=== PATIENT | female | born 1945 | race Caucasian/White ===

== ENCOUNTER 2019-06-22 15:53 | Outpatient (CLI) | payer MEDICARE, OTHER, SELFPAY ==
--- NOTE | 2019-06-22 | USR_ITS ---
PROCEDURE INFORMATION: Exam: US Soft Tissue Head and Neck, Thyroid Exam date and time: 06/22/2019 4:37 PM Age: 74 years old Clinical indication: Abnormal findings; Abnormal radiologic study of neck; Prior surgery; Surgery date: 6+ months; Surgery type: Right thyroidectomy; Additional info: Hypothyroidism, thyroid nodule TECHNIQUE: Imaging protocol: Real-time ultrasound scan of the neck with image documentation. Exam focused on the thyroid. COMPARISON: US thyroid [id number] 05/10/2018 9:08 AM FINDINGS: Right thyroid lobe: The right thyroid lobe is absent. Left thyroid lobe: The left thyroid lobe measures 3.9 x 1.4 x 1.5 cm. 0.5 cm septated colloid cyst. Additional tiny benign cysts. 0.5 cm calcified nodule in the posterior lobe. Isthmus: The isthmus measures 3.3 mm. US/US thyroid [id number] IMPRESSION: 1. Subcentimeter Ti-rads TR4 nodule in the left thyroid lobe. No follow-up recommended.
== END 2019-06-22 15:54 | disposition home or self-care (01) ==
LOC: RAD 15:57
PROVIDERS: Family Provider Family Medicine; PCP Family Medicine; Visit Provider Family Medicine
DX: D64.9 Anemia, unspecified (principal); E03.9 Hypothyroidism, unspecified; E04.1 Nontoxic single thyroid nodule; I49.3 Ventricular premature depolarization; I10 Essential (primary) hypertension
CPT/HCPCS: 76536

== ENCOUNTER 2020-01-21 15:19 | Outpatient (CLI) | payer MEDICARE, OTHER, SELFPAY ==
--- NOTE | 2020-01-21 15:27 | MM_ITS ---
WS: [id number] BILATERAL SCREENING DIGITAL MAMMOGRAM WITH CAD HISTORY: SCREENING COMPARISON: 12/21/2018, 12/02/2017 and 10/24/2014 Bilateral CC and MLO views submitted. Computer aided detection analyzed. Breast composition: There are scattered areas of fibroglandular density. No suspicious masses, microc alcifications or architectural distortion. Asymmetry with adjacent calcification in the medial LEFT b reast has been stable over multiple prior years. Benign calcifications in each breast. MM/[place] [id number] IMPRESSION: BI-RADS: 2-Benign FOLLOW UP: 1 Year Follow-up
== END 2020-01-21 15:20 | disposition home or self-care (01) ==
PROVIDERS: PCP Family Medicine; Visit Provider Family Medicine
DX: Z12.31 Encounter for screening mammogram for malignant neoplasm of breast (principal)
CPT/HCPCS: 77067

== ENCOUNTER 2020-04-03 10:21 | Outpatient (CLI) | payer MEDICARE, OTHER, SELFPAY ==
--- NOTE | 2020-04-03 10:37 | XR_ITS ---
WS: [id number] Right hip, AP and frog-leg views, AP pelvis, 04/03/2020 Clinical Data: R HIP PAIN- TO INCLUDE PELVIS Comparison: None. Findings: No fractures or dislocations are seen. The right hip hip joint is intact. The soft tissues are not re markable. The adjacent pelvis is normal. Left hip is unremarkable. The SI joints and pubic symphysis are normal. XR/XR hip RT 2-3V wo/w pel* [id number] Impression: Negative AP pelvis and left hip.
== END 2020-04-03 10:22 | disposition home or self-care (01) ==
LOC: RAD 10:27
PROVIDERS: PCP Family Medicine; Visit Provider Family Medicine
DX: M25.551 Pain in right hip (principal)
CPT/HCPCS: 73502

== ENCOUNTER 2020-07-22 07:03 | Inpatient (IN) | payer MEDICARE, OTHER, SELFPAY ==
[2020-07-22] VITALS (98 sets, daily range): BP systolic 71–185; BP diastolic 39–125; PULSE 89–203; RESP 14–39; TEMP 36.8–38.2; O2SAT 79–100; BMI 38.1
--- NOTE | 2020-07-22 07:16 | XRR_ITS ---
PROCEDURE INFORMATION: Exam: XR Chest Exam date and time: 07/22/2020 7:17 AM Age: 75 years old Clinical indication: Cough and dyspnea and shortness of breath; Additional info: Dyspnea/cough TECHNIQUE: Imaging protocol: XR of the chest Views: 1 view. COMPARISON: CR Chest 1 [place] [id number] 10/31/2018 10:04 PM FINDINGS: Tubes, catheters and devices: Surgical clips overlie the cervicothoracic junction right of midline. Lungs: Mild coarsening or thickening of the interstitium lower right lung without focally prominent consolidation. Pleural spaces: Unremarkable. No pleural effusion. No pneumothorax. Heart/Mediastinum: Cardiomediastinal silhouette is similar. Vasculature: Calcified thoracic aorta. Bones/joints: Unremarkable. XR/XR chest 1V portable [id number] IMPRESSION: Mild interstitial thickening right lower lung likely on a chronic basis..
--- NOTE | 2020-07-22 07:29 | ECG_ITS ---
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1945 Requested By: Madan Rush Order Number: [id number] Jamil MD: ESPERANZA PRYOR Measurements Intervals [place] Rate: 115 P: -7 NM: 138 QRS: -45 QRSD: 145 T: 85 QT: 355 QTc: 493 Interpretive Statements SINUS TACHYCARDIA LEFT AXIS DEVIATION [QRS AXIS < -30] LEFT BUNDLE BRANCH BLOCK [120+ ms QRS DURATION, 80+ ms Q/S IN V1/V2, 85+ ms R IN I/aVL/V5/V6] Compared to ECG 11/01/2018 05:01:03 Left-axis deviation now present Left bundle-branch block now present Sinus rhythm no longer present Electronically Signed On 07-22-2020 19:58:31 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
--- NOTE | 2020-07-22 07:30 | W.ED.NAVMDI ---
HPI - Nausea/Vomiting/Diarrhea General: Chief complaint: ER Hold Stated complaint: nausea/ vomiting/ chills/ fever Time Seen by Provider: 07/22/20 07:11 History of Present Illness: HPI Narrative: 75-year-old female presents emergency room with fever cough myalgias began 3 to 4 days ago. She is mildly confused as well. She denies any chest pain she has had nausea vomiting and diarrhea. She denies any anosmia. States she received her first Covid vaccine 4 days ago. Is a history of a left bundle branch block. She has seen Dr. Zapien in the past. She is not had any known history of coronary artery disease. MD elicited complaint: nausea, vomiting and diarrhea Onset (ago): day(s) Description of vomiting: watery Description of diarrhea: semi-solid Associated nausea: Yes Associated abdominal pain: No Severity: moderate Exacerbating factors: movement Relieving factors: rest Associated symtoms: Reports altered mental status, cough, fatigue, fevers/chills, anorexia, malaise, myalgias, nausea, palpitations, short of breath and weakness; Denies anxiety, bloating, change in vision, chest pain, diaphoresis, decreased urine output, dizziness, dysuria, epistaxis, fecal incontinence, headache(s), numbness, rash, syncope, tenesmus or tinnitus Review of Systems Const: Reports: fatigue and malaise; Denies: diaphoresis Eyes: Denies: change in vision ENMT: Denies: epistaxis Card: Reports: palpitations; Denies: chest pain or syncope Resp: Denies: dyspnea, productive cough or non-productive cough GI: Reports: nausea; Denies: bloating or fecal incontinence : Denies: dysuria Skin/Breast: Denies: rash or pruritus Neuro: Denies: headache(s) or dizziness Psych: Denies: anxiety PFSH ED PFSH: Medical History (Updated 07/25/20 @ 16:41 by Madan Sifuentes DO) Benign essential HTN Chest pain Dyslipidemia (high LDL; low HDL) Hypertension Left bundle branch block Ventricular arrhythmia Surgical History H/O breast biopsy H/O lumpectomy H/O thyroidectomy History of hysterectomy Hx of tonsillectomy Family History Other Cancer Hypertension Stroke Denies family history of Diabetes Hyperlipidemia Family history of premature coronary artery disease Social History Smoking and tobacco status: never smoked Alcohol intake: never Physical Exam Const: COMMON NORMALS: no acute distress EXAM LIMITATIONS: altered mental status GENERAL APPEARANCE: cooperative and comfortable ORIENTATION/CONSCIOUSNESS: Yes awake, Yes oriented to person, Yes oriented to place and Yes oriented to time HENMT: COMMON NORMALS: normocephalic, atraumatic, hearing grossly normal bilaterally, external ears normal, EAC's normal, TM's normal bilaterally, Normal nasal mucous membranes and turbinates present, moist oral mucous membranes and oropharynx normal HEAD & SCALP: normocephalic and atraumatic NOSE: Normal nasal mucous membranes and turbinates present EXTERNAL EAR: Yes external ears normal EXTERNAL AUDITORY CANAL: EAC's normal TYMPANIC MEMBRANE: TM's normal bilaterally Eye: COMMON NORMALS: Equal, round and reactive pupils present, EOMs intact bilaterally, conjunctivae normal and no scleral icterus CONJUNCTIVA: Yes conjunctivae normal PUPIL: Yes Equal, round and reactive pupils present Neck/C-Spine: COMMON NORMALS: full ROM, no lymphadenopathy, supple and no JVD Lymph: LYMPHATIC: no lymphadenopathy noted and no lymphedema noted Resp: COMMON NORMALS: normal respiratory effort, No retractions, No use of accessory muscles and clear to auscultation bilaterally AUSCULTATION: clear to auscultation bilaterally Cardio: COMMON NORMALS: no JVD, regular rate, regular rhythm and No murmurs present (Cardio) RATE: regular rate RHYTHM: regular rhythm GI: COMMON NORMALS: Soft to palpation and No hepatosplenomegaly present AUSCULTATION: Yes normoactive bowel sounds PALPATION: Yes Soft to palpation, No Tenderness to palpation present (GI), No Guarding due to palpation present (GI) and Yes No hepatosplenomegaly present Extremity: COMMON NORMALS: normal to inspection, capillary refill normal, no clubbing, cyanosis or edema, no calf tenderness and no pedal edema Neuro: SENSORIUM/ORIENTATION: Yes oriented to person, Yes oriented to place and Yes oriented to time Skin: COMMON NORMALS: no rashes or lesions noted GENERAL SKIN EXAM: no rashes or lesions noted Procedures Intubation Time out performed: Yes sedative: Etomidate paralytic: Succinylcholine Laryngoscope: fiber optic video scope Assist Device Used: fiber optic device ET Tube Size: 8.5 ET Tube Uncuffed: No Tube Secured Depth (cm): 22 Tube Secured Location: teeth Tube Placement Confirmation: visualized tube passing through cords, equal breath sounds bilaterally, no breath sounds over epigastrium and confirmation by capnometry Patient Tolerated Procedure: well Intubation Complications: none Course Vital Signs: Vital signs: Vital Signs Temperature 98.2 F 07/25/20 15:15 Pulse Rate 80 07/25/20 15:15 Respiratory Rate 24 H 07/25/20 15:15 Blood Pressure 111/60 07/25/20 15:15 Pulse Oximetry 93 07/25/20 15:15 MDM - Nausea/Vomiting/Diarrhea MDM Narrative: Medical decision making narrative: Initial troponin elevated second troponin markedly elevated heparin was started further work-up done patient appears to be septic as well as having an NSTEMI is also concerned because of her history of diarrhea correlating with this in the respiratory failure that she may have Covid so she was tested for that as well. PCR is pending rapid antigen negative. She was given a fluid bolus because of hypotension and then developed heart failure and went into respiratory failure and was ultimately intubated. Patient has been heparinized is currently stated will transfer to the ICU consult cardiology and hospitalist services. Lab Data: Labs: Lab Results 07/22/20 07/22/20 07/22/20 Range/Units 07:35 07:35 07:35 WBC 9.1 (4.0-10.0) 10^3/ uL RBC 3.93 L (4.1-5.3) 10^6/u L Hgb 11.3 L (11.5-15.3) g/dL Hct 34.0 L (37.0-47.0) % MCV 86.5 (81-99) fL MCH 28.8 (28.0-34.0) pg MCHC 33.2 (30.0-36.0) g/dL RDW 13.5 (12.1-15.1) % Plt Count 112 L (130-400) 10^3/c mm MPV 10.3 (7.4-10.4) fL Neut % (Auto) 91.2 % Lymph % (Auto) 5.3 % Coleman % (Auto) 2.8 % Eos % (Auto) 0.0 % Baso % (Auto) 0.3 % Neut # (Auto) 8.32 H (1.8-7.7) 10^3/u L Lymph # (Auto) 0.5 L (0.8-4.8) 10^3/u L Coleman # (Auto) 0.3 (0.2-0.9) 10^3/u L Eos # (Auto) 0.0 (0.0-0.8) 10^3/u L Baso # (Auto) 0.0 (0.0-0.1) 10^3/u L Nucleated RBC % (a uto) 0 % Nucleated RBCs # 0.0 /100WBC Specimen Type Sample Site ABG pH (7.35-7.45) ABG pCO2 (35-45) mmHg ABG pO2 (80.0-100.0) mmH g ABG HCO3 (22-26) mmol/L ABG O2 Saturation ABG Base Excess (-2.0-2.0) mmol/ L Brandan Test A-a O2 Gradient (5-10) mmHg Hematocrit (37-47) % Hgb O2 Saturation (95-100) % Carboxyhemoglobin (0.4-20.1) %THgb Methemoglobin (0.4-1.5) % Total Hemoglobin (12-16) g/dL Ionized Calcium (1.1-1.4) mmol/L O2 Delivery Device O2 Liters/Min % Steward/Stewardess Economy Class ID Sodium 129 L (136-145) mmol/L Potassium 3.4 L (3.5-5.1) mmol/L Chloride 92 L (98-107) mmol/L Carbon Dioxide 19 L (22-29) mmol/L Anion Gap 21.4 H (5-19) BUN 20 (8-23) mg/dL Creatinine 1.3 H (0.5-0.9) mg/dL GFR Calculation Not Reportable Glucose 143 H (65-115) mg/dL Calculated Osmolal ity 273 L (285-295) mOsm/k g Lactic Acid 2.9 H (0.5-2.2) mmol/L Lactic Acid (Sepsi s) (0.5-2.2) mmol/L Calcium 8.3 L (8.5-10.5) mg/dL Magnesium 1.6 L (1.7-2.3) mg/dL Total Bilirubin 1.2 (0.15-1.2) mg/dL AST 30 (0-32) U/L ALT 15 (0-33) U/L Alkaline Phosphata se 90 (35-105) IU/L Creatine Kinase 262 H (26-192) U/L Troponin T Baselin e (0-10) ng/L Troponin T 120 Min rincon (0-10) ng/L Delta Troponin T (0-10) ABS# Total Protein 6.4 L (6.6-8.7) g/dL Albumin 3.5 (3.5-5.2) g/dL Globulin 2.9 (1.3-4.6) g/dL Lipase 34 (13-60) U/L Urine Color (Yellow) Urine Appearance (CLEAR) Urine pH (5-7) Ur Specific Gravit y (1.005-1.030) Urine Protein (Negative) Urine Glucose (UA) (Normal) Urine Ketones (Negative) Urine Blood (Negative) Urine Nitrate (Negative) Urine Bilirubin (Negative) Urine Urobilinogen (Negative) mg/dL Ur Leukocyte Kinsey ase (Negative) Urine RBC (0-2) /hpf Urine WBC (0-5) /hpf Ur Squamous Epith Cells (0-5) /hpf Amorphous Sediment Urine Bacteria (NONE) /hpf Nasal/Oral COVID-1 9 PCR SARS-CoV-2 Ag (Rap id) (Negative) 07/22/20 07/22/20 07/22/20 Range/Units 07:35 07:45 07:55 WBC (4.0-10.0) 10^3/ uL RBC (4.1-5.3) 10^6/u L Hgb (11.5-15.3) g/dL Hct (37.0-47.0) % MCV (81-99) fL MCH (28.0-34.0) pg MCHC (30.0-36.0) g/dL RDW (12.1-15.1) % Plt Count (130-400) 10^3/c mm MPV (7.4-10.4) fL Neut % (Auto) % Lymph % (Auto) % Coleman % (Auto) % Eos % (Auto) % Baso % (Auto) % Neut # (Auto) (1.8-7.7) 10^3/u L Lymph # (Auto) (0.8-4.8) 10^3/u L Coleman # (Auto) (0.2-0.9) 10^3/u L Eos # (Auto) (0.0-0.8) 10^3/u L Baso # (Auto) (0.0-0.1) 10^3/u L Nucleated RBC % (a uto) % Nucleated RBCs # /100WBC Specimen Type Arterial Sample Site Radial, right ABG pH 7.51 H (7.35-7.45) ABG pCO2 28.0 L (35-45) mmHg ABG pO2 110.0 H (80.0-100.0) mmH g ABG HCO3 22.4 (22-26) mmol/L ABG O2 Saturation 99.3 ABG Base Excess 0.1 (-2.0-2.0) mmol/ L Brandan Test Pos A-a O2 Gradient 0.5 L (5-10) mmHg Hematocrit 32.6 L (37-47) % Hgb O2 Saturation 97.6 (95-100) % Carboxyhemoglobin 0.7 (0.4-20.1) %THgb Methemoglobin 1.1 (0.4-1.5) % Total Hemoglobin 10.6 L (12-16) g/dL Ionized Calcium 1.1 (1.1-1.4) mmol/L O2 Delivery Device Nc O2 Liters/Min 2.0 % Steward/Stewardess Economy Class ID [place] Sodium 129.0 L (136-145) mmol/L Potassium 2.8 L (3.5-5.1) mmol/L Chloride (98-107) mmol/L Carbon Dioxide (22-29) mmol/L Anion Gap (5-19) BUN (8-23) mg/dL Creatinine (0.5-0.9) mg/dL GFR Calculation Glucose 137.0 H (65-115) mg/dL Calculated Osmolal ity (285-295) mOsm/k g Lactic Acid (0.5-2.2) mmol/L Lactic Acid (Sepsi s) (0.5-2.2) mmol/L Calcium (8.5-10.5) mg/dL Magnesium (1.7-2.3) mg/dL Total Bilirubin (0.15-1.2) mg/dL AST (0-32) U/L ALT (0-33) U/L Alkaline Phosphata se (35-105) IU/L Creatine Kinase (26-192) U/L Troponin T Baselin e 127 H* (0-10) ng/L Troponin T 120 Min rincon (0-10) ng/L Delta Troponin T (0-10) ABS# Total Protein (6.6-8.7) g/dL Albumin (3.5-5.2) g/dL Globulin (1.3-4.6) g/dL Lipase (13-60) U/L Urine Color (Yellow) Urine Appearance (CLEAR) Urine pH (5-7) Ur Specific Gravit y (1.005-1.030) Urine Protein (Negative) Urine Glucose (UA) (Normal) Urine Ketones (Negative) Urine Blood (Negative) Urine Nitrate (Negative) Urine Bilirubin (Negative) Urine Urobilinogen (Negative) mg/dL Ur Leukocyte Kinsey ase (Negative) Urine RBC (0-2) /hpf Urine WBC (0-5) /hpf Ur Squamous Epith Cells (0-5) /hpf Amorphous Sediment Urine Bacteria (NONE) /hpf Nasal/Oral COVID-1 9 PCR SARS-CoV-2 Ag (Rap id) Negative (Negative) 07/22/20 07/22/20 07/22/20 Range/Units 09:30 10:00 10:00 WBC (4.0-10.0) 10^3/ uL RBC (4.1-5.3) 10^6/u L Hgb (11.5-15.3) g/dL Hct (37.0-47.0) % MCV (81-99) fL MCH (28.0-34.0) pg MCHC (30.0-36.0) g/dL RDW (12.1-15.1) % Plt Count (130-400) 10^3/c mm MPV (7.4-10.4) fL Neut % (Auto) % Lymph % (Auto) % Coleman % (Auto) % Eos % (Auto) % Baso % (Auto) % Neut # (Auto) (1.8-7.7) 10^3/u L Lymph # (Auto) (0.8-4.8) 10^3/u L Coleman # (Auto) (0.2-0.9) 10^3/u L Eos # (Auto) (0.0-0.8) 10^3/u L Baso # (Auto) (0.0-0.1) 10^3/u L Nucleated RBC % (a uto) % Nucleated RBCs # /100WBC Specimen Type Sample Site ABG pH (7.35-7.45) ABG pCO2 (35-45) mmHg ABG pO2 (80.0-100.0) mmH g ABG HCO3 (22-26) mmol/L ABG O2 Saturation ABG Base Excess (-2.0-2.0) mmol/ L Brandan Test A-a O2 Gradient (5-10) mmHg Hematocrit (37-47) % Hgb O2 Saturation (95-100) % Carboxyhemoglobin (0.4-20.1) %THgb Methemoglobin (0.4-1.5) % Total Hemoglobin (12-16) g/dL Ionized Calcium (1.1-1.4) mmol/L O2 Delivery Device O2 Liters/Min % Steward/Stewardess Economy Class ID Sodium (136-145) mmol/L Potassium (3.5-5.1) mmol/L Chloride (98-107) mmol/L Carbon Dioxide (22-29) mmol/L Anion Gap (5-19) BUN (8-23) mg/dL Creatinine (0.5-0.9) mg/dL GFR Calculation Glucose (65-115) mg/dL Calculated Osmolal ity (285-295) mOsm/k g Lactic Acid (0.5-2.2) mmol/L Lactic Acid (Sepsi s) 1.5 (0.5-2.2) mmol/L Calcium (8.5-10.5) mg/dL Magnesium (1.7-2.3) mg/dL Total Bilirubin (0.15-1.2) mg/dL AST (0-32) U/L ALT (0-33) U/L Alkaline Phosphata se (35-105) IU/L Creatine Kinase (26-192) U/L Troponin T Baselin e (0-10) ng/L Troponin T 120 Min rincon 595.8 H (0-10) ng/L Delta Troponin T 468.8 H* (0-10) ABS# Total Protein (6.6-8.7) g/dL Albumin (3.5-5.2) g/dL Globulin (1.3-4.6) g/dL Lipase (13-60) U/L Urine Color (Yellow) Urine Appearance (CLEAR) Urine pH (5-7) Ur Specific Gravit y (1.005-1.030) Urine Protein (Negative) Urine Glucose (UA) (Normal) Urine Ketones (Negative) Urine Blood (Negative) Urine Nitrate (Negative) Urine Bilirubin (Negative) Urine Urobilinogen (Negative) mg/dL Ur Leukocyte Kinsey ase (Negative) Urine RBC (0-2) /hpf Urine WBC (0-5) /hpf Ur Squamous Epith Cells (0-5) /hpf Amorphous Sediment Urine Bacteria (NONE) /hpf Nasal/Oral COVID-1 9 PCR Not detected SARS-CoV-2 Ag (Rap id) (Negative) 07/22/20 Range/Units 10:20 WBC (4.0-10.0) 10^3/ uL RBC (4.1-5.3) 10^6/u L Hgb (11.5-15.3) g/dL Hct (37.0-47.0) % MCV (81-99) fL MCH (28.0-34.0) pg MCHC (30.0-36.0) g/dL RDW (12.1-15.1) % Plt Count (130-400) 10^3/c mm MPV (7.4-10.4) fL Neut % (Auto) % Lymph % (Auto) % Coleman % (Auto) % Eos % (Auto) % Baso % (Auto) % Neut # (Auto) (1.8-7.7) 10^3/u L Lymph # (Auto) (0.8-4.8) 10^3/u L Coleman # (Auto) (0.2-0.9) 10^3/u L Eos # (Auto) (0.0-0.8) 10^3/u L Baso # (Auto) (0.0-0.1) 10^3/u L Nucleated RBC % (a uto) % Nucleated RBCs # /100WBC Specimen Type Sample Site ABG pH (7.35-7.45) ABG pCO2 (35-45) mmHg ABG pO2 (80.0-100.0) mmH g ABG HCO3 (22-26) mmol/L ABG O2 Saturation ABG Base Excess (-2.0-2.0) mmol/ L Brandan Test A-a O2 Gradient (5-10) mmHg Hematocrit (37-47) % Hgb O2 Saturation (95-100) % Carboxyhemoglobin (0.4-20.1) %THgb Methemoglobin (0.4-1.5) % Total Hemoglobin (12-16) g/dL Ionized Calcium (1.1-1.4) mmol/L O2 Delivery Device O2 Liters/Min % Steward/Stewardess Economy Class ID Sodium (136-145) mmol/L Potassium (3.5-5.1) mmol/L Chloride (98-107) mmol/L Carbon Dioxide (22-29) mmol/L Anion Gap (5-19) BUN (8-23) mg/dL Creatinine (0.5-0.9) mg/dL GFR Calculation Glucose (65-115) mg/dL Calculated Osmolal ity (285-295) mOsm/k g Lactic Acid (0.5-2.2) mmol/L Lactic Acid (Sepsi s) (0.5-2.2) mmol/L Calcium (8.5-10.5) mg/dL Magnesium (1.7-2.3) mg/dL Total Bilirubin (0.15-1.2) mg/dL AST (0-32) U/L ALT (0-33) U/L Alkaline Phosphata se (35-105) IU/L Creatine Kinase (26-192) U/L Troponin T Baselin e (0-10) ng/L Troponin T 120 Min rincon (0-10) ng/L Delta Troponin T (0-10) ABS# Total Protein (6.6-8.7) g/dL Albumin (3.5-5.2) g/dL Globulin (1.3-4.6) g/dL Lipase (13-60) U/L Urine Color Yellow (Yellow) Urine Appearance Cloudy (CLEAR) Urine pH 5 (5-7) Ur Specific Gravit y 1.020 (1.005-1.030) Urine Protein 3+ H (Negative) Urine Glucose (UA) Norm (Normal) Urine Ketones Negative (Negative) Urine Blood 2+ H (Negative) Urine Nitrate Negative (Negative) Urine Bilirubin Neg (Negative) Urine Urobilinogen 1 H (Negative) mg/dL Ur Leukocyte Kinsey ase 2+ H (Negative) Urine RBC 0-4 H (0-2) /hpf Urine WBC Too numerous to c nt H (0-5) /hpf Ur Squamous Epith Cells 0-4 H (0-5) /hpf Amorphous Sediment Not Reportable Urine Bacteria 4+ H (NONE) /hpf Nasal/Oral COVID-1 9 PCR SARS-CoV-2 Ag (Rap id) (Negative) Critical Care Time Critical Care Time: Critical Care Time: Yes Total Critical Care Time: 120 Attestation: This case had a high probability of a clinically significant, sudden, or life threatening deterioration of this patient's condition which required my full and direct attention, intervention and personal management. Discharge Plan Discharge Patient Disposition: Admitted As Inpatient Admit Provider: Chuckie Kasper Clinical Impression: Non-ST elevation myocardial infarction (NSTEMI), Hypotension, Congestive heart failure, Sepsis associated hypotension, Severe sepsis, Dehydration with hyponatremia, Acute respiratory failure with hypoxia, Urinary tract infection, Chronic kidney disease, stage 3, Anemia Condition: Stable Coding Level of Care Code ED Web Applications Developer for 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
[2020-07-22] MEDS: ondansetron 2 mg/ML SDV 2 mL 4 MG IVP (07:36)
[2020-07-22] MEDS: sodium chloride 0.9% 1,000 ML 999 ML IV (07:36)
[2020-07-22 07:58] LABS: Basophils % 0.3 %; Hemoglobin 11.3 g/dL (11.5-15.3); Lymphocytes # 0.5 10^3/uL (0.8-4.8); Lymphocytes % 5.3 %; Mean Corpuscular HGB Conc 33.2 g/dL (30.0-36.0); Mean Corpuscular Hemoglobin 28.8 pg (28.0-34.0); Mean Corpuscular Volume 86.5 fL (81-99); Mean Platelet Volume 10.3 fL (7.4-10.4); Monocytes # 0.3 10^3/uL (0.2-0.9); Monocytes % 2.8 %; Neutrophils # 8.32 10^3/uL (1.8-7.7); Neutrophils % 91.2 %; Nucleated Red Blood Cells % 0 %; Platelet Count 112 10^3/cmm (130-400); Red Blood Count 3.93 10^6/uL (4.1-5.3); Red Cell Distribution Width 13.5 % (12.1-15.1); White Blood Count 9.1 10^3/uL (4.0-10.0)
[2020-07-22 08:06] LABS: ABG PH Result 7.51 (7.35-7.45); Alveolar-Arterial Oxygen Gradi 0.5 mmHg (5-10); Arterial Blood Gas Hematocrit 32.6 % (37-47); Base Excess ABG 0.1 mmol/L (-2.0-2.0); Blood Gas Allen Test Pos; Blood Gas Operator Identificat MONRO; Blood Gas Sample Site Radial, right; Blood Gas Sample Type Arterial; Carboxyhemoglobin 0.7 %THgb (0.4-20.1); HCO3 ABG 22.4 mmol/L (22-26); HGB O2 Sat 97.6 % (95-100); Ionized Calcium Level - ABG 1.1 mmol/L (1.1-1.4); Methemoglobin 1.1 % (0.4-1.5); Oxygen Device NC; Oxygen Saturation ABG 99.3; Potassium Level - ABG 2.8 mmol/L (3.5-5.0); Total Hemoglobin 10.6 g/dL (12-16)
[2020-07-22 08:10] LABS: Alanine Aminotransferase 15 U/L (0-33); Albumin Level 3.5 g/dL (3.5-5.2); Alkaline Phosphatase 90 IU/L (35-105); Anion Gap 21.4 (5-19); Aspartate Amino Transferase 30 U/L (0-32); Blood Urea Nitrogen 20 mg/dL (8-23); Calcium 8.3 mg/dL (8.5-10.5); Carbon Dioxide 19 mmol/L (22-29); Chloride 92 mmol/L (98-107); Creatine Phosphokinase 262 U/L (26-192); Globulin 2.9 g/dL (1.3-4.6); Glucose 143 mg/dL (65-115); Lipase 34 U/L (13-60); Magnesium 1.6 mg/dL (1.7-2.3); Osmolality Calculated 273 mOsm/kg (285-295); Potassium 3.4 mmol/L (3.5-5.1); Sodium 129 mmol/L (136-145); Total Bilirubin 1.2 mg/dL (0.15-1.2); Total Protein 6.4 g/dL (6.6-8.7)
[2020-07-22 08:12] LABS: Lactic Sepsis W/Reflex 2.9 mmol/L (0.5-2.2)
[2020-07-22 08:19] LABS: Troponin(5th) Baseline 127 ng/L (0-10)
[2020-07-22 08:43] LABS: SARS Covid-2 Antigen Negative (Negative)
--- NOTE | 2020-07-22 09:29 | ECG_ITS ---
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1945 Requested By: Madan Rush Order Number: [id number] Reading MD: ESPERANZA PRYOR Measurements Intervals [place] Rate: 90 P: 13 MS: 138 QRS: -33 QRSD: 149 T: 93 QT: 404 QTc: 496 Interpretive Statements SINUS RHYTHM LEFT AXIS DEVIATION [QRS AXIS < -30] LEFT BUNDLE BRANCH BLOCK [120+ ms QRS DURATION, 80+ ms Q/S IN V1/V2, 85+ ms R IN I/aVL/V5/V6] Compared to ECG 07/22/2020 07:17:22 Sinus tachycardia no longer present Electronically Signed On 07-22-2020 20:01:30 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
[2020-07-22 09:38] LABS: Reflex Lactate Order REFLEX LACTIC ORDERD
[2020-07-22] MEDS: levofloxacin-dextrose 5 % 750 MG/150 ML PREMIX 100 MG IV (10:14)
[2020-07-22 10:34] LABS: Lactic Acid level (Lactate) 1.5 mmol/L (0.5-2.2)
[2020-07-22 10:38] LABS: Blood Urine 2+ (Negative); Glucose Urine UA Norm (Normal); Ketones Urine Negative (Negative); Protein Urine 3+ (Negative); Urine Appearance Cloudy (CLEAR); Urine Color Yellow (Yellow); pH Urine 5 (5-7)
[2020-07-22 10:39] LABS: Add Urine Microscopic? YES; Bilirubin Urine Neg (Negative); Leukocyte Esterase Urine 2+ (Negative); Nitrate Urine Negative (Negative); Urobilinogen Urine 1 mg/dL (Negative)
[2020-07-22 10:44] LABS: Troponin 5 2HR 595.8 ng/L (0-10); Troponin 5 2HR Delta 468.8 ABS# (0-10)
[2020-07-22 10:52] LABS: Add Urine Culture? Yes; Bacteria Urine 4+ /hpf; RBC Urine 0-4 /hpf (0-2); Squamous Epithelial Cell Urine 0-4 /hpf (0-5); WBC Urine TOO NUMEROUS TO CNT /hpf (0-5)
[2020-07-22] MEDS: heparin drip 25,000 UNIT/500 ML PREMIX 60.2 UNIT IV (11:05)
[2020-07-22] MEDS: heparin 5,000 unit/mL INJ 1 mL 4000 UNIT IVP (11:06)
--- NOTE | 2020-07-22 12:03 | CT_ITS ---
WS: [id number] CT CHEST ANGIOGRAPHY WITH REFORMATS HISTORY: Tachycardia and dyspnea. TECHNIQUE: Contiguous axial images are obtained through the chest during arterial injection of intrav enous contrast. Images are reconstructed to evaluate the pulmonary arteries. MIP imaging also reviewe d. All CT scans at [facility] use at least one of these dose optimization techniques: aut omated exposure control; mA and/or kV adjustment per patient size (includes targeted exams where dose is matched to clinical indication); or iterative reconstruction. CONTRAST: Visipaque 320; 95 mL IV. DLP: 587.49 mGy.cm COMPARISON: 06/12/2013 Limited opacification of the pulmonary arteries. Centrally and through the lobar branches no pulmonar y embolism. Into the segmental and subsegmental branches the opacification is limited due to breathin g motion artifact. Mild atherosclerosis aorta. Lungs are hyperinflated. Diffuse haziness from edema and CHF. There is significant motion artifact fr om breathing. Stable millimeter nodule RIGHT upper lobe. No significant effusions. Additional stable 11 mm nodule in the RIGHT upper lobe. Mediastinal and hilar lymphadenopathy is probably reactive. Lym ph nodes measure up to 11 mm in diameter. Heart size is mildly enlarged. There is a moderate hiatal h ernia. Increase in thoracic kyphosis. CT/CT angio chest PE protcl [id number] IMPRESSION: 1. Study is significantly limited by motion artifact. 2. No central pulmonary embolism. 3. Chronic emphysema with mild to moderate CHF and fluid overload. 4. Mild cardiomegaly. 5. Moderate hiatal hernia.
[2020-07-22] MEDS: iodixanol 320 mg/mL 100mL Btl IV (12:36)
[2020-07-22] MEDS: propofol 1,000 MG/100 ML INJ 12.5 MG IV (13:08)
--- NOTE | 2020-07-22 13:10 | XRR_ITS ---
PROCEDURE INFORMATION: Exam: XR Chest Exam date and time: 07/22/2020 1:21 PM Age: 75 years old Clinical indication: Device placement; Ett placement (vent status); Additional info: Post intubation TECHNIQUE: Imaging protocol: XR of the chest Views: 1 view. COMPARISON: CR XR chest 1V portable [id number] 07/22/2020 7:21 AM FINDINGS: Tubes, catheters and devices: Endotracheal tube 3.5 cm above the [place]oston. NG tube extends into the stomach. Lungs: Bilateral hilar vascular congestion suggesting pulmonary edema increased since prior examination. No consolidation. Pleural spaces: Unremarkable. No pleural effusion. No pneumothorax. Heart/Mediastinum: Unremarkable. No cardiomegaly. Bones/joints: Unremarkable. XR/XR chest 1V portable [id number] IMPRESSION: 1. Bilateral hilar pulmonary edema 2. Endotracheal tube is above the boston. 3. NG tube is in the stomach.
[2020-07-22] MEDS: propofol 10 mg/mL SDV 20 mL 50 MG IVP (13:11)
[2020-07-22] MEDS: propofol 10 mg/mL SDV 20 mL 30 MG IVP (13:20)
[2020-07-22] MEDS: fentaNYL 50 mcg/mL INJ 2mL 100 MCG IVP (13:21)
[2020-07-22] MEDS: succinylcholine 20 mg/mL SDV 10mL 120 MG IVP (13:28)
--- NOTE | 2020-07-22 13:29 | ECG_ITS ---
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1945 Requested By: Madan Rush Order Number: [id number] Reading MD: ESPERANZA PRYOR Measurements Intervals [place] Rate: 134 P: -67 MS: 119 QRS: -23 QRSD: 137 T: 86 QT: 306 QTc: 458 Interpretive Statements JUNCTIONAL TACHYCARDIA LEFT BUNDLE BRANCH BLOCK [120+ ms QRS DURATION, 80+ ms Q/S IN V1/V2, 85+ ms R IN I/aVL/V5/V6] Compared to ECG 07/22/2020 09:54:06 Junctional tachycardia now present Sinus rhythm no longer present Left-axis deviation no longer present Electronically Signed On 07-22-2020 20:01:17 TOWN MANAGER by ESPERANZA PRYOR [id number] f
--- NOTE | 2020-07-22 13:38 | PC.NURSE ---
Rounded on pt at 1255 d/t elevated HR. Pt was noted to be shaking with sats dropping to 68% on oxygen. Pt placed on 15L NRB with improvement to 80s. Pt was intubated by Dr Sifuentes. See MAR for med administration times. Pt intubated with 8.5Fr tube at 1302, 22 at the gumline. OG placed at 1307, XR for placement at 1313. Pt was given 2 IVP bolus doses of Propofol for sedation by Dr Sifuentes. See vs flowsheet. Vent settings upon intubation as follows: TV 450, RR 14, FiO2 100%, PEEP 10.
--- NOTE | 2020-07-22 13:53 | PC.NURSE ---
2nd EKG was done at 1321 to show Junctional Tachycardia
[2020-07-22 14:18] LABS: ABG PH Result 7.32 (7.35-7.45); Base Excess ABG -9.6 mmol/L (-2.0-2.0); Blood Gas Allen Test Pos; Blood Gas Operator Identificat MONRO; Blood Gas Sample Site Radial, right; Blood Gas Sample Type Arterial; Carboxyhemoglobin 0.3 %THgb (0.4-20.1); HCO3 ABG 15.3 mmol/L (22-26); HGB O2 Sat 98.9 % (95-100); Ionized Calcium Level - ABG 1.1 mmol/L (1.1-1.4); Oxygen Device VENT; Oxygen Saturation ABG > 100.0; Total Hemoglobin 11.1 g/dL (12-16)
[2020-07-22 14:19] LABS: Alveolar-Arterial Oxygen Gradi 33.1 mmHg (5-10); Blood Gas Tidal Volume 0.45
[2020-07-22 14:54] LABS: Troponin 5 6HR 609.8 ng/L (0-10); Troponin 5 6HR Delta 482.8 ng/L (0-12)
[2020-07-22] MEDS: lidocaine 1% 5 ML in potassium chloride premix 100 ML 25 ML IV (16:46)
[2020-07-22] MEDS: FUROsemide 10 mg/mL SDV 4mL 40 MG IVP (16:50)
--- NOTE | 2020-07-22 18:00 | PM.CONSULT ---
Providers/Reason For Consult Consulting Physican/Specialty*: SARAH Zapien MD/cardiology Reason for Consult*: Patient is elevated troponin T/heart failure Attending Physician: Chuckie Kasper MD Primary Care Provider: Oscar Quigley MD History of Present Illness History of Present Illness Lacey Burgess is a 75 year old female presented to the emergency room today with complaints of nausea, vomiting, diarrhea, low-grade fever and shortness of breath. She was found to have features of sepsis in the emergency room evaluation. She was given IV fluid in the emergency room. She subsequently went into respiratory distress for which she had to be intubated. Currently she is on a vent. She is on 40% of oxygen. Based on the history from the family numbers, she was feeling very sick over the weekend. Initially she started having the nausea and vomiting followed by the diarrhea. She was running a low-grade fever. Yesterday morning, she started having shortness of breath as well. The symptoms were getting worse. She denies any hemoptysis. No hematemesis or melena. She had some abdominal discomfort. No other specific complaints. She has a history of high blood pressure, left bundle branch block, ventricular arrhythmia, dyslipidemia and? CVA. She had a cardiac catheterization many years ago at the [facility] and was told to be okay. She had a myocardial perfusion imaging 5 years ago which was unremarkable. Review of Systems Narrative: CONSTITUTIONAL: No fever or chills. EYES: No blurring of vision or other visual disturbances lately. ENT: No hoarseness of voice, auditory disturbances or sore throat. CARDIOVASCULAR: As mentioned above. RESPIRATORY: Shortness of breath as mentioned above. GASTROINTESTINAL: Nausea, vomiting and diarrhea as mentioned above. GENITOURINARY: No dysuria or hematuria. INTEGUMENTARY: No skin rashes or history of skin cancer. NEURO: No transient ischemic attacks or amaurosis. PSYCHIATRIC: No history of psychosis or major depression. HEMATOLOGIC: No bleeding disorders or significant anemia. ENDOCRINE: No history of polyuria or polydipsia. MUSCULOSKELETAL: No recent joint pain or swelling. ALLERGY/IMMUNOLOGY: As mentioned above. Meds/Allergies Home Medications and Allergies Home Medications Medication Instructions Recorded Confirmed Last Taken Type aspirin 81 mg tablet,delayed 81 mg PO QAM 07/09/19 07/22/20 07/21/20 History release cetirizine 10 mg tablet 10 mg PO BEDTIME tab 07/09/19 07/22/20 Unknown History cholecalciferol (vitamin D3) 50 2,000 unit PO DAILY 07/09/19 07/22/20 Unknown History mcg (2,000 unit) tablet famotidine 40 mg tablet 40 mg PO DAILY 07/09/19 07/22/20 07/21/20 History levothyroxine 25 mcg capsule 25 mcg PO QAM 07/09/19 07/22/20 07/21/20 History polyethylene glycol 3350 17 gram 17 gm PO DAILY PRN 07/09/19 07/22/20 Unknown History oral powder packet docusate sodium 100 mg capsule 200 mg PO DAILY 01/07/20 07/22/20 Unknown History hydrochlorothiazide 12.5 mg tablet 25 mg PO QAM tab 01/07/20 07/22/20 07/21/20 History metoprolol tartrate 25 mg tablet See Rx Instructions .ROUTE 01/21/20 07/22/20 Unknown History .COMPLEX tab acetaminophen [Tylenol Extra 500 mg PO PRN 07/22/20 07/22/20 Unknown History Strength] albuterol sulfate [ProAir HFA] 2 puff INHALATION Q4H PRN 07/22/20 07/22/20 Unknown History Allergies Allergy/AdvReac Type Severity Reaction Status Date / Time codeine Allergy Unknown unknown Verified 07/22/20 12:51 fosinopril [From Monopril] Allergy Unknown unknown Verified 07/22/20 12:51 paroxetine [From Paxil] Allergy Unknown unknown Verified 07/22/20 12:51 Sulfa (Sulfonamide Allergy Unknown unknown Verified 07/22/20 12:51 Antibiotics) Current Medications Current Medications Generic Name Dose Route Start Last Admin Trade Name Freq PRN Reason Stop Dose Admin Heparin Sodium/Sodium Chloride 25,000 unit in 500 mls @ 0 mls/hr 07/22/20 10:45 07/22/20 11:05 Heparin Drip IV 29 unit/kg/hr .Q0M ALFRED 60.2 mls/hr Administration Protocol Per Protocol Propofol 1,000 mg in 100 mls @ 0 mls/hr 07/22/20 13:15 07/22/20 16:59 Diprivan IV Infused .Q0M ALFRED Titration Protocol Per Protocol Midazolam HCl 100 mg/ Sodium 100 mls @ 0 mls/hr 07/22/20 16:30 07/22/20 16:44 Chloride IV 1 mg/hr .Q0M ALFRED 1 mls/hr Administration Protocol Per Protocol PFSH Acute PFSH: Medical History Benign essential HTN Chest pain Dyslipidemia (high LDL; low HDL) Hypertension Left bundle branch block Ventricular arrhythmia Surgical History H/O breast biopsy H/O lumpectomy H/O thyroidectomy History of hysterectomy Hx of tonsillectomy Family History Other Cancer Hypertension Stroke Denies family history of Diabetes Hyperlipidemia Family history of premature coronary artery disease Social History Smoking and tobacco status: never smoked Alcohol intake: never Vitals/I&O/Wt Last Vital Signs Temp 99.5 F 07/22/20 16:01 Pulse 103 H 07/22/20 17:57 Resp 18 07/22/20 17:57 BP 94/59 07/22/20 17:57 Pulse Ox 97 07/22/20 17:57 07/22/20 07/22/20 07/22/20 06:59 14:59 22:59 Intake Total 4268.69 / 4268.69 100 / 4368.69 Balance 4268.69 / 4268.69 100 / 4368.69 Weight last 48 hrs Weight 229 lb Physical Exam Narrative: EXAM NARRATIVE: GENERAL: The patient is currently intubated but is responding to questions appropriately HEENT: No significant pallor, icterus or lymphadenopathy. The pupils are reactant to light. Oral cavity: There are no mucous membrane lesions. Funduscopic examination: Fundus is not visualized NECK: Trachea appears to be central. No masses noted. No JVD or thyromegaly appreciated. No carotid bruit. [] RESPIRATORY: Chest is symmetrical. No intercostals muscle retraction or any accessory muscle activation. There is no chest wall tenderness. Breath sounds are heard bilaterally. Few fine rales at the bases no evidence of any consolidation. [] BREASTS: Deferred. [] HEART: The heart sounds are normal. No S3. S4 present. No significant murmurs. ABDOMEN: No vessel pulsations or distention. No tenderness. No organomegaly appreciated. No abdominal bruit. Bowel sounds are normally heard. [] : Deferred. [] RECTAL: Deferred. [] LYMPHATIC: No lymphadenopathy noted in the neck. EXTREMITIES: No significant edema or cyanosis. Peripheral pulses are palpable but weak bilaterally. MUSCULOSKELETAL: No acute joint deformities or swelling. SKIN: There are no significant rashes. NEUROPSYCHIATRIC: Patient is intubated and minimally sedated. No focal motor deficits. Urinary Catheter Management^: Turner: Cath Placed During This Visit: yes Urinary Catheter Date of Insertion: 07/22/20 Urinary Catheter Time of Insertion: 11:13 Data Micro: Micro: Microbiology 07/22/20 13:20 Gram Stain - Final Sputum - Endotrac heal Wash 07/22/20 10:00 Blood Culture - Pr eliminary Blood SPECIMEN COLLE JOCE 07/22/20 07:35 Blood Culture - Pr eliminary Blood SPECIMEN [facility] A&P Assessment and plan (1) Non-ST elevation myocardial infarction (NSTEMI): Patient has a history of left bundle branch block. Most likely she had a non-ST relation myocardial infarction. For further evaluation of the cardiac status, an echocardiogram would be helpful. She may be started on IV heparin. Also may start her on Plavix, aspirin and a statin. Status: Acute (2) Hypotension: This could be multifactorial. We may use dopamine on a as needed basis. Status: Acute (3) Congestive heart failure: LV dysfunction coupled with the fluid overload might have caused the acute decompensation. Currently she is saturating fairly well. Continue careful IV diuresis Status: Acute (4) Left bundle branch block: She has a chronic intermittent bundle branch block. Status: Acute (5) Ventricular arrhythmia: Currently the patient has no evidence of ventricular arrhythmia. Status: Acute (6) Sepsis associated hypotension: Management as per the primary Status: Acute Additional A&P Information After reviewing the above and also based on the patient's clinical progress, further recommendations will be made. Thank you for the opportunity to evaluate this patient make these recommendations. Consult Attestations Medical Necessity Statement: Patient requires ICU admission for close monitoring and management. Coding Level of Care Code Acute Entrepreneurship Program Director for Daisy Mitchell Diagnoses Non-ST elevation myocardial infarction (NSTEMI) I21.4 Hypotension I95.9 Congestive heart failure I50.9 Left bundle branch block I44.7 Ventricular arrhythmia I49.9 Sepsis associated hypotension A41.9; I95.9
--- NOTE | 2020-07-22 18:13 | USCV_ITS ---
Aditya Lacey Age: 75 Gender: F : 1945 Exam Date: 07/22/2020 18:15 Ordering Phys: Monica Zapien MD ([email or web address]) Technologist: César Emerson Exam Location: [facility] [place] Indication: TX BP: 93 / 60 HR: 110 Rhythm: Sinus Technical Quality: Adequate MEASUREMENTS (Male / Female) Normal Values 2D ECHO LV Diastolic Diameter PLAX 3.9 cm 4.2 - 5.9 / 3.9 - 5.3 cm LV Systolic Diameter PLAX 2.3 cm IVS Diastolic Thickness 0.7 cm 0.6 - 1.0 / 0.6 - 0.9 cm IVS Systolic Thickness 1.4 cm LVPW Diastolic Thickness 1.0 cm 0.6 - 1.0 / 0.6 - 0.9 cm LVPW Systolic Thickness 1.1 cm LVOT Diameter 2.1 cm LV Ejection Fraction 2D Teich 71.8 % LV Ejection Fraction MOD 2C 32.6 % LV Ejection Fraction 2C AL 32.8 % LA Diameter 3.7 cm M-MODE LV Diastolic Diameter MM 3.9 cm 4.2 - 5.9 / 3.9 - 5.3 cm LV Systolic Diameter MM 2.9 cm LV Ejection Fraction MM Teich 50.7 % IVS Diastolic Thickness MM 1.1 cm 0.6 - 1.0 / 0.6 - 0.9 cm IVS Systolic Thickness MM 0.9 cm LVPW Diastolic Thickness MM 1.3 cm 0.6 - 1.0 / 0.6 - 0.9 cm LVPW Systolic Thickness MM 0.0 cm RV Diastolic Diameter MM 1.7 cm Aortic Annulus Diameter 3.3 cm LA Ao Ratio MM 1.3 MV E Point Septal Separation 0.4 cm DOPPLER AV Peak Velocity 140.0 cm/s LVOT Peak Velocity 94.0 cm/s AV Area Cont Eq vti 2.7 cm squared AV Area Cont Eq pk 2.2 cm squared TR Peak Velocity 235.7 cm/s TR Peak Gradient 22.2 mmHg TV Peak E Velocity 95.0 cm/s Right Atrial Pressure 3.0 mmHg Pulmonary Artery Systolic Pressu 25.2 mmHg FINDINGS Left Ventricle Somewhat dyskinetic mid and apical septum and anteroseptal segments. Diffuse hypokinesia of the apex. LV ejection fraction around 40% Right Ventricle The right ventricle appears to be of normal size and ejection fraction. Right Atrium The right atrium is normal in size. Left Atrium The left atrium is normal in size. Mitral Valve Mildly thickened mitral valve. Mild mitral annular calcification. Aortic Valve No gross abnormalities noted . Tricuspid Valve No gross abnormalities noted. Pulmonic Valve Structurally normal pulmonic valve without significant stenosis. There is no pulmonic regurgitation. Pericardium No pericardial effusion. Aorta Normal ascending aorta dimension. CONCLUSIONS Normal LV size with a diminished ejection fraction of 40%. Wall motion abnormalities as mentioned above. Mildly thickened mitral valve. Mild mitral annular calcification. No significant stenotic or regurgitant lesions. Technically somewhat difficult study because of the poor ultrasonic window Dr Monica Zapien MD FACC (Electronically Signed) Final Date: 23 July 2020 06:33 S
--- NOTE | 2020-07-22 18:19 | PM.CONSULT ---
Providers/Reason For Consult Attending Physician: Chuckie Kasper MD Primary Care Provider: Oscar Quigley MD History of Present Illness History of Present Illness Lacey Burgess is a 75 year old female Meds/Allergies Home Medications and Allergies Home Medications Medication Instructions Recorded Confirmed Last Taken Type aspirin 81 mg tablet,delayed 81 mg PO QAM 07/09/19 07/22/20 07/21/20 History release cetirizine 10 mg tablet 10 mg PO BEDTIME tab 07/09/19 07/22/20 Unknown History cholecalciferol (vitamin D3) 50 2,000 unit PO DAILY 07/09/19 07/22/20 Unknown History mcg (2,000 unit) tablet famotidine 40 mg tablet 40 mg PO DAILY 07/09/19 07/22/20 07/21/20 History levothyroxine 25 mcg capsule 25 mcg PO QAM 07/09/19 07/22/20 07/21/20 History polyethylene glycol 3350 17 gram 17 gm PO DAILY PRN 07/09/19 07/22/20 Unknown History oral powder packet docusate sodium 100 mg capsule 200 mg PO DAILY 01/07/20 07/22/20 Unknown History hydrochlorothiazide 12.5 mg tablet 25 mg PO QAM tab 01/07/20 07/22/20 07/21/20 History metoprolol tartrate 25 mg tablet See Rx Instructions .ROUTE 01/21/20 07/22/20 Unknown History .COMPLEX tab acetaminophen [Tylenol Extra 500 mg PO PRN 07/22/20 07/22/20 Unknown History Strength] albuterol sulfate [ProAir HFA] 2 puff INHALATION Q4H PRN 07/22/20 07/22/20 Unknown History Allergies Allergy/AdvReac Type Severity Reaction Status Date / Time codeine Allergy Unknown unknown Verified 07/22/20 12:51 fosinopril [From Monopril] Allergy Unknown unknown Verified 07/22/20 12:51 paroxetine [From Paxil] Allergy Unknown unknown Verified 07/22/20 12:51 Sulfa (Sulfonamide Allergy Unknown unknown Verified 07/22/20 12:51 Antibiotics) Current Medications Current Medications Generic Name Dose Route Start Last Admin Trade Name Freq PRN Reason Stop Dose Admin Heparin Sodium/Sodium Chloride 25,000 unit in 500 mls @ 0 mls/hr 07/22/20 10:45 07/22/20 11:05 Heparin Drip IV 29 unit/kg/hr .Q0M ALFRED 60.2 mls/hr Administration Protocol Per Protocol Propofol 1,000 mg in 100 mls @ 0 mls/hr 07/22/20 13:15 07/22/20 16:59 Diprivan IV Infused .Q0M ALFRED Titration Protocol Per Protocol Midazolam HCl 100 mg/ Sodium 100 mls @ 0 mls/hr 07/22/20 16:30 07/22/20 16:44 Chloride IV 1 mg/hr .Q0M ALFRED 1 mls/hr Administration Protocol Per Protocol PFSH Acute PFSH: Medical History (Updated 07/22/20 @ 19:18 by Chuckie Kasper MD) Benign essential HTN Chest pain Dyslipidemia (high LDL; low HDL) Hypertension Left bundle branch block Ventricular arrhythmia Surgical History H/O breast biopsy H/O lumpectomy H/O thyroidectomy History of hysterectomy Hx of tonsillectomy Family History Other Cancer Hypertension Stroke Denies family history of Diabetes Hyperlipidemia Family history of premature coronary artery disease Social History Smoking and tobacco status: never smoked Alcohol intake: never Vitals/I&O/Wt Last Vital Signs Temp 99.5 F 07/22/20 16:01 Pulse 103 H 07/22/20 17:57 Resp 18 07/22/20 17:57 BP 94/59 07/22/20 17:57 Pulse Ox 97 07/22/20 17:57 07/22/20 07/22/20 07/22/20 06:59 14:59 22:59 Intake Total 4268.69 / 4268.69 100 / 4368.69 Balance 4268.69 / 4268.69 100 / 4368.69 Weight last 48 hrs Weight 229 lb Physical Exam Urinary Catheter Management^: Turner: Cath Placed During This Visit: yes Urinary Catheter Date of Insertion: 07/22/20 Urinary Catheter Time of Insertion: 11:13 Data Micro: Micro: Microbiology 07/22/20 13:20 Gram Stain - Final Sputum - Endotrac heal Wash 07/22/20 10:00 Blood Culture - Pr eliminary Blood SPECIMEN COLLEC JOCE 07/22/20 07:35 Blood Culture - Pr eliminary Blood SPECIMEN COLLE JOCE Coding Level of Care Code Acute Esthetician Permanent Makeup Artist for Daisy Mitchell
--- NOTE | 2020-07-22 18:47 | PM.HP ---
Providers/Chief Complaint Admitting Physician: Chuckie Kasper MD Primary Care Provider: Oscar Quigley MD Chief Complaint: nausea/ vomiting/ chills/ fever History of Present Illness Lacey Burgess is a 75 year old female presents to emerge department with fever, cough myalgia and mild confusion for the last 3 to 4 days. She also noted to have episodes of diarrhea in emergency department. She denies any chest pain, nausea and vomiting when she presented but did complain of left arm pain. She was clinically very dry and hypotensive and was given 3 L of IV fluids. She developed acute hypoxic respite failure with oxygen saturation in the 60s as I was told requiring immediate intubation. She was given Levaquin for urinary tract infection. She was initially started on fentanyl and propofol but because of hypotension propofol was switched to Versed. During my evaluation in ED patient's blood pressure is in low 90s over 60s. She had echocardiogram and EF appears to be 45 to 50% on preliminary report. Patient is sedated, Bowman score 1-2. She had fever 100.7 in ER. She is tachycardic in 120s. Discussed with patient's Bill. He reports that patient had previous history of urinary tract infections and had bladder suspension surgery previously done. Review of Systems Narrative: Unable to obtain since patient is intubated and sedated does not appear to have chest pain but reported left arm pain Medications/Allergies Home Medications Medication Instructions Recorded Confirmed Last Taken Type aspirin 81 mg tablet,delayed 81 mg PO QAM 07/09/19 07/22/20 07/21/20 History release cetirizine 10 mg tablet 10 mg PO BEDTIME tab 07/09/19 07/22/20 Unknown History cholecalciferol (vitamin D3) 50 2,000 unit PO DAILY 07/09/19 07/22/20 Unknown History mcg (2,000 unit) tablet famotidine 40 mg tablet 40 mg PO DAILY 07/09/19 07/22/20 07/21/20 History levothyroxine 25 mcg capsule 25 mcg PO QAM 07/09/19 07/22/20 07/21/20 History polyethylene glycol 3350 17 gram 17 gm PO DAILY PRN 07/09/19 07/22/20 Unknown History oral powder packet docusate sodium 100 mg capsule 200 mg PO DAILY 01/07/20 07/22/20 Unknown History hydrochlorothiazide 12.5 mg tablet 25 mg PO QAM tab 01/07/20 07/22/20 07/21/20 History metoprolol tartrate 25 mg tablet See Rx Instructions .ROUTE 01/21/20 07/22/20 Unknown History .COMPLEX tab acetaminophen [Tylenol Extra 500 mg PO PRN 07/22/20 07/22/20 Unknown History Strength] albuterol sulfate [ProAir HFA] 2 puff INHALATION Q4H PRN 07/22/20 07/22/20 Unknown History Allergies Allergy/AdvReac Type Severity Reaction Status Date / Time codeine Allergy Unknown unknown Verified 07/22/20 12:51 fosinopril [From Monopril] Allergy Unknown unknown Verified 07/22/20 12:51 paroxetine [From Paxil] Allergy Unknown unknown Verified 07/22/20 12:51 Sulfa (Sulfonamide Allergy Unknown unknown Verified 07/22/20 12:51 Antibiotics) PFSH Acute PFSH: Medical History (Updated 07/22/20 @ 19:18 by Chuckie Kasper MD) Benign essential HTN Chest pain Dyslipidemia (high LDL; low HDL) Hypertension Left bundle branch block Ventricular arrhythmia Surgical History H/O breast biopsy H/O lumpectomy H/O thyroidectomy History of hysterectomy Hx of tonsillectomy Family History Other Cancer Hypertension Stroke Denies family history of Diabetes Hyperlipidemia Family history of premature coronary artery disease Social History Smoking and tobacco status: never smoked Alcohol intake: never Vitals/I&O/Wt Last Vital Signs Temp 99.5 F 07/22/20 16:01 Pulse 103 H 07/22/20 17:57 Resp 20 H 07/22/20 18:38 BP 94/59 07/22/20 17:57 Pulse Ox 97 07/22/20 17:57 07/22/20 07/22/20 07/22/20 06:59 14:59 22:59 Intake Total 4268.69 / 4268.69 100 / 4368.69 Balance 4268.69 / 4268.69 100 / 4368.69 Weight last 48 hrs Weight 103.873 kg Physical Exam Narrative: EXAM NARRATIVE: Patient is intubated and sedated. Extraocular muscles are intact and conjunctiva is clear, nonicteric. Mucosa is dry. Neck is supple. No lymphadenopathy appreciated. Heart is regular and lungs are clear. Abdomen is soft and appears to be tender throughout. Positive bowel sounds. Lower extremities show no edema. Neurological exam showed no focal motor deficit on gross examination. Skin without lesions, no joint swelling noted. Good peripheral pulses. Urinary Catheter Management^: Turner: Cath Placed During This Visit: yes Urinary Catheter Date of Insertion: 07/22/20 Urinary Catheter Time of Insertion: 11:13 Data : 07/22/20 07:35 07/22/20 07:35 Micro: Microbiology 07/22/20 13:20 Gram Stain - Final Sputum - Endotracheal Wash 07/22/20 10:00 Blood Culture - Preliminary Blood SPECIMEN COLLECTED 07/22/20 07:35 Blood Culture - Preliminary Blood SPECIMEN COLLECTED A&P Assessment and plan (1) Non-ST elevation myocardial infarction (NSTEMI): Status: Acute (2) Severe sepsis: As exhibited by tachycardia, tachypnea, fever and hypotension. WBC was 9.1 Status: Acute (3) Hypotension: Appears to be multifactorial with dehydration and septic shock playing a role. Status: Acute (4) Dehydration with hyponatremia: Status: Acute (5) Thrombocytopenia: Appears to be related to infection. Status: Acute (6) Acute respiratory failure with hypoxia: Status: Acute (7) Acute systolic heart failure: Status: Acute (8) Urinary tract infection: Status: Acute (9) Hypokalemia: Status: Acute (10) Hypomagnesemia: Status: Acute (11) Obesity (BMI 30-39.9): Status: Acute (12) Dyslipidemia (high LDL; low HDL): Status: Acute (13) Chronic kidney disease, stage 3: Status: Acute Additional A&P Information PLAN: Admit to ICU. We will keep patient intubated throughout night and hopefully if blood pressure improves we can extubate early in the morning. We will continue with LR at 75 mL/h with monitoring of her cardiopulmonary status. She is currently on 40% FiO2 and PEEP of 8 saturating in the mid 90s. We will start patient on Primaxin and vancomycin and await urine culture. Once patient stabilized and extubated we can proceed with further cardiac evaluation. We will continue patient currently on heparin drip with monitoring of hemoglobin and platelets. Discussed with Dr. Zapien who prefers dopamine over Levophed for blood pressure support. Unfortunately cannot use nitroglycerin. Will restart patient's metoprolol in attempt to bring down heart rate. Monitor BP and adjust medications as needed. Keep Turner catheter in for close I's and O's. Patient received contrast today and if tomorrow patient's abdominal pain is not better or if lactic acid comes back significantly elevated we will proceed with CT scan of abdomen and pelvis. Attestations Medical Necessity Statement*: Patient with non-ST elevation AR as well as respiratory failure requires close ICU monitoring and treatment. I expect patient will require more than 2 midnights. Critical Care Time: Critical Care Time (min): 60 Coding Level of Care Code Acute Environmental Services Attendant for Daisy Mitchell Diagnoses Non-ST elevation myocardial infarction (NSTEMI) I21.4 Severe sepsis A41.9; R65.20 Hypotension I95.9 Dehydration with hyponatremia E86.0; E87.1 Thrombocytopenia D69.6 Acute respiratory failure with hypoxia J96.01 Acute systolic heart failure I50.21 Urinary tract infection N39.0 Hypokalemia E87.6 Hypomagnesemia E83.42 Obesity (BMI 30-39.9) E66.9 Dyslipidemia (high LDL; low HDL) E78.5 Chronic kidney disease, stage 3 N18.30
--- NOTE | 2020-07-22 20:00 | PC.NURSE ---
called for Critical PTT greater than 250. Heparin turned off and ptt ordered for 2329. Will monitor for bleeding.
[2020-07-22] MEDS: atorvastatin 40 mg Tablet 80 MG PO (20:05)
[2020-07-22] MEDS: cetirizine 10 mg Tablet PO (20:06)
[2020-07-22] MEDS: lactated ringers 1,000 ML 75 ML IV (20:07)
--- NOTE | 2020-07-22 20:22 | PC.PHAR ---
Vancomycin is dosed at 1250mg IVPB every 24 hours to produce a predicted trough level of 15.09 (population based pharmacokinetic analysis). A trough level has been ordered from the lab to be obtained before the fourth dose to confirm and adjust if needed.
[2020-07-22 20:24] LABS: Lactic Sepsis W/Reflex 1.7 mmol/L (0.5-2.2)
[2020-07-22] MEDS: vancomycin 1,250 MG/250 ML PIGGYBACK 250 MG IV (20:33)
[2020-07-22 21:15] LABS: Partial Thromboplastin Time > 250.0 SECONDS (23.9-36.7)
[2020-07-22] MEDS: DOPamine drip 400 MG/250 ML PREMIX 19.5 MG IV (21:45)
[2020-07-23] VITALS (183 sets, daily range): BP systolic 71–127; BP diastolic 42–85; PULSE 75–161; RESP 14–34; TEMP 36.7; O2SAT 72–100
--- NOTE | 2020-07-23 00:15 | PC.NURSE ---
Will continue to hold heparin for 2 hours due to 179 ptt. NOtified MD. Will redraw PTT at 0230.
[2020-07-23 00:46] LABS: Partial Thromboplastin Time 179.8 SECONDS (23.9-36.7)
[2020-07-23 02:58] LABS: Basophils # 0.1 10^3/uL (0.0-0.1); Basophils % 0.3 %; Eosinophils % 0.1 %; Hematocrit 26.8 % (37.0-47.0); Lymphocytes # 1.3 10^3/uL (0.8-4.8); Lymphocytes % 8.5 %; Mean Corpuscular HGB Conc 33.6 g/dL (30.0-36.0); Mean Corpuscular Hemoglobin 28.8 pg (28.0-34.0); Mean Corpuscular Volume 85.6 fL (81-99); Mean Platelet Volume 10.2 fL (7.4-10.4); Monocytes # 1.8 10^3/uL (0.2-0.9); Neutrophils # 11.46 10^3/uL (1.8-7.7); Nucleated Red Blood Cells % 0 %; Platelet Count 108 10^3/cmm (130-400); Red Blood Count 3.13 10^6/uL (4.1-5.3); Red Cell Distribution Width 14.4 % (12.1-15.1); White Blood Count 14.9 10^3/uL (4.0-10.0)
[2020-07-23] MEDS: metoprolol tartrate 25 mg Tablet OG-TUBE (03:00)
[2020-07-23 03:04] LABS: Partial Thromboplastin Time 69.9 SECONDS (23.9-36.7)
[2020-07-23 03:24] LABS: Alanine Aminotransferase 12 U/L (0-33); Albumin Level 2.6 g/dL (3.5-5.2); Alkaline Phosphatase 115 IU/L (35-105); Anion Gap 15.6 (5-19); Aspartate Amino Transferase 40 U/L (0-32); Blood Urea Nitrogen 23 mg/dL (8-23); Calcium 7.7 mg/dL (8.5-10.5); Carbon Dioxide 19 mmol/L (22-29); Chloride 103 mmol/L (98-107); Glucose 98 mg/dL (65-115); Osmolality Calculated 282 mOsm/kg (285-295); Potassium 3.6 mmol/L (3.5-5.1); Sodium 134 mmol/L (136-145); Total Bilirubin 1.2 mg/dL (0.15-1.2); Total Protein 5.6 g/dL (6.6-8.7)
[2020-07-23 03:33] LABS: Magnesium 2.1 mg/dL (1.7-2.3)
--- NOTE | 2020-07-23 03:37 | PC.NURSE ---
Ptt at 69.9. notified and going to resume heparin at 20 ml/hr and redraw ptt at 0600.
[2020-07-23] MEDS: heparin drip 25,000 UNIT/500 ML PREMIX 20 UNIT IV (03:43)
[2020-07-23 05:27] LABS: ABG PCO2 28.9 mmHg (35-45); Arterial Blood Gas Hematocrit 30.8 % (37-47); Base Excess ABG -5.9 mmol/L (-2.0-2.0); Blood Gas Allen Test Pos; Blood Gas Operator Identificat JB; Blood Gas Sample Site Brachial, right; Blood Gas Sample Type Arterial; Blood Gas Tidal Volume 0.45; HCO3 ABG 17.9 mmol/L (22-26); Oxygen Device VENT
--- NOTE | 2020-07-23 06:54 | P.PN_ITS ---
Subjective Subjective: Interval history: Patient's oxygenation is improving. He is currently on FiO2 30%. Still remains intubated. There are blood pressure was running low through the night. He was started on dopamine drip which was later on switched to Levophed. She also went into atrial fibrillation in the commercial retoucher. Denies any chest pain. She is complaining of epigastric discomfort. No fever or chills. Medications: Reviewed: Yes Medication Review Details: Current Medications Acetaminophen (Acetaminophen 500 Mg Tablet) 500 mg PO Q4H PRN PRN Reason: MILD PAIN OR INCREASE TEMP Albuterol Sulfate (Albuterol 8 Gm Mdi) 2 puff INHALATION Q4H PRN PRN Reason: Shortness Of Breath Aspirin (Aspirin 81 Mg Ec Tablet) 81 mg PO QAM ALFRED Last Admin: 07/23/20 05:27 Dose: Not Given Documented by: Atorvastatin Calcium (Atorvastatin 40 Mg Tablet) 80 mg PO BEDTIME ALFRED Last Admin: 07/22/20 20:05 Dose: 80 mg Documented by: Cetirizine HCl (Cetirizine 10 Mg Tablet) 10 mg PO BEDTIME ALFRED Last Admin: 07/22/20 20:06 Dose: 10 mg Documented by: Heparin Sodium (Beef Lung) (Heparin 5,000 Unit/Ml Inj 1 Ml) 0 unit IV PRN PRN; Protocol PRN Reason: Heparin weight-base protocol Heparin Sodium/Sodium Chloride (Heparin Drip) 25,000 unit in 500 mls @ 0 mls/hr IV .Q0M ALFRED; Protocol Last Admin: 07/23/20 03:43 Dose: 9.63 unit/kg/hr, 20 mls/hr Documented by: Fentanyl 1,000 mcg/ Sodium (Chloride) 100 mls @ 0 mls/hr IV .Q0M ALFRED; Protocol Last Admin: 07/23/20 06:05 Dose: 50 mcg/hr, 5 mls/hr Documented by: Midazolam HCl 100 mg/ Sodium (Chloride) 100 mls @ 0 mls/hr IV .Q0M ALFRED; Protocol Last Titration: 07/22/20 22:00 Dose: 0 mg/hr, 0 mls/hr Documented by: Dopamine HCl/Dextrose (Intropin Drip) 400 mg in 250 mls @ 19.476 mls/hr IV CONT ALFRED; Protocol Last Titration: 07/23/20 03:42 Dose: 0 mcg/kg/min, 0 mls/hr Documented by: Imipenem/Cilastatin Sodium 500 (mg/ Sodium Chloride) 100 mls @ 200 mls/hr IV Q6H [facility]; Protocol Last Infusion: 07/23/20 02:37 Dose: Infused Documented by: Lactated Ringer's (Lactated Ringers) 1,000 mls @ 75 mls/hr IV .[id number] [facility] Last Admin: 07/22/20 20:07 Dose: 75 mls/hr Documented by: Norepinephrine Bitartrate 4 mg (/ Dextrose) 254 mls @ 0 mls/hr IV .Q0M [facility]; Protocol Last Titration: 07/23/20 05:25 Dose: 10 mcg/min, 38.1 mls/hr Documented by: Vancomycin/PEG/NADA/Lysine/Water (Vancocin) 1,250 mg in 250 mls @ 250 mls/hr IV Q24H [facility] Last Infusion: 07/22/20 21:41 Dose: Infused Documented by: Levothyroxine Sodium (Levothyroxine 25 Mcg Tablet) 25 mcg PO QAM [facility] Last Admin: 07/23/20 05:27 Dose: Not Given Documented by: Metoprolol Tartrate (Metoprolol Tartrate 25 Mg Tablet) 25 mg OG-TUBE BID [facility] Last Admin: 07/23/20 03:00 Dose: 25 mg Documented by: Ondansetron HCl (Ondansetron 2 Mg/Ml Sdv 2 Ml) 4 mg IVP Q6H PRN PRN Reason: NAUSEA AND VOMITING Pantoprazole Sodium (Pantoprazole Dr 40 Mg Tablet) 40 mg PO DAILY [facility] Polyethylene Glycol (Polyethylene Glycol 3350 Pkt 17 Gm) 17 gm PO DAILY PRN PRN Reason: Constipation Vitals/I&O/Wt Last Vital Signs Temp 98.2 F 07/22/20 19:10 Pulse 113 H 07/23/20 06:20 Resp 18 07/23/20 06:08 BP 94/71 07/23/20 06:20 Pulse Ox 97 07/23/20 06:20 07/22/20 07/22/20 07/23/20 14:59 22:59 06:59 Intake Total 4268.69 / 4268.69 1112.267 / 5380.957 261.183 / 5642.140 Output Total 700 / 700 800 / 1500 Balance 4268.69 / 4268.69 412.267 / 4680.957 -538.817 / 4142.140 Weight last 48 hrs Weight 229 lb Weight 229 lb Physical Exam Narrative: EXAM NARRATIVE: GENERAL: The patient is currently intubated HEENT: No significant pallor, icterus or lymphadenopathy.Oral cavity: There are no mucous membrane lesions. NECK: Trachea appears to be central. No masses noted. No JVD or thyromegaly appreciated. RESPIRATORY: Chest is symmetrical. No intercostals muscle retraction or any accessory muscle activation. There is no chest wall tenderness. Breath sounds are heard bilaterally. No rales or rhonchi heard. No evidence of any consolidation. BREASTS: Deferred. HEART: The heart sounds are normal. No S3 or S4. No significant murmurs. No pericardial rub ABDOMEN: No vessel pulsations or distention. No tenderness. No organomegaly appreciated. Bowel sounds are normally heard. : Deferred. RECTAL: Deferred. LYMPHATIC: No lymphadenopathy noted in the neck or groin. EXTREMITIES: No edema or cyanosis. No clubbing. Peripheral pulses are palpated in fairly good volume and amplitude MUSCULOSKELETAL: No acute joint deformities or swelling SKIN: There are no significant rashes or ecchymosis NEUROPSYCHIATRIC: The patient is alert and oriented x3. Appears to be in a good mood. No tremors or rigidity noted. Urinary Catheter Management^: Turner: Cath Placed During This Visit: yes Reason for Continuing Indwelling Catheter: Accurate Measurement of Urinary Output in Critically Ill Patients Urinary Catheter Date of Insertion: 07/22/20 Urinary Catheter Time of Insertion: 11:13 Data : 07/23/20 10:36 07/23/20 02:31 Other Labs: Laboratory Last Values WBC 14.9 10^3/uL (4.0-10.0) H 07/23/20 02:31 RBC 3.13 10^6/uL (4.1-5.3) L 07/23/20 02:31 Hgb 9.0 g/dL (11.5-15.3) L 07/23/20 02:31 Hct 26.8 % (37.0-47.0) L 07/23/20 02:31 MCV 85.6 fL (81-99) 07/23/20 02:31 MCH 28.8 pg (28.0-34.0) 07/23/20 02:31 MCHC 33.6 g/dL (30.0-36.0) 07/23/20 02:31 RDW 14.4 % (12.1-15.1) 07/23/20 02:31 Plt Count 108 10^3/cmm (130-400) L 07/23/20 02:31 MPV 10.2 fL (7.4-10.4) 07/23/20 02:31 Neut % (Auto) 77.0 % 07/23/20 02:31 Lymph % (Auto) 8.5 % 07/23/20 02:31 [place] % (Auto) 12.0 % 07/23/20 02:31 Eos % (Auto) 0.1 % 07/23/20 02:31 Baso % (Auto) 0.3 % 07/23/20 02:31 Neut # (Auto) 11.46 10^3/uL (1.8-7.7) H 07/23/20 02:31 Lymph # (Auto) 1.3 10^3/uL (0.8-4.8) 07/23/20 02:31 [place] # (Auto) 1.8 10^3/uL (0.2-0.9) H 07/23/20 02:31 Eos # (Auto) 0.0 10^3/uL (0.0-0.8) 07/23/20 02:31 Baso # (Auto) 0.1 10^3/uL (0.0-0.1) 07/23/20 02:31 Nucleated RBC % (auto) 0 % 07/23/20 02:31 Nucleated RBCs # 0.0 /100WBC 07/23/20 02:31 APTT 69.9 SECONDS (23.9-36.7) H D 07/23/20 02:31 Specimen Type Arterial 07/23/20 05:14 Sample Site Brachial, right 07/23/20 05:14 ABG pH 7.40 (7.35-7.45) 07/23/20 05:14 ABG pCO2 28.9 mmHg (35-45) L 07/23/20 05:14 ABG pO2 131.0 mmHg (80.0-100.0) H 07/23/20 05:14 ABG HCO3 17.9 mmol/L (22-26) L 07/23/20 05:14 ABG O2 Saturation > 100.0 07/22/20 14:05 ABG Base Excess -5.9 mmol/L (-2.0-2.0) L 07/23/20 05:14 Brandan Test Pos 07/23/20 05:14 A-a O2 Gradient 33.1 mmHg (5-10) H 07/22/20 14:05 Hematocrit 30.8 % (37-47) L 07/23/20 05:14 Hgb O2 Saturation 98.9 % (95-100) 07/22/20 14:05 Carboxyhemoglobin 0.3 %THgb (0.4-20.1) L 07/22/20 14:05 Methemoglobin 1.0 % (0.4-1.5) 07/22/20 14:05 Total Hemoglobin 11.1 g/dL (12-16) L 07/22/20 14:05 Sodium 131.0 mmol/L (131-143) 07/22/20 14:05 Potassium 3.0 mmol/L (3.5-5.0) L 07/22/20 14:05 Glucose 100.0 mg/dL (70-115) 07/22/20 14:05 Ionized Calcium 1.1 mmol/L (1.1-1.4) 07/22/20 14:05 O2 Delivery Device Vent 07/23/20 05:14 O2 Liters/Min 2.0 % 07/22/20 07:55 FiO2 40.0 % 07/23/20 05:14 Tidal Volume 0.45 07/23/20 05:14 PEEP 8.0 cmH20 07/23/20 05:14 Sailboat Captain ID Salas 07/23/20 05:14 Sodium 134 mmol/L (136-145) L 07/23/20 02:31 Potassium 3.6 mmol/L (3.5-5.1) 07/23/20 02:31 Chloride 103 mmol/L (98-107) 07/23/20 02:31 Carbon Dioxide 19 mmol/L (22-29) L 07/23/20 02:31 Anion Gap 15.6 (5-19) 07/23/20 02:31 BUN 23 mg/dL (8-23) 07/23/20 02:31 Creatinine 1.4 mg/dL (0.5-0.9) H 07/23/20 02:31 GFR Calculation Not Reportable 07/23/20 02:31 Glucose 98 mg/dL (65-115) 07/23/20 02:31 Calculated Osmolality 282 mOsm/kg (285-295) L 07/23/20 02:31 Lactic Acid 1.7 mmol/L (0.5-2.2) 07/22/20 19:55 Lactic Acid (Sepsis) 1.5 mmol/L (0.5-2.2) 07/22/20 10:00 Calcium 7.7 mg/dL (8.5-10.5) L 07/23/20 02:31 Magnesium 2.1 mg/dL (1.7-2.3) 07/23/20 02:31 Total Bilirubin 1.2 mg/dL (0.15-1.2) 07/23/20 02:31 AST 40 U/L (0-32) H 07/23/20 02:31 ALT 12 U/L (0-33) 07/23/20 02:31 Alkaline Phosphatase 115 IU/L (35-105) H 07/23/20 02:31 Creatine Kinase 262 U/L (26-192) H 07/22/20 07:35 Troponin T Baseline 127 ng/L (0-10) H* 07/22/20 07:35 Troponin T 120 Minute 595.8 ng/L (0-10) H 07/22/20 10:00 Delta Troponin T 468.8 ABS# (0-10) H* 07/22/20 10:00 Troponin T Hi Sens 6Hr 609.8 ng/L (0-10) H 07/22/20 13:56 Troponin T Hi Sens 6Hr Delta 482.8 ng/L (0-12) H* 07/22/20 13:56 Total Protein 5.6 g/dL (6.6-8.7) L 07/23/20 02:31 Albumin 2.6 g/dL (3.5-5.2) L 07/23/20 02:31 Globulin 3.0 g/dL (1.3-4.6) 07/23/20 02:31 Lipase 34 U/L (13-60) 07/22/20 07:35 Urine Color Yellow (Yellow) 07/22/20 10:20 Urine Appearance Cloudy (CLEAR) 07/22/20 10:20 Urine pH 5 (5-7) 07/22/20 10:20 Ur Specific [place] 1.020 (1.005-1.030) 07/22/20 10:20 Urine Protein 3+ (Negative) H 07/22/20 10:20 Urine Glucose (UA) Norm (Normal) 07/22/20 10:20 Urine Ketones Negative (Negative) 07/22/20 10:20 Urine Blood 2+ (Negative) H 07/22/20 10:20 Urine Nitrate Negative (Negative) 07/22/20 10:20 Urine Bilirubin Neg (Negative) 07/22/20 10:20 Urine Urobilinogen 1 mg/dL (Negative) H 07/22/20 10:20 Ur Leukocyte Esterase 2+ (Negative) H 07/22/20 10:20 Urine RBC 0-4 /hpf (0-2) H 07/22/20 10:20 Urine WBC Too numerous to cnt /hpf (0-5) H 07/22/20 10:20 Ur Squamous Epith Cells 0-4 /hpf (0-5) H 07/22/20 10:20 Amorphous Sediment Not Reportable 07/22/20 10:20 Urine Bacteria 4+ /hpf (NONE) H 07/22/20 10:20 SARS-CoV-2 Ag (Rapid) Negative (Negative) 07/22/20 07:45 Micro: Microbiology 07/22/20 10:00 Blood Culture - Preliminary Blood 07/22/20 13:20 Gram Stain - Final Sputum - Endotracheal Wash 07/22/20 07:35 Blood Culture - Preliminary Blood SPECIMEN COLLECTED Echo: My impression: Echocardiogram from 07/23/2019 revealed Normal LV size with a diminished ejection fraction of 40%. Wall motion abnormalities as mentioned above. Mildly thickened mitral valve. Mild mitral annular calcification. No significant stenotic or regurgitant lesions. Technically somewhat difficult study because of the poor ultrasonic window A&P Assessment and plan (1) Atrial fibrillation with rapid ventricular response: She was given a 0.25 mg IV digoxin for rate control. If the patient continues to remain in atrial fibrillation , May consider cardioversion. Status: Acute (2) Non-ST elevation myocardial infarction (NSTEMI): The echocardiogram was reviewed. Patient may benefit from a cardiac catheterization, to further evaluate the coronary status and decide on further management. However we may wait till her infection is properly treated and the hemodynamics get stable. In the meanwhile, she may be continued on Plavix, aspirin, beta-leida and statin Status: Acute (3) Hypotension: This could be multifactorial. She is currently on Levophed. The blood pressure is 149/109. We may gradually taper off the Levophed. Status: Acute Qualifiers: Hypotension type: other hypotension type Qualified Code(s): I95.89 - Other hypotension (4) Congestive heart failure: LV dysfunction coupled with the fluid overload might have caused the acute decompensation. Currently she is saturating fairly well. Continue careful IV diuresis Status: Acute Qualifiers: Heart failure type: systolic Heart failure chronicity: acute Qualified Code(s): I50.21 - Acute systolic (congestive) heart failure (5) Left bundle branch block: She has a chronic intermittent bundle branch block. Status: Acute (6) Ventricular arrhythmia: Currently the patient has no evidence of ventricular arrhythmia. Status: Acute (7) Sepsis associated hypotension: Management as per the primary Status: Acute Additional A&P Information Based on the patient's the clinical progress, further management decisions will be made. Attestations Medical Necessity Statement*: Patient requires continued hospital stay for close monitoring and further management Coding Level of Care Code Acute Sales Management Intern for [facility] Diagnoses Atrial fibrillation with rapid ventricular response I48.91 Non-ST elevation myocardial infarction (NSTEMI) I21.4 Hypotension I95.89 Hypotension type: other hypotension type Congestive heart failure I50.21 Heart failure type: systolic Heart failure chronicity: acute Left bundle branch block I44.7 Ventricular arrhythmia I49.9 Sepsis associated hypotension A41.9; I95.9
--- NOTE | 2020-07-23 07:59 | P.PN_ITS ---
Subjective Subjective: Interval history: Patient went into A. fib around 10 PM yesterday. Metoprolol was given and patient's blood pressure declined therefore dopamine drip was switched to Levophed as I was told. This morning patient denies shortness of breath or chest pain. Reports some lower abdominal discomfort. Patient had good urinary output. WBC increased to 14.9. Platelets slightly down and hemoglobin is at 9.0. Vitals/I&O/Wt Last Vital Signs Temp 98.2 F 07/22/20 19:10 Pulse 113 H 07/23/20 06:20 Resp 20 H 07/23/20 07:35 BP 94/71 07/23/20 06:20 Pulse Ox 97 07/23/20 06:20 07/22/20 07/23/20 07/23/20 22:59 06:59 14:59 Intake Total 1112.267 / 5380.957 261.183 / 5642.140 Output Total 700 / 700 800 / 1500 Balance 412.267 / 4680.957 -538.817 / 4142.140 Weight last 48 hrs Weight 103.873 kg Weight 103.873 kg Physical Exam Narrative: EXAM NARRATIVE: Patient is intubated and sedated but able to follow commands and answer questions. Heart is irregularly irregular. Breath sounds coarse secondary to mechanical ventilation. No lower extremity edema. Abdomen is soft and slightly tender at the lower abdomen Urinary Catheter Management^: Turner: Cath Placed During This Visit: yes Reason for Continuing Indwelling Catheter: Accurate Measurement of Urinary Output in Critically Ill Patients Urinary Catheter Date of Insertion: 07/22/20 Urinary Catheter Time of Insertion: 11:13 Data : 07/23/20 02:31 07/23/20 02:31 Micro: Microbiology 07/22/20 07:35 Blood Culture - Preliminary Blood NEGATIVE TO DATE 07/22/20 10:00 Blood Culture - Preliminary Blood 07/22/20 13:20 Gram Stain - Final Sputum - Endotracheal Wash A&P Assessment and plan (1) Non-ST elevation myocardial infarction (NSTEMI): Status: Acute (2) Severe sepsis: As exhibited by tachycardia, tachypnea, fever and hypotension. WBC was 9.1 Status: Acute (3) Hypotension: Appears to be multifactorial with dehydration and septic shock playing a role. Status: Acute (4) Dehydration with hyponatremia: Status: Acute (5) Thrombocytopenia: Appears to be related to infection. Status: Acute (6) Acute respiratory failure with hypoxia: Status: Acute (7) Acute systolic heart failure: Status: Acute (8) Urinary tract infection: Status: Acute (9) Hypokalemia: Status: Acute (10) Hypomagnesemia: Status: Acute (11) Obesity (BMI 30-39.9): Status: Acute (12) Dyslipidemia (high LDL; low HDL): Status: Acute (13) Chronic kidney disease, stage 3: Status: Acute Additional A&P Information PLAN: Continue weaning off Levophed drip as blood pressure permits. We will increase metoprolol to 50 mg twice daily. Continue IV fluids for now and once Levophed drip weaned off we can stop fluids as well and attempt to extubate. Discussed with Dr. Zapien this morning. Once we stabilize patient and treat infection we will proceed with coronary angiogram. At this point we will continue antibiotics, Primaxin and vancomycin. Awaiting culture results. Attestations Medical Necessity Statement*: Patient with respiratory failure requiring mechanical ventilation requires close ICU monitoring and treatment. Time Spent in Patient Care: Greater than 35 minutes Coding Level of Care Code Acute Head Of Acquisitions for [facility] Fwd Diagnoses Non-ST elevation myocardial infarction (NSTEMI) I21.4 Severe sepsis A41.9; R65.20 Hypotension I95.9 Dehydration with hyponatremia E86.0; E87.1 Thrombocytopenia D69.6 Acute respiratory failure with hypoxia J96.01 Acute systolic heart failure I50.21 Urinary tract infection N39.0 Hypokalemia E87.6 Hypomagnesemia E83.42 Obesity (BMI 30-39.9) E66.9 Dyslipidemia (high LDL; low HDL) E78.5 Chronic kidney disease, stage 3 N18.30
[2020-07-23] MEDS: digoxin 250 mcg/ml INJ 2 mL IVP (08:51)
[2020-07-23] MEDS: pantoprazole DR 40 mg Tablet PO (08:52)
[2020-07-23] MEDS: clopidogrel 300 mg Tablet PO (08:52)
[2020-07-23] MEDS: metoprolol tartrate 25 mg Tablet 50 MG OG-TUBE ×2 (08:52→18:35)
[2020-07-23] MEDS: lactated ringers 1,000 ML 75 ML IV (10:45)
[2020-07-23 10:56] LABS: Basophils # 0.1 10^3/uL (0.0-0.1); Basophils % 0.4 %; Eosinophils % 0.2 %; Hematocrit 27.7 % (37.0-47.0); Hemoglobin 9.2 g/dL (11.5-15.3); Lymphocytes # 1.1 10^3/uL (0.8-4.8); Lymphocytes % 6.9 %; Mean Corpuscular HGB Conc 33.2 g/dL (30.0-36.0); Mean Corpuscular Hemoglobin 28.9 pg (28.0-34.0); Mean Corpuscular Volume 87.1 fL (81-99); Mean Platelet Volume 11.1 fL (7.4-10.4); Monocytes # 2.3 10^3/uL (0.2-0.9); Monocytes % 13.8 %; Neutrophils # 12.75 10^3/uL (1.8-7.7); Neutrophils % 77.6 %; Nucleated Red Blood Cells % 0 %; Platelet Count 123 10^3/cmm (130-400); Red Blood Count 3.18 10^6/uL (4.1-5.3); Red Cell Distribution Width 14.6 % (12.1-15.1); White Blood Count 16.4 10^3/uL (4.0-10.0)
[2020-07-23 14:11] LABS: Coronavirus Test Green County Not Detected
--- NOTE | 2020-07-23 14:42 | PC.NURSE ---
COVID - called and notified of negative test results and visiting hours.
[2020-07-23 15:00] LABS: Partial Thromboplastin Time 61.2 SECONDS (23.9-36.7)
--- NOTE | 2020-07-23 16:29 | PC.PT ---
Patient remains intubated and sedated, nursing recommends hold PT today
[2020-07-23] MEDS: heparin drip 25,000 UNIT/500 ML PREMIX 16 UNIT IV (16:39)
--- NOTE | 2020-07-23 17:14 | PC.NURSE ---
Extubated at [address] Kasper, RT, this nurse, and patient's at bedside. Tolerated well. Placed on 4lnc. Restraints removed. Patient moves all extremities, voice hoarse. Patient requesting food.
--- NOTE | 2020-07-23 18:46 | PC.NURSE ---
Waste Fentanyl/Versed Fentanyl 64.2 ml wasted Versed 76 ml wasted Verified with Radha Bustamante RN.
[2020-07-23] MEDS: vancomycin 1,250 MG/250 ML PIGGYBACK 250 MG IV (20:12)
[2020-07-23] MEDS: atorvastatin 40 mg Tablet 80 MG PO (20:48)
[2020-07-23] MEDS: amiodarone 200 mg Tablet 400 MG PO (20:48)
[2020-07-23] MEDS: cetirizine 10 mg Tablet PO (20:49)
[2020-07-23 21:52] LABS: Partial Thromboplastin Time 146.9 SECONDS (23.9-36.7)
[2020-07-24] VITALS (134 sets, daily range): BP systolic 102–147; BP diastolic 48–91; PULSE 64–99; RESP 6–39; TEMP 36.7–37; O2SAT 84–100
[2020-07-24 04:12] LABS: Basophils % 0.3 %; Eosinophils # 0.1 10^3/uL (0.0-0.8); Eosinophils % 1.1 %; Hemoglobin 8.4 g/dL (11.5-15.3); Lymphocytes # 1.1 10^3/uL (0.8-4.8); Lymphocytes % 11.9 %; Mean Corpuscular HGB Conc 32.3 g/dL (30.0-36.0); Mean Corpuscular Hemoglobin 28.4 pg (28.0-34.0); Mean Corpuscular Volume 87.8 fL (81-99); Mean Platelet Volume 10.6 fL (7.4-10.4); Monocytes # 1.2 10^3/uL (0.2-0.9); Monocytes % 12.9 %; Neutrophils # 6.57 10^3/uL (1.8-7.7); Neutrophils % 73.1 %; Nucleated Red Blood Cells % 0 %; Platelet Count 103 10^3/cmm (130-400); Red Blood Count 2.96 10^6/uL (4.1-5.3); Red Cell Distribution Width 14.6 % (12.1-15.1)
[2020-07-24 04:22] LABS: Partial Thromboplastin Time 63.3 SECONDS (23.9-36.7)
[2020-07-24 04:33] LABS: Alanine Aminotransferase 11 U/L (0-33); Albumin Level 2.6 g/dL (3.5-5.2); Alkaline Phosphatase 56 IU/L (35-105); Anion Gap 12.1 (5-19); Aspartate Amino Transferase 37 U/L (0-32); Blood Urea Nitrogen 21 mg/dL (8-23); Calcium 8.1 mg/dL (8.5-10.5); Carbon Dioxide 22 mmol/L (22-29); Chloride 100 mmol/L (98-107); Globulin 2.9 g/dL (1.3-4.6); Glucose 87 mg/dL (65-115); Osmolality Calculated 274 mOsm/kg (285-295); Potassium 3.1 mmol/L (3.5-5.1); Sodium 131 mmol/L (136-145); Total Bilirubin 0.7 mg/dL (0.15-1.2); Total Protein 5.5 g/dL (6.6-8.7)
[2020-07-24] MEDS: levothyroxine 25 mcg Tablet PO (05:04)
[2020-07-24] MEDS: aspirin 81 mg EC Tablet PO (05:04)
[2020-07-24] MEDS: potassium chloride ER 20 mEq Tablet 40 MEQ PO ×2 (07:35→13:36)
--- NOTE | 2020-07-24 07:50 | P.PN_ITS ---
Subjective Subjective: Interval history: Patient did well and extubated yesterday evening. This morning patient denies any shortness of breath or chest pain. Reports some dry cough. Her voice is still soft post extubation. Reports that she is hungry and wants to eat. She is currently on amiodarone and was given 1 dose of digoxin last evening. She converted back to normal sinus rhythm. She had 650 urinary output since last night her oxygen was brought down to 1 L this morning and she is saturating 97% during my evaluation. She is normotensive with heart rate in the 80s. Her urine is growing gram-negative patric pending identification and susceptibility. Patient was started on Plavix yesterday in addition to aspirin. Her hemoglobin and platelets slightly down. Vitals/I&O/Wt Last Vital Signs Temp 98.1 F 07/23/20 13:40 Pulse 86 07/24/20 07:30 Resp 17 07/24/20 07:30 BP 128/56 07/24/20 06:00 Pulse Ox 97 07/24/20 07:30 07/23/20 07/24/20 07/24/20 22:59 06:59 14:59 Intake Total 1128.365 / 2730.926 220 / 2950.926 Output Total 750 / 750 650 / 1400 Balance 378.365 / 1980.926 -430 / 1550.926 Weight last 48 hrs Weight 103.5 kg Weight 103.873 kg Physical Exam Narrative: EXAM NARRATIVE: Heart is regular and lungs are clear. No lower extremity edema. Abdomen is soft and slightly tender at the lower abdomen. No focal neurological findings. Urinary Catheter Management^: Turner: Cath Placed During This Visit: yes Reason for Continuing Indwelling Catheter: Accurate Measurement of Urinary Output in Critically Ill Patients Urinary Catheter Date of Insertion: 07/22/20 Urinary Catheter Time of Insertion: 11:13 Data : 07/24/20 03:48 07/24/20 03:48 Micro: Microbiology 07/22/20 13:20 Gram Stain - Final Sputum - Endotracheal Wash Sputum Culture - Preliminary 07/22/20 10:20 Urine Culture - Preliminary Urine,Clean Catch Gram Negative Rods 07/22/20 07:35 Blood Culture - Preliminary Blood NEGATIVE TO DATE 07/22/20 10:00 Blood Culture - Preliminary Blood A&P Assessment and plan (1) Non-ST elevation myocardial infarction (NSTEMI): Status: Acute (2) Severe sepsis: Resolved. Status: Acute (3) Hypotension: Resolved Status: Acute Qualifiers: Hypotension type: other hypotension type Qualified Code(s): I95.89 - Other hypotension (4) Dehydration with hyponatremia: Status: Acute (5) Thrombocytopenia: Appears to be related to infection. Status: Acute (6) Acute respiratory failure with hypoxia: Improved Status: Acute (7) Acute systolic heart failure: EF 40%. Suspected Takotsubo syndrome. Currently appears compensated Status: Acute (8) Urinary tract infection: With gram-negative patric. Awaiting identification and susceptibility Status: Acute (9) Hypokalemia: Status: Acute (10) Hypomagnesemia: Status: Acute (11) Obesity (BMI 30-39.9): Status: Acute (12) Dyslipidemia (high LDL; low HDL): Status: Acute (13) Chronic kidney disease, stage 3: Status: Acute Additional A&P Information PLAN: Replete potassium and advance diet. Discussed with Dr. Zapien this morning. Plan is to take patient to [facility] tomorrow and since platelets and hemoglobin slightly down we will go ahead and stop heparin drip. Awaiting culture results. We will get patient out of bed to chair. Will transfer patient out of ICU to cardiac stepdown unit. Attestations Medical Necessity Statement*: Patient with non-ST elevation LA requires close inpatient monitoring, treatment and evaluation. Time Spent in Patient Care: Greater than 35 minutes Coding Level of Care Code Acute Ager Tender for [facility]wbhakti Diagnoses Non-ST elevation myocardial infarction (NSTEMI) I21.4 Severe sepsis A41.9; R65.20 Hypotension I95.89 Hypotension type: other hypotension type Dehydration with hyponatremia E86.0; E87.1 Thrombocytopenia D69.6 Acute respiratory failure with hypoxia J96.01 Acute systolic heart failure I50.21 Urinary tract infection N39.0 Hypokalemia E87.6 Hypomagnesemia E83.42 Obesity (BMI 30-39.9) E66.9 Dyslipidemia (high LDL; low HDL) E78.5 Chronic kidney disease, stage 3 N18.30
--- NOTE | 2020-07-24 09:06 | PC.CHAP ---
Pastoral Care Encounter/Spiritual Assessment Type of Contact [] Declined log marker visit [] Patient/Family/Request visit [] Outpatient visit [] Follow-up visit [] Physician referral [] Code/Alert [x] Routine visit [] Staff referral [] Actively dying [] Patient sleeping [] Family support [] [] Out of room [] Palliative care [] [] Receiving care in room [] Pre-surgical visit [] Trauma [] Long length of stay [x] ICU visit [] Other: Relational/Emotional Strength [] Patient feels connected with others/family/visitors/staff [] Distress [] Loneliness/isolation [] Abandonment Spirituality of Patient [x] Person of Ilene [] Attends Buddhist of their [place] [] Believes in Prayer [] Reads Bible or Shinto materials [] There are Spiritual issues to be addressed [employer] Interventions [x] Prayer [x] Active listening [x] Non-anxious presence [x] Spiritual/emotional support [] Crisis/trauma care [] Spiritual counseling [] Bereavement support [] Provided bereavement packet [] Provided Bible/devotional materials [] Provided toy/stuffed animal, coloring book to patient or family member [] Provided Communion [] Anointing/[place] [] Salvation [x] Completed spiritual assessment [] Other: Impact on Illness or Injury [] Angry [] Fearful [] Anxious [] Often cries [] Exhaustion [] Unable to work [] Unable to attend holiness [] Unable to walk/stand [] Unable to read [] Unable to drive [] Unable to eat/drink [] Unable to sleep [] Unable to be with family [] Patient intubated [] Other: Summary feeling some better. Time spent with patient 10 min
[2020-07-24] MEDS: clopidogrel 75 mg Tablet PO (09:14)
[2020-07-24] MEDS: amiodarone 200 mg Tablet 400 MG PO ×2 (09:14→18:44)
[2020-07-24] MEDS: pantoprazole DR 40 mg Tablet PO (09:14)
[2020-07-24] MEDS: metoprolol tartrate 50 mg Tablet PO ×2 (09:14→18:44)
--- NOTE | 2020-07-24 09:29 | PM.PN ---
Subjective Subjective: Interval history: Patient was extubated yesterday. She is off the SHAUNA pressors. Complains of feeling very tired. No chest pain. Continues to have some abdominal discomfort. Afebrile. Medications: Reviewed: Yes Medication Review Details: Current Medications Acetaminophen (Acetaminophen 500 Mg Tablet) 500 mg PO Q4H PRN PRN Reason: MILD PAIN OR INCREASE TEMP Albuterol Sulfate (Albuterol 8 Gm Mdi) 2 puff INHALATION Q4H PRN PRN Reason: Shortness Of Breath Amiodarone HCl (Amiodarone 200 Mg Tablet) 400 mg PO BID [facility] Last Admin: 07/24/20 09:14 Dose: 400 mg Documented by: Aspirin (Aspirin 81 Mg Ec Tablet) 81 mg PO QAM [facility] Last Admin: 07/24/20 05:04 Dose: 81 mg Documented by: Atorvastatin Calcium (Atorvastatin 40 Mg Tablet) 80 mg PO BEDTIME [facility] Last Admin: 07/23/20 20:48 Dose: 80 mg Documented by: Cetirizine HCl (Cetirizine 10 Mg Tablet) 10 mg PO BEDTIME [facility] Last Admin: 07/23/20 20:49 Dose: 10 mg Documented by: Clopidogrel Bisulfate (Clopidogrel 75 Mg Tablet) 75 mg PO DAILY [facility] Last Admin: 07/24/20 09:14 Dose: 75 mg Documented by: Fentanyl 1,000 mcg/ Sodium (Chloride) 100 mls @ 0 mls/hr IV .Q0M [facility]; Protocol Last Titration: 07/23/20 18:45 Dose: Infused Documented by: Imipenem/Cilastatin Sodium 500 (mg/ Sodium Chloride) 100 mls @ 200 mls/hr IV Q6H [facility]; Protocol Last Infusion: 07/24/20 08:07 Dose: Infused Documented by: Vancomycin/PEG/NADA/Lysine/Water (Vancocin) 1,250 mg in 250 mls @ 250 mls/hr IV Q24H [facility] Last Infusion: 07/23/20 22:00 Dose: Infused Documented by: Levothyroxine Sodium (Levothyroxine 25 Mcg Tablet) 25 mcg PO QAM [facility] Last Admin: 07/24/20 05:04 Dose: 25 mcg Documented by: Metoprolol Tartrate (Metoprolol Tartrate 50 Mg Tablet) 50 mg PO BID [facility] Last Admin: 07/24/20 09:14 Dose: 50 mg Documented by: Ondansetron HCl (Ondansetron 2 Mg/Ml Sdv 2 Ml) 4 mg IVP Q6H PRN PRN Reason: NAUSEA AND VOMITING Pantoprazole Sodium (Pantoprazole Dr 40 Mg Tablet) 40 mg PO DAILY [facility] Last Admin: 07/24/20 09:14 Dose: 40 mg Documented by: Polyethylene Glycol (Polyethylene Glycol 3350 Pkt 17 Gm) 17 gm PO DAILY PRN PRN Reason: Constipation Potassium Chloride (Potassium Chloride Er 20 Meq Tablet) 40 meq PO Q6H [facility] Stop: 07/24/20 13:31 Last Admin: 07/24/20 07:35 Dose: 40 meq Documented by: Vitals/I&O/Wt Last Vital Signs Temp 98.1 F 07/23/20 13:40 Pulse 94 07/24/20 09:00 Resp 20 H 07/24/20 09:00 BP 117/75 07/24/20 09:00 Pulse Ox 97 07/24/20 09:00 07/23/20 07/24/20 07/24/20 22:59 06:59 14:59 Intake Total 1128.365 / 2730.926 220 / 2950.926 347.467 / 347.467 Output Total 750 / 750 650 / 1400 Balance 378.365 / 1980.926 -430 / 1550.926 347.467 / 347.467 Weight last 48 hrs Weight 228 lb 2.855 oz Weight 229 lb Physical Exam Narrative: EXAM NARRATIVE: GENERAL: The patient is alert and oriented x3. Very lethargic HEENT: No significant pallor, icterus or lymphadenopathy.Oral cavity: There are no mucous membrane lesions. NECK: Trachea appears to be central. No masses noted. No JVD or thyromegaly appreciated. RESPIRATORY: Chest is symmetrical. No intercostals muscle retraction or any accessory muscle activation. There is no chest wall tenderness. Breath sounds are heard bilaterally. No rales or rhonchi heard. No evidence of any consolidation. BREASTS: Deferred. HEART: The heart sounds are normal. No S3 or S4. Short systolic murmur in the left sternal border. No pericardial rub ABDOMEN: No vessel pulsations or distention. Minimal epigastric tenderness. No organomegaly appreciated. Bowel sounds are normally heard. : Deferred. RECTAL: Deferred. LYMPHATIC: No lymphadenopathy noted in the neck or groin. EXTREMITIES: No edema or cyanosis. No clubbing. Peripheral pulses are palpated in fairly good volume and amplitude MUSCULOSKELETAL: No acute joint deformities or swelling SKIN: There are no significant rashes or ecchymosis NEUROPSYCHIATRIC: The patient is alert and oriented x3. Extremely lethargic . No focal motor deficits. Urinary Catheter Management^: Turner: Cath Placed During This Visit: yes Reason for Continuing Indwelling Catheter: Accurate Measurement of Urinary Output in Critically Ill Patients Urinary Catheter Date of Insertion: 07/22/20 Urinary Catheter Time of Insertion: 11:13 Data : 07/24/20 10:50 07/24/20 03:48 Other Labs: Laboratory Last Values WBC 9.0 10^3/uL (4.0-10.0) 07/24/20 03:48 RBC 2.96 10^6/uL (4.1-5.3) L 07/24/20 03:48 Hgb 8.4 g/dL (11.5-15.3) L 07/24/20 03:48 Hct 26.0 % (37.0-47.0) L 07/24/20 03:48 MCV 87.8 fL (81-99) 07/24/20 03:48 MCH 28.4 pg (28.0-34.0) 07/24/20 03:48 MCHC 32.3 g/dL (30.0-36.0) 07/24/20 03:48 RDW 14.6 % (12.1-15.1) 07/24/20 03:48 Plt Count 103 10^3/cmm (130-400) L 07/24/20 03:48 MPV 10.6 fL (7.4-10.4) H 07/24/20 03:48 Neut % (Auto) 73.1 % 07/24/20 03:48 Lymph % (Auto) 11.9 % 07/24/20 03:48 Lamb % (Auto) 12.9 % 07/24/20 03:48 Eos % (Auto) 1.1 % 07/24/20 03:48 Baso % (Auto) 0.3 % 07/24/20 03:48 Neut # (Auto) 6.57 10^3/uL (1.8-7.7) 07/24/20 03:48 Lymph # (Auto) 1.1 10^3/uL (0.8-4.8) 07/24/20 03:48 [place] # (Auto) 1.2 10^3/uL (0.2-0.9) H 07/24/20 03:48 Eos # (Auto) 0.1 10^3/uL (0.0-0.8) 07/24/20 03:48 Baso # (Auto) 0.0 10^3/uL (0.0-0.1) 07/24/20 03:48 Nucleated RBC % (auto) 0 % 07/24/20 03:48 Nucleated RBCs # 0.0 /100WBC 07/24/20 03:48 APTT 63.3 SECONDS (23.9-36.7) H D 07/24/20 03:48 Specimen Type Arterial 07/23/20 05:14 Sample Site Brachial, right 07/23/20 05:14 ABG pH 7.40 (7.35-7.45) 07/23/20 05:14 ABG pCO2 28.9 mmHg (35-45) L 07/23/20 05:14 ABG pO2 131.0 mmHg (80.0-100.0) H 07/23/20 05:14 ABG HCO3 17.9 mmol/L (22-26) L 07/23/20 05:14 ABG O2 Saturation > 100.0 07/22/20 14:05 ABG Base Excess -5.9 mmol/L (-2.0-2.0) L 07/23/20 05:14 Brandan Test Pos 07/23/20 05:14 A-a O2 Gradient 33.1 mmHg (5-10) H 07/22/20 14:05 Hematocrit 30.8 % (37-47) L 07/23/20 05:14 Hgb O2 Saturation 98.9 % (95-100) 07/22/20 14:05 Carboxyhemoglobin 0.3 %THgb (0.4-20.1) L 07/22/20 14:05 Methemoglobin 1.0 % (0.4-1.5) 07/22/20 14:05 Total Hemoglobin 11.1 g/dL (12-16) L 07/22/20 14:05 Sodium 131.0 mmol/L (131-143) 07/22/20 14:05 Potassium 3.0 mmol/L (3.5-5.0) L 07/22/20 14:05 Glucose 100.0 mg/dL (70-115) 07/22/20 14:05 Ionized Calcium 1.1 mmol/L (1.1-1.4) 07/22/20 14:05 O2 Delivery Device Vent 07/23/20 05:14 O2 Liters/Min 2.0 % 07/22/20 07:55 FiO2 40.0 % 07/23/20 05:14 Tidal Volume 0.45 07/23/20 05:14 PEEP 8.0 cmH20 07/23/20 05:14 Editorial Writer ID Salas 07/23/20 05:14 Sodium 131 mmol/L (136-145) L 07/24/20 03:48 Potassium 3.1 mmol/L (3.5-5.1) L 07/24/20 03:48 Chloride 100 mmol/L (98-107) 07/24/20 03:48 Carbon Dioxide 22 mmol/L (22-29) 07/24/20 03:48 Anion Gap 12.1 (5-19) 07/24/20 03:48 BUN 21 mg/dL (8-23) 07/24/20 03:48 Creatinine 1.1 mg/dL (0.5-0.9) H 07/24/20 03:48 GFR Calculation Not Reportable 07/24/20 03:48 Glucose 87 mg/dL (65-115) 07/24/20 03:48 Calculated Osmolality 274 mOsm/kg (285-295) L 07/24/20 03:48 Lactic Acid 1.7 mmol/L (0.5-2.2) 07/22/20 19:55 Lactic Acid (Sepsis) 1.5 mmol/L (0.5-2.2) 07/22/20 10:00 Calcium 8.1 mg/dL (8.5-10.5) L 07/24/20 03:48 Magnesium 2.0 mg/dL (1.7-2.3) 07/24/20 03:48 Total Bilirubin 0.7 mg/dL (0.15-1.2) 07/24/20 03:48 AST 37 U/L (0-32) H 07/24/20 03:48 ALT 11 U/L (0-33) 07/24/20 03:48 Alkaline Phosphatase 56 IU/L (35-105) 07/24/20 03:48 Creatine Kinase 262 U/L (26-192) H 07/22/20 07:35 Troponin T Baseline 127 ng/L (0-10) H* 07/22/20 07:35 Troponin T 120 Minute 595.8 ng/L (0-10) H 07/22/20 10:00 Delta Troponin T 468.8 ABS# (0-10) H* 07/22/20 10:00 Troponin T Hi Sens 6Hr 609.8 ng/L (0-10) H 07/22/20 13:56 Troponin T Hi Sens 6Hr Delta 482.8 ng/L (0-12) H* 07/22/20 13:56 Total Protein 5.5 g/dL (6.6-8.7) L 07/24/20 03:48 Albumin 2.6 g/dL (3.5-5.2) L 07/24/20 03:48 Globulin 2.9 g/dL (1.3-4.6) 07/24/20 03:48 Lipase 34 U/L (13-60) 07/22/20 07:35 Urine Color Yellow (Yellow) 07/22/20 10:20 Urine Appearance Cloudy (CLEAR) 07/22/20 10:20 Urine pH 5 (5-7) 07/22/20 10:20 Ur Specific [place] 1.020 (1.005-1.030) 07/22/20 10:20 Urine Protein 3+ (Negative) H 07/22/20 10:20 Urine Glucose (UA) Norm (Normal) 07/22/20 10:20 Urine Ketones Negative (Negative) 07/22/20 10:20 Urine Blood 2+ (Negative) H 07/22/20 10:20 Urine Nitrate Negative (Negative) 07/22/20 10:20 Urine Bilirubin Neg (Negative) 07/22/20 10:20 Urine Urobilinogen 1 mg/dL (Negative) H 07/22/20 10:20 Ur Leukocyte Esterase 2+ (Negative) H 07/22/20 10:20 Urine RBC 0-4 /hpf (0-2) H 07/22/20 10:20 Urine WBC Too numerous to cnt /hpf (0-5) H 07/22/20 10:20 Ur Squamous Epith Cells 0-4 /hpf (0-5) H 07/22/20 10:20 Amorphous Sediment Not Reportable 07/22/20 10:20 Urine Bacteria 4+ /hpf (NONE) H 07/22/20 10:20 Nasal/Oral COVID-19 PCR Not detected 07/22/20 09:30 SARS-CoV-2 Ag (Rapid) Negative (Negative) 07/22/20 07:45 Micro: Microbiology 07/22/20 10:20 Urine Culture - Final Urine,Clean Catch Escherichia coli 07/22/20 13:20 Gram Stain - Final Sputum - Endotracheal Wash Sputum Culture - Preliminary 07/22/20 07:35 Blood Culture - Preliminary Blood NEGATIVE TO DATE 07/22/20 10:00 Blood Culture - Preliminary Blood A&P Assessment and plan (1) Atrial fibrillation with rapid ventricular response: Patient is currently in sinus rhythm. I may start her on amiodarone 400 mg p.o. twice daily. Status: Acute (2) Non-ST elevation myocardial infarction (NSTEMI): Currently she seems to be fairly stable from a hemodynamic point of view. Because of the anemia and thrombocytopenia, it was decided to hold off on the heparin. May continue with the Plavix and aspirin. Status: Acute (3) Hypotension: Currently she is normotensive. Continue on the current medications. Status: Acute Qualifiers: Hypotension type: other hypotension type Qualified Code(s): I95.89 - Other hypotension (4) Congestive heart failure: Patient may have intermittent decompensated heart failure. May be carefully treated with IV diuretics. Status: Acute Qualifiers: Heart failure chronicity: acute Heart failure type: systolic Qualified Code(s): I50.21 - Acute systolic (congestive) heart failure (5) Left bundle branch block: She has a chronic intermittent bundle branch block. Status: Acute (6) Ventricular arrhythmia: Currently the patient has no evidence of ventricular arrhythmia. Status: Acute (7) Sepsis associated hypotension: Management as per the primary Status: Acute (8) Anemia: This could be multifactorial. Need close follow-up. Consider blood transfusion, if the hemoglobin drops below 8. Status: Acute Additional A&P Information Consider cardiac catheterization, once the infection is appropriately treated and also when the H&H gets stable. Based on the patient's clinical progress and the results of the above, further recommendations will be made. [facility]*: Patient requires continued hospital stay for close monitoring and further management Coding Level of Care Code Acute Private Security Guard for Chg Fwd Diagnoses Atrial fibrillation with rapid ventricular response I48.91 Non-ST elevation myocardial infarction (NSTEMI) I21.4 Hypotension I95.89 Hypotension type: other hypotension type Congestive heart failure I50.21 Heart failure chronicity: acute Heart failure type: systolic Left bundle branch block I44.7 Ventricular arrhythmia I49.9 Sepsis associated hypotension A41.9; I95.9 Anemia D64.9
[2020-07-24 11:01] LABS: Basophils % 0.4 %; Eosinophils # 0.1 10^3/uL (0.0-0.8); Eosinophils % 1.7 %; Lymphocytes # 0.7 10^3/uL (0.8-4.8); Lymphocytes % 9.5 %; Mean Corpuscular HGB Conc 33.3 g/dL (30.0-36.0); Mean Corpuscular Hemoglobin 28.8 pg (28.0-34.0); Mean Corpuscular Volume 86.3 fL (81-99); Mean Platelet Volume 10.5 fL (7.4-10.4); Monocytes # 1.1 10^3/uL (0.2-0.9); Monocytes % 13.4 %; Neutrophils # 5.83 10^3/uL (1.8-7.7); Neutrophils % 74.5 %; Nucleated Red Blood Cells % 0 %; Platelet Count 106 10^3/cmm (130-400); Red Blood Count 3.13 10^6/uL (4.1-5.3); Red Cell Distribution Width 14.9 % (12.1-15.1); White Blood Count 7.8 10^3/uL (4.0-10.0)
[2020-07-24 11:23] LABS: Partial Thromboplastin Time 45.8 SECONDS (23.9-36.7)
[2020-07-24] MEDS: FUROsemide 10 mg/mL SDV 4mL 40 MG IVP ×2 (11:48→17:01)
--- NOTE | 2020-07-24 19:14 | PC.NURSE ---
Patient transferred to CSU 106-1 via bed. Patient transferred to bed with 1 assist, belongings placed at bedside, bedside report given to ZIGGY Mcbride. Family notified. Patient AAOx4, VSS.
[2020-07-24] MEDS: vancomycin 1,250 MG/250 ML PIGGYBACK 250 MG IV (21:08)
[2020-07-24] MEDS: cetirizine 10 mg Tablet PO (21:09)
[2020-07-24] MEDS: atorvastatin 40 mg Tablet 80 MG PO (21:09)
[2020-07-24] MEDS: ondansetron 2 mg/ML SDV 2 mL 4 MG IVP (22:12)
[2020-07-25] VITALS (72 sets, daily range): BP systolic 108–120; BP diastolic 50–70; PULSE 63–86; RESP 15–38; TEMP 36.4–36.8; O2SAT 91–99
[2020-07-25 04:55] LABS: Basophils % 0.4 %; Eosinophils # 0.2 10^3/uL (0.0-0.8); Eosinophils % 2.2 %; Hematocrit 27.5 % (37.0-47.0); Hemoglobin 9.2 g/dL (11.5-15.3); Lymphocytes # 1.3 10^3/uL (0.8-4.8); Lymphocytes % 17.2 %; Mean Corpuscular HGB Conc 33.5 g/dL (30.0-36.0); Mean Corpuscular Hemoglobin 28.7 pg (28.0-34.0); Mean Corpuscular Volume 85.7 fL (81-99); Mean Platelet Volume 10.6 fL (7.4-10.4); Monocytes # 1.2 10^3/uL (0.2-0.9); Monocytes % 16.8 %; Nucleated Red Blood Cells % 0 %; Platelet Count 149 10^3/cmm (130-400); Red Blood Count 3.21 10^6/uL (4.1-5.3); Red Cell Distribution Width 14.6 % (12.1-15.1); White Blood Count 7.4 10^3/uL (4.0-10.0)
[2020-07-25 05:19] LABS: Alanine Aminotransferase 14 U/L (0-33); Albumin Level 2.4 g/dL (3.5-5.2); Alkaline Phosphatase 71 IU/L (35-105); Blood Urea Nitrogen 17 mg/dL (8-23); Carbon Dioxide 22 mmol/L (22-29); Chloride 102 mmol/L (98-107); Globulin 3.7 g/dL (1.3-4.6); Glucose 91 mg/dL (65-115); Magnesium 1.9 mg/dL (1.7-2.3); Osmolality Calculated 279 mOsm/kg (285-295); Sodium 134 mmol/L (136-145); Total Bilirubin 0.6 mg/dL (0.15-1.2); Total Protein 6.1 g/dL (6.6-8.7)
[2020-07-25 05:21] LABS: Anion Gap 13.4 (5-19); Aspartate Amino Transferase 41 U/L (0-32); Potassium 3.4 mmol/L (3.5-5.1)
[2020-07-25] MEDS: aspirin 81 mg EC Tablet PO (06:04)
[2020-07-25] MEDS: levothyroxine 25 mcg Tablet PO (06:04)
[2020-07-25] MEDS: cefTRIAXone 2,000 MG in sodium chloride 0.9% (plus) 50 ML 100 MG IV (09:01)
[2020-07-25] MEDS: pantoprazole DR 40 mg Tablet PO (09:02)
[2020-07-25] MEDS: clopidogrel 75 mg Tablet PO (09:02)
[2020-07-25] MEDS: amiodarone 200 mg Tablet 400 MG PO ×2 (09:02→17:57)
[2020-07-25] MEDS: metoprolol tartrate 50 mg Tablet PO ×2 (09:02→17:57)
--- NOTE | 2020-07-25 09:51 | P.PN_ITS ---
Subjective Subjective: Interval history: The patient is feeling better. She is still very tired and lethargic. Has some amount of dyspnea on exertion. No orthopnea. No fever or chills. Her hemoglobin and platelet counts are improving. No new symptoms. Medications: Reviewed: Yes Medication Review Details: Current Medications Acetaminophen (Acetaminophen 500 Mg Tablet) 500 mg PO Q4H PRN PRN Reason: MILD PAIN OR INCREASE TEMP Albuterol Sulfate (Albuterol 8 Gm Mdi) 2 puff INHALATION Q4H PRN PRN Reason: Shortness Of Breath Amiodarone HCl (Amiodarone 200 Mg Tablet) 400 mg PO BID [facility] Last Admin: 07/25/20 09:02 Dose: 400 mg Documented by: Aspirin (Aspirin 81 Mg Ec Tablet) [facility] Last Admin: 07/25/20 06:04 Dose: 81 mg Documented by: Atorvastatin Calcium (Atorvastatin 40 Mg Tablet) 80 mg PO BEDTIME [facility] Last Admin: 07/24/20 21:09 Dose: 80 mg Documented by: Cetirizine HCl (Cetirizine 10 Mg Tablet) 10 mg PO BEDTIME [facility] Last Admin: 07/24/20 21:09 Dose: 10 mg Documented by: Clopidogrel Bisulfate (Clopidogrel 75 Mg Tablet) 75 mg PO DAILY [facility] Last Admin: 07/25/20 09:02 Dose: 75 mg Documented by: Enoxaparin Sodium (Enoxaparin 40 Mg/0.4 Ml Syringe) 40 mg SUBCUT Q24H [facility] Ceftriaxone Sodium 2,000 mg/ (Sodium Chloride) 50 mls @ 100 mls/hr IV Q24H [facility]; Protocol Last Infusion: 07/25/20 09:09 Dose: 0 mls/hr Documented by: Levothyroxine Sodium (Levothyroxine 25 Mcg Tablet) 25 mcg PO QAM [facility] Last Admin: 07/25/20 06:04 Dose: 25 mcg Documented by: Metoprolol Tartrate (Metoprolol Tartrate 50 Mg Tablet) 50 mg PO BID [facility] Last Admin: 07/25/20 09:02 Dose: 50 mg Documented by: Ondansetron HCl (Ondansetron 2 Mg/Ml Sdv 2 Ml) 4 mg IVP Q6H PRN PRN Reason: NAUSEA AND VOMITING Last Admin: 07/24/20 22:12 Dose: 4 mg Documented by: Pantoprazole Sodium (Pantoprazole Dr 40 Mg Tablet) 40 mg PO DAILY [facility] Last Admin: 07/25/20 09:02 Dose: 40 mg Documented by: Polyethylene Glycol (Polyethylene Glycol 3350 Pkt 17 Gm) 17 gm PO DAILY PRN PRN Reason: Constipation Vitals/I&O/Wt Last Vital Signs Temp 97.6 F 07/25/20 08:00 Pulse 76 07/25/20 08:00 Resp 32 H 07/25/20 08:00 BP 109/66 07/25/20 08:00 Pulse Ox 96 07/25/20 08:00 07/24/20 07/25/20 07/25/20 22:59 06:59 14:59 Intake Total 830 / 1637.467 100 / 1737.467 13.333 / 13.333 Output Total 1999 / 3950 1250 / 5200 Balance -1170 / -2312.533 -1150 / -3462.533 13.333 / 13.333 Weight last 48 hrs Weight 228 lb 2.855 oz Physical Exam Narrative: EXAM NARRATIVE: GENERAL: The patient is alert and oriented x3. lethargic HEENT . Mild pallor. No icterus or lymphadenopathy.Oral cavity: There are no mucous membrane lesions. NECK: Trachea appears to be central. No masses noted. No JVD or thyromegaly appreciated. RESPIRATORY: Chest is symmetrical. No intercostals muscle retraction or any accessory muscle activation. There is no chest wall tenderness. Breath sounds are heard bilaterally. No rales or rhonchi heard. No evidence of any consolidation. BREASTS: Deferred. HEART: The heart sounds are normal. No S3 or S4. Short systolic murmur in the left sternal border. No pericardial rub ABDOMEN: No vessel pulsations or distention. Minimal epigastric tenderness. No organomegaly appreciated. Bowel sounds are normally heard. : Deferred. RECTAL: Deferred. LYMPHATIC: No lymphadenopathy noted in the neck or groin. EXTREMITIES: No edema or cyanosis. No clubbing. Peripheral pulses are palpated in fairly good volume and amplitude MUSCULOSKELETAL: No acute joint deformities or swelling SKIN: There are no significant rashes or ecchymosis NEUROPSYCHIATRIC: The patient is alert and oriented x3. No focal motor deficits. Urinary Catheter Management^: Turner: Cath Placed During This Visit: yes Reason for Continuing Indwelling Catheter: Accurate Measurement of Urinary Output in Critically Ill Patients Urinary Catheter Date of Insertion: 07/22/20 Urinary Catheter Time of Insertion: 11:13 Data : 07/25/20 10:00 07/25/20 04:36 Other Labs: Laboratory Last Values WBC 7.4 10^3/uL (4.0-10.0) 07/25/20 04:36 RBC 3.21 10^6/uL (4.1-5.3) L 07/25/20 04:36 Hgb 9.2 g/dL (11.5-15.3) L 07/25/20 04:36 Hct 27.5 % (37.0-47.0) L 07/25/20 04:36 MCV 85.7 fL (81-99) 07/25/20 04:36 MCH 28.7 pg (28.0-34.0) 07/25/20 04:36 MCHC 33.5 g/dL (30.0-36.0) 07/25/20 04:36 RDW 14.6 % (12.1-15.1) 07/25/20 04:36 Plt Count 149 10^3/cmm (130-400) 07/25/20 04:36 MPV 10.6 fL (7.4-10.4) H 07/25/20 04:36 Neut % (Auto) 61.0 % 07/25/20 04:36 Lymph % (Auto) 17.2 % 07/25/20 04:36 [place] % (Auto) 16.8 % 07/25/20 04:36 Eos % (Auto) 2.2 % 07/25/20 04:36 Baso % (Auto) 0.4 % 07/25/20 04:36 Neut # (Auto) 4.50 10^3/uL (1.8-7.7) 07/25/20 04:36 Lymph # (Auto) 1.3 10^3/uL (0.8-4.8) 07/25/20 04:36 [place] # (Auto) 1.2 10^3/uL (0.2-0.9) H 07/25/20 04:36 Eos # (Auto) 0.2 10^3/uL (0.0-0.8) 07/25/20 04:36 Baso # (Auto) 0.0 10^3/uL (0.0-0.1) 07/25/20 04:36 Nucleated RBC % (auto) 0 % 07/25/20 04:36 Nucleated RBCs # 0.0 /100WBC 07/25/20 04:36 APTT 45.8 SECONDS (23.9-36.7) H 07/24/20 10:50 Specimen Type Arterial 07/23/20 05:14 Sample Site Brachial, right 07/23/20 05:14 ABG pH 7.40 (7.35-7.45) 07/23/20 05:14 ABG pCO2 28.9 mmHg (35-45) L 07/23/20 05:14 ABG pO2 131.0 mmHg (80.0-100.0) H 07/23/20 05:14 ABG HCO3 17.9 mmol/L (22-26) L 07/23/20 05:14 ABG O2 Saturation > 100.0 07/22/20 14:05 ABG Base Excess -5.9 mmol/L (-2.0-2.0) L 07/23/20 05:14 Brandan Test Pos 07/23/20 05:14 A-a O2 Gradient 33.1 mmHg (5-10) H 07/22/20 14:05 Hematocrit 30.8 % (37-47) L 07/23/20 05:14 Hgb O2 Saturation 98.9 % (95-100) 07/22/20 14:05 Carboxyhemoglobin 0.3 %THgb (0.4-20.1) L 07/22/20 14:05 Methemoglobin 1.0 % (0.4-1.5) 07/22/20 14:05 Total Hemoglobin 11.1 g/dL (12-16) L 07/22/20 14:05 Sodium 131.0 mmol/L (131-143) 07/22/20 14:05 Potassium 3.0 mmol/L (3.5-5.0) L 07/22/20 14:05 Glucose 100.0 mg/dL (70-115) 07/22/20 14:05 Ionized Calcium 1.1 mmol/L (1.1-1.4) 07/22/20 14:05 O2 Delivery Device Vent 07/23/20 05:14 O2 Liters/Min 2.0 % 07/22/20 07:55 FiO2 40.0 % 07/23/20 05:14 Tidal Volume 0.45 07/23/20 05:14 PEEP 8.0 cmH20 07/23/20 05:14 Armor Officer ID Salas 07/23/20 05:14 Sodium 134 mmol/L (136-145) L 07/25/20 04:36 Potassium 3.4 mmol/L (3.5-5.1) L 07/25/20 04:36 Chloride 102 mmol/L (98-107) 07/25/20 04:36 Carbon Dioxide 22 mmol/L (22-29) 07/25/20 04:36 Anion Gap 13.4 (5-19) 07/25/20 04:36 BUN 17 mg/dL (8-23) 07/25/20 04:36 Creatinine 1.1 mg/dL (0.5-0.9) H 07/25/20 04:36 GFR Calculation Not Reportable 07/25/20 04:36 Glucose 91 mg/dL (65-115) 07/25/20 04:36 Calculated Osmolality 279 mOsm/kg (285-295) L 07/25/20 04:36 Lactic Acid 1.7 mmol/L (0.5-2.2) 07/22/20 19:55 Lactic Acid (Sepsis) 1.5 mmol/L (0.5-2.2) 07/22/20 10:00 Calcium 8.0 mg/dL (8.5-10.5) L 07/25/20 04:36 Magnesium 1.9 mg/dL (1.7-2.3) 07/25/20 04:36 Total Bilirubin 0.6 mg/dL (0.15-1.2) 07/25/20 04:36 AST 41 U/L (0-32) H 07/25/20 04:36 ALT 14 U/L (0-33) 07/25/20 04:36 Alkaline Phosphatase 71 IU/L (35-105) 07/25/20 04:36 Creatine Kinase 262 U/L (26-192) H 07/22/20 07:35 Troponin T Baseline 127 ng/L (0-10) H* 07/22/20 07:35 Troponin T 120 Minute 595.8 ng/L (0-10) H 07/22/20 10:00 Delta Troponin T 468.8 ABS# (0-10) H* 07/22/20 10:00 Troponin T Hi Sens 6Hr 609.8 ng/L (0-10) H 07/22/20 13:56 Troponin T Hi Sens 6Hr Delta 482.8 ng/L (0-12) H* 07/22/20 13:56 Total Protein 6.1 g/dL (6.6-8.7) L 07/25/20 04:36 Albumin 2.4 g/dL (3.5-5.2) L 07/25/20 04:36 Globulin 3.7 g/dL (1.3-4.6) 07/25/20 04:36 Lipase 34 U/L (13-60) 07/22/20 07:35 Urine Color Yellow (Yellow) 07/22/20 10:20 Urine Appearance Cloudy (CLEAR) 07/22/20 10:20 Urine pH 5 (5-7) 07/22/20 10:20 Ur Specific [place] 1.020 (1.005-1.030) 07/22/20 10:20 Urine Protein 3+ (Negative) H 07/22/20 10:20 Urine Glucose (UA) Norm (Normal) 07/22/20 10:20 Urine Ketones Negative (Negative) 07/22/20 10:20 Urine Blood 2+ (Negative) H 07/22/20 10:20 Urine Nitrate Negative (Negative) 07/22/20 10:20 Urine Bilirubin Neg (Negative) 07/22/20 10:20 Urine Urobilinogen 1 mg/dL (Negative) H 07/22/20 10:20 Ur Leukocyte Esterase 2+ (Negative) H 07/22/20 10:20 Urine RBC 0-4 /hpf (0-2) H 07/22/20 10:20 Urine WBC Too numerous to cnt /hpf (0-5) H 07/22/20 10:20 Ur Squamous Epith Cells 0-4 /hpf (0-5) H 07/22/20 10:20 Amorphous Sediment Not Reportable 07/22/20 10:20 Urine Bacteria 4+ /hpf (NONE) H 07/22/20 10:20 Nasal/Oral COVID-19 PCR Not detected 07/22/20 09:30 SARS-CoV-2 Ag (Rapid) Negative (Negative) 07/22/20 07:45 Micro: Microbiology 07/22/20 10:00 Blood Culture - Preliminary Blood Escherichia coli 07/25/20 07:45 Blood Culture - Preliminary Blood SPECIMEN COLLECTED 07/25/20 07:53 Blood Culture - Preliminary Blood SPECIMEN COLLECTED 07/22/20 13:20 Gram Stain - Final Sputum - Endotracheal Wash Sputum Culture - Final 07/22/20 10:20 Urine Culture - Final Urine,Clean Catch Escherichia coli A&P Assessment and plan (1) Atrial fibrillation with rapid ventricular response: Patient is currently in sinus rhythm. Continue on the amiodarone. We will do an EKG today Status: Acute (2) Non-ST elevation myocardial infarction (NSTEMI): Currently she seems to be fairly stable from a hemodynamic point of view. Because of the anemia and thrombocytopenia, it was decided to hold off on the heparin. May continue with the Plavix and aspirin. Status: Acute (3) Hypotension: Currently she is normotensive. Continue on the current medications. Status: Acute Qualifiers: Hypotension type: other hypotension type Qualified Code(s): I95.89 - Other hypotension (4) Congestive heart failure: Patient may have intermittent decompensated heart failure. May be carefully treated with IV diuretics. Status: Acute Qualifiers: Heart failure chronicity: acute Heart failure type: systolic Qualified Code(s): I50.21 - Acute systolic (congestive) heart failure (5) Left bundle branch block: She has a chronic intermittent bundle branch block. Status: Acute (6) Ventricular arrhythmia: Currently the patient has no evidence of ventricular arrhythmia. Status: Acute (7) Sepsis associated hypotension: Currently has improved. We will continue on the current measures. Status: Acute (8) Anemia: This could be multifactorial. Need close follow-up. Consider blood transfusion, if the hemoglobin drops below 8. Status: Acute Additional A&P Information Patient on the patient's clinical progress and the results of the above, further management decisions will be made . we may go ahead and schedule the patient for the cardiac catheterization on Tuesday. Attestations Medical Necessity Statement*: Patient requires continued hospital stay for close monitoring and further management Coding Level of Care Code Acute [employer] for [facility] Fwd Diagnoses Atrial fibrillation with rapid ventricular response I48.91 Non-ST elevation myocardial infarction (NSTEMI) I21.4 Hypotension I95.89 Hypotension type: other hypotension type Congestive heart failure I50.21 Heart failure chronicity: acute Heart failure type: systolic Left bundle branch block I44.7 Ventricular arrhythmia I49.9 Sepsis associated hypotension A41.9; I95.9 Anemia D64.9
[2020-07-25] MEDS: enoxaparin 40 mg/0.4 mL Syringe SUBCUT (10:01)
[2020-07-25 10:20] LABS: Basophils % 0.4 %; Eosinophils # 0.1 10^3/uL (0.0-0.8); Eosinophils % 1.8 %; Hematocrit 27.8 % (37.0-47.0); Hemoglobin 9.3 g/dL (11.5-15.3); Lymphocytes # 1.1 10^3/uL (0.8-4.8); Lymphocytes % 14.8 %; Mean Corpuscular HGB Conc 33.5 g/dL (30.0-36.0); Mean Corpuscular Hemoglobin 28.7 pg (28.0-34.0); Mean Corpuscular Volume 85.8 fL (81-99); Mean Platelet Volume 10.3 fL (7.4-10.4); Monocytes # 1.2 10^3/uL (0.2-0.9); Neutrophils # 4.66 10^3/uL (1.8-7.7); Neutrophils % 63.9 %; Nucleated Red Blood Cells % 0 %; Platelet Count 147 10^3/cmm (130-400); Red Blood Count 3.24 10^6/uL (4.1-5.3); Red Cell Distribution Width 14.6 % (12.1-15.1); White Blood Count 7.3 10^3/uL (4.0-10.0)
--- NOTE | 2020-07-25 10:53 | PC.NURSE ---
medications rounding delayed due to Iv accesses infiltrated started new IV and proceeded with administration spoke with Dr. pena about possible procedure on this day instructions to continue all medications at this time procedure scheduled for Tuesday07/28/20
--- NOTE | 2020-07-25 13:16 | DCPLANNER ---
IMM completed on 07/25/20 @ [id number]. Copy of rights given to pt.
--- NOTE | 2020-07-25 14:22 | ECG_ITS ---
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 [id number]
--- NOTE | 2020-07-25 14:39 | PM.PN ---
Subjective Subjective: Interval history: The patient is feeling better. Denies shortness of breath or chest pain. Denies abdominal pain at rest but still has some mild tenderness of the lower abdomen on palpation. She is eating meal and denies any difficulty swallowing. Her appetite is coming back. Patient's blood culture is positive for E. coli. Thrombocytopenia resolved. Hemoglobin is stable. Vitals/I&O/Wt Last Vital Signs Temp 97.5 F L 07/25/20 12:00 Pulse 80 07/25/20 12:00 Resp 27 H 07/25/20 12:00 BP 110/67 07/25/20 12:00 Pulse Ox 93 07/25/20 12:00 07/24/20 07/25/20 07/25/20 22:59 06:59 14:59 Intake Total 830 / 1637.467 100 / 1737.467 170.000 / 170.000 Output Total 1999 / 3950 1250 / 5200 Balance -1170 / -2312.533 -1150 / -3462.533 170.000 / 170.000 Weight last 48 hrs Weight 103.5 kg Physical Exam Narrative: EXAM NARRATIVE: Heart is regular and lungs are clear. No lower extremity edema. Abdomen is soft and slightly tender at the lower abdomen. No focal neurological findings. Urinary Catheter Management^: Turner: Cath Placed During This Visit: yes Reason for Continuing Indwelling Catheter: Accurate Measurement of Urinary Output in Critically Ill Patients Urinary Catheter Date of Insertion: 07/22/20 Urinary Catheter Time of Insertion: 11:13 Data : 07/25/20 10:00 07/25/20 04:36 Micro: Microbiology 07/22/20 10:00 Blood Culture - Preliminary Blood Escherichia coli 07/25/20 07:45 Blood Culture - Preliminary Blood SPECIMEN COLLECTED 07/25/20 07:53 Blood Culture - Preliminary Blood SPECIMEN COLLECTED 07/22/20 13:20 Gram Stain - Final Sputum - Endotracheal Wash Sputum Culture - Final A&P Assessment and plan (1) Non-ST elevation myocardial infarction (NSTEMI): Status: Acute (2) Severe sepsis: Resolved. Status: Acute (3) Hypotension: Resolved Status: Acute Qualifiers: Hypotension type: other hypotension type Qualified Code(s): I95.89 - Other hypotension (4) Dehydration with hyponatremia: Status: Acute (5) Thrombocytopenia: Appears to be related to infection. Status: Acute (6) Acute respiratory failure with hypoxia: Improved Status: Acute (7) Acute systolic heart failure: EF 40%. Suspected Takotsubo syndrome. Currently appears compensated Status: Acute (8) Urinary tract infection: Acute pyelonephritis with E. coli. Present on admission. Patient had positive blood culture with E. coli. Status: Acute (9) Hypokalemia: Status: Acute (10) Hypomagnesemia: Status: Acute (11) Obesity (BMI 30-39.9): Status: Acute (12) Dyslipidemia (high LDL; low HDL): Status: Acute (13) Chronic kidney disease, stage 3: Status: Acute Additional A&P Information PLAN: Discussed with Dr. Zapien this morning. Since patient's blood culture was positive we will go ahead and treat patient with IV antibiotic throughout the weekend and plan for coronary angiogram on Tuesday. Change antibiotics to ceftriaxone as E. coli is susceptible. Plan to continue IV antibiotic until Tuesday/Tuesday and consider transitioning to oral if blood culture remains negative. New set of blood cultures was obtained this morning. Attestations Medical Necessity Statement*: Patient was acute pyelonephritis and non-ST elevation [place] requires close inpatient monitoring and treatment and evaluation. Coding Level of Care Code Acute Beater Machine Operator for [facility] Diagnoses Non-ST elevation myocardial infarction (NSTEMI) I21.4 Severe sepsis A41.9; R65.20 Hypotension I95.89 Hypotension type: other hypotension type Dehydration with hyponatremia E86.0; E87.1 Thrombocytopenia D69.6 Acute respiratory failure with hypoxia J96.01 Acute systolic heart failure I50.21 Urinary tract infection N39.0 Hypokalemia E87.6 Hypomagnesemia E83.42 Obesity (BMI 30-39.9) E66.9 Dyslipidemia (high LDL; low HDL) E78.5 Chronic kidney disease, stage 3 N18.30
--- NOTE | 2020-07-25 18:42 | PC.NURSE ---
Pt c/o not being able to have bm. Would like something to help. ZIGGY Mendoza notified. TMSONAL stock
[2020-07-25] MEDS: polyethylene glycol 3350 Pkt 17 gm PO (20:18)
[2020-07-25] MEDS: atorvastatin 40 mg Tablet 80 MG PO (20:19)
[2020-07-25] MEDS: cetirizine 10 mg Tablet PO (20:19)
--- NOTE | 2020-07-25 20:26 | PC.NURSE ---
Received bedside report from Renetta Wooten Rn. Patient resting in bed watching tv. Denies any needs or complaints at this time. Patient currently on room air and SpO2 at 95%. No distress observed. Administered medications as ordered. Patient requested something to help with her bowels. Miralax was given. Discussed all medications with patient and she verbalized complete understanding. No other distress observed.
[2020-07-26] VITALS (10 sets, daily range): BP systolic 111–139; BP diastolic 57–81; PULSE 72–86; RESP 16–26; TEMP 36.4–37.2; O2SAT 95–99
--- NOTE | 2020-07-26 01:42 | PC.NURSE ---
Patient resting with eyes closed. Even, non-labored respirations observed. No distress noted.
[2020-07-26] MEDS: aspirin 81 mg EC Tablet PO (05:08)
[2020-07-26] MEDS: levothyroxine 25 mcg Tablet PO (05:08)
[2020-07-26] MEDS: cefTRIAXone 2,000 MG in sodium chloride 0.9% (plus) 50 ML 100 MG IV (07:54)
--- NOTE | 2020-07-26 08:58 | P.PN_ITS ---
Subjective Subjective: Interval history: Patient is doing well. Denies any shortness of breath or chest pain this morning. Reports very minimal bilateral upper abdominal discomfort but otherwise denies nausea and vomiting. Reports that today she did not pass any gas. She was able to eat her breakfast. Patient reports being constipated Vitals/I&O/Wt Last Vital Signs Temp 98.0 F 07/26/20 08:00 Pulse 80 07/26/20 08:09 Resp 18 07/26/20 08:09 BP 137/76 07/26/20 08:00 Pulse Ox 95 07/26/20 08:09 07/25/20 07/26/20 07/26/20 22:59 06:59 14:59 Intake Total 120 / 290.000 170 / 170 Output Total 175 / 175 Balance -55 / 115.000 170 / 170 Weight last 48 hrs Weight 96.933 kg Physical Exam Narrative: EXAM NARRATIVE: Heart is regular and lungs are clear. No lower extremity edema. Abdomen is soft and nontender. Nondistended. Positive bowel sounds.. No focal neurological findings. Urinary Catheter Management^: Turner: Cath Placed During This Visit: yes, but has since been removed by the nurse Reason for Continuing Indwelling Catheter: Accurate Measurement of Urinary Output in Critically Ill Patients Urinary Catheter Date of Insertion: 07/22/20 Urinary Catheter Time of Insertion: 11:13 Date Urinary Catheter Removed: 07/25/20 Time Urinary Catheter Discontinued: 15:52 Data : 07/25/20 10:00 07/25/20 04:36 Micro: Microbiology 07/25/20 07:45 Blood Culture - Preliminary Blood NEGATIVE TO DATE 07/25/20 07:53 Blood Culture - Preliminary Blood NEGATIVE TO DATE 07/22/20 10:00 Blood Culture - Preliminary Blood Escherichia coli A&P Assessment and plan (1) Non-ST elevation myocardial infarction (NSTEMI): Status: Acute (2) Severe sepsis: Resolved. Status: Acute (3) Hypotension: Resolved Status: Acute (4) Dehydration with hyponatremia: Status: Acute (5) Thrombocytopenia: Appears to be related to infection. Status: Acute (6) Acute respiratory failure with hypoxia: Improved Status: Acute (7) Acute systolic heart failure: EF 40%. Suspected Takotsubo syndrome. Currently appears compensated Status: Acute (8) Urinary tract infection: Acute pyelonephritis with E. coli. Present on admission. Patient had positive blood culture with E. coli. Status: Acute (9) Hypokalemia: Status: Acute (10) Hypomagnesemia: Status: Acute (11) Obesity (BMI 30-39.9): Status: Acute (12) Dyslipidemia (high LDL; low HDL): Status: Acute (13) Chronic kidney disease, stage 3: Status: Acute Additional A&P Information PLAN: Continue current monitoring and treatment and start patient on senna/Colace and lactulose every 6 hours until bowel movement. Patient tried MiraLAX yesterday without much result. Continue with cautious ambulation. Coronary angiogram on Tuesday in a.m. Check labs in a.m. Attestations Medical Necessity Statement*: Patient with non-ST elevation [place] and acute pyelonephritis with bacteremia requires close inpatient monitoring and treatment till deemed safe for discharge. Coding Level of Care Code Acute Research Center Partner for [facility] Fwd Diagnoses Non-ST elevation myocardial infarction (NSTEMI) I21.4 Severe sepsis A41.9; R65.20 Hypotension I95.9 Dehydration with hyponatremia E86.0; E87.1 Thrombocytopenia D69.6 Acute respiratory failure with hypoxia J96.01 Acute systolic heart failure I50.21 Urinary tract infection N39.0 Hypokalemia E87.6 Hypomagnesemia E83.42 Obesity (BMI 30-39.9) E66.9 Dyslipidemia (high LDL; low HDL) E78.5 Chronic kidney disease, stage 3 N18.30
[2020-07-26] MEDS: enoxaparin 40 mg/0.4 mL Syringe SUBCUT (09:00)
[2020-07-26] MEDS: metoprolol tartrate 50 mg Tablet PO ×2 (09:00→18:04)
[2020-07-26] MEDS: pantoprazole DR 40 mg Tablet PO (09:00)
[2020-07-26] MEDS: clopidogrel 75 mg Tablet PO (09:00)
[2020-07-26] MEDS: amiodarone 200 mg Tablet 400 MG PO ×2 (09:00→18:03)
[2020-07-26] MEDS: lactulose oral liq 20 gm/30 mL UDC PO ×3 (09:06→20:42)
[2020-07-26] MEDS: sennosides-docusate Tablet 1 TAB PO ×2 (09:09→18:03)
--- NOTE | 2020-07-26 18:49 | PM.PN ---
Subjective Subjective: Interval history: Patient complaining of constipation but she got the dosage of lactulose, hopefully she thinks she will get relief she denies chest pain. Shortness of breath is better Medications: Reviewed: Yes Medication Review Details: Current Medications Acetaminophen (Acetaminophen 500 Mg Tablet) 500 mg PO Q4H PRN PRN Reason: MILD PAIN OR INCREASE TEMP Albuterol Sulfate (Albuterol 8 Gm Mdi) 2 puff INHALATION Q4H PRN PRN Reason: Shortness Of Breath Amiodarone HCl (Amiodarone 200 Mg Tablet) 400 mg PO BID [facility] Last Admin: 07/25/20 09:02 Dose: 400 mg Documented by: Aspirin (Aspirin 81 Mg Ec Tablet) 81 mg PO QAM [facility] Last Admin: 07/25/20 06:04 Dose: 81 mg Documented by: Atorvastatin Calcium (Atorvastatin 40 Mg Tablet) 80 mg PO BEDTIME [facility] Last Admin: 07/24/20 21:09 Dose: 80 mg Documented by: Cetirizine HCl (Cetirizine 10 Mg Tablet) 10 mg PO BEDTIME [facility] Last Admin: 07/24/20 21:09 Dose: 10 mg Documented by: Clopidogrel Bisulfate (Clopidogrel 75 Mg Tablet) 75 mg PO DAILY [facility] Last Admin: 07/25/20 09:02 Dose: 75 mg Documented by: Enoxaparin Sodium (Enoxaparin 40 Mg/0.4 Ml Syringe) 40 mg SUBCUT Q24H [facility] Ceftriaxone Sodium 2,000 mg/ (Sodium Chloride) 50 mls @ 100 mls/hr IV Q24H [facility]; Protocol Last Infusion: 07/25/20 09:09 Dose: 0 mls/hr Documented by: Levothyroxine Sodium (Levothyroxine 25 Mcg Tablet) 25 mcg PO QAM [facility] Last Admin: 07/25/20 06:04 Dose: 25 mcg Documented by: Metoprolol Tartrate (Metoprolol Tartrate 50 Mg Tablet) 50 mg PO BID [facility] Last Admin: 07/25/20 09:02 Dose: 50 mg Documented by: Ondansetron HCl (Ondansetron 2 Mg/Ml Sdv 2 Ml) 4 mg IVP Q6H PRN PRN Reason: NAUSEA AND VOMITING Last Admin: 07/24/20 22:12 Dose: 4 mg Documented by: Pantoprazole Sodium (Pantoprazole Dr 40 Mg Tablet) 40 mg PO DAILY [facility] Last Admin: 07/25/20 09:02 Dose: 40 mg Documented by: Polyethylene Glycol (Polyethylene Glycol 3350 Pkt 17 Gm) 17 gm PO DAILY PRN PRN Reason: Constipation Vitals/I&O/Wt Last Vital Signs Temp 97.6 F 07/26/20 15:11 Pulse 74 07/26/20 15:11 Resp 22 H 07/26/20 15:11 BP 139/81 07/26/20 15:11 Pulse Ox 96 07/26/20 15:11 07/26/20 07/26/20 07/26/20 06:59 14:59 22:59 Intake Total 650 / 650 60 / 710 Balance 650 / 650 60 / 710 Weight last 48 hrs Weight 213 lb 11.2 oz Physical Exam Narrative: EXAM NARRATIVE: GENERAL: Patient is alert, awake and oriented x3. NECK: No jugular vein distension. HEENT: No cyanosis. No icterus. No pallor. HEART: Regular S1 and S2. No murmur, rub or gallop. LUNGS: Clear to auscultate bilaterally. ABDOMEN: Soft, nontender and nondistended. Positive bowel sounds. No guarding, rebound or tenderness. CENTRAL NERVOUS SYSTEM: Grossly nonfocal. EXTREMITIES: Lower extremities without edema bilaterally. Urinary Catheter Management^: Turner: Cath Placed During This Visit: yes, but has since been removed by the nurse Reason for Continuing Indwelling Catheter: Accurate Measurement of Urinary Output in Critically Ill Patients Urinary Catheter Date of Insertion: 07/22/20 Urinary Catheter Time of Insertion: 11:13 Date Urinary Catheter Removed: 07/25/20 Time Urinary Catheter Discontinued: 15:52 Data : 07/25/20 10:00 07/25/20 04:36 Micro: Microbiology 07/25/20 07:45 Blood Culture - Preliminary Blood NEGATIVE TO DATE 07/25/20 07:53 Blood Culture - Preliminary Blood NEGATIVE TO DATE A&P Assessment and plan (1) Atrial fibrillation with rapid ventricular response: Continues to be in sinus rhythm. Continue to monitor she is on telemetry Status: Acute (2) Non-ST elevation myocardial infarction (NSTEMI): Patient is stable. Most likely angiogram on Tuesday once renal function further improves and infection is clear Status: Acute (3) Hypotension: Normotensive. Status: Acute (4) Congestive heart failure: Appeared to be compensated. Continue current regimen Status: Acute (5) Left bundle branch block: Patient has intermittent left bundle branch block Status: Acute (6) Ventricular arrhythmia: So far no ventricular tachycardia Status: Acute (7) Sepsis associated hypotension: Improving continue antibiotics Status: Acute (8) Anemia: Continue to monitor keep hemoglobin above 8 Status: Acute Additional A&P Information Patient on the patient's clinical progress and the results of the above, further management decisions will be made . we may go ahead and schedule the patient for the cardiac catheterization on Tuesday. Attestations Medical Necessity Statement*: Patient require continuation hospitalization for above defined care. Coding Level of Care Code Established Pt Acute Manager Respiratory for [facility] Patient Type Established History Detailed Exam Detailed Medical Decision Making Moderate Complexity Diagnoses Atrial fibrillation with rapid ventricular response I48.91 Non-ST elevation myocardial infarction (NSTEMI) I21.4 Hypotension I95.9 Congestive heart failure I50.9 Left bundle branch block I44.7 Ventricular arrhythmia I49.9 Sepsis associated hypotension A41.9; I95.9 Anemia D64.9
--- NOTE | 2020-07-26 19:50 | PC.NURSE ---
Received report from Renetta Roche RN. Patient resting in bed. Patient given lactulose today. Discussed this medication with patient and expectations. Patient verbalized complete understanding. Bowel sounds present and hyperactive at this time. Patient denies pain or other needs. No distress observed.
[2020-07-26] MEDS: cetirizine 10 mg Tablet PO (20:42)
[2020-07-26] MEDS: atorvastatin 40 mg Tablet 80 MG PO (20:42)
--- NOTE | 2020-07-26 20:59 | PC.NURSE ---
Patient requesting toothbrush, toothpaste and denture cup which were all provided. Patient placed dentures in cup to soak overnight. Patient expresses thanks and reports feeling better.
[2020-07-27] VITALS (59 sets, daily range): BP systolic 104–153; BP diastolic 54–78; PULSE 67–88; RESP 12–40; TEMP 36.1–37.2; O2SAT 93–96
[2020-07-27] MEDS: lactulose oral liq 20 gm/30 mL UDC PO ×2 (02:36→08:12)
[2020-07-27] MEDS: aspirin 81 mg EC Tablet PO (05:14)
[2020-07-27] MEDS: levothyroxine 25 mcg Tablet PO (05:14)
[2020-07-27 05:33] LABS: Basophils # 0.1 10^3/uL (0.0-0.1); Basophils % 0.7 %; Eosinophils # 0.1 10^3/uL (0.0-0.8); Eosinophils % 1.3 %; Hematocrit 28.7 % (37.0-47.0); Hemoglobin 9.5 g/dL (11.5-15.3); Lymphocytes # 1.6 10^3/uL (0.8-4.8); Lymphocytes % 15.6 %; Mean Corpuscular HGB Conc 33.1 g/dL (30.0-36.0); Mean Corpuscular Hemoglobin 28.4 pg (28.0-34.0); Mean Corpuscular Volume 85.9 fL (81-99); Mean Platelet Volume 10.3 fL (7.4-10.4); Monocytes # 1.8 10^3/uL (0.2-0.9); Monocytes % 17.7 %; Neutrophils # 5.97 10^3/uL (1.8-7.7); Nucleated Red Blood Cells % 0 %; Platelet Count 219 10^3/cmm (130-400); Red Blood Count 3.34 10^6/uL (4.1-5.3); Red Cell Distribution Width 14.8 % (12.1-15.1); White Blood Count 10.4 10^3/uL (4.0-10.0)
[2020-07-27 06:03] LABS: Alanine Aminotransferase 20 U/L (0-33); Alkaline Phosphatase 102 IU/L (35-105); Anion Gap 13.2 (5-19); Aspartate Amino Transferase 52 U/L (0-32); Blood Urea Nitrogen 17 mg/dL (8-23); Calcium 8.8 mg/dL (8.5-10.5); Carbon Dioxide 22 mmol/L (22-29); Chloride 106 mmol/L (98-107); Globulin 3.4 g/dL (1.3-4.6); Glucose 116 mg/dL (65-115); Magnesium 1.8 mg/dL (1.7-2.3); Osmolality Calculated 289 mOsm/kg (285-295); Potassium 3.2 mmol/L (3.5-5.1); Sodium 138 mmol/L (136-145); Total Bilirubin 0.6 mg/dL (0.15-1.2); Total Protein 6.4 g/dL (6.6-8.7)
[2020-07-27 07:56] LABS: Slide Review Slide Review Perform
[2020-07-27 07:57] LABS: Neutrophils % 64.7 %
[2020-07-27] MEDS: cefTRIAXone 2,000 MG in sodium chloride 0.9% (plus) 50 ML 100 MG IV (08:11)
[2020-07-27] MEDS: amiodarone 200 mg Tablet 400 MG PO ×2 (08:11→17:17)
[2020-07-27] MEDS: sennosides-docusate Tablet 1 TAB PO ×2 (08:12→17:17)
[2020-07-27] MEDS: clopidogrel 75 mg Tablet PO (08:12)
[2020-07-27] MEDS: pantoprazole DR 40 mg Tablet PO (08:12)
[2020-07-27] MEDS: enoxaparin 40 mg/0.4 mL Syringe SUBCUT (08:12)
[2020-07-27] MEDS: metoprolol tartrate 50 mg Tablet PO ×2 (08:12→17:17)
--- NOTE | 2020-07-27 08:27 | P.PN_ITS ---
Subjective Subjective: Interval history: Patient had bowel movement yesterday and feels relieved. Reports that she could not sleep last night as bed is very uncomfortable. Overall she is doing well and denies shortness of breath or chest pain. Has very minimal discomfort mostly in upper abdomen. Platelets continue to improve and albumin is up to 3.0. Repeat blood cultures so far are negative. Vitals/I&O/Wt Last Vital Signs Temp 97.0 F L 07/27/20 07:32 Pulse 79 07/27/20 07:32 Resp 26 H 07/27/20 07:32 BP 104/54 07/27/20 07:32 Pulse Ox 96 07/27/20 07:32 07/26/20 07/27/20 07/27/20 22:59 06:59 14:59 Intake Total 300 / 950 Balance 300 / 950 Weight last 48 hrs Weight 97.114 kg Weight 96.933 kg Physical Exam Narrative: EXAM NARRATIVE: Heart is regular and lungs are clear. No lower extremity edema. Abdomen is soft and nontender. Nondistended. Positive bowel sounds. No focal neurological findings on gross examination. Urinary Catheter Management^: Turner: Cath Placed During This Visit: yes, but has since been removed by the nurse Reason for Continuing Indwelling Catheter: Accurate Measurement of Urinary Output in Critically Ill Patients Urinary Catheter Date of Insertion: 07/22/20 Urinary Catheter Time of Insertion: 11:13 Date Urinary Catheter Removed: 07/25/20 Time Urinary Catheter Discontinued: 15:52 Data : 07/27/20 04:45 07/27/20 04:45 Micro: Microbiology 07/22/20 07:35 Blood Culture - Final Blood NO GROWTH AFTER 5 DAYS 07/25/20 07:45 Blood Culture - Preliminary Blood NEGATIVE TO DATE 07/25/20 07:53 Blood Culture - Preliminary Blood NEGATIVE TO DATE A&P Assessment and plan (1) Non-ST elevation myocardial infarction (NSTEMI): Status: Acute (2) Severe sepsis: Resolved. Status: Acute (3) Hypotension: Resolved Status: Acute (4) Dehydration with hyponatremia: Resolved Status: Acute (5) Thrombocytopenia: Appears to be related to infection. Improved Status: Acute (6) Acute respiratory failure with hypoxia: Improved Status: Acute (7) Acute systolic heart failure: EF 40%. Suspected Takotsubo syndrome. Currently appears compensated Status: Acute (8) Urinary tract infection: Acute pyelonephritis with E. coli. Present on admission. Patient had positive blood culture with E. coli. Status: Acute (9) Hypokalemia: Status: Acute (10) Hypomagnesemia: Status: Acute (11) Obesity (BMI 30-39.9): Status: Acute (12) Dyslipidemia (high LDL; low HDL): Status: Acute (13) Chronic kidney disease, stage 3: Status: Acute Additional A&P Information PLAN: Continue current monitoring and treatment and replete potassium. No need for Lasix this morning. Continue ceftriaxone. Will order trazodone at bedtime to help patient with sleep. Attestations Medical Necessity Statement*: Patient with acute pyelonephritis and non-ST elevation [place] requires close inpatient monitoring, treatment and evaluation. Time Spent in Patient Care: 16 - 35 minutes Coding Level of Care Code Acute Aviation Survival Technician for [facility] Fwd Diagnoses Non-ST elevation myocardial infarction (NSTEMI) I21.4 Severe sepsis A41.9; R65.20 Hypotension I95.9 Dehydration with hyponatremia E86.0; E87.1 Thrombocytopenia D69.6 Acute respiratory failure with hypoxia J96.01 Acute systolic heart failure I50.21 Urinary tract infection N39.0 Hypokalemia E87.6 Hypomagnesemia E83.42 Obesity (BMI 30-39.9) E66.9 Dyslipidemia (high LDL; low HDL) E78.5 Chronic kidney disease, stage 3 N18.30
[2020-07-27] MEDS: potassium chloride ER 20 mEq Tablet 40 MEQ PO ×2 (08:43→15:28)
--- NOTE | 2020-07-27 09:04 | PC.SOCIAL ---
IMM Update Pg.2 of IMM Updated and reviewed with patient who verbalized understanding. Copy provided.
--- NOTE | 2020-07-27 16:56 | P.PN_ITS ---
Subjective Subjective: Interval history: Patient had bowel movement. Chest pressure this morning briefly otherwise denies any major complaints. Medications: Reviewed: Yes Medication Review Details: Current Medications Acetaminophen (Acetaminophen 500 Mg Tablet) 500 mg PO Q4H PRN PRN Reason: MILD PAIN OR INCREASE TEMP Albuterol Sulfate (Albuterol 8 Gm Mdi) 2 puff INHALATION Q4H PRN PRN Reason: Shortness Of Breath Amiodarone HCl (Amiodarone 200 Mg Tablet) 400 mg PO BID [facility] Last Admin: 07/25/20 09:02 Dose: 400 mg Documented by: Aspirin (Aspirin 81 Mg Ec Tablet) 81 mg PO QAM [facility] Last Admin: 07/25/20 06:04 Dose: 81 mg Documented by: Atorvastatin Calcium (Atorvastatin 40 Mg Tablet) 80 mg PO BEDTIME [facility] Last Admin: 07/24/20 21:09 Dose: 80 mg Documented by: Cetirizine HCl (Cetirizine 10 Mg Tablet) 10 mg PO BEDTIME [facility] Last Admin: 07/24/20 21:09 Dose: 10 mg Documented by: Clopidogrel Bisulfate (Clopidogrel 75 Mg Tablet) 75 mg PO DAILY [facility] Last Admin: 07/25/20 09:02 Dose: 75 mg Documented by: Enoxaparin Sodium (Enoxaparin 40 Mg/0.4 Ml Syringe) 40 mg SUBCUT Q24H [facility] Ceftriaxone Sodium 2,000 mg/ (Sodium Chloride) 50 mls @ 100 mls/hr IV Q24H [facility]; Protocol Last Infusion: 07/25/20 09:09 Dose: 0 mls/hr Documented by: Levothyroxine Sodium (Levothyroxine 25 Mcg Tablet) 25 mcg PO QAM [facility] Last Admin: 07/25/20 06:04 Dose: 25 mcg Documented by: Metoprolol Tartrate (Metoprolol Tartrate 50 Mg Tablet) 50 mg PO BID [facility] Last Admin: 07/25/20 09:02 Dose: 50 mg Documented by: Ondansetron HCl (Ondansetron 2 Mg/Ml Sdv 2 Ml) 4 mg IVP Q6H PRN PRN Reason: NAUSEA AND VOMITING Last Admin: 07/24/20 22:12 Dose: 4 mg Documented by: Pantoprazole Sodium (Pantoprazole Dr 40 Mg Tablet) 40 mg PO DAILY [facility] Last Admin: 07/25/20 09:02 Dose: 40 mg Documented by: Polyethylene Glycol (Polyethylene Glycol 3350 Pkt 17 Gm) 17 gm PO DAILY PRN PRN Reason: Constipation Vitals/I&O/Wt Last Vital Signs Temp 98.0 F 07/27/20 14:56 Pulse 79 07/27/20 14:56 Resp 20 H 07/27/20 14:56 BP 111/56 07/27/20 14:56 Pulse Ox 96 07/27/20 14:56 07/27/20 07/27/20 07/27/20 06:59 14:59 22:59 Intake Total 530 / 530 Balance 530 / 530 Weight last 48 hrs Weight 214 lb 1.6 oz Weight 213 lb 11.2 oz Physical Exam Narrative: EXAM NARRATIVE: GENERAL: Patient is alert, awake and oriented x3. NECK: No jugular vein distension. HEENT: No cyanosis. No icterus. No pallor. HEART: Regular S1 and S2. No murmur, rub or gallop. LUNGS: Clear to auscultate bilaterally. ABDOMEN: Soft, nontender and nondistended. Positive bowel sounds. No guarding, rebound or tenderness. CENTRAL NERVOUS SYSTEM: Grossly nonfocal. EXTREMITIES: Lower extremities without edema bilaterally. Urinary Catheter Management^: Turner: Cath Placed During This Visit: yes, but has since been removed by the nurse Reason for Continuing Indwelling Catheter: Accurate Measurement of Urinary Output in Critically Ill Patients Urinary Catheter Date of Insertion: 07/22/20 Urinary Catheter Time of Insertion: 11:13 Date Urinary Catheter Removed: 07/25/20 Time Urinary Catheter Discontinued: 15:52 Data : 07/27/20 04:45 07/27/20 04:45 Micro: Microbiology 07/22/20 10:00 Blood Culture - Final Blood Escherichia coli 07/22/20 07:35 Blood Culture - Final Blood NO GROWTH AFTER 5 DAYS A&P Assessment and plan (1) Atrial fibrillation with rapid ventricular response: Patient is in sinus rhythm continue to monitor. Status: Acute (2) Non-ST elevation myocardial infarction (NSTEMI): Patient is stable. She is scheduled for angiogram tomorrow r Status: Acute (3) Hypotension: Normotensive. Status: Acute (4) Congestive heart failure: Patient is compensated. Continue current regimen Status: Acute (5) Left bundle branch block: Patient has intermittent left bundle branch block Status: Acute (6) Ventricular arrhythmia: No more VT continue current regimen Status: Acute (7) Sepsis associated hypotension: Improved. Continue antibiotic Status: Acute (8) Anemia: Continue to monitor keep hemoglobin above 8 Status: Acute Additional A&P Information Patient on the patient's clinical progress and the results of the above, further management decisions will be made . we may go ahead and schedule the patient for the cardiac catheterization on Tuesday. Attestations Medical Necessity Statement*: Patient require continuation hospitalization for above defined care. Coding Level of Care Code Established Pt Acute Customer Success Director for [facility] Patient Type Established History Detailed Exam Detailed Medical Decision Making Moderate Complexity Diagnoses Atrial fibrillation with rapid ventricular response I48.91 Non-ST elevation myocardial infarction (NSTEMI) I21.4 Hypotension I95.9 Congestive heart failure I50.9 Left bundle branch block I44.7 Ventricular arrhythmia I49.9 Sepsis associated hypotension A41.9; I95.9 Anemia D64.9
--- NOTE | 2020-07-27 19:11 | PC.NURSE ---
Received report from ZIGGY Julio. Patient resting in bed with eyes closed. Arouses easily with verbal stimuli. Patient denies pain or needs at this time. Assessment completed as documented. No distress observed.
[2020-07-27] MEDS: cetirizine 10 mg Tablet PO (20:37)
[2020-07-27] MEDS: atorvastatin 40 mg Tablet 80 MG PO (20:37)
[2020-07-27] MEDS: trazodone 50 mg Tablet PO (20:37)
[2020-07-28] VITALS (75 sets, daily range): BP systolic 116–161; BP diastolic 66–98; PULSE 55–90; RESP 14–39; TEMP 36.3–37; O2SAT 94–97
[2020-07-28] MEDS: aspirin 81 mg EC Tablet PO (05:12)
[2020-07-28] MEDS: levothyroxine 25 mcg Tablet PO (05:12)
[2020-07-28 05:30] LABS: Hematocrit 28.9 % (37.0-47.0); Hemoglobin 9.3 g/dL (11.5-15.3); Mean Corpuscular HGB Conc 32.2 g/dL (30.0-36.0); Mean Corpuscular Hemoglobin 28.2 pg (28.0-34.0); Mean Corpuscular Volume 87.6 fL (81-99); Mean Platelet Volume 9.9 fL (7.4-10.4); Platelet Count 253 10^3/cmm (130-400); White Blood Count 10.3 10^3/uL (4.0-10.0)
[2020-07-28 05:52] LABS: Alanine Aminotransferase 19 U/L (0-33); Albumin Level 2.7 g/dL (3.5-5.2); Alkaline Phosphatase 87 IU/L (35-105); Anion Gap 12.2 (5-19); Aspartate Amino Transferase 40 U/L (0-32); Blood Urea Nitrogen 13 mg/dL (8-23); Calcium 8.5 mg/dL (8.5-10.5); Carbon Dioxide 22 mmol/L (22-29); Chloride 107 mmol/L (98-107); Globulin 3.5 g/dL (1.3-4.6); Glucose 95 mg/dL (65-115); Magnesium 1.9 mg/dL (1.7-2.3); Osmolality Calculated 284 mOsm/kg (285-295); Potassium 4.2 mmol/L (3.5-5.1); Sodium 137 mmol/L (136-145); Total Bilirubin 0.5 mg/dL (0.15-1.2); Total Protein 6.2 g/dL (6.6-8.7)
[2020-07-28 06:07] LABS: Slide Review Slide Review Perform
[2020-07-28 06:11] LABS: Absolute Eosinophils 0.1 10^3/cmm (0.0-0.7); Absolute Neutrophil 6.4 10^3/cmm (1.4-6.5); Band Neutrophils Absolute 0.4 10^3/cmm (0.0-1.2); Eosinophils 1 %; Lymphocytes 24 %; Monocytes Absolute 0.8 10^3/cmm (0.1-0.6); Platelet Estimate Normal (Normal); Segmented Neutrophils 58 %; Total Cells Counted 100 (0-100)
[2020-07-28] MEDS: sennosides-docusate Tablet 1 TAB PO ×2 (08:40→18:41)
[2020-07-28] MEDS: pantoprazole DR 40 mg Tablet PO (08:40)
[2020-07-28] MEDS: amiodarone 200 mg Tablet 400 MG PO ×2 (08:40→18:40)
[2020-07-28] MEDS: enoxaparin 40 mg/0.4 mL Syringe SUBCUT (08:41)
[2020-07-28] MEDS: metoprolol tartrate 50 mg Tablet PO ×2 (08:41→18:41)
[2020-07-28] MEDS: clopidogrel 75 mg Tablet PO (08:41)
--- NOTE | 2020-07-28 09:16 | P.PN_ITS ---
Subjective Subjective: Interval history: Patient is doing much better. Reports that her upper abdominal discomfort resolved after she had more bowel movements. She reports that her upper abdomen now feels much better. Denies shortness of breath or chest pain. Reports that her energy level is gradually improving. She is scheduled for coronary angiogram later this afternoon. She was allowed to have breakfast. Repeat blood cultures are still negative. Vitals/I&O/Wt Last Vital Signs Temp 98.6 F 07/28/20 07:08 Pulse 80 07/28/20 08:08 Resp 18 07/28/20 08:08 BP 131/68 07/28/20 07:08 Pulse Ox 96 07/28/20 08:08 07/27/20 07/28/20 07/28/20 22:59 06:59 14:59 Intake Total 100 / 630 240 / 240 Output Total 450 / 450 Balance -350 / 180 240 / 240 Weight last 48 hrs Weight 97.522 kg Weight 97.114 kg Physical Exam Narrative: EXAM NARRATIVE: Heart is regular and lungs are clear. No lower extremity edema. Abdomen is soft and nontender. Nondistended. Positive bowel sounds. No focal neurological findings on gross examination. Urinary Catheter Management^: Turner: Cath Placed During This Visit: yes, but has since been removed by the nurse Reason for Continuing Indwelling Catheter: Accurate Measurement of Urinary Output in Critically Ill Patients Urinary Catheter Date of Insertion: 07/22/20 Urinary Catheter Time of Insertion: 11:13 Date Urinary Catheter Removed: 07/25/20 Time Urinary Catheter Discontinued: 15:52 Data : 07/28/20 04:47 07/28/20 04:47 Micro: Microbiology 07/22/20 10:00 Blood Culture - Final Blood Escherichia coli 07/22/20 07:35 Blood Culture - Final Blood NO GROWTH AFTER 5 DAYS A&P Assessment and plan (1) Non-ST elevation myocardial infarction (NSTEMI): Status: Acute (2) Severe sepsis: Resolved. Status: Acute (3) Hypotension: Resolved Status: Acute (4) Dehydration with hyponatremia: Resolved Status: Acute (5) Thrombocytopenia: Appears to be related to infection. Improved Status: Acute (6) Acute respiratory failure with hypoxia: Improved Status: Acute (7) Acute systolic heart failure: EF 40%. Suspected Takotsubo syndrome. Currently appears compensated Status: Acute (8) Urinary tract infection: Acute pyelonephritis with E. coli. Present on admission. Patient had positive blood culture with E. coli. Status: Acute (9) Hypokalemia: Status: Acute (10) Hypomagnesemia: Status: Acute (11) Obesity (BMI 30-39.9): Status: Acute (12) Dyslipidemia (high LDL; low HDL): Status: Acute (13) Chronic kidney disease, stage 3: Status: Acute Additional A&P Information PLAN: We will continue current monitoring and treatment including ceftriaxone. Awaiting coronary angiogram and if patient further improves and doing well we could possibly let her go home tomorrow morning on oral antibiotic. Attestations Medical Necessity Statement*: Patient with UTI as well as non-ST elevation DE requires close inpatient monitoring, evaluation and treatment. Coding Level of Care Code Acute Tool Chaser for [facility] Diagnoses Non-ST elevation myocardial infarction (NSTEMI) I21.4 Severe sepsis A41.9; R65.20 Hypotension I95.9 Dehydration with hyponatremia E86.0; E87.1 Thrombocytopenia D69.6 Acute respiratory failure with hypoxia J96.01 Acute systolic heart failure I50.21 Urinary tract infection N39.0 Hypokalemia E87.6 Hypomagnesemia E83.42 Obesity (BMI 30-39.9) E66.9 Dyslipidemia (high LDL; low HDL) E78.5 Chronic kidney disease, stage 3 N18.30
[2020-07-28] MEDS: cefTRIAXone 2,000 MG in sodium chloride 0.9% (plus) 50 ML 100 MG IV (09:26)
--- NOTE | 2020-07-28 12:20 | XACV_ITS ---
Exam Room: [facility] Ht: 165 cm Wt: 98 kg BSA: 2.16 m2 Gender: Female : 1945 Any Known Allergies: Other Exam Priority: Routine Procedure(s): Procedure Description: Diagnostic procedure Procedure Description: PCI procedure Procedure Description: Left Heart Catheterization Procedure Description: Left ventriculography Procedure Description: Drug Eluting Coronary Stent Procedure Description: PTCA Procedure Description: Miscellaneous Procedure Description: ACT Procedure Description: Coronary Angiography Diagnostic Cath Status: Urgent Diagnostic Findings * The left main is a medium caliber short vessel with no significant stenotic lesion. * The left anterior descending artery is a medium caliber vessel which appears to wrap around the LV apex minimally. Right after the first diagonal branch, there is an eccentric around 70% segmental narrowing. The mid and distal segment of the artery was found to have minimal intimal irregularities. * The left circumflex artery is a medium caliber dominant vessel which was found to have no significant stenotic lesions. The first obtuse marginal artery was found to have around 40% segmental narrowing proximally. No other significant stenotic lesions were seen. * The right coronary artery is a medium caliber dominant vessel which was found to have minimal intimal regularities proximally with no significant stenotic lesions. PCI Status: Urgent PCI Indication: NSTE - ACS Interventional Findings * PROCEDURE DETAIL: We engaged left main artery using XB 3.5 guide catheter. IV heparin was used to maintain an ACT above 250 seconds. A 0.014 run-through guidewire was used to cross the LAD stenosis. A 0.014 BMW guidewire was used to cross into first diagonal branch to protect it. We predilated the stenosis with 2.5x8 mm semicompliant balloon. This was followed by placement of 3.0x12 mm resolute Hilton drug-eluting stent into the LAD across the diagonal branch. At this time he noted ostial diagonal artery had pinching at the stent site. We recrossed the LAD wire into the diagonal. Jailed BMW wire was removed. 2.5x8mm semicompliant balloon was used to dilate the ostial diagonal artery. At this time final angiogram was performed that showed excellent stent expansion, no residual stenosis and DAVID-3 flow. Guidewire and guide catheter were removed. Hemostasis was obtained with TR band. Patient left the Dough Mixer in a stable condition. * INDICATION: Patient had NSTEMI with significant delta troponin. Regional wall motion abnormalties correlating with the mid LAD stenosis. * Mid Left Anterior Descending Coronary Artery: 100% stenosis treated with AB TREK 2.50X8 RX BALLOON and MDT R HILTON 3.0X12 EMBER. 0% residual stenosis, DAVID: 3 flow. * 1st Diagonal Coronary Artery: 100% stenosis treated with AB TREK 2.50X8 RX BALLOON. 0% residual stenosis, DAVID: 3 flow. Conclusions 1. This is a 75-year-old white female, was admitted to hospital with features of gram-negative sepsis and non-ST elevation myocardial infarction. Her troponin T went up to 600 with delta of more than 400. Echocardiogram revealed LV ejection fraction around 40% with multiple wall motion normalities. She had features of congestive heart failure as well. She was treated with IV diuretics, antiplatelet drugs, heparin, statin and beta-blockers. In view of her complicated course of myocardial infarction, in order to further evaluate her coronary status, a cardiac catheterization was recommended. For the septicemia, she was treated with IV antibiotics and no symptomatic measures. She underwent left heart catheterization with left and right coronary angiogram and LV angiogram today. The findings are as follows. 2. Moderately severe segmental stenosis in the mid LAD, right after the first diagonal branch. Mild disease in the other vessels. 40% lesion in the first obtuse marginal artery. LVEDP of 27 mmHg. LV gram revealed moderate hypokinesia of the mid and apical anterior and apical inferior wall segments. Overall ejection fraction was around 45%. Based on the angiogram findings, it was thought to be appropriate to consider PCI of the LAD lesion. I discussed and reviewed the cardiac catheterization data with Dr. Ayoub. Dr. Ayoub took over further management this patient at this point. 3. Mid Left Anterior Descending Coronary Artery was treated with Balloon and Drug Eluting Stent. 4. 1st Diagonal Coronary Artery was treated with Balloon. Recommendations * Aspirin and Plavix for atleast 1 year. * High intensity statin therapy. * Beta leida therapy. * Outpatient with cardiology office in 7-10 day. Interventional RX Recommendation: PCI w/o planned CABG Diagnostic RX Recommendation: PCI w/o planned CABG Anticoagulation: Heparin Ventriculography Ejection Fraction: 45.0 % LV EDP: 27 mmHg Left Ventriculography Findings: * The LV gram was performed the WANG projection. The LV cavity was of normal size. There was moderate hypokinesia of the mid and apical anterior and apical inferior wall segments. Overall ejection fraction was around 45%. The LVEDP was 27 mmHg. Pressures Phase:Rest AO : 129 / 79 ( 102 ) @ 11:03:00 AM 123 / 72 ( 96 ) @ 11:07:00 AM 161 / 82 ( 119 ) @ 11:12:00 AM 150 / 76 ( 106 ) @ 11:21:00 AM LV : 158 / 14 / @ 11:11:00 AM 160 / 16 / @ 11:12:00 AM Clinical Evaluation EBL: 5mL-10mL Procedural Details Procedure Consent Obtained. Pre-Procedure Time Out. Identified patient by full name and date of as verbalized by the patient/guarantor. Does the consent match the physician's order: Yes. Accurate & Complete Informed Consent: Yes. Inpatient/Outpatient History & Physical on Chart: Yes. If H&P is completed, is and addenduem needed: No; If yes, is the addendum complete: N/A. Visualize and Verify Site with Patient/Guarantor: N/A. Relevant Radiology Images available: N/A. Pre-op teaching completed and patient verbalized understanding. The risks, benefits, and alternatives of sedation and/or procedure were discussed by physician. The patient agrees to continue. Procedure started. [facility] Clinical Fraility Score: 4: Vulnerable. Dough Mixer Indications: ACS > 24 hours. Chest Pain Symptom Assessment: Atypical Angina. Cardiovascular Instability: No. Correct patient, site and procedure confirmed by cath team. PERRLA. Strong, equal hand clinical admissions manager bilaterally. Lungs clear x 5 lobes. IV Site on Arrival: 20 gauge in the right anticubital. IV Fluids: 0.9% NaCl at KVO. 0 mL infused prior to physical laboratory assistant. Pre Procedural Pulses: bilateral dorsalis pedis was 3+. Pre Procedural Pulses: bilateral posterior tibial was 3+. Pre Procedural Pulses: bilateral radial was 3+. Oxygen started at 2liters/min via nasal canula. bilateral groins was prepped with chloroprep then draped in the usual sterile fashion. right radial was prepped with chloroprep then draped in the usual sterile fashion. Baseline sample Acquired. HR: 80 BPM. Equipment: 6F - Radial. Cardiac Cath Pack. ACIST Manifold Kit Model BT 2000. Heparinized Saline (2 units/mL), 1000 mL bag. Physician notified. Physician arrived. Physician scrubbed in. Immediate Pre-Procedure Time Out. Correct Patient: Yes; Correct Procedure: Yes; Correct Site: Yes; Correct Patient Position: Yes; Correct Supplies: Yes; Dried Flammable Prep: Yes; Blood Products Available: N/A;. Lidocaine 1% infiltrated to the right radial. Arterial access obtained. A 5 ghanaian Aris catheter in over wire. Multiple views taken of right coronary artery. Catheter redirected to the LCA. Called Dr Ayoub to come look at pictures. Catheter removed over the exchange wire. A 5 ghanaian Angled Pig catheter in over wire. Dr Ayoub arrived. EDP Sample taken: LV 158/14,27; HR: 94 BPM; SpO2: 96%. LV gram performed in WANG @ 10 mL/second for a total of 30 mL. EDP Sample taken: LV 160/16,22; HR: 64 BPM; SpO2: 97%. Pullback taken: LV Off; AO Off; Mean: , Peak to Peak: , SEP: ; HR: 44 BPM; SpO2: 97%. Dr. Ayoub scrubbed in to perform intervention. Inventory is CRD 6 FR XB 3.[address] Zapien spoke with patient's to give update of procedure. 6 ghanaian XB 3.5 guide catheter was inserted over the wire. Catheter removed over the exchange wire. Runthrough guidewire was advanced through the guide catheter to lesion in the mid LAD. BMW guidewire was advanced through the guide catheter to lesion in the diaganol. Inflation number : 1 A AB TREK 2.50X8 RX BALLOON was prepped and advanced across the Mid LAD , then inflated to 12 JOSE J for 0:17 seconds. Inflation number: 2 The AB TREK 2.50X8 RX BALLOON was reinflated across the Mid LAD, to 12 JOSE J for 0:20 seconds. Results checked. Balloon out. Inflation Number : 3 A MDT R HILTON 3.0X12 EMBER -Lot Number# [id number] exp date 03/06/2022 was prepped and advanced across the Mid LAD. The stent was deployed at 12 JOSE J for 0:18 seconds. Stent balloon out over wire. Runthrough repositioned to diaganol. BMW wire out. Inflation number: 1 The AB TREK 2.50X8 RX BALLOON was reinflated across the 1st Diag, to 12 JOSE J for 0:10 seconds. Inflation number: 2 The AB TREK 2.50X8 RX BALLOON was reinflated across the 1st Diag, to 14 JOSE J for 0:27 seconds. Balloon out. Wire out. Results checked. ACT drawn. Results 252 seconds. Therapeutic limits - pre-heparin administration 90-150 seconds and monitoring heparin during a vascular procedure >250 seconds. Guide catheter out. Physician scrubbed out. A TR Band was successful obtaining hemostatsis at the Right Radial artery insertion site. TR band placed. Hemostasis obtained. Post Procedure: Pulses reassessed and unchanged. PERRLA. Strong, equal hand clinical admissions manager bilaterally. No VTE prophylaxis required. Complications: none. PCI Indication: NSTE. Medication's Wasted: Lidocaine 1% = 18 mL. Medication's Wasted: Nitro = 49.8 mg. Medication's Wasted: Heparin = 2000 units. Total IV fluids: 100 mL. Contrast type used: Omnipaque 300 mgI/mL, 500 mL bottle. Estimated blood loss: 5mL-10mL. Procedure completed. Patient transferred by bed to 1st floor. Vital chart was stopped. Access Site Site: Right Radial artery Sheath Size: 6 Fr Hemostasis Method: TR Band Hemostasis Success: Successful Procedure Medications Start: 4:53 PM Stop: 4:53 PM Medication: Versed Amount: 1 mg Route: I.V. Start: 4:53 PM Stop: 4:53 PM Medication: Fentanyl Amount: 50 mcg Route: I.V. Start: 5:00 PM Stop: 5:00 PM Medication: Verapamil Amount: 5 mg Route: I.A. Start: 5:01 PM Stop: 5:01 PM Medication: Nitrogylcerin Amount: 200 mcg Route: I.A. Start: 5:03 PM Stop: 5:03 PM Medication: Heparin Amount: 5000 units Route: I.V. Start: 5:18 PM Stop: 5:18 PM Medication: Heparin Amount: 3000 units Route: I.V. Start: 5:18 PM Stop: 5:18 PM Medication: Versed Amount: 1 mg Route: I.V. Start: 5:18 PM Stop: 5:18 PM Medication: Fentanyl Amount: 50 mcg Route: I.V. Start: 5:39 PM Stop: 5:39 PM Medication: Heparin Amount: 1000 units Route: I.V. Start: 5:49 PM Stop: 5:49 PM Medication: Plavix Amount: 300 mg Route: P.O. I, the attending physician, have reviewed and verified all procedure medications. Yes, all medications given per verbal order History/Risk Factors Hypertension: Yes Dyslipidemia: Yes Peripheral Arterial Disease (PAD): No Myocardial Infarction (ND): No Obesity: No Renal Disease: No Tobacco Use: Never Prior Interventions PCI: No CABG: No Valve Surgery: No Report Signatures Interventional Workflow Finalized by Gus Ayoub MD on 07/29/2020 10:49 AM Diagnostic Workflow Finalized by Dr Monica Zapien MD [facility] on 07/28/2020 09:04 PM
--- NOTE | 2020-07-28 12:47 | PC.NURSE ---
Spoke with Dr. Zapien and received orders to start NS 1,000ml at 75ml/hr prior to Cardiac Cath and administer 50mg Diphenhydramine 30 min prior to LHC.
--- NOTE | 2020-07-28 13:04 | PM.PN ---
Subjective Subjective: Interval history: Patient is feeling better. She still has some amount of easy fatigability. No fever or chills. No cough. No unusual shortness of breath. She has been ambulating on telemetry. Medications: Reviewed: Yes Medication Review Details: Current Medications Acetaminophen (Acetaminophen 500 Mg Tablet) 500 mg PO Q4H PRN PRN Reason: MILD PAIN OR INCREASE TEMP Albuterol Sulfate (Albuterol 8 Gm Mdi) 2 puff INHALATION Q4H PRN PRN Reason: Shortness Of Breath Amiodarone HCl (Amiodarone 200 Mg Tablet) 400 mg PO BID [facility] Last Admin: 07/28/20 08:40 Dose: 400 mg Documented by: Aspirin (Aspirin 81 Mg Ec Tablet) 81 mg PO QAM [facility] Last Admin: 07/28/20 05:12 Dose: 81 mg Documented by: Atorvastatin Calcium (Atorvastatin 40 Mg Tablet) 80 mg PO BEDTIME [facility] Last Admin: 07/27/20 20:37 Dose: 80 mg Documented by: Cetirizine HCl (Cetirizine 10 Mg Tablet) 10 mg PO BEDTIME [facility] Last Admin: 07/27/20 20:37 Dose: 10 mg Documented by: Clopidogrel Bisulfate (Clopidogrel 75 Mg Tablet) 75 mg PO DAILY [facility] Last Admin: 07/28/20 08:41 Dose: 75 mg Documented by: Enoxaparin Sodium (Enoxaparin 40 Mg/0.4 Ml Syringe) 40 mg SUBCUT Q24H [facility] Last Admin: 07/28/20 08:41 Dose: 40 mg Documented by: Ceftriaxone Sodium 2,000 mg/ (Sodium Chloride) 50 mls @ 100 mls/hr IV Q24H [facility]; Protocol Last Infusion: 07/28/20 10:06 Dose: Infused Documented by: Levothyroxine Sodium (Levothyroxine 25 Mcg Tablet) 25 mcg PO QAM [facility] Last Admin: 07/28/20 05:12 Dose: 25 mcg Documented by: Metoprolol Tartrate (Metoprolol Tartrate 50 Mg Tablet) 50 mg PO BID [facility] Last Admin: 07/28/20 08:41 Dose: 50 mg Documented by: Ondansetron HCl (Ondansetron 2 Mg/Ml Sdv 2 Ml) 4 mg IVP Q6H PRN PRN Reason: NAUSEA AND VOMITING Last Admin: 07/24/20 22:12 Dose: 4 mg Documented by: Pantoprazole Sodium (Pantoprazole Dr 40 Mg Tablet) 40 mg PO DAILY [facility] Last Admin: 07/28/20 08:40 Dose: 40 mg Documented by: Polyethylene Glycol (Polyethylene Glycol 3350 Pkt 17 Gm) 17 gm PO DAILY PRN PRN Reason: Constipation Last Admin: 07/25/20 20:18 Dose: 17 gm Documented by: Senna/Docusate Sodium (Sennosides-Docusate Tablet) 1 tab PO BID [facility] Last Admin: 07/28/20 08:40 Dose: 1 tab Documented by: Trazodone HCl (Trazodone 50 Mg Tablet) 50 mg PO BEDTIME [facility] Last Admin: 07/27/20 20:37 Dose: 50 mg Documented by: Vitals/I&O/Wt Last Vital Signs Temp 97.3 F L 07/28/20 12:00 Pulse 73 07/28/20 12:00 Resp 21 H 07/28/20 12:00 BP 143/82 07/28/20 12:00 Pulse Ox 97 07/28/20 12:00 07/27/20 07/28/20 07/28/20 22:59 06:59 14:59 Intake Total 100 / 630 290 / 290 Output Total 450 / 450 Balance -350 / 180 290 / 290 Weight last 48 hrs Weight 215 lb Weight 214 lb 1.6 oz Physical Exam Narrative: EXAM NARRATIVE: GENERAL: The patient is alert and oriented x3. lethargic HEENT . Mild pallor. No icterus or lymphadenopathy.Oral cavity: There are no mucous membrane lesions. NECK: Trachea appears to be central. No masses noted. No JVD or thyromegaly appreciated. RESPIRATORY: Chest is symmetrical. No intercostals muscle retraction or any accessory muscle activation. There is no chest wall tenderness. Breath sounds are heard bilaterally. No rales or rhonchi heard. No evidence of any consolidation. BREASTS: Deferred. HEART: The heart sounds are normal. No S3 or S4. Short systolic murmur in the left sternal border. No pericardial rub ABDOMEN: No vessel pulsations or distention. Minimal epigastric tenderness. No organomegaly appreciated. Bowel sounds are normally heard. : Deferred. RECTAL: Deferred. LYMPHATIC: No lymphadenopathy noted in the neck or groin. EXTREMITIES: No edema or cyanosis. No clubbing. Peripheral pulses are palpated in fairly good volume and amplitude MUSCULOSKELETAL: No acute joint deformities or swelling SKIN: There are no significant rashes or ecchymosis NEUROPSYCHIATRIC: The patient is alert and oriented x3. No focal motor deficits. Urinary Catheter Management^: Turner: Cath Placed During This Visit: yes, but has since been removed by the nurse Reason for Continuing Indwelling Catheter: Accurate Measurement of Urinary Output in Critically Ill Patients Urinary Catheter Date of Insertion: 07/22/20 Urinary Catheter Time of Insertion: 11:13 Date Urinary Catheter Removed: 07/25/20 Time Urinary Catheter Discontinued: 15:52 Data : 07/29/20 04:24 07/29/20 04:24 Micro: Microbiology 07/22/20 10:00 Blood Culture - Final Blood Escherichia coli 07/22/20 07:35 Blood Culture - Final Blood NO GROWTH AFTER 5 DAYS A&P Assessment and plan (1) Atrial fibrillation with rapid ventricular response: Patient is currently in sinus rhythm. Continue on the amiodarone. We will do an EKG today Status: Acute (2) Non-ST elevation myocardial infarction (NSTEMI): Currently she seems to be fairly stable from a hemodynamic point of view. Because of the anemia and thrombocytopenia, it was decided to hold off on the heparin. May continue with the Plavix and aspirin. Status: Acute (3) Cardiomyopathy as manifestation of underlying disease: Patient was in heart failure. Currently seems to be compensated. In view of her non-ST relation myocardial infarction complicated with congestive heart failure and LV dysfunction, in order to further evaluate the coronary status, she requires a cardiac catheterization. The risk of bleeding, hematoma, vascular injury, myocardial infarction, CVA, renal failure and other concomitant complications were explained in detail. Patient understood this well and consented to proceed. She is scheduled for the procedure this evening. Status: Acute (4) Left bundle branch block: She has a chronic intermittent bundle branch block. Currently stable with no high degree AV block Status: Acute (5) Ventricular arrhythmia: Currently the patient has no evidence of ventricular arrhythmia. Status: Acute (6) Sepsis associated hypotension: Currently has improved. We will continue on the current measures. Status: Acute (7) Anemia: Her hemoglobin hematocrit is stable. Status: Acute Qualifiers: Anemia type: unspecified type Qualified Code(s): D64.9 - Anemia, unspecified Additional A&P Information Based on the patient's clinical progress and the results of the above, further management decisions will be made . 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
[2020-07-28] MEDS: sodium chloride 0.9% 1,000 ML 75 ML IV (13:44)
[2020-07-28] MEDS: diphenhydrAMINE 50 mg Capsule PO (16:20)
--- NOTE | 2020-07-28 16:45 | W.PM.OPSUD ---
Surgery/Procedure H&P Update DATE OF PROCEDURE: July 28, 2020 DATE H&P PERFORMED: 07/22/20 H&P UPDATE INFORMATION: I have reviewed H&P completed within last 30 days, I have examined patient prior to procedure and No changes to prior documentation PREOP DIAGNOSIS: Non-ST relation myocardial infarction/congestive heart failure/cardiomyopat PLANNED PROCEDURE: Operation Date: 07/28/20 16:30 Proposed Procedures p left Cardiac Catheterization [id number] I43(Left) - Monica Zapien MD PATIENT REASSESSED PRIOR TO SEDATION, WITH NO CHANGE NOTED: Yes PHYSICAL EXAM: alert, oriented x 3, clear to auscultation bilaterally and regular rate & rhythm AIRWAY EVAL/ANESTHESIA PLAN: normal airway, see other exam findings, ASA III, Monitored Anesthesia, Local Anesthesia, Risks, benefits & alternatives of sedation and/or procedure discussed and Patient agrees to continue as planned
--- NOTE | 2020-07-28 18:19 | PC.NURSE ---
Received patient from cath lab technologist. TR band in place, no hematoma, bleeding, or oozing from the site. Patient has been educated on activity restrictions and verbalized understanding. Vital signs are stable and have been set to Q15min. Will continue to monitor.
[2020-07-28] MEDS: sodium chloride 0.9% 1,000 ML 50 ML IV (18:44)
[2020-07-28] MEDS: trazodone 50 mg Tablet PO (21:44)
[2020-07-28] MEDS: atorvastatin 40 mg Tablet 80 MG PO (21:44)
[2020-07-29] VITALS (16 sets, daily range): BP systolic 93–146; BP diastolic 53–93; PULSE 52–85; RESP 17–29; TEMP 36.6–37; O2SAT 94–97
[2020-07-29] MEDS: acetaminophen 325 mg Tablet 650 MG PO (00:40)
[2020-07-29 05:00] LABS: Basophils # 0.1 10^3/uL (0.0-0.1); Basophils % 0.6 %; Eosinophils # 0.2 10^3/uL (0.0-0.8); Eosinophils % 1.7 %; Hematocrit 27.2 % (37.0-47.0); Hemoglobin 8.6 g/dL (11.5-15.3); Lymphocytes # 2.1 10^3/uL (0.8-4.8); Lymphocytes % 21.3 %; Mean Corpuscular HGB Conc 31.6 g/dL (30.0-36.0); Mean Corpuscular Hemoglobin 28.5 pg (28.0-34.0); Mean Corpuscular Volume 90.1 fL (81-99); Mean Platelet Volume 9.7 fL (7.4-10.4); Monocytes # 1.1 10^3/uL (0.2-0.9); Monocytes % 11.2 %; Neutrophils # 5.75 10^3/uL (1.8-7.7); Neutrophils % 57.9 %; Nucleated Red Blood Cells % 0 %; Platelet Count 267 10^3/cmm (130-400); Red Blood Count 3.02 10^6/uL (4.1-5.3); Red Cell Distribution Width 15.2 % (12.1-15.1); White Blood Count 9.9 10^3/uL (4.0-10.0)
[2020-07-29] MEDS: levothyroxine 25 mcg Tablet PO (05:17)
[2020-07-29] MEDS: aspirin 81 mg EC Tablet PO (05:17)
[2020-07-29 05:27] LABS: Alanine Aminotransferase 20 U/L (0-33); Albumin Level 2.7 g/dL (3.5-5.2); Alkaline Phosphatase 73 IU/L (35-105); Anion Gap 11.1 (5-19); Aspartate Amino Transferase 41 U/L (0-32); Blood Urea Nitrogen 14 mg/dL (8-23); Calcium 8.5 mg/dL (8.5-10.5); Carbon Dioxide 23 mmol/L (22-29); Chloride 105 mmol/L (98-107); Globulin 3.2 g/dL (1.3-4.6); Glucose 94 mg/dL (65-115); Magnesium 1.8 mg/dL (1.7-2.3); Osmolality Calculated 280 mOsm/kg (285-295); Potassium 4.1 mmol/L (3.5-5.1); Sodium 135 mmol/L (136-145); Total Bilirubin 0.5 mg/dL (0.15-1.2); Total Protein 5.9 g/dL (6.6-8.7)
[2020-07-29 05:35] LABS: Slide Review Slide Review Perform
[2020-07-29] MEDS: ondansetron 2 mg/ML SDV 2 mL 4 MG IVP (07:34)
[2020-07-29] MEDS: clopidogrel 75 mg Tablet PO (08:23)
[2020-07-29] MEDS: metoprolol tartrate 50 mg Tablet PO (08:23)
[2020-07-29] MEDS: pantoprazole DR 40 mg Tablet PO (08:23)
[2020-07-29] MEDS: sennosides-docusate Tablet 1 TAB PO ×2 (08:23→18:28)
[2020-07-29] MEDS: amiodarone 200 mg Tablet 400 MG PO ×2 (08:23→18:28)
[2020-07-29] MEDS: cefTRIAXone 2,000 MG in sodium chloride 0.9% (plus) 50 ML 100 MG IV (08:23)
--- NOTE | 2020-07-29 10:53 | DCPLANNER ---
IMM completed 07/29/20 @ 1977. Copy of rights given to pt.
--- NOTE | 2020-07-29 10:55 | PC.NURSE ---
Dr jeong at bedside for assessment instructions not to give lovenox post cardiac cath
--- NOTE | 2020-07-29 11:45 | PM.PN ---
Subjective Subjective: Interval history: This morning patient reports being slightly nauseous and feeling blah . She denies chest pain or shortness of breath. Her heart rate noted to be in the 50s. This is the lowest she ever had. Blood pressure is good. Vitals/I&O/Wt Last Vital Signs Temp 98.6 F 07/29/20 10:56 Pulse 52 L 07/29/20 10:56 Resp 19 H 07/29/20 10:56 BP 146/81 07/29/20 10:56 Pulse Ox 97 07/29/20 10:56 07/28/20 07/29/20 07/29/20 22:59 06:59 14:59 Intake Total 1687 1100 / 1100 Balance 1687 1100 / 1100 Weight last 48 hrs Weight 97.069 kg Weight 97.522 kg Physical Exam Narrative: EXAM NARRATIVE: Heart is regular and lungs are clear. No lower extremity edema. Abdomen is soft and nontender. Nondistended. Positive bowel sounds. No focal neurological findings on gross examination. Urinary Catheter Management^: Turner: Cath Placed During This Visit: yes, but has since been removed by the nurse Reason for Continuing Indwelling Catheter: Accurate Measurement of Urinary Output in Critically Ill Patients Urinary Catheter Date of Insertion: 07/22/20 Urinary Catheter Time of Insertion: 11:13 Date Urinary Catheter Removed: 07/25/20 Time Urinary Catheter Discontinued: 15:52 Data : 07/29/20 04:24 07/29/20 04:24 A&P Assessment and plan (1) Non-ST elevation myocardial infarction (NSTEMI): Status: Acute (2) Severe sepsis: Resolved. Status: Acute (3) Hypotension: Resolved Status: Acute (4) Dehydration with hyponatremia: Resolved Status: Acute (5) Thrombocytopenia: Appears to be related to infection. Improved Status: Acute (6) Acute respiratory failure with hypoxia: Improved Status: Acute (7) Acute systolic heart failure: EF 40%. Suspected Takotsubo syndrome. Currently appears compensated Status: Acute (8) Urinary tract infection: Acute pyelonephritis with E. coli. Present on admission. Patient had positive blood culture with E. coli. Status: Acute (9) Hypokalemia: Status: Acute (10) Hypomagnesemia: Status: Acute (11) Obesity (BMI 30-39.9): Status: Acute (12) Dyslipidemia (high LDL; low HDL): Status: Acute (13) Chronic kidney disease, stage 3: Status: Acute (14) Bradycardia: Appears to be medication induced. Status: Acute Additional A&P Information PLAN: Discontinue metoprolol and continue amiodarone. Continue monitoring heart rate. If drops below 40 we will give atropine. Unfortunately we cannot transition patient to oral Levaquin as patient is also on amiodarone and since patient's blood culture was positive for E. coli we will have to discharge patient on IV ceftriaxone. Midline IV placement was requested. Attestations Medical Necessity Statement*: Patient post non-ST elevation SC and now with bradycardia requires close inpatient monitoring and treatment till deemed safe for discharge. Coding Level of Care Code Acute [employer] P[employer] for [facility] Diagnoses Non-ST elevation myocardial infarction (NSTEMI) I21.4 Severe sepsis A41.9; R65.20 Hypotension I95.9 Dehydration with hyponatremia E86.0; E87.1 Thrombocytopenia D69.6 Acute respiratory failure with hypoxia J96.01 Acute systolic heart failure I50.21 Urinary tract infection N39.0 Hypokalemia E87.6 Hypomagnesemia E83.42 Obesity (BMI 30-39.9) E66.9 Dyslipidemia (high LDL; low HDL) E78.5 Chronic kidney disease, stage 3 N18.30 Bradycardia R00.1
--- NOTE | 2020-07-29 20:24 | PM.PN ---
Subjective Subjective: Interval history: Patient is feeling better. She seems to more active and is ambulating on telemetry. Has not had any significant chest pain or shortness of breath. Vital signs remained stable. No arrhythmias on the monitor. Medications: Reviewed: Yes Medication Review Details: Current Medications Acetaminophen (Acetaminophen 500 Mg Tablet) 500 mg PO Q4H PRN PRN Reason: MILD PAIN OR INCREASE TEMP Acetaminophen (Acetaminophen 325 Mg Tablet) 650 mg PO Q6H PRN PRN Reason: MILD PAIN Last Admin: 07/29/20 00:40 Dose: 650 mg Documented by: Al Hydrox/Mg Hydrox/Simethicone (Cyxt-Zyb-Zialzznhq-Vandana 30 Ml Udc) 30 ml PO Q15M PRN PRN Reason: INDIGESTION Albuterol Sulfate (Albuterol 8 Gm Mdi) 2 puff INHALATION Q4H PRN PRN Reason: Shortness Of Breath Alprazolam (Alprazolam 0.25 Mg Tablet) 0.25 mg PO TID PRN PRN Reason: ANXIETY Amiodarone HCl (Amiodarone 200 Mg Tablet) 400 mg PO BID [facility] Last Admin: 07/29/20 18:28 Dose: 400 mg Documented by: Aspirin (Aspirin 81 Mg Ec Tablet) 81 mg PO QAM [facility] Last Admin: 07/29/20 05:17 Dose: 81 mg Documented by: Atorvastatin Calcium (Atorvastatin 40 Mg Tablet) 80 mg PO BEDTIME [facility] Last Admin: 07/28/20 21:44 Dose: 80 mg Documented by: Atropine Sulfate (Atropine 1 Mg/Ml Sdv 1 Ml) 0.5 mg IVP PRN PRN PRN Reason: Symptomatic bradycardia Cetirizine HCl (Cetirizine 10 Mg Tablet) 10 mg PO BEDTIME [facility] Last Admin: 07/27/20 20:37 Dose: 10 mg Documented by: Clopidogrel Bisulfate (Clopidogrel 75 Mg Tablet) 75 mg PO DAILY [facility] Last Admin: 07/29/20 08:23 Dose: 75 mg Documented by: Enoxaparin Sodium (Enoxaparin 40 Mg/0.4 Ml Syringe) 40 mg SUBCUT Q24H [facility] Last Admin: 07/29/20 10:55 Dose: Not Given Documented by: Fentanyl (Fentanyl 50 Mcg/Ml Inj 2ml) 50 mcg IVP PRN PRN PRN Reason: Prior to sheath removal Ceftriaxone Sodium 2,000 mg/ (Sodium Chloride) 50 mls @ 100 mls/hr IV Q24H [facility]; Protocol Last Infusion: 07/29/20 09:00 Dose: Infused Documented by: Levothyroxine Sodium (Levothyroxine 25 Mcg Tablet) 25 mcg PO QAM [facility] Last Admin: 07/29/20 05:17 Dose: 25 mcg Documented by: Magnesium Hydroxide (Magnesium Hydroxide 30 Ml Udc) 30 ml PO DAILY PRN PRN Reason: CONSTIPATION Naloxone HCl (Naloxone 0.4 Mg/Ml Sdv) 0.1 mg IVP Q2M PRN PRN Reason: RESPIRATORY RATE < 8/MIN Nitroglycerin (Nitroglycerin 0.4 Mg Sublingual Tablet) 0.4 mg SUBLINGUAL Q5M PRN PRN Reason: CHEST PAIN Ondansetron HCl (Ondansetron 2 Mg/Ml Sdv 2 Ml) 4 mg IVP Q6H PRN PRN Reason: NAUSEA AND VOMITING Last Admin: 07/29/20 07:34 Dose: 4 mg Documented by: Pantoprazole Sodium (Pantoprazole Dr 40 Mg Tablet) 40 mg PO DAILY [facility] Last Admin: 07/29/20 08:23 Dose: 40 mg Documented by: Polyethylene Glycol (Polyethylene Glycol 3350 Pkt 17 Gm) 17 gm PO DAILY PRN PRN Reason: Constipation Last Admin: 07/25/20 20:18 Dose: 17 gm Documented by: Senna/Docusate Sodium (Sennosides-Docusate Tablet) 1 tab PO BID [facility] Last Admin: 07/29/20 18:28 Dose: 1 tab Documented by: Temazepam (Temazepam 15 Mg Capsule) 15 mg PO BEDTIME PRN PRN Reason: INSOMNIA Trazodone HCl (Trazodone 50 Mg Tablet) 50 mg PO BEDTIME [facility] Last Admin: 07/28/20 21:44 Dose: 50 mg Documented by: Vitals/I&O/Wt Last Vital Signs Temp 98 F 07/29/20 19:38 Pulse 85 07/29/20 19:38 Resp 24 H 07/29/20 19:38 BP 138/79 07/29/20 19:38 Pulse Ox 94 07/29/20 19:38 07/29/20 07/29/20 07/29/20 06:59 14:59 22:59 Intake Total 1687 1340 / 1340 120 / 1460 Balance 1687 1340 / 1340 120 / 1460 Weight last 48 hrs Weight 214 lb Weight 215 lb Physical Exam Narrative: EXAM NARRATIVE: GENERAL: The patient is alert and oriented x3. Looking much better HEENT . Mild pallor. No icterus or lymphadenopathy.Oral cavity: There are no mucous membrane lesions. NECK: Trachea appears to be central. No masses noted. No JVD or thyromegaly appreciated. RESPIRATORY: Chest is symmetrical. No intercostals muscle retraction or any accessory muscle activation. There is no chest wall tenderness. Breath sounds are heard bilaterally. No rales or rhonchi heard. No evidence of any consolidation. BREASTS: Deferred. HEART: The heart sounds are normal. No S3 or S4. Short systolic murmur in the left sternal border. No pericardial rub ABDOMEN: No vessel pulsations or distention. No tenderness. no organomegaly appreciated. Bowel sounds are normally heard. : Deferred. RECTAL: Deferred. LYMPHATIC: No lymphadenopathy noted in the neck or groin. EXTREMITIES: No edema or cyanosis. No clubbing. The radial arterial puncture site has no hematoma bleeding MUSCULOSKELETAL: No acute joint deformities or swelling SKIN: There are no significant rashes or ecchymosis NEUROPSYCHIATRIC: The patient is alert and oriented x3. No focal motor deficits. Const: COMMON NORMALS: alert Resp: COMMON NORMALS: clear to auscultation bilaterally AUSCULTATION: clear to auscultation bilaterally Neuro: SENSORIUM/ORIENTATION: Yes alert Urinary Catheter Management^: Turner: Cath Placed During This Visit: yes, but has since been removed by the nurse Reason for Continuing Indwelling Catheter: Accurate Measurement of Urinary Output in Critically Ill Patients Urinary Catheter Date of Insertion: 07/22/20 Urinary Catheter Time of Insertion: 11:13 Date Urinary Catheter Removed: 07/25/20 Time Urinary Catheter Discontinued: 15:52 Data : 07/29/20 04:24 07/29/20 04:24 A&P Assessment and plan (1) Non-ST elevation myocardial infarction (NSTEMI): Patient status post PCI of the LAD lesion, currently seems to be stable. We will continue on the current medications. Status: Acute (2) Atrial fibrillation with rapid ventricular response: Patient is currently in sinus rhythm. Continue on the amiodarone. Status: Acute (3) Cardiomyopathy as manifestation of underlying disease: Clinically compensated. May continue on the current medications. We will do a limited 2D echo in the morning to reevaluate the LV ejection fraction. Status: Acute (4) Left bundle branch block: She has a chronic intermittent bundle branch block. Currently stable with no high degree AV block Status: Acute (5) Ventricular arrhythmia: Currently the patient has no evidence of ventricular arrhythmia. Continue on the current medications Status: Acute (6) Sepsis associated hypotension: Currently has improved. Management as per the primary Status: Acute (7) Anemia: Her hemoglobin hematocrit is stable. Status: Acute Qualifiers: Anemia type: unspecified type Qualified Code(s): D64.9 - Anemia, unspecified Additional A&P Information Disposition as per the primary. 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
[2020-07-29] MEDS: atorvastatin 40 mg Tablet 80 MG PO (21:52)
[2020-07-29] MEDS: trazodone 50 mg Tablet PO (21:52)
[2020-07-30] VITALS (7 sets, daily range): BP systolic 121–150; BP diastolic 70–94; PULSE 74–84; RESP 16–221; TEMP 36.6–37.1; O2SAT 95–96
[2020-07-30] MEDS: levothyroxine 25 mcg Tablet PO (05:15)
[2020-07-30] MEDS: aspirin 81 mg EC Tablet PO (05:15)
--- NOTE | 2020-07-30 07:00 | USCV_ITS ---
Aditya Lacey Age: 75 Gender: F : 1945 Exam Date: 07/30/2020 06:03 Ordering Phys: Monica Zapien MD ([email or web address]) Technologist: Deborah Owusu Exam Location: [facility] Indication: Cardiomyopathy BP: 121 / 74 HR: 75 Rhythm: Sinus Technical Quality: Adequate MEASUREMENTS (Male / Female) Normal Values 2D ECHO LV Diastolic Diameter PLAX 4.2 cm 4.2 - 5.9 / 3.9 - 5.3 cm LV Systolic Diameter PLAX 3.5 cm IVS Diastolic Thickness 1.2 cm 0.6 - 1.0 / 0.6 - 0.9 cm IVS Systolic Thickness 1.5 cm LVPW Diastolic Thickness 2.3 cm 0.6 - 1.0 / 0.6 - 0.9 cm LVPW Systolic Thickness 2.2 cm LVOT Diameter 2.0 cm LV Ejection Fraction 2D Teich 38.2 % LV Ejection Fraction MOD 2C 47.3 % LV Ejection Fraction 2C AL 50.9 % LA Diameter 4.4 cm LA Width 3.5 cm LA Height 4.8 cm RA Width 4.0 cm RA Height 4.3 cm Aorta at Sinotubular Diameter 3.1 cm M-MODE LV Diastolic Diameter MM 5.5 cm 4.2 - 5.9 / 3.9 - 5.3 cm LV Systolic Diameter MM 3.6 cm LV Ejection Fraction MM Teich 63.8 % IVS Diastolic Thickness MM 1.3 cm 0.6 - 1.0 / 0.6 - 0.9 cm IVS Systolic Thickness MM 1.7 cm LVPW Diastolic Thickness MM 1.2 cm 0.6 - 1.0 / 0.6 - 0.9 cm LVPW Systolic Thickness MM 1.7 cm RV Diastolic Diameter MM 3.2 cm Aortic Annulus Diameter 3.1 cm LA Ao Ratio MM 1.6 MV E Point Septal Separation 1.0 cm FINDINGS Left Ventricle Relative hypokinesia of the septum in the anteroseptal segments. LV ejection fraction around 50%. Mild concentric left ventricular hypertrophy Right Ventricle The right ventricle is normal in size and function. Right Atrium The right atrium is normal in size. Left Atrium Mildly increased left atrial size. Mitral Valve Thickened mitral valve. Aortic Valve No gross abnormalities noted Tricuspid Valve No gross abnormalities noted Pulmonic Valve Pulmonic valve not well visualized. Pericardium Normal pericardium without effusion. Aorta Normal ascending aorta dimension. CONCLUSIONS Relative hypokinesia of the septum in the anteroseptal segments. Normal LV size with slightly diminished ejection fraction of 50%. Mild concentric left ventricular hypertrophy. Mildly increased left atrial size. There is no pericardial effusion. There are no intracardiac masses. Compared to the study from 07/22/2020, there is significant improvement of the LV ejection fraction Dr Monica Zapien MD FAC (Electronically Signed) Final Date: 30 July 2020 08:30 S
--- NOTE | 2020-07-30 07:42 | XR_ITS ---
WS: [id number] Right hand, 4 views, 07/30/2020 Clinical Data: PIP swelling and pain Comparison: None. Findings: No fractures or dislocations are seen. The soft tissues are unremarkable. The joint space s are normal The fifth finger is normal. XR/XR hand RT min 3V* [id number] Impression: Negative right hand.
--- NOTE | 2020-07-30 08:07 | PM.DCS ---
Discharge Providers Date of Admission: 07/22/20 13:42 Date of Discharge: July 30, 2020 Attending Provider at Admission: Chuckie Kasper MD Attending Provider at Discharge: Chuckie Kasper MD Primary Care Provider: Oscar Quigley MD Diagnoses at Discharge Discharge Diagnosis (1) Non-ST elevation myocardial infarction (NSTEMI): Status: Acute (2) Atrial fibrillation with rapid ventricular response: Status: Acute (3) Cardiomyopathy as manifestation of underlying disease: Status: Acute (4) Left bundle branch block: Status: Acute (5) Ventricular arrhythmia: Status: Acute (6) Sepsis associated hypotension: Status: Acute (7) Anemia: Status: Acute Qualifiers: Anemia type: unspecified type Qualified Code(s): D64.9 - Anemia, unspecified Reason for Visit Reason for Visit: nausea/ vomiting/ chills/ fever Hospital Course Hospital Course Patient presented was altered mental status and acute hypoxic respite failure requiring intubation and initial treatment in ICU. She was initially septic due to UTI and treated with pressors, fluids and antibiotics. She gradually improved and eventually was extubated. She was diagnosed with non-ST elevation CA and acute systolic heart failure with EF 40%. She was further evaluated with coronary angiogram showing evidence of LAD occlusion requiring stent placement. She developed other fibrillation with rapid ventricular response and was started on amiodarone. Patient had episode of bradycardia yesterday with heart rate down to 50s. Because patient was very symptomatic at that time with significant decreased energy metoprolol was discontinued and her heart rate today recovered to 80s along with patient's energy level. Once patient's blood pressure normalized she was carefully diuresed. Discussed with Dr. Zapien this morning. Because of anemia Eliquis will not be continued and we will request event monitor for 30 days post discharge. Patient will follow up with Dr. Zapien and decision regarding initiation of Eliquis will be made. This morning patient reports feeling much better and strong enough to be dismissed home. Reports that she developed right PIP joint swelling and pain this morning. Reports that she had similar episode 3 weeks ago which went away on its own. Reports that she has trigger finger sometimes and has hand osteoarthritis. Patient was seen by Dr. Samayoa and at this point this does not appear to be septic arthritis. Gout or pseudogout is definitely possible and I will give couple days of Aleve. Patient will follow-up with Dr. Samayoa for reevaluation in a week. Physical Exam Narrative: EXAM NARRATIVE: Lungs are clear and heart is regular. No lower extremity edema. Abdomen is soft and nontender with positive bowel sounds. Urinary Catheter Management^: Turner: Cath Placed During This Visit: yes, but has since been removed by the nurse Reason for Continuing Indwelling Catheter: Accurate Measurement of Urinary Output in Critically Ill Patients Urinary Catheter Date of Insertion: 07/22/20 Urinary Catheter Time of Insertion: 11:13 Date Urinary Catheter Removed: 07/25/20 Time Urinary Catheter Discontinued: 15:52 Discharge Data Data Completed and Pending: Completed Studies During Hospitalization Category Date Time Status CT angio chest PE protcl [id number] Stat Cat Scan 07/22/20 12:03 Completed [employer] request for service Routin e Exams 07/28/20 12:20 Completed XR chest 1V mynor ble [id number] Stat Exams 07/22/20 07:16 Completed XR chest 1V mynor ble [id number] Stat Exams 07/22/20 13:10 Completed CV echo complete* [id number] Routine Ultrasound 07/22/20 18:13 Completed Pending at discharge Category Date Time Status XR hand RT min 3V * [id number] Routine Exams 07/30/20 07:42 Ordered CV echo limited 9 [id number] Routine Ultrasound 07/30/20 07:00 Taken Vitals: Last Vital Signs Temp 98.6 F 07/30/20 07:49 Pulse 84 07/30/20 07:49 Resp 21 H 07/30/20 07:49 BP 143/94 07/30/20 07:49 Pulse Ox 95 07/30/20 07:49 Discharge Plan Discharge Patient Disposition: Home Health Service Condition: Stable Prescriptions: New sennosides-docusate sodium 8.6-50 mg Tablet 1 tab PO DAILY Qty: 30 RF: 0 trazodone 50 mg Tablet 50 mg PO BEDTIME Qty: 30 RF: 0 clopidogrel 75 mg Tablet 75 mg PO DAILY Qty: 30 RF: 0 nitroglycerin 0.4 mg Tablet, Sublingual 0.4 mg sublingual Q5M PRN (Reason: Chest Pain) Qty: 25 RF: 0 ceftriaxone 2 gram recon soln 2 g IV DAILY Qty: 9 RF: 0 amiodarone 200 mg tablet See Rx Instructions .ROUTE .COMPLEX 30 Days Qty: 90 RF: 0 atorvastatin 40 mg Tablet 80 mg PO BEDTIME Qty: 30 RF: 0 pantoprazole 40 mg Tablet,Delayed Release (Dr/Ec) 40 mg PO DAILY Qty: 30 RF: 0 naproxen 500 mg tablet 500 mg PO Q12H Qty: 4 RF: 0 Continued aspirin [Adult Aspirin Regimen] 81 mg tablet,delayed release (DR/EC) 81 mg PO QAM RF: 0 cholecalciferol (vitamin D3) 2,000 unit tablet 2,000 unit PO DAILY RF: 0 levothyroxine 25 mcg capsule 25 mcg PO QAM RF: 0 cetirizine [All Day Allergy (cetirizine)] 10 mg tablet 10 mg PO BEDTIME RF: 0 polyethylene glycol 3350 [Miralax] 17 gram powder in packet 17 gm PO DAILY PRN (Reason: Constipation) RF: 0 Tylenol Extra Strength 500 mg Tablet 500 mg PO PRN RF: 0 ProAir HFA 90 mcg/actuation Hfa Aerosol Inhaler 2 puff INHALATION Q4H PRN (Reason: Shortness Of Breath) RF: 0 Discontinued famotidine 40 mg tablet 40 mg PO DAILY RF: 0 hydrochlorothiazide 12.5 mg tablet 25 mg PO QAM RF: 0 docusate sodium [Stool Softener] 100 mg capsule 200 mg PO DAILY RF: 0 metoprolol tartrate 25 mg tablet See Rx Instructions .ROUTE .COMPLEX RF: 0 Discharge Orders: Discharge Order (Routine); Ordered 07/30/20 Ordered By: Monica Zapien Other Ambulatory Orders: Complete Blood Count w/Auto (Routine) Timeframe: [id number] Location: Determined by Patient Ordered By: Chuckie DIANE cardiac event monitor (Routine) Timeframe: 1 Day Facility: [facility] - Location: Cardiac Diagnostic Laboratory Ordered By: Chuckie Kasper Referrals: [facility] [Outside] Sanjeev Samayoa DO [Physician] - 1 week Monica Zapien MD [Physician] - 1 month (Please follow-up with Dr. Zapien on August 28 at 2:00P.M. If you have any questions or need to reschedule. Please call ) Loree Sevilla FNP [Nurse Practitioner] - 1 week (Please follow-up with Loree Sevilla on August 06 at 11:00A.M. Also, upon discharge you have an appointment at [facility] to have an Event Moniter placed today at 1:00P.M. If you have any questions or need to reschedule. Please call ) Oscar Quigley MD [Primary Care Provider] - 4-7 days (You have an follow- up appointment with Dr. Quigley on August 01 at 9:00A.M. If you have any questions or need to reschedule. Please call ) Discharge Diet: Advance as tolerated Discharge Activity: Increase activity as tolerated Patient Instructions: Nitroglycerin (By mouth), Trazodone (By mouth), Amiodarone (By mouth), Ceftriaxone (Injection), Atorvastatin (By mouth), Clopidogrel (By mouth), Atrial Fibrillation (DC), Left Heart Catheterization (DC), Sepsis (DC), CHF Stoplight, Post Angiogram Home Care Instructions Activity Restrictions/Additional Instructions: Please call your doctor or present to emergency department if your condition worsens or you develop diarrhea, lightheadedness, fatigue or see blood in your stool or black stool. Please take amiodarone 400 mg twice daily for 7 days then switch to 200 mg twice daily for 7 days and then switch to 200 mg daily and continue until told otherwise by your doctor. Appointment to [facility] the nurse practitioner in [address] Zapien in the office in 3 weeks Please discuss with Dr. Quigley to reevaluate your hemoglobin next Tuesday as you may need to have further evaluation with EGD and colonoscopy. 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 Fwd Diagnoses Non-ST elevation myocardial infarction (NSTEMI) I21.4 Atrial fibrillation with rapid ventricular response I48.91 Cardiomyopathy as manifestation of underlying disease I43 Left bundle branch block I44.7 Ventricular arrhythmia I49.9 Sepsis associated hypotension A41.9; I95.9 Anemia D64.9 Anemia type: unspecified type
[2020-07-30] MEDS: cefTRIAXone 2,000 MG in sodium chloride 0.9% (plus) 50 ML 100 MG IV (08:09)
[2020-07-30] MEDS: clopidogrel 75 mg Tablet PO (08:10)
[2020-07-30] MEDS: pantoprazole DR 40 mg Tablet PO (08:10)
[2020-07-30] MEDS: sennosides-docusate Tablet 1 TAB PO (08:10)
[2020-07-30] MEDS: amiodarone 200 mg Tablet 400 MG PO (08:10)
[2020-07-30] MEDS: enoxaparin 40 mg/0.4 mL Syringe SUBCUT (08:10)
--- NOTE | 2020-07-30 10:02 | PM.PN ---
Subjective Subjective: Interval history: Patient is feeling okay. No chest pain or palpitations. Overall functional status seems to have improved. Has been ambulating on telemetry with no significant symptoms except for some tiredness. Medications: Reviewed: Yes Medication Review Details: Current Medications Acetaminophen (Acetaminophen 500 Mg Tablet) 500 mg PO Q4H PRN PRN Reason: MILD PAIN OR INCREASE TEMP Acetaminophen (Acetaminophen 325 Mg Tablet) 650 mg PO Q6H PRN PRN Reason: MILD PAIN Last Admin: 07/29/20 00:40 Dose: 650 mg Documented by: Al Hydrox/Mg Hydrox/Simethicone (Qomz-[id number]-Qsyyijlkv-Vandana 30 Ml Udc) 30 ml PO Q15M PRN PRN Reason: INDIGESTION Albuterol Sulfate (Albuterol 8 Gm Mdi) 2 puff INHALATION Q4H PRN PRN Reason: Shortness Of Breath Alprazolam (Alprazolam 0.25 Mg Tablet) 0.25 mg PO TID PRN PRN Reason: ANXIETY Amiodarone HCl (Amiodarone 200 Mg Tablet) 400 mg PO BID [facility] Last Admin: 07/30/20 08:10 Dose: 400 mg Documented by: Aspirin (Aspirin 81 Mg Ec Tablet) 81 mg PO QAM [facility] Last Admin: 07/30/20 05:15 Dose: 81 mg Documented by: Atorvastatin Calcium (Atorvastatin 40 Mg Tablet) 80 mg PO BEDTIME [facility] Last Admin: 07/29/20 21:52 Dose: 80 mg Documented by: Atropine Sulfate (Atropine 1 Mg/Ml Sdv 1 Ml) 0.5 mg IVP PRN PRN PRN Reason: Symptomatic bradycardia Cetirizine HCl (Cetirizine 10 Mg Tablet) 10 mg PO BEDTIME [facility] Last Admin: 07/27/20 20:37 Dose: 10 mg Documented by: Clopidogrel Bisulfate (Clopidogrel 75 Mg Tablet) 75 mg PO DAILY [facility] Last Admin: 07/30/20 08:10 Dose: 75 mg Documented by: Enoxaparin Sodium (Enoxaparin 40 Mg/0.4 Ml Syringe) 40 mg SUBCUT Q24H [facility] Last Admin: 07/30/20 08:10 Dose: 40 mg Documented by: Fentanyl (Fentanyl 50 Mcg/Ml Inj 2ml) 50 mcg IVP PRN PRN PRN Reason: Prior to sheath removal Ceftriaxone Sodium 2,000 mg/ (Sodium Chloride) 50 mls @ 100 mls/hr IV Q24H [facility]; Protocol Last Infusion: 07/30/20 10:01 Dose: Infused Documented by: Levothyroxine Sodium (Levothyroxine 25 Mcg Tablet) 25 mcg PO QAM [facility] Last Admin: 07/30/20 05:15 Dose: 25 mcg Documented by: Magnesium Hydroxide (Magnesium Hydroxide 30 Ml Udc) 30 ml PO DAILY PRN PRN Reason: CONSTIPATION Naloxone HCl (Naloxone 0.4 Mg/Ml Sdv) 0.1 mg IVP Q2M PRN PRN Reason: RESPIRATORY RATE < 8/MIN Nitroglycerin (Nitroglycerin 0.4 Mg Sublingual Tablet) 0.4 mg SUBLINGUAL Q5M PRN PRN Reason: CHEST PAIN Ondansetron HCl (Ondansetron 2 Mg/Ml Sdv 2 Ml) 4 mg IVP Q6H PRN PRN Reason: NAUSEA AND VOMITING Last Admin: 07/29/20 07:34 Dose: 4 mg Documented by: Pantoprazole Sodium (Pantoprazole Dr 40 Mg Tablet) 40 mg PO DAILY [facility] Last Admin: 07/30/20 08:10 Dose: 40 mg Documented by: Polyethylene Glycol (Polyethylene Glycol 3350 Pkt 17 Gm) 17 gm PO DAILY PRN PRN Reason: Constipation Last Admin: 07/25/20 20:18 Dose: 17 gm Documented by: Senna/Docusate Sodium (Sennosides-Docusate Tablet) 1 tab PO BID [facility] Last Admin: 07/30/20 08:10 Dose: 1 tab Documented by: Temazepam (Temazepam 15 Mg Capsule) 15 mg PO BEDTIME PRN PRN Reason: INSOMNIA Trazodone HCl (Trazodone 50 Mg Tablet) 50 mg PO BEDTIME [facility] Last Admin: 07/29/20 21:52 Dose: 50 mg Documented by: Vitals/I&O/Wt Last Vital Signs Temp 98.6 F 07/30/20 07:49 Pulse 84 07/30/20 07:49 Resp 21 H 07/30/20 07:49 BP 143/94 07/30/20 07:49 Pulse Ox 95 07/30/20 07:49 07/29/20 07/30/20 07/30/20 22:59 06:59 14:59 Intake Total 120 / 1460 100 / 1560 290 / 290 Output Total 500 / 500 500 / 500 Balance 120 / 1460 -400 / 1060 -210 / -210 Weight last 48 hrs Weight 210 lb 9.6 oz Weight 214 lb Physical Exam Narrative: EXAM NARRATIVE: GENERAL: The patient is alert and oriented x3. Looking much better HEENT . Mild pallor. No icterus or lymphadenopathy.Oral cavity: There are no mucous membrane lesions. NECK: Trachea appears to be central. No masses noted. No JVD or thyromegaly appreciated. RESPIRATORY: Chest is symmetrical. No intercostals muscle retraction or any accessory muscle activation. There is no chest wall tenderness. Breath sounds are heard bilaterally. No rales or rhonchi heard. No evidence of any consolidation. BREASTS: Deferred. HEART: The heart sounds are normal. No S3 or S4. Short systolic murmur in the left sternal border. No pericardial rub ABDOMEN: No vessel pulsations or distention. No tenderness. no organomegaly appreciated. Bowel sounds are normally heard. : Deferred. RECTAL: Deferred. LYMPHATIC: No lymphadenopathy noted in the neck or groin. EXTREMITIES: No edema or cyanosis. No clubbing. The radial arterial puncture site has no hematoma bleeding MUSCULOSKELETAL: No acute joint deformities or swelling SKIN: There are no significant rashes or ecchymosis NEUROPSYCHIATRIC: The patient is alert and oriented x3. No focal motor deficits. Const: COMMON NORMALS: alert Resp: COMMON NORMALS: clear to auscultation bilaterally AUSCULTATION: clear to auscultation bilaterally Neuro: SENSORIUM/ORIENTATION: Yes alert Urinary Catheter Management^: Turner: Cath Placed During This Visit: yes, but has since been removed by the nurse Reason for Continuing Indwelling Catheter: Accurate Measurement of Urinary Output in Critically Ill Patients Urinary Catheter Date of Insertion: 07/22/20 Urinary Catheter Time of Insertion: 11:13 Date Urinary Catheter Removed: 07/25/20 Time Urinary Catheter Discontinued: 15:52 Data : 07/30/20 10:40 07/30/20 10:40 Other Labs: Laboratory Last Values WBC 9.9 10^3/uL (4.0-10.0) 07/29/20 04:24 RBC 3.02 10^6/uL (4.1-5.3) L 07/29/20 04:24 Hgb 8.6 g/dL (11.5-15.3) L 07/29/20 04:24 Hct 27.2 % (37.0-47.0) L 07/29/20 04:24 MCV 90.1 fL (81-99) 07/29/20 04:24 MCH 28.5 pg (28.0-34.0) 07/29/20 04:24 MCHC 31.6 g/dL (30.0-36.0) 07/29/20 04:24 RDW 15.2 % (12.1-15.1) H 07/29/20 04:24 Plt Count 267 10^3/cmm (130-400) 07/29/20 04:24 MPV 9.7 fL (7.4-10.4) 07/29/20 04:24 Neut % (Auto) 57.9 % 07/29/20 04:24 Lymph % (Auto) 21.3 % 07/29/20 04:24 [place] % (Auto) 11.2 % 07/29/20 04:24 Eos % (Auto) 1.7 % 07/29/20 04:24 Baso % (Auto) 0.6 % 07/29/20 04:24 Neut # (Auto) 5.75 10^3/uL (1.8-7.7) 07/29/20 04:24 Lymph # (Auto) 2.1 10^3/uL (0.8-4.8) 07/29/20 04:24 [place] # (Auto) 1.1 10^3/uL (0.2-0.9) H 07/29/20 04:24 Eos # (Auto) 0.2 10^3/uL (0.0-0.8) 07/29/20 04:24 Baso # (Auto) 0.1 10^3/uL (0.0-0.1) 07/29/20 04:24 Nucleated RBC % (auto) 0 % 07/29/20 04:24 Total Counted 100 (0-100) 07/28/20 04:47 Atypical Lymphs % 2.0 % (0-5) 07/28/20 04:47 Absolute Neutrophils 6.4 10^3/cmm (1.4-6.5) 07/28/20 04:47 Segmented Neutrophils 58 % 07/28/20 04:47 Abs Segm Neuts (Man) 6.0 10/cmm (1.6-7.1) 07/28/20 04:47 Band Neutrophils 4.0 % 07/28/20 04:47 Abs Band Neuts (Man) 0.4 10^3/cmm (0.0-1.2) 07/28/20 04:47 Lymphocytes (Manual) 24 % 07/28/20 04:47 Monocytes (Manual) 8.0 % 07/28/20 04:47 Absolute Monocytes 0.8 10^3/cmm (0.1-0.6) H 07/28/20 04:47 Eosinophils (Manual) 1 % 07/28/20 04:47 Absolute Eosinophils 0.1 10^3/cmm (0.0-0.7) 07/28/20 04:47 Basophils (Manual) 0.0 % 07/28/20 04:47 Absolute Basophils 0.0 10^3/cmm (0.0-0.2) 07/28/20 04:47 Metamyelocytes 2.0 % 07/28/20 04:47 Myelocytes 1.0 % 07/28/20 04:47 Nucleated RBCs # 0.0 /100WBC 07/29/20 04:24 Platelet Estimate Normal (Normal) 07/28/20 04:47 APTT 45.8 SECONDS (23.9-36.7) H 07/24/20 10:50 Specimen Type Arterial 07/23/20 05:14 Sample Site Brachial, right 07/23/20 05:14 ABG pH 7.40 (7.35-7.45) 07/23/20 05:14 ABG pCO2 28.9 mmHg (35-45) L 07/23/20 05:14 ABG pO2 131.0 mmHg (80.0-100.0) H 07/23/20 05:14 ABG HCO3 17.9 mmol/L (22-26) L 07/23/20 05:14 ABG O2 Saturation > 100.0 07/22/20 14:05 ABG Base Excess -5.9 mmol/L (-2.0-2.0) L 07/23/20 05:14 Brandan Test Pos 07/23/20 05:14 A-a O2 Gradient 33.1 mmHg (5-10) H 07/22/20 14:05 Hematocrit 30.8 % (37-47) L 07/23/20 05:14 Hgb O2 Saturation 98.9 % (95-100) 07/22/20 14:05 Carboxyhemoglobin 0.3 %THgb (0.4-20.1) L 07/22/20 14:05 Methemoglobin 1.0 % (0.4-1.5) 07/22/20 14:05 Total Hemoglobin 11.1 g/dL (12-16) L 07/22/20 14:05 Sodium 131.0 mmol/L (131-143) 07/22/20 14:05 Potassium 3.0 mmol/L (3.5-5.0) L 07/22/20 14:05 Glucose 100.0 mg/dL (70-115) 07/22/20 14:05 Ionized Calcium 1.1 mmol/L (1.1-1.4) 07/22/20 14:05 O2 Delivery Device Vent 07/23/20 05:14 O2 Liters/Min 2.0 % 07/22/20 07:55 FiO2 40.0 % 07/23/20 05:14 Tidal Volume 0.45 07/23/20 05:14 PEEP 8.0 cmH20 07/23/20 05:14 Hvac Lead ID Sal[place] 07/23/20 05:14 Sodium 135 mmol/L (136-145) L 07/29/20 04:24 Potassium 4.1 mmol/L (3.5-5.1) 07/29/20 04:24 Chloride 105 mmol/L (98-107) 07/29/20 04:24 Carbon Dioxide 23 mmol/L (22-29) 07/29/20 04:24 Anion Gap 11.1 (5-19) 07/29/20 04:24 BUN 14 mg/dL (8-23) 07/29/20 04:24 Creatinine 0.9 mg/dL (0.5-0.9) 07/29/20 04:24 GFR Calculation Not Reportable 07/29/20 04:24 Glucose 94 mg/dL (65-115) 07/29/20 04:24 Calculated Osmolality 280 mOsm/kg (285-295) L 07/29/20 04:24 Lactic Acid 1.7 mmol/L (0.5-2.2) 07/22/20 19:55 Lactic Acid (Sepsis) 1.5 mmol/L (0.5-2.2) 07/22/20 10:00 Calcium 8.5 mg/dL (8.5-10.5) 07/29/20 04:24 Magnesium 1.8 mg/dL (1.7-2.3) 07/29/20 04:24 Total Bilirubin 0.5 mg/dL (0.15-1.2) 07/29/20 04:24 AST 41 U/L (0-32) H 07/29/20 04:24 ALT 20 U/L (0-33) 07/29/20 04:24 Alkaline Phosphatase 73 IU/L (35-105) 07/29/20 04:24 Creatine Kinase 262 U/L (26-192) H 07/22/20 07:35 Troponin T Baseline 127 ng/L (0-10) H* 07/22/20 07:35 Troponin T 120 Minute 595.8 ng/L (0-10) H 07/22/20 10:00 Delta Troponin T 468.8 ABS# (0-10) H* 07/22/20 10:00 Troponin T Hi Sens 6Hr 609.8 ng/L (0-10) H 07/22/20 13:56 Troponin T Hi Sens 6Hr Delta 482.8 ng/L (0-12) H* 07/22/20 13:56 Total Protein 5.9 g/dL (6.6-8.7) L 07/29/20 04:24 Albumin 2.7 g/dL (3.5-5.2) L 07/29/20 04:24 Globulin 3.2 g/dL (1.3-4.6) 07/29/20 04:24 Lipase 34 U/L (13-60) 07/22/20 07:35 Urine Color Yellow (Yellow) 07/22/20 10:20 Urine Appearance Cloudy (CLEAR) 07/22/20 10:20 Urine pH 5 (5-7) 07/22/20 10:20 Ur Specific [place] 1.020 (1.005-1.030) 07/22/20 10:20 Urine Protein 3+ (Negative) H 07/22/20 10:20 Urine Glucose (UA) Norm (Normal) 07/22/20 10:20 Urine Ketones Negative (Negative) 07/22/20 10:20 Urine Blood 2+ (Negative) H 07/22/20 10:20 Urine Nitrate Negative (Negative) 07/22/20 10:20 Urine Bilirubin Neg (Negative) 07/22/20 10:20 Urine Urobilinogen 1 mg/dL (Negative) H 07/22/20 10:20 Ur Leukocyte Esterase 2+ (Negative) H 07/22/20 10:20 Urine RBC 0-4 /hpf (0-2) H 07/22/20 10:20 Urine WBC Too numerous to cnt /hpf (0-5) H 07/22/20 10:20 Ur Squamous Epith Cells 0-4 /hpf (0-5) H 07/22/20 10:20 Amorphous Sediment Not Reportable 07/22/20 10:20 Urine Bacteria 4+ /hpf (NONE) H 07/22/20 10:20 Nasal/Oral COVID-19 PCR Not detected 07/22/20 09:30 SARS-CoV-2 Ag (Rapid) Negative (Negative) 07/22/20 07:45 Micro: Microbiology 07/25/20 07:45 Blood Culture - Final Blood NO GROWTH AFTER 5 DAYS 07/25/20 07:53 Blood Culture - Final Blood NO GROWTH AFTER 5 DAYS A&P Assessment and plan (1) Non-ST elevation myocardial infarction (NSTEMI): Patient status post PCI of the LAD lesion, currently seems to be stable. We will continue on the current medications. Status: Resolved (2) Atrial fibrillation with rapid ventricular response: Patient is currently in sinus rhythm. Continue on the amiodarone. Letter need to be tapered down. This is discussed with Dr. Kasper. Also may send the patient home on an event monitor to look for any spontaneous recurrence of atrial fibrillation. Status: Resolved (3) Cardiomyopathy as manifestation of underlying disease: Clinically compensated. May continue on the current medications. We will do a limited 2D echo in the morning to reevaluate the LV ejection fraction. Status: Acute (4) Left bundle branch block: She has a chronic intermittent bundle branch block. Currently stable with no high degree AV block Status: Acute (5) Ventricular arrhythmia: Currently the patient has no evidence of ventricular arrhythmia. Continue on the current medications Status: Resolved (6) Sepsis associated hypotension: Currently has improved. Management as per the primary Status: Resolved (7) Anemia: Her hemoglobin hematocrit is stable. Status: Acute Qualifiers: Anemia type: unspecified type Qualified Code(s): D64.9 - Anemia, unspecified Additional A&P Information Disposition as per the primary. She may go home with an event monitor Appointment to [facility] with the nurse practitioner in 1 week Appointment with me in the office in 3 weeks Attestations Medical Necessity Statement*: Disposition as per the primary Coding Level of Care Code Acute Resource Management Specialist for [facility] Fwd Exam Expanded Problem Focused Diagnoses Non-ST elevation myocardial infarction (NSTEMI) I21.4 Atrial fibrillation with rapid ventricular response I48.91 Cardiomyopathy as manifestation of underlying disease I43 Left bundle branch block I44.7 Ventricular arrhythmia I49.9 Sepsis associated hypotension A41.9; I95.9 Anemia D64.9 Anemia type: unspecified type
--- NOTE | 2020-07-30 10:40 | P.CONIM_ITS ---
Providers/Reason For Consult Consulting Physican/Specialty*: ortho Reason for Consult*: finger swelling Attending Physician: Chuckie Kasper MD Primary Care Provider: Oscar Quigley MD History of Present Illness History of Present Illness Lacey Burgess is a 75 year old female atient presented was altered mental status and acute hypoxic respite failure requiring intubation and initial treatment in ICU. She was initially septic due to UTI and treated with pressors, fluids and antibiotics. She gradually improved and eventually was extubated. She was diagnosed with non-ST elevation [place] and acute systolic heart failure with EF 40%. She was further evaluated with coronary angiogram showing evidence of LAD occlusion requiring stent placement. She developed other fibrillation with rapid ventricular response and was started on amiodarone. Patient had episode of bradycardia yesterday with heart rate down to 50s. Because patient was very symptomatic at that time with significant decreased energy metoprolol was discontinued and her heart rate today recovered to 80s along with patient's energy level. Once patient's blood pressure normalized she was carefully diuresed. Discussed with Dr. Zapien this morning. Because of anemia Eliquis will not be continued and we will request event monitor for 30 days post discharge. Patient will follow up with Dr. Zapien and decision regarding initiation of Eliquis will be made. This morning patient reports feeling much better and strong enough to be dismissed home. Reports that she developed right PIP joint swelling and pain this morning. Reports that she had similar episode 3 weeks ago which went away on its own. Reports that she has trigger finger sometimes and has hand osteoarthritis. Review of Systems Const: Reports: fatigue and malaise; Denies: diaphoresis Eyes: Denies: change in vision or photophobia ENMT: Denies: tinnitus or epistaxis Card: Reports: palpitations; Denies: chest pain or syncope Resp: Denies: dyspnea, productive cough or non-productive cough GI: Reports: nausea; Denies: bloating or fecal incontinence : Denies: dysuria Skin/Breast: Denies: rash or pruritus Neuro: Denies: headache(s) or dizziness Psych: Denies: anxiety All/Imm: Denies: acute wheezing Meds/Allergies Home Medications and Allergies Home Medications Medication Instructions Recorded Confirmed Last Taken Type aspirin 81 mg tablet,delayed 81 mg PO QAM 07/09/19 07/22/20 07/21/20 History release cetirizine 10 mg tablet 10 mg PO BEDTIME tab 07/09/19 07/22/20 Unknown History cholecalciferol (vitamin D3) 50 2,000 unit PO DAILY 07/09/19 07/22/20 Unknown History mcg (2,000 unit) tablet levothyroxine 25 mcg capsule 25 mcg PO QAM 07/09/19 07/22/20 07/21/20 History polyethylene glycol 3350 17 gram 17 gm PO DAILY PRN 07/09/19 07/22/20 Unknown History oral powder packet ProAir HFA 2 puff INHALATION Q4H PRN 07/22/20 07/22/20 Unknown History Tylenol Extra Strength 500 mg PO PRN 07/22/20 07/22/20 Unknown History amiodarone See Rx Instructions .ROUTE 07/30/20 Unknown Rx .COMPLEX 30 Days #90 tab atorvastatin 80 mg PO BEDTIME #30 tab 07/30/20 Unknown Rx ceftriaxone 2 g IV DAILY #9 ea 07/30/20 Unknown Rx clopidogrel 75 mg PO DAILY #30 tab 07/30/20 Unknown Rx nitroglycerin 0.4 mg SUBLINGUAL Q5M PRN #25 tab 07/30/20 Unknown Rx pantoprazole 40 mg PO DAILY #30 tab 07/30/20 Unknown Rx sennosides-docusate sodium 1 tab PO DAILY #30 tab 07/30/20 Unknown Rx trazodone 50 mg PO BEDTIME #30 tab 07/30/20 Unknown Rx Allergies Allergy/AdvReac Type Severity Reaction Status Date / Time codeine Allergy Unknown unknown Verified 07/22/20 12:51 fosinopril [From Monopril] Allergy Unknown unknown Verified 07/22/20 12:51 paroxetine [From Paxil] Allergy Unknown unknown Verified 07/22/20 12:51 Sulfa (Sulfonamide Allergy Unknown unknown Verified 07/22/20 12:51 Antibiotics) Current Medications Current Medications Generic Name Dose Route Start Last Admin Trade Name Freq PRN Reason Stop Dose Admin Acetaminophen 650 mg 07/28/20 17:54 07/29/20 00:40 Acetaminophen 325 Mg Tablet PO 650 mg Q6H PRN Administration MILD PAIN Amiodarone HCl 400 mg 07/23/20 20:00 07/30/20 08:10 Amiodarone 200 Mg Tablet PO 400 mg BID ALFRED Administration Aspirin 81 mg 07/23/20 06:00 07/30/20 05:15 Aspirin 81 Mg Ec Tablet PO 81 mg QAM ALFRED Administration Atorvastatin Calcium 80 mg 07/22/20 21:00 07/29/20 21:52 Atorvastatin 40 Mg Tablet PO 80 mg BEDTIME ALFRED Administration Cetirizine HCl 10 mg 07/22/20 21:00 07/27/20 20:37 Cetirizine 10 Mg Tablet PO 10 mg BEDTIME ALFRED Administration Clopidogrel Bisulfate 75 mg 07/24/20 09:00 07/30/20 08:10 Clopidogrel 75 Mg Tablet PO 75 mg DAILY ALFRED Administration Ceftriaxone Sodium 2,000 mg/ 50 mls @ 100 mls/hr 07/25/20 08:00 07/30/20 10:01 Sodium Chloride IV Infused Q24H ALFRED Infusion Protocol Levothyroxine Sodium 25 mcg 07/23/20 06:00 07/30/20 05:15 Levothyroxine 25 Mcg Tablet PO 25 mcg QAM ALFRED Administration Ondansetron HCl 4 mg 07/22/20 19:48 07/29/20 07:34 Ondansetron 2 Mg/Ml Sdv 2 Ml IVP 4 mg Q6H PRN Administration NAUSEA AND VOMITING Pantoprazole Sodium 40 mg 07/23/20 09:00 07/30/20 08:[address] 40 Mg Tablet PO 40 mg DAILY ALFRED Administration Polyethylene Glycol 17 gm 07/22/20 19:48 07/25/20 20:18 Polyethylene Glycol 3350 Pkt 17 Gm PO 17 gm DAILY PRN Administration Constipation Senna/Docusate Sodium 1 tab 07/26/20 09:00 07/30/20 08:10 Sennosides-Docusate Tablet PO 1 tab BID ALFRED Administration Trazodone HCl 50 mg 07/27/20 21:00 07/29/20 21:52 Trazodone 50 Mg Tablet PO 50 mg BEDTIME ALFRED Administration Additional Medication Information Current Medications Acetaminophen (Acetaminophen 500 Mg Tablet) 500 mg PO Q4H PRN PRN Reason: MILD PAIN OR INCREASE TEMP Acetaminophen (Acetaminophen 325 Mg Tablet) 650 mg PO Q6H PRN PRN Reason: MILD PAIN Last Admin: 07/29/20 00:40 Dose: 650 mg Documented by: Al Hydrox/Mg Hydrox/Simethicone (Hvgb-Had-Tchuuifbu-Vandana 30 Ml Udc) 30 ml PO Q15M PRN PRN Reason: INDIGESTION Albuterol Sulfate (Albuterol 8 Gm Mdi) 2 puff INHALATION Q4H PRN PRN Reason: Shortness Of Breath Alprazolam (Alprazolam 0.25 Mg Tablet) 0.25 mg PO TID PRN PRN Reason: ANXIETY Amiodarone HCl (Amiodarone 200 Mg Tablet) 400 mg PO BID [facility] Last Admin: 07/30/20 08:10 Dose: 400 mg Documented by: Aspirin (Aspirin 81 Mg Ec Tablet) 81 mg PO QAM [facility] Last Admin: 07/30/20 05:15 Dose: 81 mg Documented by: Atorvastatin Calcium (Atorvastatin 40 Mg Tablet) 80 mg PO BEDTIME [facility] Last Admin: 07/29/20 21:52 Dose: 80 mg Documented by: Atropine Sulfate (Atropine 1 Mg/Ml Sdv 1 Ml) 0.5 mg IVP PRN PRN PRN Reason: Symptomatic bradycardia Cetirizine HCl (Cetirizine 10 Mg Tablet) 10 mg PO BEDTIME [facility] Last Admin: 07/27/20 20:37 Dose: 10 mg Documented by: Clopidogrel Bisulfate (Clopidogrel 75 Mg Tablet) 75 mg PO DAILY [facility] Last Admin: 07/30/20 08:10 Dose: 75 mg Documented by: Enoxaparin Sodium (Enoxaparin 40 Mg/0.4 Ml Syringe) 40 mg SUBCUT Q24H [facility] Last Admin: 07/30/20 08:10 Dose: 40 mg Documented by: Fentanyl (Fentanyl 50 Mcg/Ml Inj 2ml) 50 mcg IVP PRN PRN PRN Reason: Prior to sheath removal Ceftriaxone Sodium 2,000 mg/ (Sodium Chloride) 50 mls @ 100 mls/hr IV Q24H [facility]; Protocol Last Infusion: 07/30/20 10:01 Dose: Infused Documented by: Levothyroxine Sodium (Levothyroxine 25 Mcg Tablet) 25 mcg PO QAM [facility] Last Admin: 07/30/20 05:15 Dose: 25 mcg Documented by: Magnesium Hydroxide (Magnesium Hydroxide 30 Ml Udc) 30 ml PO DAILY PRN PRN Reason: CONSTIPATION Naloxone HCl (Naloxone 0.4 Mg/Ml Sdv) 0.1 mg IVP Q2M PRN PRN Reason: RESPIRATORY RATE < 8/MIN Nitroglycerin (Nitroglycerin 0.4 Mg Sublingual Tablet) 0.4 mg SUBLINGUAL Q5M PRN PRN Reason: CHEST PAIN Ondansetron HCl (Ondansetron 2 Mg/Ml Sdv 2 Ml) 4 mg IVP Q6H PRN PRN Reason: NAUSEA AND VOMITING Last Admin: 07/29/20 07:34 Dose: 4 mg Documented by: Pantoprazole Sodium (Pantoprazole Dr 40 Mg Tablet) 40 mg PO DAILY [facility] Last Admin: 07/30/20 08:10 Dose: 40 mg Documented by: Polyethylene Glycol (Polyethylene Glycol 3350 Pkt 17 Gm) 17 gm PO DAILY PRN PRN Reason: Constipation Last Admin: 07/25/20 20:18 Dose: 17 gm Documented by: Senna/Docusate Sodium (Sennosides-Docusate Tablet) 1 tab PO BID [facility] Last Admin: 07/30/20 08:10 Dose: 1 tab Documented by: Temazepam (Temazepam 15 Mg Capsule) 15 mg PO BEDTIME PRN PRN Reason: INSOMNIA Trazodone HCl (Trazodone 50 Mg Tablet) 50 mg PO BEDTIME [facility] Last Admin: 07/29/20 21:52 Dose: 50 mg Documented by: PFSH Acute PFSH: Medical History (Updated 07/30/20 @ 10:42 by Sanjeev Samayoa DO) Benign essential HTN Chest pain Dyslipidemia (high LDL; low HDL) Hypertension Left bundle branch block Ventricular arrhythmia Surgical History H/O breast biopsy H/O lumpectomy H/O thyroidectomy History of hysterectomy Hx of tonsillectomy Family History Other Cancer Hypertension Stroke Denies family history of Diabetes Hyperlipidemia Family history of premature coronary artery disease Social History Smoking and tobacco status: never smoked Alcohol intake: never Vitals/I&O/Wt Last Vital Signs Temp 98.6 F 07/30/20 10:24 Pulse 84 07/30/20 10:24 Resp 21 H 07/30/20 10:24 BP 143/94 07/30/20 10:24 Pulse Ox 95 07/30/20 10:24 07/29/20 07/30/20 07/30/20 22:59 06:59 14:59 Intake Total 120 / 1460 100 / 1560 290 / 290 Output Total 500 / 500 500 / 500 Balance 120 / 1460 -400 / 1060 -210 / -210 Weight last 48 hrs Weight 210 lb 9.6 oz Weight 214 lb Physical Exam Narrative: EXAM NARRATIVE: CONSTITUTIONAL: The patient is a normal appearing [] in no apparent distress. GENERAL: Patient in no acute distress. CARDIAC: Regular rate and rhythm. CHEST: Normal inspiratory effort, normal respiratory rate. ABDOMEN: Soft and nontender. SKIN: Clear, warm and intact. NEURO?PSYCH: The patient is alert and oriented to person, place and time. Sensorv /SILT Motor StrengthShoulder abduction C5 5/5Wrist extension C6 5/5Elbow extension C7 5/5Hand Bed Control Specialist C8 5/5Finger abduction T15/5 Radial/ Ulnar/ Median n intact LowerSensory (SILT)Motor StrengthHin flexion L2/3Ant/inner thigh 5/5Hip adduction L2/3 5/5Knee extension L4 Lat thigh, 5/5Toe dorsiflexion L5 5/5Ankle dorsiflexion L5/ I82Crvssue flexion S1 5/5 DTRBleeps 2+Triceps 2+Brachioradialis 2+Patellar 2+Achilles 2+ MUSCULOSKELETAL: [] UPPEREXTREMITIES: The patient had full active ROM in fingers, wrist, elbow, and shoulder. The patient demonstrated ability to fully flex/extend/abduct/adduct fingers, make ok sign, cross 2nd/3rd digits, extend 1st digit fully.. Radial pulse 2+, CR<2 seconds. LOWER EXTREMITIES: Pt has full, active ROM of toes, ankle, knee, and hip. Dorsalis pedis/posterior tibialis pulses 2+, CR<2 seconds. SPINE: Skin warm, dry, intact. Urinary Catheter Management^: Turner: Cath Placed During This Visit: yes, but has since been removed by the nurse Reason for Continuing Indwelling Catheter: Accurate Measurement of Urinary Output in Critically Ill Patients Urinary Catheter Date of Insertion: 07/22/20 Urinary Catheter Time of Insertion: 11:13 Date Urinary Catheter Removed: 07/25/20 Time Urinary Catheter Discontinued: 15:52 Data Micro: Micro: Microbiology 07/25/20 07:45 Blood Culture - Fi nal Blood NO GROWTH AFTER 5 DAYS 07/25/20 07:53 Blood Culture - Fi nal Blood NO GROWTH AFTER 5 DAYS A&P Assessment and plan (1) Finger joint swelling: Patient has pain in her middle finger. At this point started about 3 weeks ago does not look red or any indication for any infection. 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
[2020-07-30 11:17] LABS: Basophils # 0.1 10^3/uL (0.0-0.1); Basophils % 0.5 %; Eosinophils # 0.1 10^3/uL (0.0-0.8); Eosinophils % 1.1 %; Hematocrit 30.1 % (37.0-47.0); Hemoglobin 9.7 g/dL (11.5-15.3); Lymphocytes # 1.8 10^3/uL (0.8-4.8); Lymphocytes % 17.2 %; Mean Corpuscular HGB Conc 32.2 g/dL (30.0-36.0); Mean Corpuscular Hemoglobin 28.4 pg (28.0-34.0); Mean Corpuscular Volume 88.3 fL (81-99); Mean Platelet Volume 9.8 fL (7.4-10.4); Monocytes # 0.8 10^3/uL (0.2-0.9); Monocytes % 7.3 %; Neutrophils # 7.12 10^3/uL (1.8-7.7); Neutrophils % 69.8 %; Nucleated Red Blood Cells % 0 %; Platelet Count 344 10^3/cmm (130-400); Red Blood Count 3.41 10^6/uL (4.1-5.3); White Blood Count 10.2 10^3/uL (4.0-10.0)
[2020-07-30 11:53] LABS: Alanine Aminotransferase 24 U/L (0-33); Alkaline Phosphatase 90 IU/L (35-105); Anion Gap 12.8 (5-19); Aspartate Amino Transferase 41 U/L (0-32); Blood Urea Nitrogen 13 mg/dL (8-23); Calcium 8.5 mg/dL (8.5-10.5); Carbon Dioxide 23 mmol/L (22-29); Chloride 106 mmol/L (98-107); Glucose 115 mg/dL (65-115); Osmolality Calculated 287 mOsm/kg (285-295); Potassium 3.8 mmol/L (3.5-5.1); Sodium 138 mmol/L (136-145); Total Bilirubin 0.3 mg/dL (0.15-1.2)
== END 2020-07-30 13:09 | disposition home health service (06) | DRG 853 ==
LOC: ER 11:13 → ICU 15:35 → CSU 07-24 18:44
PROVIDERS: Internal Medicine; Internal Medicine Cardiovascular Disease; Admitting Provider Internal Medicine; Emergency Provider Family Medicine; PCP Family Medicine; Visit Provider Internal Medicine
PROC: 027034Z Dilation of Coronary Artery, One Artery with Drug-eluting Intraluminal Device, Percutaneous Approach (ICD-10-PCS; principal; 2020-07-28 16:30)
DX: A41.9 Sepsis, unspecified organism (principal); I21.4 Non-ST elevation (NSTEMI) myocardial infarction; I50.21 Acute systolic (congestive) heart failure; J96.01 Acute respiratory failure with hypoxia; I13.0 Hypertensive heart and chronic kidney disease with heart failure and stage 1 through stage 4 chronic kidney disease, or unspecified chronic kidney disease; N39.0 Urinary tract infection, site not specified; E87.1 Hypo-osmolality and hyponatremia; I42.9 Cardiomyopathy, unspecified; N10 Acute pyelonephritis; R65.20 Severe sepsis without septic shock; Z86.73 Personal history of transient ischemic attack (TIA), and cerebral infarction without residual deficits; E78.5 Hyperlipidemia, unspecified; N18.30 Chronic kidney disease, stage 3 unspecified; I44.7 Left bundle-branch block, unspecified; I25.2 Old myocardial infarction; I95.9 Hypotension, unspecified; E86.0 Dehydration; E87.6 Hypokalemia; E83.42 Hypomagnesemia; E66.9 Obesity, unspecified; Z68.35 Body mass index [BMI] 35.0-35.9, adult; D69.6 Thrombocytopenia, unspecified; M10.9 Gout, unspecified; R00.1 Bradycardia, unspecified; T50.905A Adverse effect of unspecified drugs, medicaments and biological substances, initial encounter; K59.00 Constipation, unspecified; B96.20 Unspecified Escherichia coli [E. coli] as the cause of diseases classified elsewhere; I48.91 Unspecified atrial fibrillation
CPT/HCPCS: 31500; 36415; 36569; 36600; 51702; 71045; 71275; 73130; 80048; 80051; 80053; 81001; 82330; 82550; 82803; 82805; 83605; 83690; 83735; 84484; 85007; 85025; 85347; 85730; 87040; 87070; 87077; 87086; 87186; 87205; 87426; 87635; 93005; 93306; 93308; 93452; 94002; 94003; 94799; 96365; 96366; 96367; 96372; 96375; 97110; 97116; 97161; 97530; 99291; C1725; C1751; C1769; C1874; C1887; C1894; C9600; J0330; J0696; J0743; J1160; J1265; J1644; J1650; J1940; J1956; J2250; J2405; J2704; J3010; J3370; J3475; J3480; J3490; J7030; Q0163; Q9967

== ENCOUNTER 2020-08-07 06:18 | Emergency (ER) | payer MEDICARE, OTHER, SELFPAY ==
[2020-08-07 06:27] VITALS: BP 171/78; PULSE 89; RESP 18; TEMP 36.7; O2SAT 97; BMI 33.3
--- NOTE | 2020-08-07 06:43 | ECG_ITS ---
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 Measurements Intervals [place] Rate: 84 P: 20 HI: 159 QRS: -29 QRSD: 152 T: 128 QT: 429 QTc: 509 Interpretive Statements SINUS RHYTHM LEFT BUNDLE BRANCH BLOCK [120+ ms QRS DURATION, 80+ ms Q/S IN V1/V2, 85+ ms R IN I/aVL/V5/V6] Compared to ECG 07/25/2020 15:37:00 No significant changes Electronically Signed On 08-08-2020 22:55:04 CDT by Monica Zapien M.D. [id number] f
--- NOTE | 2020-08-07 06:43 | XR_ITS ---
WS: [id number] XR chest 1V portable [id number] REASON FOR EXAM: chest pain FINDINGS: The heart and mediastinum are within normal limits. The heart is at the upper limits of normal in siz e. 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 No active pulmonary parenchymal or pleural dise ase. No significant abnormality of the bony thorax. XR/XR chest 1V portable [id number] IMPRESSION: No acute chest abnormality.
--- NOTE | 2020-08-07 06:45 | W.ED.CHESTPA ---
HPI - Chest Pain General: Chief Complaint: Chest Pain Stated Complaint: Chest Pain/Post Surgery Related Time Seen by Provider: 08/07/20 06:37 Source: patient Mode of arrival: ambulatory History of Present Illness: HPI narrative: 75-year-old female was woken up at 2 AM with sharp stabbing pain on her left chest radiating through to her left upper back. It only lasted a moment, and she fell back asleep. Around 5 AM, she was woken up by the same pain, and has continued to have intermittent sharp pains that last a few moments and then spontaneously resolved. Denies chest pressure, nausea, diaphoresis, or shortness of breath. No reflux. She has had a cough for several days, noticed that it was a deeper cough this morning-clear sputum. She was discharged from the hospital on 07/30/2020 after being admitted for sepsis, acute respiratory failure, A. fib with RVR, NSTEMI. She underwent PCI and had her LAD stented. Her blood cultures were negativeX2,urine cultures grew yanez-sensitive E. coli. She was discharged home with a PICC line, on 2 g Rocephin daily. She has been taking all of her medications, has not missed any doses. Denies palpitations. Onset (ago): hour(s) Associated symptoms: Deny abdominal pain, dyspnea, fever(s), nausea, palpitations, syncope or vomiting Review of Systems General: Reports: 10 or more systems reviewed and unremarkable except in HPI and below Const: Denies: fever(s), chills, body aches, change in appetite, fatigue, malaise or night sweats Eyes: Denies: change in vision, blurry vision or eye discharge ENMT: Denies: throat pain, odynophagia or swelling of lips/tongue Card: Reports: chest pain; Denies: palpitations, irregular heart rhythm, edema, lightheadedness or syncope Resp: Reports: productive cough, pain on inspiration and chest congestion; Denies: dyspnea or change in phlegm color GI: Denies: abdominal pain, nausea or vomiting Musc: Denies: neck pain, back pain or extremity pain Skin/Breast: Denies: rash, pruritus or erythema Neuro: Denies: headache(s), numbness in extremities or weakness in extremities PFS ED PFSH: Medical History Atherosclerosis of coronary artery Benign essential HTN Chest pain Dyslipidemia (high LDL; low HDL) Hypertension Left bundle branch block Ventricular arrhythmia Surgical History H/O breast biopsy H/O lumpectomy H/O thyroidectomy History of hysterectomy Hx of tonsillectomy Family History Other Cancer Hypertension Stroke Denies family history of Diabetes Hyperlipidemia Family history of premature coronary artery disease Social History Smoking and tobacco status: never smoked Alcohol intake: never Physical Exam Const: COMMON NORMALS: no acute distress, patient oriented x3, healthy appearing and alert EXAM LIMITATIONS: no altered mental status GENERAL APPEARANCE: cooperative and comfortable; not in distress, not anxious and not combative NUTRITIONAL APPEARANCE: obese; not cachectic ORIENTATION/CONSCIOUSNESS: Yes oriented to person and Yes oriented to place; not awake HENMT: COMMON NORMALS: normocephalic, atraumatic and hearing grossly normal bilaterally HEAD & SCALP: normocephalic and atraumatic FACE & SINUS: normal facial exam and face symmetric Eye: COMMON NORMALS: Equal, round and reactive pupils present, EOMs intact bilaterally and conjunctivae normal EYELID: eyelids normal CONJUNCTIVA: Yes conjunctivae normal SCLERA: sclerae normal PUPIL: Yes Equal, round and reactive pupils present Neck/C-Spine: COMMON NORMALS: full ROM and no JVD GENERAL: Yes trachea midline and No anterior neck swelling CERVICAL SPINE: Yes cervical ROM normal Chest: COMMONS NORMALS: normal inspection of the chest and normal palpation of entire chest wall Resp: COMMON NORMALS: normal respiratory effort, No retractions, No use of accessory muscles and clear to auscultation bilaterally AUSCULTATION: clear to auscultation bilaterally Cardio: COMMON NORMALS: no JVD, regular rate, regular rhythm, S1 normal heart sound present, S2 normal heart sound present and No gallops present (Cardio) RATE: regular rate RHYTHM: regular rhythm HEART SOUNDS: S1 normal heart sound present and S2 normal heart sound present GI: COMMON NORMALS: Normal to inspection, nondistended, normoactive bowel sounds present, Soft to palpation, non-tender, No hepatosplenomegaly present and no masses PALPATION: Yes Soft to palpation and Yes No hepatosplenomegaly present Extremity: COMMON NORMALS: normal to inspection, capillary refill normal and no clubbing, cyanosis or edema Neuro: EDIL COMA SCALE: document GCS findings COMMON NORMALS: patient oriented x3 and moves all extremities SENSORIUM/ORIENTATION: Yes alert, Yes oriented to person and Yes oriented to place Psych: COMMON NORMALS: mental status grossly normal, Normal thought process present and cooperative THOUGHT PROCESS: Normal thought process present Skin: COMMON NORMALS: no rashes or lesions noted, no wounds, turgor normal and no jaundice GENERAL SKIN EXAM: no rashes or lesions noted and turgor normal Course Vital Signs: Vital signs: Vital Signs Temperature 98.7 F 08/07/20 09:57 Pulse Rate 76 08/07/20 09:57 Respiratory Rate 20 H 08/07/20 09:57 Blood Pressure 130/74 08/07/20 09:57 Pulse Oximetry 96 08/07/20 09:57 MDM - Chest Pain MDM Narrative: Medical decision making narrative: 75-year-old female with intermittent sharp stabbing left chest wall pain since 2 AM this morning. Underwent PCI and LAD stenting on 07/22/2020 Low suspicion of cardiac etiology, however due to her recent NSTEMI, and underlying heart disease, will check serial Trops, EKG. -Very low suspicion for acute pulmonary embolism; pain is random, intermittent, and only lasts a few moments. There is no associated shortness of breath, tachycardia, or hypoxia. More likely pleuritic chest pain; -no acute infiltrates or effusions on chest x-ray. -WBC count normal. -BNP elevated at 2263, no previous baseline available, last EF 40% with diffuse hypokinesia of the apex on echo 07/22/2020 -Serial troponins essentially unchanged; 28, 28.73 -Patient had an episode of coughing, but no further chest pain. 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 I am not going to place her on any diuretics at this time since she is not showing clinical signs of fluid overload, but it needs to be evaluated by her assembly line brazer. Differential Diagnosis: Cardiac arrest differential diagnosis: Likely acute massive pulmonary embolism, acute respiratory failure and acute myocardial infarction Medical Records: Attestation: I reviewed the patient's medical records. Lab Data: Attestation: I reviewed the patient's lab results. Labs: Lab Results 08/07/20 08/07/20 08/07/20 Range/Units 06:35 06:35 06:35 WBC 5.2 (4.0-10.0) 10^3/ uL RBC 3.77 L (4.1-5.3) 10^6/u L Hgb 10.5 L (11.5-15.3) g/dL Hct 33.5 L (37.0-47.0) % MCV 88.9 (81-99) fL MCH 27.9 L (28.0-34.0) pg MCHC 31.3 (30.0-36.0) g/dL RDW 15.3 H (12.1-15.1) % Plt Count 334 (130-400) 10^3/c mm MPV 9.5 (7.4-10.4) fL Neut % (Auto) 51.4 % Lymph % (Auto) 30.1 % [place] % (Auto) 14.6 % Eos % (Auto) 1.9 % Baso % (Auto) 1.4 % Neut # (Auto) 2.65 (1.8-7.7) 10^3/u L Lymph # (Auto) 1.6 (0.8-4.8) 10^3/u L [place] # (Auto) 0.8 (0.2-0.9) 10^3/u L Eos # (Auto) 0.1 (0.0-0.8) 10^3/u L Baso # (Auto) 0.1 (0.0-0.1) 10^3/u L Nucleated RBC % (a uto) 0 % Nucleated RBCs # 0.0 /100WBC Sodium 137 (136-145) mmol/L Potassium 3.7 (3.5-5.1) mmol/L Chloride 104 (98-107) mmol/L Carbon Dioxide 22 (22-29) mmol/L Anion Gap 14.7 (5-19) BUN 10 (8-23) mg/dL Creatinine 1.0 H (0.5-0.9) mg/dL GFR Calculation Not Reportable Glucose 105 (65-115) mg/dL Calculated Osmolal ity 283 L (285-295) mOsm/k g Calcium 8.7 (8.5-10.5) mg/dL Magnesium 2.0 (1.7-2.3) mg/dL Total Bilirubin 0.4 (0.15-1.2) mg/dL AST 19 (0-32) U/L ALT 12 (0-33) U/L Alkaline Phosphata se 88 (35-105) IU/L Troponin T Baselin e 28 H (0-10) ng/L Troponin T 120 Min native (0-10) ng/L Delta Troponin T (0-10) ABS# NT-Pro-B Natriuret Pep 2263 H (0-450) pg/mL Total Protein 6.8 (6.6-8.7) g/dL Albumin 3.5 (3.5-5.2) g/dL Globulin 3.3 (1.3-4.6) g/dL Urine Color (Yellow) Urine Appearance (CLEAR) Urine pH (5-7) Ur Specific Gravit y (1.005-1.030) Urine Protein (Negative) Urine Glucose (UA) (Normal) Urine Ketones (Negative) Urine Blood (Negative) Urine Nitrate (Negative) Urine Bilirubin (Negative) Urine Urobilinogen (Negative) mg/dL Ur Leukocyte Kinsey ase (Negative) Urine RBC (0-2) /hpf Urine WBC (0-5) /hpf Ur Squamous Epith Cells (0-5) /hpf Amorphous Sediment Urine Bacteria (NONE) /hpf 08/07/20 08/07/20 Range/Units 09:02 09:10 WBC (4.0-10.0) 10^3/ uL RBC (4.1-5.3) 10^6/u L Hgb (11.5-15.3) g/dL Hct (37.0-47.0) % MCV (81-99) fL MCH (28.0-34.0) pg MCHC (30.0-36.0) g/dL RDW (12.1-15.1) % Plt Count (130-400) 10^3/c mm MPV (7.4-10.4) fL Neut % (Auto) % Lymph % (Auto) % [place] % (Auto) % Eos % (Auto) % Baso % (Auto) % Neut # (Auto) (1.8-7.7) 10^3/u L Lymph # (Auto) (0.8-4.8) 10^3/u L [place] # (Auto) (0.2-0.9) 10^3/u L Eos # (Auto) (0.0-0.8) 10^3/u L Baso # (Auto) (0.0-0.1) 10^3/u L Nucleated RBC % (a uto) % Nucleated RBCs # /100WBC Sodium (136-145) mmol/L Potassium (3.5-5.1) mmol/L Chloride (98-107) mmol/L Carbon Dioxide (22-29) mmol/L Anion Gap (5-19) BUN (8-23) mg/dL Creatinine (0.5-0.9) mg/dL GFR Calculation Glucose (65-115) mg/dL Calculated Osmolal ity (285-295) mOsm/k g Calcium (8.5-10.5) mg/dL Magnesium (1.7-2.3) mg/dL Total Bilirubin (0.15-1.2) mg/dL AST (0-32) U/L ALT (0-33) U/L Alkaline Phosphata se (35-105) IU/L Troponin T Baselin e (0-10) ng/L Troponin T 120 Min native 28.73 H (0-10) ng/L Delta Troponin T 0.73 (0-10) ABS# NT-Pro-B Natriuret Pep (0-450) pg/mL Total Protein (6.6-8.7) g/dL Albumin (3.5-5.2) g/dL Globulin (1.3-4.6) g/dL Urine Color Yellow (Yellow) Urine Appearance Hazy A (CLEAR) Urine pH 5 (5-7) Ur Specific Gravit y 1.015 (1.005-1.030) Urine Protein Neg (Negative) Urine Glucose (UA) Norm (Normal) Urine Ketones Negative (Negative) Urine Blood Neg (Negative) Urine Nitrate Negative (Negative) Urine Bilirubin Neg (Negative) Urine Urobilinogen Norm (Negative) mg/dL Ur Leukocyte Kinsey ase Negative (Negative) Urine RBC 0-4 H (0-2) /hpf Urine WBC 0-4 H (0-5) /hpf Ur Squamous Epith Cells 25-40 H (0-5) /hpf Amorphous Sediment Not Reportable Urine Bacteria Trace (NONE) /hpf Discharge Plan Discharge Patient Disposition: Home Clinical Impression: Chest pain not due to acute coronary syndrome Condition: Stable Prescriptions: No Action aspirin [Adult Aspirin Regimen] 81 mg tablet,delayed release (DR/EC) 81 mg PO QAM RF: 0 cholecalciferol (vitamin D3) 2,000 unit tablet 2,000 unit PO DAILY RF: 0 levothyroxine 25 mcg capsule 25 mcg PO QAM RF: 0 cetirizine [All Day Allergy (cetirizine)] 10 mg tablet 10 mg PO BEDTIME RF: 0 polyethylene glycol 3350 [Miralax] 17 gram powder in packet 17 gm PO DAILY PRN (Reason: Constipation) RF: 0 Tylenol Extra Strength 500 mg Tablet 500 mg PO PRN RF: 0 ProAir HFA 90 mcg/actuation Hfa Aerosol Inhaler 2 puff INHALATION Q4H PRN (Reason: Shortness Of Breath) RF: 0 sennosides-docusate sodium 8.6-50 mg Tablet 1 tab PO DAILY Qty: 30 RF: 0 trazodone 50 mg Tablet 50 mg PO BEDTIME Qty: 30 RF: 0 clopidogrel 75 mg Tablet 75 mg PO DAILY Qty: 30 RF: 0 nitroglycerin 0.4 mg Tablet, Sublingual 0.4 mg sublingual Q5M PRN (Reason: Chest Pain) Qty: 25 RF: 0 ceftriaxone 2 gram recon soln 2 g IV DAILY Qty: 9 RF: 0 amiodarone 200 mg tablet See Rx Instructions .ROUTE .COMPLEX 30 Days Qty: 90 RF: 0 atorvastatin 40 mg Tablet 80 mg PO BEDTIME Qty: 30 RF: 0 pantoprazole 40 mg Tablet,Delayed Release (Dr/Ec) 40 mg PO DAILY Qty: 30 RF: 0 naproxen 500 mg tablet 500 mg PO Q12H Qty: 4 RF: 0 Discharge Orders: Discharge ED (Routine); Ordered 08/07/20 Ordered By: Griselda Darden Referrals: Oscar Quigley MD [Primary Care Provider] - Discharge Diet: Low Salt Discharge Activity: Increase activity as tolerated Patient Instructions: Chest Pain - Noncardiac, Opioid Safety Activity Restrictions/Additional Instructions: Call to schedule follow-up appoint with your primary care doctor as well as your assembly line brazer soon as possible. Rest, take Tylenol for the pain, continue your medications as scheduled. Return immediately to the ER if you develop shortness of breath, swelling, chest pressure or continuous pain, or any other worsening symptoms. Coding Level of Care Code ED [employer] for [employer] Exam Comprehensive
[2020-08-07 06:46] VITALS: BP 152/75; PULSE 78; RESP 16; O2SAT 96
[2020-08-07] MEDS: aspirin 81 mg Chew Tablet 324 MG PO (06:57)
[2020-08-07] MEDS: nitroglycerin 0.4 mg sublingual Tablet SUBLINGUAL (06:59)
[2020-08-07 07:01] LABS: Basophils # 0.1 10^3/uL (0.0-0.1); Basophils % 1.4 %; Eosinophils # 0.1 10^3/uL (0.0-0.8); Eosinophils % 1.9 %; Hematocrit 33.5 % (37.0-47.0); Hemoglobin 10.5 g/dL (11.5-15.3); Lymphocytes # 1.6 10^3/uL (0.8-4.8); Lymphocytes % 30.1 %; Mean Corpuscular HGB Conc 31.3 g/dL (30.0-36.0); Mean Corpuscular Hemoglobin 27.9 pg (28.0-34.0); Mean Corpuscular Volume 88.9 fL (81-99); Mean Platelet Volume 9.5 fL (7.4-10.4); Monocytes # 0.8 10^3/uL (0.2-0.9); Monocytes % 14.6 %; Neutrophils # 2.65 10^3/uL (1.8-7.7); Neutrophils % 51.4 %; Nucleated Red Blood Cells % 0 %; Platelet Count 334 10^3/cmm (130-400); Red Blood Count 3.77 10^6/uL (4.1-5.3); Red Cell Distribution Width 15.3 % (12.1-15.1); White Blood Count 5.2 10^3/uL (4.0-10.0)
[2020-08-07 07:17] LABS: Troponin(5th) Baseline 28 ng/L (0-10)
[2020-08-07 07:21] VITALS: BP 151/88; PULSE 75; RESP 18; O2SAT 94
--- NOTE | 2020-08-07 07:22 | PC.NURSE ---
0700- Received report assumed care, no changes noted in report. Pt alert and oriented. at bedside. Pt placed in gown. Vital stable. Continue to monitor.
[2020-08-07 07:26] LABS: Alanine Aminotransferase 12 U/L (0-33); Albumin Level 3.5 g/dL (3.5-5.2); Alkaline Phosphatase 88 IU/L (35-105); Anion Gap 14.7 (5-19); Aspartate Amino Transferase 19 U/L (0-32); Blood Urea Nitrogen 10 mg/dL (8-23); Calcium 8.7 mg/dL (8.5-10.5); Carbon Dioxide 22 mmol/L (22-29); Chloride 104 mmol/L (98-107); Globulin 3.3 g/dL (1.3-4.6); Glucose 105 mg/dL (65-115); NT Pro B Type Natriuretic Pept 2263 pg/mL (0-450); Osmolality Calculated 283 mOsm/kg (285-295); Potassium 3.7 mmol/L (3.5-5.1); Sodium 137 mmol/L (136-145); Total Bilirubin 0.4 mg/dL (0.15-1.2); Total Protein 6.8 g/dL (6.6-8.7)
--- NOTE | 2020-08-07 07:33 | PC.NURSE ---
No changes noted. Resting with lights off. No pain noted after medication. Continue to monitor
[2020-08-07 08:21] VITALS: BP 118/70; PULSE 73; RESP 16; O2SAT 96
--- NOTE | 2020-08-07 08:43 | ECG_ITS ---
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 Measurements Intervals [place] Rate: 68 P: 14 PA: 162 QRS: -20 QRSD: 153 T: 137 QT: 467 QTc: 500 Interpretive Statements SINUS RHYTHM LEFT BUNDLE BRANCH BLOCK [120+ ms QRS DURATION, 80+ ms Q/S IN V1/V2, 85+ ms R IN I/aVL/V5/V6] Compared to ECG 08/07/2020 06:28:15 No significant changes Electronically Signed On 08-08-2020 23:17:46 CDT by Monica Zapien M.D. [email or web address]
[2020-08-07 09:00] VITALS: BP 162/77; PULSE 79; RESP 16; O2SAT 97
[2020-08-07 09:33] LABS: Troponin 5 2HR 28.73 ng/L (0-10); Troponin 5 2HR Delta 0.73 ABS# (0-10)
[2020-08-07 09:57] VITALS: BP 130/74; PULSE 76; RESP 20; TEMP 37.1; O2SAT 96
[2020-08-07 09:59] LABS: Add Urine Microscopic? YES; Bacteria Urine TRACE /hpf; Bilirubin Urine Neg (Negative); Blood Urine Neg (Negative); Glucose Urine UA Norm (Normal); Ketones Urine Negative (Negative); Leukocyte Esterase Urine Negative (Negative); Nitrate Urine Negative (Negative); Protein Urine Neg (Negative); RBC Urine 0-4 /hpf (0-2); Specific Gravity, Urine 1.015 (1.005-1.030); Squamous Epithelial Cell Urine 25-40 /hpf (0-5); Urine Appearance Hazy (CLEAR); Urine Color Yellow (Yellow); Urobilinogen Urine Norm (Negative); WBC Urine 0-4 /hpf (0-5); pH Urine 5 (5-7)
== END 2020-08-07 10:10 | disposition home or self-care (01) ==
PROVIDERS: Emergency Provider Family Medicine; PCP Family Medicine
DX: R07.9 Chest pain, unspecified (principal); Z79.02 Long term (current) use of antithrombotics/antiplatelets; Z79.82 Long term (current) use of aspirin; I25.10 Atherosclerotic heart disease of native coronary artery without angina pectoris; I10 Essential (primary) hypertension; E78.5 Hyperlipidemia, unspecified
CPT/HCPCS: 36415; 71045; 80053; 81001; 83735; 83880; 84484; 85025; 93005; 99284

== ENCOUNTER 2020-09-03 14:07 | Observation (INO) | payer MEDICARE, OTHER, SELFPAY ==
[2020-09-03] VITALS (16 sets, daily range): BP systolic 109–177; BP diastolic 67–109; PULSE 54–105; RESP 12–24; TEMP 36.4–37.1; O2SAT 90–100; BMI 31.6
--- NOTE | 2020-09-03 14:41 | XR_ITS ---
WS: [id number] Portable AP upright chest, 09/03/2020 Clinical Data: chest pain Comparison: Portable chest, 08/07/2020. Findings: No nodules, masses or effusions are seen. The heart is normal. The pulmonary vascularity is not increased. No pneumonia or pneumothorax is seen. The aortic arch and descending aorta show mild tortuosity. There is a hiatal hernia behind the heart. There are monitor leads on the chest wall. XR/XR chest 1V portable [id number] Impression: Atherosclerosis.
--- NOTE | 2020-09-03 14:50 | CT_ITS ---
WS: [id number] CT HEAD NONCONTRAST HISTORY: dizziness TECHNIQUE: Contiguous axial imaging performed through the brain in 2.5 mm imaging. Bone and soft tiss ue windows. Sagittal and coronal reformats reviewed. All CT scans at [facility] use at ast one of these dose optimization techniques: automated exposure control; mA and/or kV adjustment pe r patient size (includes targeted exams where dose is matched to clinical indication); or iterative r econstruction. DLP: 786.3 mGy.cm COMPARISON: 11/01/2018 and 10/31/2018 No acute intracranial hemorrhage, midline shift or mass effect. Mild atrophy and mild chronic microvascular ischemic disease. No obvious progression since the prior CT. Small lacunar infarct in the inferior RIGHT basal ganglia. No interval change. Ventricles: Normal size with no hydrocephalus. Paranasal sinuses: As visualized are clear. Mastoid air cells: Well pneumatized. Calvarium and scalp: Skull is intact with no soft tissue edema or swelling. Moderate calcified plaque in the intracranial carotid arteries. CT/CT head wo con* [id number] IMPRESSION: 1. No acute intracranial hemorrhage or edema. 2. Mild atrophy and mild chronic microvascular ischemic disease, stable since 10/31/2018.
[2020-09-03 15:22] LABS: Basophils % 0.6 %; Eosinophils # 0.1 10^3/uL (0.0-0.8); Hematocrit 37.8 % (37.0-47.0); Hemoglobin 12.1 g/dL (11.5-15.3); Lymphocytes # 1.6 10^3/uL (0.8-4.8); Lymphocytes % 21.9 %; Mean Corpuscular Hemoglobin 28.8 pg (28.0-34.0); Mean Platelet Volume 10.4 fL (7.4-10.4); Monocytes # 0.7 10^3/uL (0.2-0.9); Monocytes % 10.3 %; Neutrophils % 65.9 %; Nucleated Red Blood Cells % 0 %; Platelet Count 162 10^3/cmm (130-400); White Blood Count 7.1 10^3/uL (4.0-10.0)
--- NOTE | 2020-09-03 15:32 | ED_ITS ---
HPI - Chest Pain General: Chief Complaint: Chest Pain Stated Complaint: CHEST HEAVINESS Time Seen by Provider: 09/03/20 14:40 History of Present Illness: HPI narrative: Patient is actually here for dizziness. She has been dizzy for about a week it does not matter if she is at rest or with movement she denies the room spinning no headache just feels dizzy more constantly. She and her both downplayed any chest discomfort she has had some occasionally since she had a stent placed in July about a month ago but they are more concerned about the dizziness and then patient focuses more on her constipation that she is tried [id number] MiraLAX and milk of magnesia without any results. Both deny any extremity focal deficits she does feel generalized weak she denies any fevers or chills denies any current chest discomfort or shortness of breath MD complaint: chest pain Pertinent past history: coronary artery disease and prior [place] Review of Systems General: Reports: 10 or more systems reviewed and unremarkable except in HPI and below Narrative: General: denies fatigue, fever or chills, ++ weakness HEENT: denies ear pain, denies nasal congestion, denies vision changes, denies sore throat Neck: denies masses or pain Resp: denies cough, denies shortness of breath, denies pleuritic pain Cardio: denies chest pain, denies edema GI: denies abdominal pain, denies N/V/D, denies black/tarry or bloody stools : denies hematuria, denies dysuria Neuro: denies headache,++ dizziness, denies motor or sensory changes, denies speech changes , see HPI. She says she can even read it makes her dizzy but she denies any vision loss just moving her hands and fingers around it makes her dizzy Musculoskeletal: denies pain, denies swelling Skin: denies rashes Psych: denies SI or HI Endocrine: denies thyroid symptoms, denies lymphadenopathy all over ROS reviewed and patient denies PFSH ED PFSH: Medical History Atherosclerosis of coronary artery Benign essential HTN Chest pain Dyslipidemia (high LDL; low HDL) Hypertension Left bundle branch block Ventricular arrhythmia Surgical History H/O breast biopsy H/O lumpectomy H/O thyroidectomy History of hysterectomy Hx of tonsillectomy Family History Other Cancer Hypertension Stroke Denies family history of Diabetes Hyperlipidemia Family history of premature coronary artery disease Social History Smoking and tobacco status: never smoked Alcohol intake: never Physical Exam Narrative: EXAM NARRATIVE: General: a/o/3, no distress Head: atraumatic HEENT: normal eyes, normal conjunctiva, normal hearing, normal external nose, normal mouth, mucous membranes moist, TM normal EAC clear Neck: FROM, trachea midline Chest: normal expansion, no gross deformities Resp: normal speech, no retractions, no accessory muscle use, CTA bilaterally Cardio: regular rate and rhythm and no murmur, no peripheral edema, normal peripheral pulses GI: soft, flat non tender, no guarding normal BS : deferred Musculoskeletal: FROM, no pain or gross deformities Neuro: a/o appropriate for age, no gross motor or sensory deficits, CN II-XII grossly intact, normal coordination, normal speech, 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 She initially told me she did not have any chest pain but told staff that went back to question her again and she says she has chest discomfort not pain and rates it a 3 out of a 10. She did take her medications earlier today which are Plavix and aspirin I will give her 1 nitro which took her pain down to a 0. Patient denies any vertigo type symptoms I did not notice any nystagmus on her but when we got her up to go to the bathroom she felt woozy chest pain did not return. She has no gross focal deficits she is not on Eliquis has a history of intermittent A. fib here she has been on the monitor is a sinus rhythm does have occasional PACs. Her Eliquis was discontinued due to thrombocytopenia. Patient could possibly be at risk of a CVA but her symptoms are either a week or possibly 4 weeks old she keeps changing her story her timeframes and looking at her for answers She had relief with nitro she has known coronary artery disease her delta troponin is still pending the initial 1 was 17 I feel at this time due to her still being unsteady dizziness no acute causes history of recent hospitalization acute on chronic systolic congestive heart failure she was given a small amount of IV fluids due to he low sodium and chloride did not improve her symptoms Patient just feels uncomfortable going home I spoke with the hospitalist Dr. Miramontes who will accept her for admission Patient just lies still in the bed went back and rechecked her again no worsening of symptoms with head turning she just does not want to get up out of bed and try to walk as she says it makes her woozy Medical Records: Attestation: I reviewed the patient's medical records. Lab Data: Labs: Lab Results 09/03/20 09/03/20 09/03/20 Range/Units 15:03 15:03 15:03 WBC 7.1 (4.0-10.0) 10^3/ uL RBC 4.20 (4.1-5.3) 10^6/u L Hgb 12.1 (11.5-15.3) g/dL Hct 37.8 (37.0-47.0) % MCV 90.0 (81-99) fL MCH 28.8 (28.0-34.0) pg MCHC 32.0 (30.0-36.0) g/dL RDW 16.0 H (12.1-15.1) % Plt Count 162 (130-400) 10^3/c mm MPV 10.4 (7.4-10.4) fL Neut % (Auto) 65.9 % Lymph % (Auto) 21.9 % Wilkes % (Auto) 10.3 % Eos % (Auto) 1.0 % Baso % (Auto) 0.6 % Neut # (Auto) 4.70 (1.8-7.7) 10^3/u L Lymph # (Auto) 1.6 (0.8-4.8) 10^3/u L Wilkes # (Auto) 0.7 (0.2-0.9) 10^3/u L Eos # (Auto) 0.1 (0.0-0.8) 10^3/u L Baso # (Auto) 0.0 (0.0-0.1) 10^3/u L Nucleated RBC % (a uto) 0 % Nucleated RBCs # 0.0 /100WBC Sodium 127 L (136-145) mmol/L Potassium 4.0 (3.5-5.1) mmol/L Chloride 92 L (98-107) mmol/L Carbon Dioxide 24 (22-29) mmol/L Anion Gap 15.0 (5-19) BUN 10 (8-23) mg/dL Creatinine 0.9 (0.5-0.9) mg/dL GFR Calculation Not Reportable Glucose 88 (65-115) mg/dL Calculated Osmolal ity 262 L (285-295) mOsm/k g Calcium 9.0 (8.5-10.5) mg/dL Total Bilirubin 0.6 (0.15-1.2) mg/dL AST 21 (0-32) U/L ALT 14 (0-33) U/L Alkaline Phosphata se 75 (35-105) IU/L Creatine Kinase 40 (26-192) U/L Troponin T Baselin e 16 H (0-10) ng/L Total Protein 7.2 (6.6-8.7) g/dL Albumin 4.3 (3.5-5.2) g/dL Globulin 2.9 (1.3-4.6) g/dL Urine Color (Yellow) Urine Appearance (CLEAR) Urine pH (5-7) Ur Specific Gravit y (1.005-1.030) Urine Protein (Negative) Urine Glucose (UA) (Normal) Urine Ketones (Negative) Urine Blood (Negative) Urine Nitrate (Negative) Urine Bilirubin (Negative) Urine Urobilinogen (Negative) mg/dL Ur Leukocyte Kinsey ase (Negative) Urine RBC (0-2) /hpf Urine WBC (0-5) /hpf Ur Squamous Epith Cells (0-5) /hpf Amorphous Sediment Urine Bacteria (NONE) /hpf 09/03/20 Range/Units 16:03 WBC (4.0-10.0) 10^3/ uL RBC (4.1-5.3) 10^6/u L Hgb (11.5-15.3) g/dL Hct (37.0-47.0) % MCV (81-99) fL MCH (28.0-34.0) pg MCHC (30.0-36.0) g/dL RDW (12.1-15.1) % Plt Count (130-400) 10^3/c mm MPV (7.4-10.4) fL Neut % (Auto) % Lymph % (Auto) % Wilkes % (Auto) % Eos % (Auto) % Baso % (Auto) % Neut # (Auto) (1.8-7.7) 10^3/u L Lymph # (Auto) (0.8-4.8) 10^3/u L Wilkes # (Auto) (0.2-0.9) 10^3/u L Eos # (Auto) (0.0-0.8) 10^3/u L Baso # (Auto) (0.0-0.1) 10^3/u L Nucleated RBC % (a uto) % Nucleated RBCs # /100WBC Sodium (136-145) mmol/L Potassium (3.5-5.1) mmol/L Chloride (98-107) mmol/L Carbon Dioxide (22-29) mmol/L Anion Gap (5-19) BUN (8-23) mg/dL Creatinine (0.5-0.9) mg/dL GFR Calculation Glucose (65-115) mg/dL Calculated Osmolal ity (285-295) mOsm/k g Calcium (8.5-10.5) mg/dL Total Bilirubin (0.15-1.2) mg/dL AST (0-32) U/L ALT (0-33) U/L Alkaline Phosphata se (35-105) IU/L Creatine Kinase (26-192) U/L Troponin T Baselin e (0-10) ng/L Total Protein (6.6-8.7) g/dL Albumin (3.5-5.2) g/dL Globulin (1.3-4.6) g/dL Urine Color Straw (Yellow) Urine Appearance Clear (CLEAR) Urine pH 7 (5-7) Ur Specific Gravit y 1.000 L (1.005-1.030) Urine Protein Neg (Negative) Urine Glucose (UA) Norm (Normal) Urine Ketones Negative (Negative) Urine Blood Neg (Negative) Urine Nitrate Negative (Negative) Urine Bilirubin Neg (Negative) Urine Urobilinogen Norm (Negative) mg/dL Ur Leukocyte Kinsey ase Negative (Negative) Urine RBC None (0-2) /hpf Urine WBC None (0-5) /hpf Ur Squamous Epith Cells 15-25 H (0-5) /hpf Amorphous Sediment Not Reportable Urine Bacteria 1+ H (NONE) /hpf Discharge Plan Discharge Patient Disposition: Placed in Observation Clinical Impression: Dizziness, Angina at rest CAD (coronary artery disease) Qualifiers: Coronary Disease-Associated Artery/Lesion type: unspecified vessel or lesion type [place] vs. transplanted heart: [place] heart Associated angina: with unspecified form of angina Qualified Code(s): I25.119 - Atherosclerotic heart disease of [place] coronary artery with unspecified angina pectoris Coding Level of Care Code ED [employer] Assistant for Daisy Mitchell
[2020-09-03 15:37] LABS: Alanine Aminotransferase 14 U/L (0-33); Albumin Level 4.3 g/dL (3.5-5.2); Alkaline Phosphatase 75 IU/L (35-105); Aspartate Amino Transferase 21 U/L (0-32); Blood Urea Nitrogen 10 mg/dL (8-23); Carbon Dioxide 24 mmol/L (22-29); Chloride 92 mmol/L (98-107); Creatine Phosphokinase 40 U/L (26-192); Globulin 2.9 g/dL (1.3-4.6); Glucose 88 mg/dL (65-115); Osmolality Calculated 262 mOsm/kg (285-295); Sodium 127 mmol/L (136-145); Total Bilirubin 0.6 mg/dL (0.15-1.2); Total Protein 7.2 g/dL (6.6-8.7)
[2020-09-03 15:39] LABS: Troponin(5th) Baseline 16 ng/L (0-10)
[2020-09-03] MEDS: nitroglycerin 0.4 mg sublingual Tablet SUBLINGUAL (16:18)
[2020-09-03] MEDS: sodium chloride 0.9% 500 ML 999 ML IV (16:18)
[2020-09-03] MEDS: meclizine 25 mg tablet PO (16:36)
[2020-09-03 17:19] LABS: Add Urine Culture? No; Bacteria Urine 1+ /hpf; Bilirubin Urine Neg (Negative); Blood Urine Neg (Negative); Glucose Urine UA Norm (Normal); Ketones Urine Negative (Negative); Leukocyte Esterase Urine Negative (Negative); Nitrate Urine Negative (Negative); Protein Urine Neg (Negative); Squamous Epithelial Cell Urine 15-25 /hpf (0-5); Urine Appearance Clear (CLEAR); Urine Color Straw (Yellow); Urobilinogen Urine Norm (Negative); pH Urine 7 (5-7)
[2020-09-03] MEDS: albuterol 8 gm MDI 2 PUFF INHALATION (17:52)
[2020-09-03] MEDS: metoprolol tartrate 25 mg Tablet PO (17:59)
[2020-09-03 18:19] LABS: Troponin 5 2HR 14.88 ng/L (0-10)
[2020-09-03 18:46] LABS: Troponin 5 2HR Delta -1.12 ABS# (0-10)
--- NOTE | 2020-09-03 18:59 | PC.NURSE ---
report received from ZIGGY Jarrett and care transferred to ZIGGY Brown
--- NOTE | 2020-09-03 19:31 | PC.NURSE ---
hospitalist in room
--- NOTE | 2020-09-03 20:12 | PM.HP ---
Providers/Chief Complaint Admitting Physician: Chema Funes Primary Care Provider: Oscar Quigley MD Chief Complaint: CHEST HEAVINESS History of Present Illness Pleasant 75-year-old lady with recent admission with sepsis, NSTEMI, with history of ventricular arrhythmia, with chronic atrial fibrillation not on anticoagulation previously considered but not started due to anemia, on aspirin, Plavix, also history of hypothyroidism among other, reports has been having episodes of dizziness starting during or sometime after her last hospitalization. She cannot pinpoint exact triggers. She states sometimes will happen for example when she is washing dishes. She cannot very well describe what the dizziness consists of. Denies any lightheadedness or presyncope. Reports that the dizziness episodes make it difficult for her to see or read something. Denies headache. Denies any visual field cut offs. Any flashing lights. Denies palpitations or chest pain or pressure. No shortness of breath. Asking her if taking at rest or sitting down results of symptoms, says that sometimes yes, sometimes not. She denies any recent fevers or symptoms of infection other than receiving treatment for genital yeast infection by her primary provider. 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 She otherwise denies new numbness or weakness in any part of her body. Denies trouble speaking. She does say that ever since last hospitalization has been having issues with her memory. Reports sometimes having difficult time recalling names of some people that she should know. Denies not recognizing relatives. Denies getting lost. Has not had any seizure-like activity. Denies difficulty grasping items. Denies diplopia. She denies any hearing changes. Any tinnitus. Denies any ear pain or drainage. She does not drink any alcohol. In ER underwent fairly extensive evaluation with unremarkable CBC, with noted possibly acute hyponatremia sodium newly down to 127. Chloride 92. BUN 10, creatinine 1.9. Normal liver parameters. Baseline troponin XVI. 2-hour troponin XIV 0.88. CK normal. Urinalysis with no WBC or RBC, 1+ bacteria but 15-25 squamous epithelial cells. She denies any urinary symptoms head CT showed no acute intracranial hemorrhage or edema. Mild atrophy and mild chronic microvascular ischemic disease stable since 10/31/2018. Chest x-ray shows atherosclerosis. Orthostatic blood pressures performed in ER were without decrease. Heart rates increased from 64-71 from laying to standing. Lowest heart rate in ER noted 54. Highest 105. EKG reported with possible PAC, no arrhythmia. Request is made for placement to observation by ER physician to reassess hyponatremia, complete cardiac assessment, monitoring telemetry, obtain PT evaluation. Review of Systems Const: Denies: fever(s), chills, body aches or malaise Eyes: Denies: change in vision or eye redness ENMT: Denies: throat pain, oral sores or ear or mastoid pain Card: Denies: chest pain, edema, pre-syncope or dyspnea on exertion Resp: Denies: dyspnea, productive cough, change in phlegm color or hemoptysis GI: Denies: abdominal pain, nausea, vomiting, diarrhea, constipation, hematochezia or melena : Denies: flank pain, urinary frequency or hematuria Musc: Denies: back pain, joint swelling or joint redness Skin/Breast: Denies: rash, sores or new lesions Neuro: Reports: dizziness; Denies: headache(s), numbness in extremities, weakness in extremities, confusion or seizure-like activity Endo: Denies: polyuria or polydipsia Skyler/Lymph: Denies: easy bleeding or purpura All/Imm: Denies: urticaria, throat swelling or tongue swelling Medications/Allergies Home Medications Medication Instructions Recorded Confirmed Last Taken Type aspirin 81 mg tablet,delayed 81 mg PO QAM 07/09/19 09/03/20 09/03/20 History release cetirizine 10 mg tablet 10 mg PO BEDTIME tab 07/09/19 09/03/20 09/02/20 History cholecalciferol (vitamin D3) 50 2,000 unit PO DAILY@20 07/09/19 09/03/20 09/02/20 History mcg (2,000 unit) tablet levothyroxine 25 mcg capsule 25 mcg PO QAM 07/09/19 09/03/20 09/03/20 08:15 History polyethylene glycol 3350 17 gram 17 gm PO DAILY PRN 07/09/19 09/03/20 09/02/20 History oral powder packet acetaminophen [Tylenol Extra 500 mg PO PRN 07/22/20 09/03/20 09/02/20 History Strength] albuterol sulfate [ProAir HFA] 2 puff INHALATION Q4H PRN 07/22/20 09/03/20 Unknown History atorvastatin 80 mg PO BEDTIME #30 tab 07/30/20 09/03/20 09/02/20 Rx nitroglycerin 0.4 mg SUBLINGUAL Q5M PRN #25 tab 07/30/20 09/03/20 Unknown Rx pantoprazole 40 mg PO DAILY #30 tab 07/30/20 09/03/20 Unknown Rx sennosides-docusate sodium 1 tab PO DAILY #30 tab 07/30/20 09/03/20 09/02/20 Rx Milk of Magnesia 30 - 60 ml PO PRN 09/03/20 09/03/20 09/02/20 History amiodarone [Pacerone] 200 mg PO DAILY@08 09/03/20 09/03/20 09/03/20 08:15 History clopidogrel 75 mg PO QAM 09/03/20 09/03/20 09/03/20 History metoprolol tartrate 25 mg PO Q12H 09/03/20 09/03/20 09/03/20 08:15 History ostomy supplies [Enema Bag] 09/03/20 09/03/20 Unknown History trazodone 50 mg PO BEDTIME 09/03/20 09/03/20 Unknown History Allergies Allergy/AdvReac Type Severity Reaction Status Date / Time codeine Allergy Unknown unknown Verified 09/03/20 14:54 fosinopril [From Monopril] Allergy Unknown unknown Verified 09/03/20 14:54 paroxetine [From Paxil] Allergy Unknown unknown Verified 09/03/20 14:54 Sulfa (Sulfonamide Allergy Unknown unknown Verified 09/03/20 14:54 Antibiotics) losartan AdvReac BP goes up Verified 09/03/20 14:54 PFSH Acute PFSH: Medical History Atherosclerosis of coronary artery Benign essential HTN Chest pain Dyslipidemia (high LDL; low HDL) Hypertension Left bundle branch block Ventricular arrhythmia Surgical History H/O breast biopsy H/O lumpectomy H/O thyroidectomy History of hysterectomy Hx of tonsillectomy Family History Other Cancer Hypertension Stroke Denies family history of Diabetes Hyperlipidemia Family history of premature coronary artery disease Social History Smoking and tobacco status: never smoked Alcohol intake: never Substance/Drug Use: never Marital status: Vitals/I&O/Wt Last Vital Signs Temp 97.6 F 09/03/20 20:00 Pulse 68 09/03/20 20:00 Resp 18 09/03/20 20:00 BP 173/82 09/03/20 20:00 Pulse Ox 90 09/03/20 20:00 09/03/20 09/03/20 09/03/20 06:59 14:59 22:59 Intake Total 500 / 500 Balance 500 / 500 Weight last 48 hrs Weight 86.183 kg Physical Exam Const: COMMON NORMALS: no acute distress and patient oriented x3 HENMT: COMMON NORMALS: oropharynx normal Neck/C-Spine: COMMON NORMALS: no JVD Resp: COMMON NORMALS: normal respiratory effort and clear to auscultation bilaterally AUSCULTATION: clear to auscultation bilaterally Cardio: COMMON NORMALS: no JVD, regular rhythm, S1 normal heart sound present, S2 normal heart sound present and No murmurs present (Cardio) RHYTHM: regular rhythm HEART SOUNDS: S1 normal heart sound present and S2 normal heart sound present GI: COMMON NORMALS: Normal to inspection, nondistended, normoactive bowel sounds present, Soft to palpation and non-tender PALPATION: Yes Soft to palpation Extremity: COMMON NORMALS: no joint enlargement and no pedal edema Neuro: COMMON NORMALS: patient oriented x3 and moves all extremities MENINGEAL SIGNS: Yes no meningeal signs COORDINATION/BALANCE: [id number] test normal SPEECH: speech normal SENSORY EXAM: Yes extremities (normal) and Normal double simultaneous stimulation for sensation; No sensory level loss detected MOTOR EXAM: 5/5 motor strength present throughout and Pronator motor function not present COORDINATION: [id number] test normal and [id number]-[id number] test normal OTHER: Visual barreto full to confrontation. Tracking well, with end gaze nystagmus triggered on the left, triggering the dizziness Skin: COMMON NORMALS: no rashes or lesions noted GENERAL SKIN EXAM: no rashes or lesions noted Data : 09/03/20 15:03 09/03/20 15:03 A&P Assessment and plan (1) Dizziness: She cannot very clearly describe dizziness. This does not appear to be presyncope. No palpitations. No chest pain. Does have poorly controlled hypertension. Does have also atrial fibrillation, not on anticoagulation, on aspirin and Plavix. Orthostatics negative. Does have appears new hyponatremia. She also has had metoprolol started 25 mg twice daily. Mild bradycardia noted in ER, heart rate 54. Discussed these possible etiologies with her. However, also discussed that we are able to trigger end gaze nystagmus which appears asymmetrical on the left. This also appears to trigger her dizziness. She did not really describe vertigo. Does not describe any otic symptoms. She otherwise does not have other cerebellar signs, with normal FMF, [id number] coordination. No diplopia. Discussed with her possibility of BPPV, however, concern is that she may have had deep brain or cerebellar lesion. Discussed with her additional assessment by MRI in case symptoms are persistent and she is agreeable. Discussed with her that she appears to be otherwise on optimal treatment with aspirin, Plavix, statin. Next step would be addition of anticoagulation, although with previous concern of bleeding, as well as risk of falls now with episodic vertigo, concern would be elevated for bleeding. She will take some time to think about this, and we may also revisit again tomorrow and discuss with her as well. Hypertensive urgency appears otherwise less likely. She has no headache, no other persistent focal signs, and her symptoms appear reproducible. Long-term would benefit from tighter blood pressure control. For now given concern for possibility of cerebellar lesion we will hold off on rapid decrease in blood pressure. As per discussion with ER and with her fortunately would be out of the window for any intervention currently in case possible CVA. We will request PT assessment. Monitor on telemetry. Neck duplex ultrasound. Check TSH. Reassess sodium. Regular diet. Status: Acute (2) Hyponatremia: Received fluid challenge in ER. For now maintain regular diet. Avoid additional IV fluids for now. Recheck sodium level. Check TSH. Status: Acute (3) Bradycardia: Noted as low as 54. Monitor on telemetry. If further episodes we will try to see if correlated with episodes of dizziness. Status: Acute (4) Poorly-controlled hypertension: Long-term will benefit from better control. For now avoid rapid blood pressure changes due to concerns for possibility of cerebral or or brainstem small CVA. Status: Acute (5) Elevated troponin: Minimal troponin elevation. No chest pain. Recent coronary angiogram. EKG without suggestion of STEMI. Doubt acute myocardial ischemia. Complete troponin EKG series. Monitor symptoms. Status: Acute (6) Bacteriuria: Appears to have some asymptomatic bacteriuria but with contamination, with 15-25 squamous epithelial cells. No RBC or WBC in urine. No nitrite or leukocyte esterase. At this time doubt urinary tract infection. Monitor for any symptoms. Status: Acute Additional A&P Information Recent sepsis CAD. Recent NSTEMI Atrial fibrillation: Not on anticoagulation Chronic anemia: Currently hemoglobin appears to be doing pretty well, 12.1 while on aspirin and Plavix. Thrombocytopenia: Currently platelets low normal 1 62,000. Other chronic conditions noted. Attestations Medical Necessity Statement*: Place in observation for closer assessment and monitoring due to episodes of dizziness, possible CVA, acute hyponatremia, bradycardia, poorly controlled hypertension, concern for possible cerebellar lesion, recent sepsis, recent NSTEMI. Coding Level of Care Code Acute Role Player for [facility] Fwd Diagnoses Dizziness R42 Hyponatremia E87.1 Bradycardia R00.1 Poorly-controlled hypertension I10 Elevated troponin R77.8 Bacteriuria R82.71
[2020-09-03 20:20] LABS: Thyroid Stimulating Hormone 2.75 uIU/mL (0.27-4.20)
[2020-09-03] MEDS: cetirizine 10 mg Tablet PO (22:11)
[2020-09-03] MEDS: trazodone 50 mg Tablet PO (22:11)
[2020-09-03] MEDS: atorvastatin 40 mg Tablet 80 MG PO (22:11)
[2020-09-04] VITALS (8 sets, daily range): BP systolic 96–165; BP diastolic 61–82; PULSE 53–72; RESP 16–18; TEMP 36.7–37.1; O2SAT 95–97
--- NOTE | 2020-09-04 05:00 | USCV_ITS ---
Lacey Burgess Age: 75 Gender: F : 1945 Exam Date: 09/04/2020 06:17 Ordering Phys: Chema Funes MD Technologist: America Higuera Exam Location: [facility] [place] Indication: VERTIGO Risk Factors: Previous Vascular Surgery: Right Brachial BP: / Left Brachial BP: / Right Left Velocity (cm/s) Spectral Plaque Velocity (cm/s) Spectral Plaque Syst/Diast Broadening Syst/Diast Broadening 93.10/ 12.80 Prox CCA 103.20/ 20.00 88.00/ 13.70 Mid CCA 117.00/ 23.70 92.30/ 14.50 Distal CCA 128.80/ 31.60 84.90/ 11.90 Prox ICA 76.20 / 21.00 48.70/ 12.80 Homo Mid ICA 84.00 / 25.30 81.20/ 22.20 Distal ICA 85.80 / 27.20 88.00 ECA 110.00 0.91 ICA/CCA 0.67 Antegrade Vertebral Antegrade 51.30/ 13.70 cm/s 60.60/ 14.80 cm/s Tri Subclavian Tri 110.2 154.6 0 0 FINDINGS Comparison:. /03/07. No significant elevation of systolic or diastolic velocities. Mixture of calcified and noncalcified plaque in the bifurcations, mild with no progression. Bilateral antegrade vertebral arteries. CONCLUSIONS Bilateral ICA stenosis less than 50%. No interval change in stenosis since prior exam. Dr. Christie Young DO (Electronically Signed) Final Date: 04 September 2020 09:03 S
[2020-09-04] MEDS: clopidogrel 75 mg Tablet PO (05:29)
[2020-09-04] MEDS: aspirin 81 mg EC Tablet PO (05:29)
[2020-09-04] MEDS: levothyroxine 25 mcg Tablet PO (05:29)
--- NOTE | 2020-09-04 05:45 | PC.NURSE ---
Med Held Non-administered scheduled metoprolol 25mg this am due to BP 96/[address] Palmer.
[2020-09-04 06:05] LABS: Blood Urea Nitrogen 8 mg/dL (8-23); Calcium 8.8 mg/dL (8.5-10.5); Carbon Dioxide 23 mmol/L (22-29); Chloride 104 mmol/L (98-107); Glucose 82 mg/dL (65-115); Osmolality Calculated 281 mOsm/kg (285-295); Sodium 137 mmol/L (136-145)
[2020-09-04] MEDS: albuterol 8 gm MDI 2 PUFF INHALATION (08:44)
[2020-09-04] MEDS: sennosides-docusate Tablet 1 TAB PO (09:26)
[2020-09-04] MEDS: pantoprazole DR 40 mg Tablet PO (09:27)
[2020-09-04] MEDS: amiodarone 200 mg Tablet PO (09:27)
--- NOTE | 2020-09-04 10:18 | ECG_ITS ---
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 Measurements Intervals Ollie Rate: 66 P: 26 CO: 166 QRS: -16 QRSD: 151 T: 136 QT: 466 QTc: 490 Interpretive Statements SINUS RHYTHM LEFT BUNDLE BRANCH BLOCK [120+ ms QRS DURATION, 80+ ms Q/S IN V1/V2, 85+ ms R IN I/aVL/V5/V6] Compared to ECG 08/07/2020 08:36:08 No significant changes Electronically Signed On 09-07-2020 10:56:45 CDT by Mirna Rae M.D. [email or web address] ([id number]
--- NOTE | 2020-09-04 11:04 | P.DS_ITS ---
Discharge Providers Date of Admission: 09/03/20 17:34 Date of Discharge: September 04, 2020 Attending Provider at Admission: Chema Funes Attending Provider at Discharge: Chema Funes Primary Care Provider: Oscar Quigley MD Diagnoses at Discharge Discharge Diagnosis (1) Dizziness: Status: Acute (2) Hyponatremia: Status: Acute (3) Bradycardia: Status: Acute (4) Poorly-controlled hypertension: Status: Acute (5) Elevated troponin: Status: Acute (6) Bacteriuria: Status: Acute Reason for Visit Reason for Visit: CHEST HEAVINESS Hospital Course Hospital Course Very pleasant 75-year-old lady recently hospitalized with sepsis, NSTEMI, on aspirin, Plavix, with history of chronic atrial fibrillation, not on anticoagulation, history of anemia, thrombocytopenia, difficult to control hypertension, history of ventricular arrhythmia, currently undergoing cardiac event monitoring, hypothyroidism, was placed in observation due to episodes of dizziness which she could not explain well, with recurring episodes ever since sometime at or after discharge after last hospitalization. A number of etiologies were considered and discussed with both patient and her . With atrial fibrillation, concern for possible small stroke, with end gaze left side nystagmus, and appears reproduction of symptoms on admission consideration was given to possibility of small CVA. Head CT on presentation showed no acute intracranial process. Carotid Doppler showed bilateral less than 50% stenosis. She is referred for additional assessment by MRI. As discussed with her and her the findings could also be secondary to other causes like BPPV. End gaze nystagmus could be normal. Still with ongoing risk of CVA, and now with resolution of anemia, thrombocytopenia, she and her would like to trial anticoagulation with Eliquis. As discussed with her turntable man we will discontinue aspirin, continue Plavix. Eliquis is added. She is cautioned regarding risks including risk of bleeding, and to avoid injury and falls. She has not had any falls recently. PT assessment is obtained prior to discharge. Please follow-up MRI results. Consider referral to neurology depending on findings and symptoms. Additionally noted to have bradycardia, down into the 40s overnight on several occasions, although otherwise heart rates mostly good in 60s-80s. Will decrease amiodarone dose to 100 mg. Decrease metoprolol dose to 12.5 mg twice daily. She is encouraged to continue monitor heart rate and blood pressures at home. She reports blood pressure not optimally controlled, here we do see systolic blood pressures rising into 170s, although overall blood pressures rather variable. She does state that at home diastolic blood pressures sometimes as high as 100. A number of options were considered. She appears to not tolerate metoprolol very well, so dose has to be decreased due to bradycardia. She previously was trialed on losartan, but did not do well with that, and blood pressure appears to have even risen with that medication. Diuretic was considered, however, due to noted hyponatremia on presentation, sodium is low as 127, decided against. For now we will add amlodipine 5 mg daily. Discussed small risk of amlodipine also slowing down heart rate, although this should be less pronounced. Please reassess blood pressures and heart rates at next visit, and assist her with optimization of control. As noted sodium on presentation also noted 127. She is asked not to maintain very strict sodium restriction. We are avoiding diuretics at this time for blood pressure control. Please reassess sodium at next visit. Incidentally noted bacteriuria without other symptoms, without other findings on UA, with 15-25 squamous epithelial cells, suspected asymptomatic bacteriuria. Please revisit regarding any symptoms. Today she is feeling well. Denies any dizziness. She and her feel comfortable with discharging home and following up with additional work-up and outpatient reassessment as planned. Physical Exam Const: COMMON NORMALS: no acute distress and patient oriented x3 HENMT: COMMON NORMALS: oropharynx normal Neck/C-Spine: COMMON NORMALS: no meningeal signs and no JVD Resp: COMMON NORMALS: normal respiratory effort and clear to auscultation bilaterally AUSCULTATION: clear to auscultation bilaterally Cardio: COMMON NORMALS: no JVD, regular rhythm, S1 normal heart sound present, S2 normal heart sound present and No murmurs present (Cardio) RHYTHM: regular rhythm HEART SOUNDS: S1 normal heart sound present and S2 normal heart sound present GI: COMMON NORMALS: Normal to inspection, nondistended, normoactive bowel sounds present, Soft to palpation and non-tender PALPATION: Yes Soft to palpation Extremity: COMMON NORMALS: no joint enlargement and no pedal edema Neuro: COMMON NORMALS: patient oriented x3 and moves all extremities MENINGEAL SIGNS: Yes no meningeal signs COORDINATION/BALANCE: [id number]-[id number] test normal and [id number] test normal SPEECH: speech normal SENSORY EXAM: Yes extremities (normal) and Normal double simultaneous stimulation for sensation; No sensory level loss detected MOTOR EXAM: 5/5 motor strength present throughout and Pronator motor function not present COORDINATION: [id number] test normal and tuoo-zl-orce test normal OTHER: Visual barreto full to confrontation. Tracking well, with end gaze nystagmus triggered on the left, triggering the dizziness Skin: COMMON NORMALS: no rashes or lesions noted GENERAL SKIN EXAM: no rashes or lesions noted Discharge Data Data Completed and Pending: Completed Studies During Hospitalization Category Date Time Status CT head wo con* [id number] Urgent Cat Scan 09/03/20 14:50 Completed XR chest 1V mynor ble [id number] Stat Exams 09/03/20 14:41 Completed CV carotid duplex BI* [id number] Routine Ultrasound 09/04/20 05:00 Completed Pending at discharge Category Date Time Status Basic Metabolic P jean AM LABS Lab 09/05/20 04:00 Ordered Basic Metabolic P jean AM LABS Lab 09/06/20 04:00 Ordered Labs from last 24 hours 09/04/20 09/03/20 09/03/20 05:11 17:25 16:03 WBC RBC Hgb Hct MCV MCH MCHC RDW Plt Count MPV Neut % (Auto) Lymph % (Auto) [place] % (Auto) Eos % (Auto) Baso % (Auto) Neut # (Auto) Lymph # (Auto) [place] # (Auto) Eos # (Auto) Baso # (Auto) Nucleated RBC % (a uto) Nucleated RBCs # Sodium 137 Potassium 4.0 Chloride 104 Carbon Dioxide 23 Anion Gap 14.0 BUN 8 Creatinine 0.9 GFR Calculation Not Reportable Glucose 82 Calculated Osmolal ity 281 L Calcium 8.8 Magnesium 2.0 Total Bilirubin AST ALT Alkaline Phosphata se Creatine Kinase Troponin T Baselin e Troponin T 120 Min [place] 14.88 H Delta Troponin T -1.12 L Total Protein Albumin Globulin TSH Urine Color Straw Urine Appearance Clear Urine pH 7 Ur Specific Gravit y 1.000 L Urine Protein Neg Urine Glucose (UA) Norm Urine Ketones Negative Urine Blood Neg Urine Nitrate Negative Urine Bilirubin Neg Urine Urobilinogen Norm Ur Leukocyte Kin[place] ase Negative Urine RBC None Urine WBC None Ur Squamous Epith Cells 15-25 H Amorphous Sediment Not Reportable Urine Bacteria 1+ H 09/03/20 09/03/20 09/03/20 15:03 15:03 15:03 WBC RBC Hgb Hct MCV MCH MCHC RDW Plt Count MPV Neut % (Auto) Lymph % (Auto) [place] % (Auto) Eos % (Auto) Baso % (Auto) Neut # (Auto) Lymph # (Auto) [place] # (Auto) Eos # (Auto) Baso # (Auto) Nucleated RBC % (a uto) Nucleated RBCs # Sodium 127 L Potassium 4.0 Chloride 92 L Carbon Dioxide 24 Anion Gap 15.0 BUN 10 Creatinine 0.9 GFR Calculation Not Reportable Glucose 88 Calculated Osmolal ity 262 L Calcium 9.0 Magnesium Total Bilirubin 0.6 AST 21 ALT 14 Alkaline Phosphata se 75 Creatine Kinase 40 Troponin T Baselin e 16 H Troponin T 120 Min [place] Troponin T Total Protein 7.2 Albumin 4.3 Globulin 2.9 TSH 2.75 Urine Color Urine Appearance Urine pH Ur Specific Gravit y Urine Protein Urine Glucose (UA) Urine Ketones Urine Blood Urine Nitrate Urine Bilirubin Urine Urobilinogen Ur Leukocyte Kinsey ase Urine RBC Urine WBC Ur Squamous Epith Cells Amorphous Sediment Urine Bacteria 09/03/20 15:03 WBC 7.1 RBC 4.20 Hgb 12.1 Hct 37.8 MCV 90.0 MCH 28.8 MCHC 32.0 RDW 16.0 H Plt Count 162 MPV 10.4 Neut % (Auto) 65.9 Lymph % (Auto) 21.9 [place] % (Auto) 10.3 Eos % (Auto) 1.0 Baso % (Auto) 0.6 Neut # (Auto) 4.70 Lymph # (Auto) 1.6 [place] # (Auto) 0.7 Eos # (Auto) 0.1 Baso # (Auto) 0.0 Nucleated RBC % (a uto) 0 Nucleated RBCs # 0.0 Sodium Potassium Chloride Carbon Dioxide Anion Gap BUN Creatinine GFR Calculation Glucose Calculated Osmolal ity Calcium Magnesium Total Bilirubin AST ALT Alkaline Phosphata se Creatine Kinase Troponin T Baselin e Troponin T 120 Min [place] Troponin T Total Protein Albumin Globulin TSH Urine Color Urine Appearance Urine pH Ur Specific Gravit y Urine Protein Urine Glucose (UA) Urine Ketones Urine Blood Urine Nitrate Urine Bilirubin Urine Urobilinogen Ur Leukocyte Kinsey ase Urine RBC Urine WBC Ur Squamous Epith Cells Amorphous Sediment Urine Bacteria Vitals: Last Vital Signs Temp 98.1 F 09/04/20 08:00 Pulse 70 09/04/20 08:48 Resp 16 09/04/20 08:45 BP 165/82 09/04/20 08:00 Pulse Ox 96 09/04/20 08:45 Discharge Plan Discharge Patient Disposition: Home Condition: Stable Prescriptions: New amlodipine 5 mg tablet 5 mg PO DAILY Qty: 30 RF: 0 Eliquis 5 mg tablet 5 mg PO BID Qty: 60 RF: 0 Continued cholecalciferol (vitamin D3) 2,000 unit tablet 2,000 unit PO DAILY@20 RF: 0 levothyroxine 25 mcg capsule 25 mcg PO QAM RF: 0 cetirizine [All Day Allergy (cetirizine)] 10 mg tablet 10 mg PO BEDTIME RF: 0 polyethylene glycol 3350 [Miralax] 17 gram powder in packet 17 gm PO DAILY PRN (Reason: Constipation) RF: 0 acetaminophen [Tylenol Extra Strength] 500 mg Tablet 500 mg PO PRN RF: 0 albuterol sulfate [ProAir HFA] 90 mcg/actuation Hfa Aerosol Inhaler 2 puff INHALATION Q4H PRN (Reason: Shortness Of Breath) RF: 0 sennosides-docusate sodium 8.6-50 mg Tablet 1 tab PO DAILY Qty: 30 RF: 0 nitroglycerin 0.4 mg Tablet, Sublingual 0.4 mg sublingual Q5M PRN (Reason: Chest Pain) Qty: 25 RF: 0 atorvastatin 40 mg Tablet 80 mg PO BEDTIME Qty: 30 RF: 0 pantoprazole 40 mg Tablet,Delayed Release (Dr/Ec) 40 mg PO DAILY Qty: 30 RF: 0 Milk of Magnesia 30 - 60 ml PO PRN RF: 0 trazodone 50 mg tablet 50 mg PO BEDTIME RF: 0 clopidogrel 75 mg tablet 75 mg PO QAM RF: 0 Changed Pacerone 200 mg tablet 100 mg PO DAILY@08 Qty: 0 RF: 0 metoprolol tartrate 25 mg tablet 12.5 mg PO Q12H Qty: 0 RF: 0 Discontinued aspirin [Adult Aspirin Regimen] 81 mg tablet,delayed release (DR/EC) 81 mg PO QAM RF: 0 No Action (DME) Enema Bag Misc MISCELLANEOUS RF: 0 Discharge Orders: Discharge Order (Routine); Ordered 09/04/20 Ordered By: Chema Funes Other Ambulatory Orders: MR head wo/w con [id number] (Routine) Timeframe: 2 Days Facility: [facility] - Location: [facility] Ordered By: Chema Funes Referrals: Monica Zapien MD [Physician] - 2 weeks Loree Sevilla FNP [Nurse Practitioner] - 1 week Oscar Quigley MD [Primary Care Provider] - 4-7 days Discharge Diet: Cardiac Discharge Activity: Increase activity as tolerated, Limit activity as instructed and As per PT/OT instructions Patient Instructions: Metoprolol (By mouth), Amiodarone (By mouth), Apixaban (By mouth), Hyponatremia (GEN), Hypertension (GEN), Dizziness (GEN) Activity Restrictions/Additional Instructions: Please complete MRI brain and follow-up results with your primary care doctor to assess for possibility of a small stroke causing her symptoms. Discussed consideration of referral to neurology if symptoms persist. Please note that starting blood thinners to reduce risk of stroke with atrial fibrillation increases your risk of bleeding. Please avoid injury or falls at any cost. Please have your primary care doctor follow-up your blood count and platelet level. Please stop aspirin but continue Plavix together with the blood thinner. Follow-up with your heart doctor with regards to atrial fibrillation. Please continue to monitor your blood pressures at home. Target blood pressure 150 top number or below, 90 bottom number or below. If your blood pressure is persistently elevated, please contact your primary doctor's office, or seek medical attention in ER. Please monitor your heart rates at home. If your heart rate is below 60, please hold metoprolol and amiodarone and contact your heart doctors office. Due to noted slow heart rates down into the 40s overnight we are decreasing her amiodarone dose to 100, and decreasing metoprolol dose to 12.5 mg twice a day. Please discuss again with your turntable man and primary doctor at next appointment. Please do not restrict your salt intake severely since your sodium level was found low yesterday. This has improved. Please have your primary doctor follow-up the level at next visit. Discharge Attestations Time Spent in Discharge Care*: greater than 30 min Quality Metrics Clinical Quality Measures During this hospital stay, did patient experience: Stroke Contraindication to Antithrombotic: Antithrombotic prescribed Contraindication to Anticoagulation: Anticoagulation prescribed Contraindication to Statin: Statin prescribed Coding Level of Care Code Acute Chg FW DC note Diagnoses Dizziness R42 Hyponatremia E87.1 Bradycardia R00.1 Poorly-controlled hypertension I10 Elevated troponin R77.8 Bacteriuria R82.71
--- NOTE | 2020-09-04 11:22 | PC.CHAP ---
Pastoral Care Encounter/Spiritual Assessment Type of Contact [] Declined tube dispatcher visit [] Patient/Family/Request visit [] Outpatient visit [] Follow-up visit [] Physician referral [] Code/Alert [x] Routine visit [] Staff referral [] Actively dying [] Patient sleeping [] Family support [] [] Out of room [] Palliative care [] [x] Receiving care in room [] Pre-surgical visit [] Trauma [x] Long length of stay [] ICU visit [] Other: Relational/Emotional Strength [x] Patient feels connected with others/family/visitors/staff [] Distress [] Loneliness/isolation [] Abandonment Spirituality of Patient [x] Person of Ilene [] Attends Alevism of their Ilene [x] Believes in Prayer [] Reads Bible or Druze materials [] There are Spiritual issues to be addressed General Engineering Teacher Interventions [x] Prayer [x] Active listening [x] Non-anxious presence [x] Spiritual/emotional support [] Crisis/trauma care [x] Spiritual counseling [] Bereavement support [] Provided bereavement packet [] Provided Bible/devotional materials [] Provided toy/stuffed animal, coloring book to patient or family member [] Provided Communion [] Anointing/[place] [] Salvation [x] Completed spiritual assessment [] Other: Impact on Illness or Injury [] Angry [x] Fearful [] Anxious [] Often cries [] Exhaustion [] Unable to work [] Unable to attend cheondoism [] Unable to walk/stand [] Unable to read [] Unable to drive [] Unable to eat/drink [] Unable to sleep [] Unable to be with family [] Patient intubated [] Other: Summary weak doesn't know about tests or what needs to be done? Time spent with patient 10 mins
== END 2020-09-04 13:56 | disposition home or self-care (01) ==
LOC: ER 17:34 → MEDSURG 19:51
PROVIDERS: Admitting Provider Internal Medicine; Emergency Provider Emergency Medicine; PCP Family Medicine; Visit Provider Internal Medicine
DX: R42 Dizziness and giddiness (principal); E87.1 Hypo-osmolality and hyponatremia; R00.1 Bradycardia, unspecified; I10 Essential (primary) hypertension; R77.8 Other specified abnormalities of plasma proteins; R82.71 Bacteriuria; H55.00 Unspecified nystagmus; Z79.82 Long term (current) use of aspirin; Z79.02 Long term (current) use of antithrombotics/antiplatelets; I48.20 Chronic atrial fibrillation, unspecified; E03.9 Hypothyroidism, unspecified; I25.2 Old myocardial infarction; I25.10 Atherosclerotic heart disease of native coronary artery without angina pectoris; E78.5 Hyperlipidemia, unspecified; I44.7 Left bundle-branch block, unspecified
CPT/HCPCS: 36415; 70450; 71045; 80048; 80053; 81001; 82550; 83735; 84443; 84484; 85025; 93005; 93880; 94640; 97161; 97530; 99285; G0378; J3535; J7040; J8597

== ENCOUNTER 2020-09-19 10:42 | Outpatient (CLI) | payer MEDICARE, OTHER, SELFPAY ==
--- NOTE | 2020-09-19 11:00 | MR_ITS ---
WS: [id number] MRI HEAD WITHOUT CONTRAST TECHNIQUE: Sagittal T1, T2 axial, T2 axial FLAIR, axial and coronal T1 images, axial susceptibility w eighted imaging, axial diffusion weighted images, and coronal T2 images were obtained. CLINICAL INFORMATION: HYPONATREMIA, TIA, ANEMIA COMPARISON: CT September 03, 2020 and MRI FINDINGS: No evidence of restricted diffusion to suggest acute ischemia. Ventricular system and basal cisterns are patent. Mild small vessel changes with moderate parenchymal volume loss. Chronic lacunar infarcts in the left greater than right cerebellum. Normal vascular flow voids at the skull base. No extra-ax ial fluid collections. No evidence of mass or mass effect. Mild mucosal thickening left greater than right mastoid air cells. Paranasal sinuses are well aerated . Normal optic chiasm and pituitary infundibulum. Moderate symmetric atrophy temporal lobes and hippo campal formations. No hemosiderin on the susceptibly weighted images. MR/MR head wo con* [id number] IMPRESSION: 1. No evidence of restricted diffusion to suggest acute ischemia. 2. Mild small vessel changes with moderate parenchymal volume loss. 3. Moderate symmetric atrophy temporal lobes and hippocampal formations. 4. No hemosiderin on the susceptibly weighted images.
[2020-10-09 08:50] LABS: Miscellaneous Test See Scanned Lab Rpt
== END 2020-09-19 10:43 | disposition home or self-care (01) ==
PROVIDERS: PCP Family Medicine; Visit Provider Family Medicine
DX: E87.1 Hypo-osmolality and hyponatremia (principal); G45.9 Transient cerebral ischemic attack, unspecified; D64.9 Anemia, unspecified; G31.9 Degenerative disease of nervous system, unspecified
CPT/HCPCS: 70551; 88361; 88374

== ENCOUNTER 2020-11-28 20:02 | Emergency (ER) | payer MEDICARE, OTHER, SELFPAY ==
[2020-11-28 20:12] VITALS: BP 172/93; PULSE 80; RESP 18; TEMP 36.8; O2SAT 97; BMI 29.6
--- NOTE | 2020-11-28 21:49 | XRR_ITS ---
PROCEDURE INFORMATION: Exam: XR Chest Exam date and time: 11/28/2020 9:49 PM Age: 75 years old Clinical indication: Other: Dizzy; Additional info: Dizziness TECHNIQUE: Imaging protocol: XR of the chest. Views: 1 view. COMPARISON: CR XR chest 1V portable [id number] 09/03/2020 2:41 PM FINDINGS: Lungs: There is no pulmonary vascular congestion. There is no evidence of focal parenchymal consolidation. Pleural spaces: There are no pleural effusions. There is no evidence of pneumothorax. Heart/Mediastinum: The cardiac silhouette is within normal limits. Bones/joints: No acute osseous abnormality is identified. XR/XR chest 1V portable [id number] IMPRESSION: No acute cardiopulmonary disease identified.
--- NOTE | 2020-11-28 21:50 | CTR_ITS ---
PROCEDURE INFORMATION: Exam: CT Head Without Contrast Exam date and time: 11/28/2020 9:50 PM Age: 75 years old Clinical indication: Dizziness; Additional info: Dizziness, presyncope TECHNIQUE: Imaging protocol: Computed tomography of the head without contrast. Radiation optimization: All CT scans at this facility use at least one of these dose optimization techniques: automated exposure control; mA and/or kV adjustment per patient size (includes targeted exams where dose is matched to clinical indication); or iterative reconstruction. COMPARISON: MR head wo con* [id number] 09/19/2020 11:11 AM RADIATION DOSE METRICS: Total DLP (mGy-cm): 816.6 FINDINGS: Brain: There are global involutional changes of the brain which are in keeping with the patient's age. There is no evidence of intracranial hemorrhage. No abnormal extra-axial fluid collections are identified. No mass effect or midline shift is seen. Nuno-white differentiation is preserved throughout. Cerebral ventricles: No ventriculomegaly. Paranasal sinuses: There is mild sinus mucosal disease, with no air-fluid level identified. Mastoid air cells: There is no mastoid effusion detected. Vasculature: Atherosclerotic vascular disease is noted at the level of the skull base. Bones/joints: Unremarkable. No acute fracture. CT/CT head wo con* [id number] IMPRESSION: No acute intracranial pathology demonstrated by CT. Radiation Dose CTDIVOL = (mGy): DLP = 816.6 (mGy-cm)
[2020-11-28 22:25] LABS: Basophils # 0.1 10^3/uL (0.0-0.1); Basophils % 0.8 %; Eosinophils # 0.1 10^3/uL (0.0-0.8); Eosinophils % 1.1 %; Hematocrit 36.3 % (37.0-47.0); Lymphocytes # 1.8 10^3/uL (0.8-4.8); Lymphocytes % 28.5 %; Mean Corpuscular HGB Conc 33.1 g/dL (30.0-36.0); Mean Corpuscular Hemoglobin 29.8 pg (28.0-34.0); Mean Corpuscular Volume 90.1 fL (81-99); Mean Platelet Volume 10.1 fL (7.4-10.4); Monocytes # 0.7 10^3/uL (0.2-0.9); Monocytes % 11.4 %; Neutrophils # 3.55 10^3/uL (1.8-7.7); Neutrophils % 57.9 %; Nucleated Red Blood Cells % 0 %; Platelet Count 161 10^3/cmm (130-400); Red Blood Count 4.03 10^6/uL (4.1-5.3); Red Cell Distribution Width 15.1 % (12.1-15.1); White Blood Count 6.1 10^3/uL (4.0-10.0)
[2020-11-28 22:44] LABS: Troponin(5th) Baseline 12 ng/L (0-10)
--- NOTE | 2020-11-28 22:46 | PC.NURSE ---
Covid swab obtained. Pt tollerated well. labeled with neumonics and time. Sent to lab and given to tech. MS
[2020-11-28 22:50] LABS: Alanine Aminotransferase 17 U/L (0-33); Alkaline Phosphatase 66 IU/L (35-105); Aspartate Amino Transferase 21 U/L (0-32); Blood Urea Nitrogen 12 mg/dL (8-23); Calcium 8.7 mg/dL (8.5-10.5); Carbon Dioxide 22 mmol/L (22-29); Chloride 102 mmol/L (98-107); Globulin 2.2 g/dL (1.3-4.6); Glucose 105 mg/dL (65-115); NT Pro B Type Natriuretic Pept 147 pg/mL (0-450); Osmolality Calculated 280 mOsm/kg (285-295); Sodium 135 mmol/L (136-145); Total Bilirubin 0.4 mg/dL (0.15-1.2); Total Protein 6.2 g/dL (6.6-8.7)
[2020-11-28 22:56] LABS: Add Urine Microscopic? NO; Charge for UA Resulting for Rev
--- NOTE | 2020-11-28 22:58 | W.ED.DIZZY ---
HPI - Dizziness General: Chief Complaint: Dizziness Stated Complaint: Pt is unsteady\Had heart Attack 4 month ago\Dehydr Time Seen by Provider: 11/28/20 21:44 Source: patient and family () Mode of arrival: ambulatory Limitations: no limitations History of Present Illness: HPI Narrative: Patient is a 75-year-old female who stated about 4 months ago she had sepsis from a urinary tract infection and subsequently developed a non-STEMI. She presents to the emergency department today with complaints of dizziness, weakness, and unsteady gait that has been going on for about 1 week. She denies any chest pain. She denies shortness of breath. She denies any fever. She just concerned with her dizziness and unsteady gait. Dizziness is usually when she stands from a sitting position. Relieved by sitting down. MD elicited complaint: dizziness and lightheadedness Onset (ago): week(s) (1) Timing: gradual onset Severity: severe Description: lightheadedness History of similar symptoms: No Exacerbating factors: standing Relieving factors: rest and lying down Associated symptoms: Reports malaise and weakness; Denies abnormal vaginal bleeding, change in hearing, chest pain, chills, cough, diaphoresis, ear discharge, ear pressure, fevers/chills, headache(s), nausea, nasal congestion, palpitations, rash, short of breath, syncope, tinnitus or vomiting Associated neuro symptoms: Reports gait changes; Deny confusion, difficulty speaking, dysphagia, diplopia, extremity weakness, facial numbness, facial weakness, numbness in extremities or visual changes Review of Systems General: Reports: 10 or more systems reviewed and unremarkable except in HPI and below Const: Reports: malaise; Denies: chills or diaphoresis ENMT: Denies: ear discharge, change in hearing, tinnitus or nasal congestion Card: Denies: chest pain, palpitations or syncope GI: Denies: nausea, vomiting or dysphagia Neuro: Denies: headache(s), numbness in extremities or confusion PFSH ED PFSH: Medical History (Reviewed 11/28/20 @ 23:02 by Samantha Seo MD, [facility]) Atherosclerosis of coronary artery Bacteriuria Benign essential HTN CAD (coronary artery disease) Chest pain Dyslipidemia (high LDL; low HDL) Hypertension Hyponatremia Left bundle branch block Ventricular arrhythmia Surgical History (Reviewed 11/28/20 @ 23:02 by Samantha Seo MD, [facility]) H/O breast biopsy H/O lumpectomy H/O thyroidectomy History of hysterectomy Hx of tonsillectomy Family History (Reviewed 11/28/20 @ 23:02 by Samantha Seo MD, [facility]) Other Cancer Hypertension Stroke Denies family history of Diabetes Hyperlipidemia Family history of premature coronary artery disease Social History (Reviewed 11/28/20 @ 23:02 by Samantha Seo MD, [facility]) Smoking and tobacco status: never smoked Alcohol intake: never Marital status: Physical Exam Const: COMMON NORMALS: no acute distress, average body habitus, patient oriented x3, no limitations, healthy appearing, alert and well nourished HENMT: COMMON NORMALS: normocephalic, atraumatic and moist oral mucous membranes HEAD & SCALP: normocephalic and atraumatic Neck/C-Spine: COMMON NORMALS: no meningeal signs and no JVD Resp: COMMON NORMALS: normal respiratory effort, No retractions, No use of accessory muscles, clear to auscultation bilaterally and percussion normal AUSCULTATION: clear to auscultation bilaterally PERCUSSION: percussion normal Cardio: COMMON NORMALS: no JVD, regular rate, regular rhythm, S1 normal heart sound present, S2 normal heart sound present, No gallops present (Cardio), No clicks present (Cardio), No murmurs present (Cardio), No rub (Cardio) and Peripheral pulses 2+ throughout RATE: regular rate RHYTHM: regular rhythm HEART SOUNDS: S1 normal heart sound present and S2 normal heart sound present PERIPHERAL PULSES: Peripheral pulses 2+ throughout GI: COMMON NORMALS: Normal to inspection, nondistended, normoactive bowel sounds present, Soft to palpation, non-tender, No hepatosplenomegaly present, no masses and no bruits PALPATION: Yes Soft to palpation and Yes No hepatosplenomegaly present Extremity: COMMON NORMALS: normal to inspection, full ROM, capillary refill normal, no calf tenderness and no pedal edema Neuro: COMMON NORMALS: patient oriented x3 SENSORIUM/ORIENTATION: Yes alert MENINGEAL SIGNS: Yes no meningeal signs Skin: COMMON NORMALS: no rashes or lesions noted, no wounds, turgor normal, no jaundice, no petechiae and no mottling GENERAL SKIN EXAM: no rashes or lesions noted and turgor normal Course Reevaluation(s): Reevaluation #1: Discussed her lab and imaging findings with her. Negative for acute findings. Orthostatic vital signs are trending towards orthostasis and we will give her 1 L of normal saline to help with this. . She voiced understanding and is in agreement with the plan. Time: 23:31 Vital Signs: Vital signs: Vital Signs Temperature 98.2 F 11/28/20 20:12 Pulse Rate 70 11/28/20 23:03 Respiratory Rate 18 11/28/20 20:12 Blood Pressure 153/76 11/28/20 23:03 Pulse Oximetry 97 11/28/20 20:12 MDM - Dizziness MDM Narrative: Medical decision making narrative: 75-year-old female patient who presents to the emergency department with dizziness on standing. Evaluation in the emergency department shows probable orthostasis. Work-up unremarkable. She is discharged home after IV fluids. Lab Data: Labs: Lab Results 11/28/20 11/28/20 11/28/20 Range/Units 22:10 22:10 22:10 WBC 6.1 (4.0-10.0) 10^3/ uL RBC 4.03 L (4.1-5.3) 10^6/u L Hgb 12.0 (11.5-15.3) g/dL Hct 36.3 L (37.0-47.0) % MCV 90.1 (81-99) fL MCH 29.8 (28.0-34.0) pg MCHC 33.1 (30.0-36.0) g/dL RDW 15.1 (12.1-15.1) % Plt Count 161 (130-400) 10^3/c mm MPV 10.1 (7.4-10.4) fL Neut % (Auto) 57.9 % Lymph % (Auto) 28.5 % [place] % (Auto) 11.4 % Eos % (Auto) 1.1 % Baso % (Auto) 0.8 % Neut # (Auto) 3.55 (1.8-7.7) 10^3/u L Lymph # (Auto) 1.8 (0.8-4.8) 10^3/u L [place] # (Auto) 0.7 (0.2-0.9) 10^3/u L Eos # (Auto) 0.1 (0.0-0.8) 10^3/u L Baso # (Auto) 0.1 (0.0-0.1) 10^3/u L Nucleated RBC % (a uto) 0 % Nucleated RBCs # 0.0 /100WBC Sodium 135 L (136-145) mmol/L Potassium 4.0 (3.5-5.1) mmol/L Chloride 102 (98-107) mmol/L Carbon Dioxide 22 (22-29) mmol/L Anion Gap 15.0 (5-19) BUN 12 (8-23) mg/dL Creatinine 1.0 H (0.5-0.9) mg/dL GFR Calculation Not Reportable Glucose 105 (65-115) mg/dL Calculated Osmolal ity 280 L (285-295) mOsm/k g Calcium 8.7 (8.5-10.5) mg/dL Total Bilirubin 0.4 (0.15-1.2) mg/dL AST 21 (0-32) U/L ALT 17 (0-33) U/L Alkaline Phosphata se 66 (35-105) IU/L Troponin T Baselin e 12 H (0-10) ng/L NT-Pro-B Natriuret Pep 147 (0-450) pg/mL Total Protein 6.2 L (6.6-8.7) g/dL Albumin 4.0 (3.5-5.2) g/dL Globulin 2.2 (1.3-4.6) g/dL Urine Color (Yellow) Urine Appearance (CLEAR) Urine pH (5-7) Ur Specific Gravit y (1.005-1.030) Urine Protein (Negative) Urine Glucose (UA) (Normal) Urine Ketones (Negative) Urine Blood (Negative) Urine Nitrate (Negative) Urine Bilirubin (Negative) Urine Urobilinogen (Negative) mg/dL Ur Leukocyte Kinsey ase (Negative) 11/28/20 Range/Units 22:30 WBC (4.0-10.0) 10^3/ uL RBC (4.1-5.3) 10^6/u L Hgb (11.5-15.3) g/dL Hct (37.0-47.0) % MCV (81-99) fL MCH (28.0-34.0) pg MCHC (30.0-36.0) g/dL RDW (12.1-15.1) % Plt Count (130-400) 10^3/c mm MPV (7.4-10.4) fL Neut % (Auto) % Lymph % (Auto) % [place] % (Auto) % Eos % (Auto) % Baso % (Auto) % Neut # (Auto) (1.8-7.7) 10^3/u L Lymph # (Auto) (0.8-4.8) 10^3/u L Med[place] # (Auto) (0.2-0.9) 10^3/u L Eos # (Auto) (0.0-0.8) 10^3/u L Baso # (Auto) (0.0-0.1) 10^3/u L Nucleated RBC % (a uto) % Nucleated RBCs # /100WBC Sodium (136-145) mmol/L Potassium (3.5-5.1) mmol/L Chloride (98-107) mmol/L Carbon Dioxide (22-29) mmol/L Anion Gap (5-19) BUN (8-23) mg/dL Creatinine (0.5-0.9) mg/dL GFR Calculation Glucose (65-115) mg/dL Calculated Osmolal ity (285-295) mOsm/k g Calcium (8.5-10.5) mg/dL Total Bilirubin (0.15-1.2) mg/dL AST (0-32) U/L ALT (0-33) U/L Alkaline Phosphata se (35-105) IU/L Troponin T Baselin e (0-10) ng/L NT-Pro-B Natriuret Pep (0-450) pg/mL Total Protein (6.6-8.7) g/dL Albumin (3.5-5.2) g/dL Globulin (1.3-4.6) g/dL Urine Color Yellow (Yellow) Urine Appearance Clear (CLEAR) Urine pH 6 (5-7) Ur Specific Gravit y 1.005 (1.005-1.030) Urine Protein Neg (Negative) Urine Glucose (UA) Norm (Normal) Urine Ketones Negative (Negative) Urine Blood Neg (Negative) Urine Nitrate Negative (Negative) Urine Bilirubin Neg (Negative) Urine Urobilinogen Norm (Negative) mg/dL Ur Leukocyte Kinsey ase Negative (Negative) Imaging Data^: CT Head: Attestation: I personally reviewed and interpreted this imaging study as follows: Radiologist's impression: [facility] [place], [place] [address]YI Scan ReportSigned Patient: Lacey Burgess #: [id number]: 5Acct#:[id number]/Sex: 75 / FADM Date: 11/28/20Loc: ERRoom/Bed:Attending Dr: Ordering Provider/Ordering MD: Samantha Seo MD, [facility] Date of Service: 11/28/20 Procedure(s): CT head wo con* [id number] Accession Number(s): [id number] Report Number: [id number] PROCEDURE INFORMATION: Exam: CT Head Without Contrast Exam date and time: 11/28/2020 9:50 PM Age: 75 years old Clinical indication: Dizziness; Additional info: Dizziness, presyncope TECHNIQUE: Imaging protocol: Computed tomography of the head without contrast. Radiation optimization: All CT scans at this facility use at least one of these dose optimization techniques: automated exposure control; mA and/or kV adjustment per patient size (includes targeted exams where dose is matched to clinical indication); or iterative reconstruction. COMPARISON: MR head wo con* [id number] 09/19/2020 11:11 AM RADIATION DOSE METRICS: Total DLP (mGy-cm): 816.6 FINDINGS: Brain: There are global involutional changes of the brain which are in keeping with the patient's age. There is no evidence of intracranial hemorrhage. No abnormal extra-axial fluid collections are identified. No mass effect or midline shift is seen. Nuno-white differentiation is preserved throughout. Cerebral ventricles: No ventriculomegaly. Paranasal sinuses: There is mild sinus mucosal disease, with no air-fluid level identified. Mastoid air cells: There is no mastoid effusion detected. Vasculature: Atherosclerotic vascular disease is noted at the level of the skull base. Bones/joints: Unremarkable. No acute fracture. CT/CT head wo con* [id number] IMPRESSION: No acute intracranial pathology demonstrated by CT. Radiation Dose CTDIVOL = (mGy): DLP = 816.6 (mGy-cm) Dictated By:Caro Peterson MDSigned By:Caro Petersonigned Date/Time:11/28/20/ 44 CXR: Attestation: I personally reviewed and interpreted this imaging study as follows: Radiologist's impression: [address] [address]FYgb ReportSigned Patient: Lacey Burgess #: [id number]: 5Acct#:[id number]/Sex: 75 / FADM Date: 11/28/20Loc: ERRoom/Bed:Attending Dr: Ordering Provider/Ordering MD: Samantha Seo MD, [facility] Date of Service: 11/28/20 Procedure(s): XR chest 1V portable [id number] Accession Number(s): [id number] Report Number: [id number] PROCEDURE INFORMATION: Exam: XR Chest Exam date and time: 11/28/2020 9:49 PM Age: 75 years old Clinical indication: Other: Dizzy; Additional info: Dizziness TECHNIQUE: Imaging protocol: XR of the chest. Views: 1 view. COMPARISON: CR XR chest 1V portable [id number] 09/03/2020 2:41 PM FINDINGS: Lungs: There is no pulmonary vascular congestion. There is no evidence of focal parenchymal consolidation. Pleural spaces: There are no pleural effusions. There is no evidence of pneumothorax. Heart/Mediastinum: The cardiac silhouette is within normal limits. Bones/joints: No acute osseous abnormality is identified. XR/XR chest 1V portable [id number] IMPRESSION: No acute cardiopulmonary disease identified. Dictated By:Caro Peterson MDSigned By:Caro Peterson MDSigned Date/Time:11/28/20/ 45 EKG Data^: EKG 1: Attestation: I personally reviewed and interpreted this EKG as follows: EKG interpretation date: 11/28/20 EKG interpretation time: 22:36 Prior EKG tracings: available for review Interpretation: Sinus rhythm. Heart rate 66 bpm. Marked left axis deviation. Left bundle branch block. No ST changes No significant change from EKG of 08/07/2020 Discharge Plan Discharge Patient Disposition: Home Clinical Impression: Orthostatic dizziness Condition: Stable Prescriptions: Continued metoprolol tartrate 25 mg tablet 25 mg PO Q12H RF: 0 amlodipine 5 mg tablet 5 mg PO DAILY Qty: 90 RF: 2 cholecalciferol (vitamin D3) 2,000 unit tablet 2,000 unit PO DAILY@20 RF: 0 levothyroxine 25 mcg capsule 25 mcg PO QAM RF: 0 cetirizine [All Day Allergy (cetirizine)] 10 mg tablet 10 mg PO BEDTIME RF: 0 polyethylene glycol 3350 [Miralax] 17 gram powder in packet 17 gm PO DAILY PRN (Reason: Constipation) RF: 0 acetaminophen [Tylenol Extra Strength] 500 mg Tablet 500 mg PO PRN RF: 0 albuterol sulfate [ProAir HFA] 90 mcg/actuation Hfa Aerosol Inhaler 2 puff INHALATION Q4H PRN (Reason: Shortness Of Breath) RF: 0 sennosides-docusate sodium 8.6-50 mg Tablet 1 tab PO DAILY Qty: 30 RF: 0 nitroglycerin 0.4 mg Tablet, Sublingual 0.4 mg sublingual Q5M PRN (Reason: Chest Pain) Qty: 25 RF: 0 atorvastatin 40 mg Tablet 80 mg PO BEDTIME Qty: 30 RF: 0 pantoprazole 40 mg Tablet,Delayed Release (Dr/Ec) 40 mg PO DAILY Qty: 30 RF: 0 (DME) Enema Bag Misc MISCELLANEOUS RF: 0 Milk of Magnesia 30 - 60 ml PO PRN RF: 0 trazodone 50 mg tablet 50 mg PO BEDTIME RF: 0 clopidogrel 75 mg tablet 75 mg PO QAM RF: 0 Eliquis 5 mg tablet 5 mg PO BID Qty: 60 RF: 0 Pacerone 200 mg tablet 100 mg PO DAILY@08 Qty: 0 RF: 0 Discharge Orders: Discharge ED (Routine); Ordered 11/28/20 Ordered By: Samantha Seo Referrals: Oscar Quigley MD [Primary Care Provider] - 1-3 days Discharge Diet: Usual diet Discharge Activity: Increase activity as tolerated Patient Instructions: Near Syncope (ED), Lightheadedness (ED) Activity Restrictions/Additional Instructions: Return for any new or worsening symptoms. Follow-up with your primary care provider within 3 days. Drink plenty of fluids to keep well-hydrated, especially now that that is hot. Continue your home medications. Coding Level of Care Code ED Lining [place] for 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
[2020-11-28 23:03] VITALS: BP 131/80; BP 140/77; BP 153/76; PULSE 70; PULSE 75; PULSE 81
[2020-11-28 23:17] LABS: Bilirubin Urine Neg (Negative); Blood Urine Neg (Negative); Glucose Urine UA Norm (Normal); Ketones Urine Negative (Negative); Leukocyte Esterase Urine Negative (Negative); Nitrate Urine Negative (Negative); Protein Urine Neg (Negative); Specific Gravity, Urine 1.005 (1.005-1.030); Urine Appearance Clear (CLEAR); Urine Color Yellow (Yellow); Urobilinogen Urine Norm (Negative); pH Urine 6 (5-7)
[2020-11-28] MEDS: sodium chloride 0.9% 1,000 ML 999 ML IV (23:21)
[2020-11-29 00:19] VITALS: BP 133/61; PULSE 66; RESP 16; TEMP 36.7; O2SAT 100
== END 2020-11-29 00:12 | disposition home or self-care (01) ==
PROVIDERS: Emergency Provider Family Medicine; PCP Family Medicine
DX: I95.1 Orthostatic hypotension (principal); Z79.01 Long term (current) use of anticoagulants; I10 Essential (primary) hypertension; I25.10 Atherosclerotic heart disease of native coronary artery without angina pectoris; E78.5 Hyperlipidemia, unspecified
CPT/HCPCS: 70450; 71045; 80053; 81003; 83880; 84484; 85025; 96360; 99283; J7030

== ENCOUNTER → 2021-01-06 12:12 | Outpatient (BNVA) | payer MEDICARE, OTHER, SELFPAY | PROVIDERS: PCP Family Medicine; Visit Provider Nurse Practitioner Family | DX: Z20.822 Contact with and (suspected) exposure to COVID-19 (principal); J06.9 Acute upper respiratory infection, unspecified | CPT/HCPCS: 87426 ==

== ENCOUNTER 2021-01-28 09:50 | Outpatient (CLI) | payer MEDICARE, OTHER, SELFPAY ==
--- NOTE | 2021-01-28 10:15 | USCV_ITS ---
Lacey Burgess Age: 75 Gender: F : 1945 Exam Date: 01/28/2021 10:09 Ordering Phys: Monica Zapien MD ([email or web address]) Technologist: America Higuera Exam Location: [facility] [place] [facility] Indication: CARDIOMYOPTHY BP: 130 / 90 HR: Rhythm: Sinus Technical Quality: Adequate MEASUREMENTS (Male / Female) Normal Values 2D ECHO LV Diastolic Diameter PLAX 4.5 cm 4.2 - 5.9 / 3.9 - 5.3 cm LV Systolic Diameter PLAX 3.6 cm IVS Diastolic Thickness 1.3 cm 0.6 - 1.0 / 0.6 - 0.9 cm IVS Systolic Thickness 1.8 cm LVPW Diastolic Thickness 1.7 cm 0.6 - 1.0 / 0.6 - 0.9 cm LVPW Systolic Thickness 1.6 cm LVOT Diameter 2.0 cm LV Ejection Fraction 2D Teich 40.9 % LV Ejection Fraction MOD 2C 45.5 % LV Ejection Fraction 2C AL 44.4 % LA Diameter 2.6 cm LA Width 3.6 cm LA Height 4.0 cm RA Width 2.8 cm RA Height 4.1 cm Aorta at Sinotubular Diameter 2.7 cm M-MODE Aortic Annulus Diameter 2.5 cm LA Ao Ratio MM 1.1 MV E Point Septal Separation 0.3 cm DOPPLER Right Atrial Pressure 3.0 mmHg FINDINGS Left Ventricle Normal in size with diminished ejection fraction of 45-50% ( visual). Mild diffuse hypokinesia of the left ventricle. Mild to moderate concentric left ventricular hypertrophy.abnormal septal motion consistent with conduction abnormality. Right Ventricle The right ventricle is normal in size and function. Right Atrium The right atrium is normal in size. Left Atrium Mildly increased left atrial size. Mitral Valve Mild mitral annular calcification. Aortic Valve Thickened aortic valve. Tricuspid Valve No gross abnormalities noted Pulmonic Valve No gross abnormalities noted Pericardium Normal pericardium without effusion. Aorta Normal ascending aorta dimension. CONCLUSIONS Normal in size with diminished ejection fraction of 45-50% ( visual). Mild diffuse hypokinesia of the left ventricle. Mild to moderate concentric left ventricular hypertrophy. Abnormal septal motion consistent with conduction abnormality. Mildly increased left atrial size. Thickened aortic valve. Mild mitral annular calcification. There is no pericardial effusion. There are no intracardiac masses. Compared to the study from 07/30/2020, there may not be a significant change Dr Monica Zapien MD FACC (Electronically Signed) Final Date: 28 January 2021 19:54 S
== END 2021-01-28 09:51 | disposition home or self-care (01) ==
LOC: US 09:52
PROVIDERS: PCP Family Medicine; Visit Provider Internal Medicine Cardiovascular Disease
DX: I42.9 Cardiomyopathy, unspecified (principal); I08.0 Rheumatic disorders of both mitral and aortic valves
CPT/HCPCS: 93308

== ENCOUNTER 2021-04-23 10:08 | Outpatient (CLI) | payer MEDICARE, OTHER, SELFPAY ==
--- NOTE | 2021-04-23 10:46 | MM_ITS ---
WS: [id number] BILATERAL SCREENING DIGITAL MAMMOGRAM WITH CAD HISTORY: SCREENING COMPARISON: 01/21/2020 and 12/21/2018 and 12/02/2017 Bilateral CC and MLO views submitted. Computer aided detection analyzed. Breast composition: There are scattered areas of fibroglandular density. No suspicious masses, microc alcifications or architectural distortion. Benign calcifications. Vascular calcifications are also pr esent bilaterally. MM/[place] [id number] IMPRESSION: BI-RADS: 2-Benign FOLLOW UP: 1 Year Follow-up
== END 2021-04-23 10:09 | disposition home or self-care (01) ==
LOC: RADSHAW 10:15
PROVIDERS: PCP Family Medicine; Visit Provider Family Medicine
DX: Z12.31 Encounter for screening mammogram for malignant neoplasm of breast (principal)
CPT/HCPCS: 77067

== ENCOUNTER → 2021-05-20 09:58 | Outpatient (BNVA) | payer MEDICARE, OTHER, SELFPAY | PROVIDERS: PCP Family Medicine; Visit Provider Nurse Practitioner Family | DX: Z20.822 Contact with and (suspected) exposure to COVID-19 (principal) | CPT/HCPCS: 87635 ==

== ENCOUNTER 2021-05-27 09:13 | Outpatient (CLI) | payer MEDICARE, OTHER, SELFPAY ==
[2021-05-27 09:35] VITALS: BP 146/87; PULSE 65; RESP 17; TEMP 36.4; O2SAT 99; BMI 29.1
[2021-05-27 10:50] VITALS: BP 137/84; PULSE 65; RESP 17; TEMP 36.4; O2SAT 99
[2021-05-27 11:38] VITALS: BP 152/77; PULSE 69; RESP 17; TEMP 36.5; O2SAT 99
[2021-05-27 11:52] VITALS: BP 152/77; PULSE 69; RESP 17; TEMP 36.5; O2SAT 99
== END 2021-05-27 09:14 | disposition home or self-care (01) ==
LOC: OPS 09:22
PROVIDERS: PCP Family Medicine; Visit Provider Nurse Practitioner Family
DX: U07.1 COVID-19 (principal)
CPT/HCPCS: 96365

== ENCOUNTER 2021-07-11 15:21 | Emergency (ER) | payer MEDICARE, OTHER, SELFPAY ==
[2021-07-11 15:26] VITALS: BP 165/92; PULSE 86; RESP 20; TEMP 36.4; O2SAT 99; BMI 30.9
--- NOTE | 2021-07-11 15:47 | ECG_ITS ---
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 Measurements Intervals [place] Rate: 82 P: 61 TN: 162 QRS: -33 QRSD: 150 T: 93 QT: 423 QTc: 495 Interpretive Statements SINUS RHYTHM WITH FREQUENT VENTRICULAR PREMATURE COMPLEXES LEFT AXIS DEVIATION [QRS AXIS < -30] LEFT BUNDLE BRANCH BLOCK [120+ ms QRS DURATION, 80+ ms Q/S IN V1/V2, 85+ ms R IN I/aVL/V5/V6] Compared to ECG 09/04/2020 10:41:45 Ventricular premature complex(es) now present Left-axis deviation now present Electronically Signed On 07-13-2021 12:15:51 DAIRY NUTRITION SPECIALIST by Gus Ayoub M.D. [id number]
[2021-07-11 15:57] VITALS: BP 159/84; PULSE 79; RESP 16; O2SAT 99
[2021-07-11 16:01] LABS: Basophils % 0.7 %; Eosinophils # 0.1 10^3/uL (0.0-0.8); Hematocrit 35.1 % (37.0-47.0); Hemoglobin 11.2 g/dL (11.5-15.3); Lymphocytes # 1.5 10^3/uL (0.8-4.8); Lymphocytes % 26.4 %; Mean Corpuscular HGB Conc 31.9 g/dL (30.0-36.0); Mean Corpuscular Hemoglobin 29.8 pg (28.0-34.0); Mean Corpuscular Volume 93.4 fl (81-99); Mean Platelet Volume 10.5 fL (7.4-10.4); Monocytes # 0.7 10^3/uL (0.2-0.9); Neutrophils # 3.24 10^3/uL (1.8-7.7); Neutrophils % 57.7 %; Nucleated Red Blood Cells % 0 %; Platelet Count 145 10^3/cmm (130-400); Red Blood Count 3.76 10^6/uL (4.1-5.3); Red Cell Distribution Width 14.6 % (12.1-15.1); White Blood Count 5.6 10^3/uL (4.0-10.0)
--- NOTE | 2021-07-11 16:11 | ED_ITS ---
HPI - Chest Pain General: Chief Complaint: Chest Pain Stated Complaint: low hr Time Seen by Provider: 07/11/21 15:31 History of Present Illness: Patient comes in with concerns for a low heart rate. States that her monitor at home was showing her heart rate in the 40s today. She denies any symptoms including no chest pain, shortness of breath, fever, cough, vomiting, or diarrhea. Upon arrival here her monitor initially was reading a heart rate intermittently in the 40s also, however on auscultation her heart rate was in the 80s. We adjusted to monitor and it is now reading ap propriately in the 70s consistently. Patient continues to be asymptomatic at this time. Associated symptoms: Deny abdominal pain, dyspnea, fever(s), nausea, pal pitations or vomiting Review of Systems Const: Denies: fever(s) or body aches Eyes: Denies: change in vision or blurry vision ENMT: Denies: throat pain or odynophagia Card: Denies: chest pain or palpitations Resp: Denies: dyspnea or productive cough GI: Denies: abdominal pain, nausea or vomiting : Denies: flank pain or dysuria Musc: Denies: neck pain or back pain Skin/Breast: Denies: rash or pruritus Neuro: Denies: headache(s) or numbness in extremities Psych: Denies: anxiety or change in appetite Endo: Denies: polyuria or excessive sweating PFSH ED PFSH: Medical History Atherosclerosis of coronary artery Bacteriuria Benign essential HTN CAD (coronary artery disease) Chest pain Dyslipidemia (high LDL; low HDL) Hypertension Hyponatremia Left bundle branch block Ventricular arrhythmia Surgical History H/O breast biopsy H/O heart artery stent H/O lumpectomy H/O thyroidectomy History of hysterectomy Hx of tonsillectomy Family History Family/Other CAD (coronary artery disease) Father Cancer Son Chronic kidney disease (CKD) Mother Dementia Stroke Other Hypertension Denies family history of Diabetes Clotting disorder Hyperlipidemia Suicide Anesthesia complication Bleeding disorder Family history of premature coronary artery disease Lung disease Social History Alcohol intake: never Marital status: Physical Exam Const: COMMON NORMALS: no acute distress, patient oriented x3, healthy appearing and alert HENMT: COMMON NORMALS: normocephalic and atraumatic HEAD & SCALP: normocephalic and atraumatic Eye: COMMON NORMALS: Equal, round and reactive pupils present and EOMs intact bilaterally PUPIL: Yes Equal, round and reactive pupils present Neck/C-Spine: COMMON NORMALS: full ROM and supple Resp: COMMON NORMALS: normal respiratory effort, No retractions and No use of accessory muscles Cardio: COMMON NORMALS: regular rate and regular rhythm RATE: regular rate RHYTHM: regular rhythm GI: COMMON NORMALS: Normal to inspection, nondistended, normoactive bowel sounds present, Soft to palpation and non-tender PALPATION: Yes Soft to palpation Back/Pelvis: COMMON NORMALS: thoracic and lumbar spine normal to inspection a nd no thoracic nor lumbar tenderness Extremity: COMMON NORMALS: normal to inspection and full ROM Neuro: COMMON NORMALS: patient oriented x3 SENSORIUM/ORIENTATION: Yes alert Psych: COMMON NORMALS: mental status grossly normal and cooperative Skin: COMMON NORMALS: no rashes or lesions noted and no wounds GENERAL SKIN EXAM: no rashes or lesions noted Course Vital Signs: Vital signs: Vital Signs Temperature 97.6 F 07/11/21 15:26 Pulse Rate 71 07/11/21 16:26 Respiratory Rate 14 07/11/21 16:26 Blood Pressure 157/76 07/11/21 16:26 Pulse Oximetry 95 07/11/21 16:26 MDM - Chest Pain Medical Decision Making Patient comes in with concerns for a low heart rate. States that her monitor at home was showing her heart rate in the 40s today. She denies any symptoms including no chest pain, shortness of breath, fever, cough, vomiting, or diarrhea. Upon arrival here her monitor initially was reading a heart rate intermittently in the 40s also, however on auscultation her heart rate was in the 80s. We adjusted to monitor and it is now reading appropriately in the 70s consistently. Patient continues to be asymptomatic at this time. Physical exam is unremarkable. Will check labs, EKG, and reassess. On reassessment I talked to the patient about the test results. Her heart rate is remained in the 70s throughout her entire stay in the emergency department. Will discharge at this time with precautions return for worsening or changing symptoms Lab Data : 07/11/21 15:53 07/11/21 15:53 Laboratory Results WBC 5.6 10^3/uL (4.0-10.0) 07/11/21 15:53 RBC 3.76 10^6/uL (4.1-5.3) L 07/11/21 15:53 Hgb 11.2 g/dL (11.5-15.3) L 07/11/21 15:53 Hct 35.1 % (37.0-47.0) L 07/11/21 15:53 MCV 93.4 fl (81-99) 07/11/21 15:53 MCH 29.8 pg (28.0-34.0) 07/11/21 15:53 MCHC 31.9 g/dL (30.0-36.0) 07/11/21 15:53 RDW 14.6 % (12.1-15.1) 07/11/21 15:53 Plt Count 145 10^3/cmm (130-400) 07/11/21 15:53 MPV 10.5 fL (7.4-10.4) H 07/11/21 15:53 Neut % (Auto) 57.7 % 07/11/21 15:53 Lymph % (Auto) 26.4 % 07/11/21 15:53 Izard % (Auto) 13.0 % 07/11/21 15:53 Eos % (Auto) 2.0 % 07/11/21 15:53 Baso % (Auto) 0.7 % 07/11/21 15:53 Neut # (Auto) 3.24 10^3/uL (1.8-7.7) 07/11/21 15:53 Lymph # (Auto) 1.5 10^3/uL (0.8-4.8) 07/11/21 15:53 Izard # (Auto) 0.7 10^3/uL (0.2-0.9) 07/11/21 15:53 Eos # (Auto) 0.1 10^3/uL (0.0-0.8) 07/11/21 15:53 Baso # (Auto) 0.0 10^3/uL (0.0-0.1) 07/11/21 15:53 Nucleated RBC % (auto) 0 % 07/11/21 15:53 Nucleated RBCs # 0.0 /100WBC 07/11/21 15:53 Sodium 136 mmol/L (136-145) 07/11/21 15:53 Potassium 3.8 mmol/L (3.5-5.1) 07/11/21 15:53 Chloride 103 mmol/L (98-107) 07/11/21 15:53 Carbon Dioxide 22 mmol/L (22-29) 07/11/21 15:53 Anion Gap 14.8 (5-19) 07/11/21 15:53 BUN 22 mg/dL (8-23) 07/11/21 15:53 Creatinine 1.3 mg/dL (0.5-0.9) H 07/11/21 15:53 GFR Calculation Not Reportable 07/11/21 15:53 Glucose 109 mg/dL (65-115) 07/11/21 15:53 Calculated Osmolality 286 mOsm/kg (285-295) 07/11/21 15:53 Calcium 9.5 mg/dL (8.5-10.5) 07/11/21 15:53 Total Bilirubin 0.5 mg/dL (0.15-1.2) 07/11/21 15:53 AST 19 U/L (0-32) 07/11/21 15:53 ALT 14 U/L (0-33) 07/11/21 15:53 Alkaline Phosphatase 63 IU/L (35-105) 07/11/21 15:53 Troponin T Baseline 12 ng/L (0-10) H 07/11/21 15:53 Total Protein 6.7 g/dL (6.6-8.7) 07/11/21 15:53 Albumin 4.2 g/dL (3.5-5.2) 07/11/21 15:53 Globulin 2.5 g/dL (1.3-4.6) 07/11/21 15:53 Discharge Plan Discharge Patient Disposition: Home Clinical Impression: Abnormal heart rate Condition: Stable Prescriptions: No Action metoprolol tartrate 25 mg tablet 25 mg PO DAILY 0RF budesonide-formoterol 160-4.5 mcg/actuation HFA aerosol inhaler 2 inh inhalation BID Qty: 10.2 0RF Rx Instructions: 340 B cholecalciferol (vitamin D3) 2,000 unit tablet 2,000 unit PO DAILY@20 0RF levothyroxine 25 mcg capsule 25 mcg PO DAILY 0RF cetirizine [All Day Allergy (cetirizine)] 10 mg tablet 10 mg PO BEDTIME 0RF polyethylene glycol 3350 [Miralax] 17 gram powder in packet 17 gm PO DAILY PRN (Reason: Constipation) 0RF Eliquis 5 mg tablet 5 mg PO BID Qty: 180 3RF Rx Instructions: 340B amlodipine 5 mg tablet 5 mg PO DAILY 0RF sennosides-docusate sodium 8.6-50 mg tablet 2 tab PO BEDTIME 0RF acetaminophen [Tylenol Extra Strength] 500 mg Tablet 500 mg PO Q6H PRN (Reason: Pain) 0RF nitroglycerin 0.4 mg Tablet, Sublingual 0.4 mg sublingual Q5M PRN (Reason: Chest Pain) Qty: 25 0RF atorvastatin 40 mg Tablet 80 mg PO BEDTIME Qty: 30 0RF pantoprazole 40 mg Tablet,Delayed Release (Dr/Ec) 40 mg PO DAILY Qty: 30 0RF magnesium hydroxide [Milk of Magnesia] 400 mg/5 mL Suspension 30 ml PO DAILY PRN (Reason: Constipation) Qty: 0 0RF (DME) Enema Bag Misc MISCELLANEOUS 0RF Rx Instructions: PTS STATES HE MIXED UP WATER AND A LITTLE DISH SOAP clopidogrel 75 mg tablet 75 mg PO DAILY 0RF amiodarone [Pacerone] 200 mg tablet 100 mg PO DAILY@08 Qty: 0 0RF Discharge Orders: Discharge ED (Routine); Ordered 07/11/21 Ordered By: Joselito Burns Referrals: Oscar Quigley MD [Primary Care Provider] - Coding Level of Care Code ED 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
[2021-07-11 16:26] VITALS: BP 157/76; PULSE 71; RESP 14; O2SAT 95
[2021-07-11 16:36] LABS: Troponin(5th) Baseline 12 ng/L (0-10)
[2021-07-11 16:44] LABS: Alanine Aminotransferase 14 U/L (0-33); Albumin Level 4.2 g/dL (3.5-5.2); Alkaline Phosphatase 63 IU/L (35-105); Anion Gap 14.8 (5-19); Aspartate Amino Transferase 19 U/L (0-32); Blood Urea Nitrogen 22 mg/dL (8-23); Calcium 9.5 mg/dL (8.5-10.5); Carbon Dioxide 22 mmol/L (22-29); Chloride 103 mmol/L (98-107); Globulin 2.5 g/dL (1.3-4.6); Glucose 109 mg/dL (65-115); Osmolality Calculated 286 mOsm/kg (285-295); Potassium 3.8 mmol/L (3.5-5.1); Sodium 136 mmol/L (136-145); Total Bilirubin 0.5 mg/dL (0.15-1.2); Total Protein 6.7 g/dL (6.6-8.7)
[2021-07-11 17:37] VITALS: BP 136/58; PULSE 76; O2SAT 97
== END 2021-07-11 17:38 | disposition home or self-care (01) ==
PROVIDERS: Emergency Provider Emergency Medicine; PCP Family Medicine
DX: R00.9 Unspecified abnormalities of heart beat (principal); I25.10 Atherosclerotic heart disease of native coronary artery without angina pectoris; I10 Essential (primary) hypertension; E78.5 Hyperlipidemia, unspecified
CPT/HCPCS: 80053; 84484; 85025; 93005; 99283

== ENCOUNTER 2021-08-06 01:37 | Observation (INO) | payer MEDICARE, OTHER, SELFPAY ==
[2021-08-06] VITALS (11 sets, daily range): BP systolic 118–174; BP diastolic 56–94; PULSE 57–89; RESP 16–27; TEMP 36.3–37; O2SAT 95–98; BMI 29.9
--- NOTE | 2021-08-06 01:55 | ED_ITS ---
HPI - SOB/Dyspnea General: Chief Complaint: Shortness of Breath/Dyspnea Stated Complaint: SOB, irregular heartbeat Time Seen by Provider: 08/06/21 01:55 History of Present Illness: HPI Narrative: Ms. Burgess is a 76-year-old lady with history of hypertension, hyperlipidemia, CKD, cardiomyopathy, atrial fibrillation on anticoagulation who presents emergency department due to chest discomfort. She reports symptoms started approximately 9 PM while she was walking to her bedroom. She has noticed an off-balance feeling as well as shortness of breath along with this discomfort. With the off-balance feeling she denies focal neurologic deficits. Chest dis comfort is in the middle of her chest and associated with increased palpitations as well. She does have cough that this is largely chronic though perhaps mildly more productive. Overall the course of symptoms has been worsening. Intensity is moderate. No other specific changes in health, exacerbating, relieving factors identified. Pertinent past history: other Onset (ago): hour(s) Context: occurred during exertion Timing: constant Severity: moderate Associated symptoms: Reports lightheadedness Review of Systems General: Reports: 10 or more systems reviewed and unremarkable except in HPI and below Card: Reports: lightheadedness FORMERLY [facility], [facility]1983 ED PFSH: Medical History (Updated 08/08/21 @ 00:01 by ) Atherosclerosis of coronary artery Bacteriuria Benign essential HTN CAD (coronary artery disease) Chest pain Dyslipidemia (high LDL; low HDL) Hypertension Hyponatremia Left bundle branch block Ventricular arrhythmia Surgical History (Updated 08/08/21 @ 00:01 by ) H/O breast biopsy H/O heart artery stent H/O lumpectomy H/O thyroidectomy History of hysterectomy Hx of tonsillectomy Family History Family/Other CAD (coronary artery disease) Father Cancer Son Chronic kidney disease (CKD) Mother Dementia Stroke Other Hypertension Denies family history of Diabetes Clotting disorder Hyperlipidemia Suicide Anesthesia complication Bleeding disorder Family history of premature coronary artery disease Lung disease Social History Alcohol intake: never Marital status: Physical Exam Const: COMMON NORMALS: patient oriented x3 and alert GENERAL APPEARANCE: cooperative and well developed HENMT: COMMON NORMALS: normocephalic and atraumatic HEAD & SCALP: normocephalic and atraumatic THROAT: posterior oropharynx normal Eye: COMMON NORMALS: conjunctivae normal CONJUNCTIVA: Yes conjunctivae normal SCLERA: sclerae normal Neck/C-Spine: COMMON NORMALS: supple GENERAL: Yes trachea midline Resp: COMMON NORMALS: normal respiratory effort and clear to auscultation bilaterally EFFORT & INSPECTION: Yes able to speak in complete sentences AUSCULTATION: clear to auscultation bilaterally Cardio: COMMON NORMALS: regular rate RATE: regular rate RHYTHM: abnormal rhythm GI: COMMON NORMALS: Soft to palpation PALPATION: Yes Soft to palpation and No Tenderness to palpation present (GI) PERCUSSION: normal to percussion Extremity: GENERAL: Yes normal exam except as noted and No edema Neuro: COMMON NORMALS: patient oriented x3, CN's II-XII intact bilaterally, moves all extremities, no focal motor deficits and no sensory deficits noted SENSORIUM/ORIENTATION: Yes alert and No Orientation impaired Psych: COMMON NORMALS: mental status grossly normal and Normal thought process present THOUGHT PROCESS: Normal thought process present Course ED course: - Patient was seen and evaluated by me at bedside - Patient placed on cardiac monitors, IV access obtained - Initial evaluation notable for exam as above - Labs and xrays personally interpreted by me -Aspirin given - Labs notable for leukocytosis, near baseline normocytic anemia. Metabolic panel without acute electrolyte derangement to explain patient's symptoms. Delta troponin is negative. BNP is mildly elevated. TSH normal. - Imaging notable for no lobar consolidation or pneumothorax - Upon serial reexamination after treatment the patient was similar. - Based on patient history, evaluation, and testing as interpreted the most likely cause of the patient's condition is chest pain of uncertain etiology. In observation of telemetry monitoring not all the patient's beats are perfusing. - The results of ED evaluation were discussed with the patient including possible disposition options. Patient has elevated heart score. Plan for admission due to requirement for level of care not available if discharged to prevent significant worsening/deterioration. - Hospitalist service contacted and agreed to admit the patient given the chest pain and elevated heart score. - Patient was admitted without further deterioration or significant events. Note: Click bubbles or prepopulated barreto in note writing are used for assistance with data collection and billing and are inherently more limited than narrative and other text portions of this note. Please use narrative for additional clinical history and defer to narrative/free test for any case of contradictory information. If information appears in only free text or click bubble it should be considered present or absent as reported. Please contact note blog writer for clarifications of clinical information or contradictory information. MDM is a brief summary, contradictory or erroneous seeming information should be clarified and full note should be reviewed. Vital Signs: Vital signs: Vital Signs Temperature 97.7 F 08/07/21 11:31 Pulse Rate 72 08/07/21 11:31 Respiratory Rate 18 08/07/21 11:31 Blood Pressure 150/82 08/07/21 11:31 Pulse Oximetry 97 08/07/21 11:31 MDM - SOB/Dyspnea Medical Decision Making 76-year-old lady with significant cardiac history presenting with chest pain. Heart score elevated. EKG with frequent ectopy. Delta troponin negative. Admitted for further cardiac testing. Medical Records I reviewed the patient's medical records. Lab Data I reviewed the patient's lab results. : 08/07/21 03:10 08/06/21 07:42 Labs/Radiology: Radiology Impressions Chest X-Ray 08/06/21 01:55 IMPRESSION: No acute cardiopulmonary abnormality. Laboratory Results WBC 5.4 10^3/uL (4.0-10.0) 08/06/21 02:50 RBC 3.77 10^6/uL (4.1-5.3) L 08/06/21 02:50 Hgb 11.2 g/dL (11.5-15.3) L 08/06/21 02:50 Hct 34.6 % (37.0-47.0) L 08/06/21 02:50 MCV 91.8 fl (81-99) 08/06/21 02:50 MCH 29.7 pg (28.0-34.0) 08/06/21 02:50 MCHC 32.4 g/dL (30.0-36.0) 08/06/21 02:50 RDW 14.6 % (12.1-15.1) 08/06/21 02:50 Plt Count 147 10^3/cmm (130-400) 08/06/21 02:50 MPV 10.7 fL (7.4-10.4) H 08/06/21 02:50 Neut % (Auto) 49.8 % 08/06/21 02:50 Lymph % (Auto) 32.5 % 08/06/21 02:50 [place]gs % (Auto) 14.0 % 08/06/21 02:50 Eos % (Auto) 2.2 % 08/06/21 02:50 Baso % (Auto) 1.1 % 08/06/21 02:50 Neut # (Auto) 2.71 10^3/uL (1.8-7.7) 08/06/21 02:50 Lymph # (Auto) 1.8 10^3/uL (0.8-4.8) 08/06/21 02:50 [place]gs # (Auto) 0.8 10^3/uL (0.2-0.9) 08/06/21 02:50 Eos # (Auto) 0.1 10^3/uL (0.0-0.8) 08/06/21 02:50 Baso # (Auto) 0.1 10^3/uL (0.0-0.1) 08/06/21 02:50 Nucleated RBC % (auto) 0 % 08/06/21 02:50 Nucleated RBCs # 0.0 /100WBC 08/06/21 02:50 Sodium 140 mmol/L (136-145) 08/06/21 02:50 Potassium 3.9 mmol/L (3.5-5.1) 08/06/21 02:50 Chloride 105 mmol/L (98-107) 08/06/21 02:50 Carbon Dioxide 24 mmol/L (22-29) 08/06/21 02:50 Anion Gap 14.9 (5-19) 08/06/21 02:50 BUN 17 mg/dL (8-23) 08/06/21 02:50 Creatinine 1.1 mg/dL (0.5-0.9) H 08/06/21 02:50 GFR Calculation Not Reportable 08/06/21 02:50 Glucose 112 mg/dL (65-115) 08/06/21 02:50 Calculated Osmolality 292 mOsm/kg (285-295) 08/06/21 02:50 Calcium 9.5 mg/dL (8.5-10.5) 08/06/21 02:50 Magnesium 2.0 mg/dL (1.7-2.3) 08/06/21 02:50 Total Bilirubin 0.5 mg/dL (0.15-1.2) 08/06/21 02:50 AST 21 U/L (0-32) 08/06/21 02:50 ALT 18 U/L (0-33) 08/06/21 02:50 Alkaline Phosphatase 67 IU/L (35-105) 08/06/21 02:50 Troponin T Baseline 13 ng/L (0-10) H 08/06/21 02:50 Troponin T 120 Minute 12.67 ng/L (0-10) H 08/06/21 04:53 Delta Troponin T -0.33 ABS# (0-10) L 08/06/21 04:53 NT-Pro-B Natriuret Pep 575 pg/mL (0-450) H 08/06/21 02:50 Total Protein 6.4 g/dL (6.6-8.7) L 08/06/21 02:50 Albumin 4.4 g/dL (3.5-5.2) 08/06/21 02:50 Globulin 2.0 g/dL (1.3-4.6) 08/06/21 02:50 TSH 2.70 uIU/mL (0.27-4.20) 08/06/21 02:50 Influenza Type A Ag Negative (Negative) 08/06/21 02:28 Influenza Type B Ag Negative (Negative) 08/06/21 02:28 SARS-CoV-2 Ag (Rapid) Negative (Negative) 08/06/21 02:28 EKG Data EKG 1: I personally reviewed and interpreted this EKG as follows: EKG Interpretation Date: 08/06/21 EKG interpretation time: 01:55 Interpretation: Twelve-lead EKG shows an irregular rhythm at a rate of 84. AZ interval 153, QRS duration 155, QTc 462. Left axis deviation. Interpretation: Sinus rhythm. Left bundle branch block. Ectopy. EKG 2: I personally reviewed and interpreted this EKG as follows: EKG Interpretation Date: 08/06/21 EKG interpretation time: 05:45 Interpretation: Twelve-lead EKG shows an irregular rhythm at a rate of 68. AZ interval 161, QRS duration 153, QTc 467. Left axis deviation. Interpretation: Sinus rhythm. Bundle-branch block. Frequent PVCs given bigeminy pattern Discharge Plan Discharge Patient Disposition: Placed in Observation Admit Provider: Halytskyy,Chema Clinical Impression: Chest pain, Shortness of breath Discharge Diet: Cardiac Discharge Activity: Resume usual activity Coding Level of Care Code ED Oil Sales And Service Rep for Daisy Mitchell
--- NOTE | 2021-08-06 01:55 | XRR_ITS ---
PROCEDURE INFORMATION: Exam: XR Chest Exam date and time: 08/06/2021 1:55 AM Age: 76 years old Clinical indication: Cough and shortness of breath; Prior surgery; Surgery type: Coronary stent; Patient HX: C/O cough with SOB. History of afib and chf. TECHNIQUE: Imaging protocol: XR of the chest. Views: 1 view. COMPARISON: CR XR chest 1V portable [id number] 11/28/2020 9:50 PM FINDINGS: Lungs: No focal airspace disease. Pleural spaces: Unremarkable. No pleural effusion. No pneumothorax. Heart/Mediastinum: Cardiomediastinal silhouette is within normal limits. Bones/joints: Unremarkable. XR/XR chest 1V portable [id number] IMPRESSION: No acute cardiopulmonary abnormality.
--- NOTE | 2021-08-06 01:56 | ECG_ITS ---
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 Measurements Intervals [place] Rate: 84 P: 9 OR: 153 QRS: -21 QRSD: 155 T: 100 QT: 421 QTc: 498 Interpretive Statements SINUS RHYTHM WITH FREQUENT VENTRICULAR PREMATURE COMPLEXES LEFT BUNDLE BRANCH BLOCK [120+ ms QRS DURATION, 80+ ms Q/S IN V1/V2, 85+ ms R IN I/aVL/V5/V6] Compared to ECG 07/11/2021 15:36:27 Left-axis deviation no longer present Electronically Signed On 08-06-2021 21:44:24 CDT by Monica Zapien M.D. [id number] f
[2021-08-06 03:03] LABS: Basophils # 0.1 10^3/uL (0.0-0.1); Basophils % 1.1 %; Eosinophils # 0.1 10^3/uL (0.0-0.8); Eosinophils % 2.2 %; Hematocrit 34.6 % (37.0-47.0); Hemoglobin 11.2 g/dL (11.5-15.3); Lymphocytes # 1.8 10^3/uL (0.8-4.8); Lymphocytes % 32.5 %; Mean Corpuscular HGB Conc 32.4 g/dL (30.0-36.0); Mean Corpuscular Hemoglobin 29.7 pg (28.0-34.0); Mean Corpuscular Volume 91.8 fl (81-99); Mean Platelet Volume 10.7 fL (7.4-10.4); Monocytes # 0.8 10^3/uL (0.2-0.9); Neutrophils # 2.71 10^3/uL (1.8-7.7); Neutrophils % 49.8 %; Nucleated Red Blood Cells % 0 %; Platelet Count 147 10^3/cmm (130-400); Red Blood Count 3.77 10^6/uL (4.1-5.3); Red Cell Distribution Width 14.6 % (12.1-15.1); White Blood Count 5.4 10^3/uL (4.0-10.0)
[2021-08-06 03:26] LABS: Influenza A by IFA Negative (Negative); Influenza B by IFA Negative (Negative); SARS Covid-2 Antigen Negative (Negative)
[2021-08-06 03:33] LABS: Troponin(5th) Baseline 13 ng/L (0-10)
[2021-08-06 03:43] LABS: Alanine Aminotransferase 18 U/L (0-33); Albumin Level 4.4 g/dL (3.5-5.2); Alkaline Phosphatase 67 IU/L (35-105); Anion Gap 14.9 (5-19); Aspartate Amino Transferase 21 U/L (0-32); Blood Urea Nitrogen 17 mg/dL (8-23); Calcium 9.5 mg/dL (8.5-10.5); Carbon Dioxide 24 mmol/L (22-29); Chloride 105 mmol/L (98-107); Glucose 112 mg/dL (65-115); NT Pro B Type Natriuretic Pept 575 pg/mL (0-450); Osmolality Calculated 292 mOsm/kg (285-295); Potassium 3.9 mmol/L (3.5-5.1); Sodium 140 mmol/L (136-145); Total Bilirubin 0.5 mg/dL (0.15-1.2); Total Protein 6.4 g/dL (6.6-8.7)
[2021-08-06 03:44] LABS: Creatinine Clr Calc Pharmacy 45.9232
--- NOTE | 2021-08-06 03:56 | ECG_ITS ---
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 Measurements Intervals [place] Rate: 68 P: 0 WI: 161 QRS: -27 QRSD: 153 T: 110 QT: 449 QTc: 480 Interpretive Statements SINUS RHYTHM WITH FREQUENT VENTRICULAR PREMATURE COMPLEXES IN A BIGEMINAL PATTERN LEFT BUNDLE BRANCH BLOCK [120+ ms QRS DURATION, 80+ ms Q/S IN V1/V2, 85+ ms R IN I/aVL/V5/V6] Compared to ECG 08/06/2021 01:49:58 No significant changes Electronically Signed On 08-06-2021 21:58:30 CDT by Monica Zapien M.D. [id number]
[2021-08-06 05:33] LABS: Troponin 5 2HR 12.67 ng/L (0-10); Troponin 5 2HR Delta -0.33 ABS# (0-10)
[2021-08-06] MEDS: aspirin 81 mg Chew Tablet 324 MG PO (07:12)
--- NOTE | 2021-08-06 07:56 | ECG_ITS ---
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 Measurements Intervals [place] Rate: 68 P: 24 AZ: 165 QRS: -29 QRSD: 153 T: 109 QT: 480 QTc: 511 Interpretive Statements SINUS RHYTHM WITH FREQUENT VENTRICULAR PREMATURE COMPLEXES LEFT BUNDLE BRANCH BLOCK [120+ ms QRS DURATION, 80+ ms Q/S IN V1/V2, 85+ ms R IN I/aVL/V5/V6] Compared to ECG 08/06/2021 05:43:55 No significant changes Electronically Signed On 08-06-2021 22:00:54 CDT by Monica Zapien M.D. [id number]
[2021-08-06 08:12] LABS: Troponin 5 6HR 12.71 ng/L (0-10)
[2021-08-06 08:20] LABS: Troponin 5 6HR Delta -0.29 ng/L (0-12)
--- NOTE | 2021-08-06 09:22 | ECG_ITS ---
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 Interpretive Statements NAME OF STUDY: LEXISCAN SESTAMIBI STRESS TEST INDICATION: Chest Pain, PROCEDURE: At the baseline, the EKG revealed normal sinus rhythm with left bundle branch block. Frequent PVCs. The baseline blood pressure was 211/88 mm Hg with a heart rate of 75 beats/min. Lexiscan was infused over a period of 20 seconds. A total of 0.4 milligrams of Lexiscan was infused. The stress phase was continued for a total of 5 minutes. Heart rate at the end of the stress phase was 93 with a blood pressure 117/57. The EKG at the peak infusion revealed no significant changes. Sestamibi was injected 20 seconds after the Lexiscan infusion. Blood pressure at the end of the recovery phase was 177/60 with a heart rate of 89 per minute. CONCLUSION: 1. No significant EKG changes with the LexiScan infusion 2. No LexiScan induced chest pain or cardiac arrhythmia 3. Normal blood pressure and heart rate response 4. Sestamibi/sestamibi perfusion scan pending; see separate report. Electronically Signed On 08-08-2021 13:34:33 CDT by Monica Zapien M.D. [id number]
--- NOTE | 2021-08-06 09:22 | NMCV_ITS ---
NM lashay perf SPECT r/s* [id number] Lacey Burgess Age: 76 Gender: F : 1945 Exam Date: 08/06/2021 10:51 Ordering Phys: Jose Armando Galaviz MD Technologist: MORGAN Pandey Exam Location: [facility] Indications: CHEST DISCOMFORT STRESS TEST Please [facility] for [facility] findings IMAGE PROTOCOL Rest/Stress 1 Lexiscan Day Radiopharmaceutical Dose (mCi) Administration Site Administered by Rest: Tc-99m 11.0 IV MORGAN Howe Sestamibi Stress:Tc-99m 32.2 IV MORGAN Howe Sestamibi Rest: 06-Aug-2021 60 Discovery 630 Stress: 06-Aug-2021 30 Discovery 630 0.4mg Lexiscan. Images obtained in supine and prone position. SPECT RESULTS Technical Quality: Excellent Raw Data Analysis: Normal Image Corrections: No attenuation or motion correction applied Summed Stress Score: 0 Summed Rest Score: 0 Summed Difference Score: 0 PERFUSION FINDINGS Fairly uniform myocardial tracer uptake. No significant perfusion abnormalities were noted. FUNCTIONAL RESULTS (calculated via Gated SPECT) Stress Image LV EF (%): 70 Stress EDV (mL):110 TID: 0.83 Stress ESV (mL):33 FUNCTIONAL FINDINGS: Segmental wall motion analysis revealing no gross wall motion abnormalities IMPRESSIONS 1. Unremarkable myocardial perfusion imaging 2. Normal LV ejection fraction 70% 3. LV wall motion analysis revealing no gross wall motion abnormalities 4. Normal LV volume Low probability for coronary ischemia based on the above findings Dr Monica Zapien MD [facility] (Electronically Signed) Final Date: 06 August 2021 13:50 S
[2021-08-06 10:22] LABS: Alanine Aminotransferase 17 U/L (0-33); Alkaline Phosphatase 63 IU/L (35-105); Anion Gap 15.9 (5-19); Aspartate Amino Transferase 20 U/L (0-32); Blood Urea Nitrogen 16 mg/dL (8-23); Calcium 9.5 mg/dL (8.5-10.5); Carbon Dioxide 22 mmol/L (22-29); Chloride 104 mmol/L (98-107); Cholesterol 124 mg/dL (0-200); Globulin 2.3 g/dL (1.3-4.6); Glucose 106 mg/dL (65-115); HDL Cholesterol 62 mg/dL (60-100); LDL Cholesterol Calculated 51 mg/dL (50-129); LDL HDL Ratio 0.82 RATIO (0.00-3.22); Osmolality Calculated 288 mOsm/kg (285-295); Potassium 3.9 mmol/L (3.5-5.1); Sodium 138 mmol/L (136-145); Total Bilirubin 0.5 mg/dL (0.15-1.2); Total Protein 6.3 g/dL (6.6-8.7); Triglycerides 55 mg/dL (0-150)
--- NOTE | 2021-08-06 10:44 | PC.CHAP ---
Pastoral Care Encounter/Spiritual Assessment Type of Contact [x] Declined room cleaner visit [] Patient/Family/Request visit [] Outpatient visit [] Follow-up visit [] Physician referral [] Code/Alert [] Routine visit [] Staff referral [] Actively dying [] Patient sleeping [] Family support [] [] Out of room [] Palliative care [] [] Receiving care in room [] Pre-surgical visit [] Trauma [] Long length of stay [] ICU visit [] Other: Relational/Emotional Strength [] Patient feels connected with others/family/visitors/staff [] Distress [] Loneliness/isolation [] Abandonment Spirituality of Patient [] Person of Ilene [] Attends Muslim of their Ilene [] Believes in Prayer [] Reads Bible or Episcopal materials [] There are Spiritual issues to be addressed Planning Intern Interventions [] Prayer [] Active listening [] Non-anxious presence [] Spiritual/emotional support [] Crisis/trauma care [] Spiritual counseling [] Bereavement support [] Provided bereavement packet [] Provided Bible/devotional materials [] Provided toy/stuffed animal, coloring book to patient or family member [] Provided Communion [] Anointing/Accident [] Salvation [] Completed spiritual assessment [] Other: Impact on Illness or Injury [] Angry [] Fearful [] Anxious [] Often cries [] Exhaustion [] Unable to work [] Unable to attend methodist [] Unable to walk/stand [] Unable to read [] Unable to drive [] Unable to eat/drink [] Unable to sleep [] Unable to be with family [] Patient intubated [] Other: Summary Declined room cleaner visit Time spent with patient 5 mins
[2021-08-06] MEDS: regadenoson 0.4 Mg/5 ml Syringe IVP (11:26)
--- NOTE | 2021-08-06 22:39 | P.HP_ITS ---
Providers/Chief Complaint Admitting Physician: Chema Funes Primary Care Provider: Oscar Quigley MD Chief Complaint: SOB, irregular heartbeat History of Present Illness Lacey Burgess is a 76 year old female w/ h/o HTN, At fibrillation, CM, CAD came to the ED c/o palpitaion w/ irregula rhythm and chest discomfort since last night. Pt states that at around 9.30 pm she felt sudden palpitation w/ irregula heart rhythm . She felt a chest discomfort. Not associated w/ diaphoreis, SOB, dizziness. She went to bed thinking that it would resolve. She taken an extra dose of Toprol before retiring. She could not sleep. At 2.30 pm she was driven to the ER While in the ED her Chest discomfort had resolved and palpitation improved. Pt is being admitted for further management of her chest discomfort and palpitation Review of Systems General: Reports: 10 or more systems reviewed and unremarkable except in HPI and below Narrative: Constitutional denied weakness, DE [place] PAZ, F/C HEENT: denied sore throat, sinus congestion, earache, blurred vision CVS: Pos for Palpitation, chest discomfort. 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; denied DE LA PAZ, seizure, weakness Medications/Allergies Home Medications Medication Instructions Recorded Confirmed Last Taken Type cetirizine 10 mg tablet (All Day 10 mg PO BEDTIME tab 07/09/19 08/06/21 07/10/21 History Allergy (cetirizine)) cholecalciferol (vitamin D3) 50 2,000 unit PO DAILY@20 07/09/19 08/06/21 07/11/21 History mcg (2,000 unit) tablet polyethylene glycol 3350 17 gram 17 gm PO DAILY PRN 07/09/19 08/06/21 09/02/20 History oral powder packet (Miralax) acetaminophen 500 mg tablet 500 mg PO Q6H PRN 07/22/20 08/06/21 09/02/20 History (Tylenol Extra Strength) nitroglycerin 0.4 mg sublingual 0.4 mg SUBLINGUAL Q5M PRN #25 tab 07/30/20 08/06/21 Unknown Rx tablet pantoprazole 40 mg tablet,delayed 40 mg PO DAILY #30 tab 07/30/20 08/06/2122 Rx release clopidogrel 75 mg tablet 75 mg PO QAM 09/03/20 08/06/21 07/11/21 History magnesium hydroxide 400 mg/5 mL 30 ml PO DAILY PRN #0 09/03/20 08/06/21 09/02/20 History oral suspension (Milk of Magnesia) ostomy supplies (Enema Bag) 09/03/20 08/06/21 Unknown History amiodarone 200 mg tablet (Pacerone) 100 mg PO DAILY@08 #0 tab 09/04/20 08/06/21 07/11/21 Rx metoprolol tartrate 25 mg tablet 25 mg PO .UP TO BID tab 12/18/20 08/06/21 07/11/21 History budesonide-formoterol HFA 160 2 inh INHALATION BID #10.2 g 05/20/21 08/06/21 07/11/21 Rx mcg-4.5 mcg/actuation aerosol inhaler apixaban 5 mg tablet (Eliquis) 5 mg PO BID #180 tab 05/21/21 08/06/21 07/11/21 Rx amlodipine 5 mg tablet 5 mg PO QAM 07/11/21 08/06/21 07/11/21 History sennosides 8.6 mg-docusate sodium 2 tab PO BEDTIME 07/11/21 08/06/21 07/10/21 History 50 mg tablet atorvastatin 80 mg tablet 80 mg PO BEDTIME 08/06/21 08/06/21 Unknown History levothyroxine 25 mcg tablet 25 mcg PO QAM 08/06/21 08/06/21 Unknown History Allergies Allergy/AdvReac Type Severity Reaction Status Date / Time codeine Allergy Unknown unknown Verified 05/25/21 11:32 fosinopril [From Monopril] Allergy Unknown unknown Verified 05/25/21 11:32 paroxetine [From Paxil] Allergy Unknown unknown Verified 05/25/21 11:32 Sulfa (Sulfonamide Allergy Unknown unknown Verified 05/25/21 11:32 Antibiotics) losartan AdvReac BP goes up Verified 05/25/21 11:32 PFSH Acute PFSH: Medical History (Updated 08/06/21 @ 22:59 by Jose Armando Galaviz MD) Atherosclerosis of coronary artery Bacteriuria Benign essential HTN CAD (coronary artery disease) Chest pain Dyslipidemia (high LDL; low HDL) Hypertension Hyponatremia Left bundle branch block Ventricular arrhythmia Surgical History H/O breast biopsy H/O heart artery stent H/O lumpectomy H/O thyroidectomy History of hysterectomy Hx of tonsillectomy Family History Family/Other CAD (coronary artery disease) Father Cancer Son Chronic kidney disease (CKD) Mother Dementia Stroke Other Hypertension Denies family history of Diabetes Clotting disorder Hyperlipidemia Suicide Anesthesia complication Bleeding disorder Family history of premature coronary artery disease Lung disease Social History Alcohol intake: never Marital status: Vitals/I&O/Wt Last Vital Signs Temp 98.6 F 08/06/21 20:00 Pulse 80 08/06/21 20:00 Resp 19 H 08/06/21 20:00 BP 143/82 08/06/21 20:00 Pulse Ox 95 08/06/21 20:00 Weight last 48 hrs Weight 81.647 kg Physical Exam Narrative: NAD HEENT: EOMI, PERLLA, Thr (-), Nose (-) Neck: supple, Thy (-), Bruit (-), LN (-) CVS: S1S2, RRR, Mur (-) Abd: Soft, NT, BS+, HSM (-) Edema (-) 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 R/O ACS though less likely. R/O thy dis Status: Acute (2) Atrial fibrillation: NSR Status: Acute Qualifiers: Atrial fibrillation type: unspecified chronic Qualified Code(s): I48.20 - Chronic atrial fibrillation, unspecified (3) Ischemic cardiomyopathy: stable Status: Acute (4) Poorly-controlled hypertension: True vs stress Status: Acute (5) Dizziness: due to tachycardia Status: Acute (6) Ventricular arrhythmia: PVC on ECG Status: Acute (7) H/O heart artery stent: Status: Acute (8) Chronic kidney disease, stage 3: Status: Acute Qualifiers: Chronic kidney disease stage 3 subtype: stage 3a (GFR 45-59) Qualified Code(s): N18.31 - Chronic kidney disease, stage 3a (9) Left bundle branch block: Status: Acute (10) Benign essential HTN: Status: Acute (11) Dyslipidemia (high LDL; low HDL): Status: Acute Plan Jimmy x3 ECG Cardiac stress test Continue home meds ECHO Attestations Medical Necessity Statement*: Has h/o CAD, HTN, At fib, LBBB came with chest pain. This needs further w/u to r/o ACS. Will need hospitalization Coding Level of Care Code Acute Quality Assurance Monitor Chassis for [facility] Fwd Diagnoses Chest pain R07.9 Atrial fibrillation I48.20 Atrial fibrillation type: unspecified chronic Ischemic cardiomyopathy I25.5 Poorly-controlled hypertension I10 Dizziness R42 Ventricular arrhythmia I49.9 H/O heart artery stent Z95.5 Chronic kidney disease, stage 3 N18.31 Chronic kidney disease stage 3 subtype: stage 3a (GFR 45-59) Left bundle branch block I44.7 Benign essential HTN I10 Dyslipidemia (high LDL; low HDL) E78.5
[2021-08-07] VITALS: BP 106/61; PULSE 69; PULSE 93; RESP 18; TEMP 36.7; O2SAT 94
[2021-08-07 00:23] VITALS: PULSE 93
[2021-08-07 03:35] LABS: Basophils % 0.6 %; Eosinophils # 0.2 10^3/uL (0.0-0.8); Eosinophils % 3.2 %; Hematocrit 32.3 % (37.0-47.0); Hemoglobin 10.3 g/dL (11.5-15.3); Lymphocytes # 1.8 10^3/uL (0.8-4.8); Lymphocytes % 36.5 %; Mean Corpuscular HGB Conc 31.9 g/dL (30.0-36.0); Mean Corpuscular Hemoglobin 29.4 pg (28.0-34.0); Mean Corpuscular Volume 92.3 fl (81-99); Mean Platelet Volume 10.6 fL (7.4-10.4); Monocytes # 0.8 10^3/uL (0.2-0.9); Monocytes % 15.9 %; Neutrophils # 2.17 10^3/uL (1.8-7.7); Neutrophils % 43.6 %; Nucleated Red Blood Cells % 0 %; Platelet Count 132 10^3/cmm (130-400); Red Cell Distribution Width 14.8 % (12.1-15.1)
[2021-08-07 04:04] LABS: Magnesium 1.9 mg/dL (1.7-2.3); Thyroid Stimulating Hormone 2.45 uIU/mL (0.27-4.20)
[2021-08-07 04:05] VITALS: BP 125/76; PULSE 73; RESP 18; TEMP 36.7; O2SAT 97
--- NOTE | 2021-08-07 04:42 | PC.NURSE ---
pt rested quietly throughout shift. VSS. No complaints of pain. Pt up to bathroom independently. Adequate UOP. Pt frequently turned self independently. Frequent rounding done. All needs met.
[2021-08-07 05:13] VITALS: PULSE 60
[2021-08-07 08:00] VITALS: BP 150/82; PULSE 72; RESP 18; TEMP 36.5; O2SAT 97
--- NOTE | 2021-08-07 10:05 | P.DS_ITS ---
Discharge Providers Date of Admission: 08/06/21 06:28 Date of Discharge: August 07, 2021 Attending Provider at Admission: Chema Funes Attending Provider at Discharge: Jose Armando Galaviz MD Primary Care Provider: Oscar Quigley MD Diagnoses at Discharge Discharge Diagnosis (1) Chest pain: Status: Acute (2) Atrial fibrillation: Status: Acute Qualifiers: Atrial fibrillation type: unspecified chronic Qualified Code(s): I48.20 - Chronic atrial fibrillation, unspecified (3) Ischemic cardiomyopathy: Status: Acute (4) Poorly-controlled hypertension: Status: Acute (5) Dizziness: Status: Acute (6) Ventricular arrhythmia: Status: Acute (7) H/O heart artery stent: Status: Acute (8) Chronic kidney disease, stage 3: Status: Acute Qualifiers: Chronic kidney disease stage 3 subtype: stage 3a (GFR 45-59) Qualified Code(s): N18.31 - Chronic kidney disease, stage 3a (9) Left bundle branch block: Status: Acute (10) Benign essential HTN: Status: Acute (11) Dyslipidemia (high LDL; low HDL): Status: Acute Reason for Visit Reason for Visit: SOB, irregular heartbeat Hospital Course Hospital Course Lacey Burgess is a 76 year old female w/ h/o HTN, At fibrillation, CM, CAD came to the ED c/o palpitaion w/ irregula rhythm and chest discomfort since last night. Pt states that at around 9.30 pm she felt sudden palpitation w/ irregula heart rhythm . She felt a chest discomfort. Not associated w/ diaphoreis, SOB, dizziness. She went to bed thinking that it would resolve. She taken an extra dose? of Toprol before retiring. She could not sleep. At 2.30 pm she was driven to the ER While in the ED her Chest discomfort had resolved and palpitation improved. Pt is being admitted for further management of her? chest discomfort and palpitation Pt was admitted under telemetry. She had a cardiac stressed test which was normal. Jimmy though the initial oone was slightly high, remaing Jimmy were negative. Her palpitation and chest discomfort had resolved. Pt will f/u w/ Dr Zapien her research home economist with whom the case was also discussed. 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 Laboratory Results WBC 5.0 10^3/uL (4.0-10.0) 08/07/21 03:10 RBC 3.50 10^6/uL (4.1-5.3) L 08/07/21 03:10 Hgb 10.3 g/dL (11.5-15.3) L 08/07/21 03:10 Hct 32.3 % (37.0-47.0) L 08/07/21 03:10 MCV 92.3 fl (81-99) 08/07/21 03:10 MCH 29.4 pg (28.0-34.0) 08/07/21 03:10 MCHC 31.9 g/dL (30.0-36.0) 08/07/21 03:10 RDW 14.8 % (12.1-15.1) 08/07/21 03:10 Plt Count 132 10^3/cmm (130-400) 08/07/21 03:10 MPV 10.6 fL (7.4-10.4) H 08/07/21 03:10 Neut % (Auto) 43.6 % 08/07/21 03:10 Lymph % (Auto) 36.5 % 08/07/21 03:10 [place] % (Auto) 15.9 % 08/07/21 03:10 Eos % (Auto) 3.2 % 08/07/21 03:10 Baso % (Auto) 0.6 % 08/07/21 03:10 Neut # (Auto) 2.17 10^3/uL (1.8-7.7) 08/07/21 03:10 Lymph # (Auto) 1.8 10^3/uL (0.8-4.8) 08/07/21 03:10 [place] # (Auto) 0.8 10^3/uL (0.2-0.9) 08/07/21 03:10 Eos # (Auto) 0.2 10^3/uL (0.0-0.8) 08/07/21 03:10 Baso # (Auto) 0.0 10^3/uL (0.0-0.1) 08/07/21 03:10 Nucleated RBC % (auto) 0 % 08/07/21 03:10 Nucleated RBCs # 0.0 /100WBC 08/07/21 03:10 Sodium 138 mmol/L (136-145) 08/06/21 07:42 Potassium 3.9 mmol/L (3.5-5.1) 08/06/21 07:42 Chloride 104 mmol/L (98-107) 08/06/21 07:42 Carbon Dioxide 22 mmol/L (22-29) 08/06/21 07:42 Anion Gap 15.9 (5-19) 08/06/21 07:42 BUN 16 mg/dL (8-23) 08/06/21 07:42 Creatinine 1.0 mg/dL (0.5-0.9) H 08/06/21 07:42 GFR Calculation Not Reportable 08/06/21 07:42 Glucose 106 mg/dL (65-115) 08/06/21 07:42 Calculated Osmolality 288 mOsm/kg (285-295) 08/06/21 07:42 Calcium 9.5 mg/dL (8.5-10.5) 08/06/21 07:42 Magnesium 1.9 mg/dL (1.7-2.3) 08/07/21 03:10 Total Bilirubin 0.5 mg/dL (0.15-1.2) 08/06/21 07:42 AST 20 U/L (0-32) 08/06/21 07:42 ALT 17 U/L (0-33) 08/06/21 07:42 Alkaline Phosphatase 63 IU/L (35-105) 08/06/21 07:42 Troponin T Baseline 13 ng/L (0-10) H 08/06/21 02:50 Troponin T 120 Minute 12.67 ng/L (0-10) H 08/06/21 04:53 Delta Troponin T -0.33 ABS# (0-10) L 08/06/21 04:53 Troponin T Hi Sens 6Hr 12.71 ng/L (0-10) H 08/06/21 07:42 Troponin T Hi Sens 6Hr Delta -0.29 ng/L (0-12) L 08/06/21 07:42 NT-Pro-B Natriuret Pep 575 pg/mL (0-450) H 08/06/21 02:50 Total Protein 6.3 g/dL (6.6-8.7) L 08/06/21 07:42 Albumin 4.0 g/dL (3.5-5.2) 08/06/21 07:42 Globulin 2.3 g/dL (1.3-4.6) 08/06/21 07:42 Triglycerides 55 mg/dL (0-150) 08/06/21 07:42 Cholesterol 124 mg/dL (0-200) 08/06/21 07:42 LDL Cholesterol, Calc 51 mg/dL (50-129) 08/06/21 07:42 HDL Cholesterol 62 mg/dL (60-100) 08/06/21 07:42 LDL/HDL Ratio 0.82 RATIO (0.00-3.22) 08/06/21 07:42 Cholesterol/HDL Ratio 2.00 mg/dL (0.0-4.40) 08/06/21 07:42 TSH 2.45 uIU/mL (0.27-4.20) 08/07/21 03:10 Influenza Type A Ag Negative (Negative) 08/06/21 02:28 Influenza Type B Ag Negative (Negative) 08/06/21 02:28 SARS-CoV-2 Ag (Rapid) Negative (Negative) 08/06/21 02:28 Vitals Last Vital Signs Temp 97.7 F 08/07/21 08:00 Pulse 72 08/07/21 08:00 Resp 18 08/07/21 08:00 BP 150/82 08/07/21 08:00 Pulse Ox 97 08/07/21 08:00 Discharge Plan Discharge Patient Disposition: Home Condition: Stable Prescriptions: Continued metoprolol tartrate 25 mg tablet 25 mg PO .UP TO BID 0RF budesonide-formoterol 160-4.5 mcg/actuation HFA aerosol inhaler 2 inh inhalation BID Qty: 10.2 0RF Rx Instructions: 340 B cholecalciferol (vitamin D3) 2,000 unit tablet 2,000 unit PO DAILY@20 0RF cetirizine [All Day Allergy (cetirizine)] 10 mg tablet 10 mg PO BEDTIME 0RF polyethylene glycol 3350 [Miralax] 17 gram powder in packet 17 gm PO DAILY PRN (Reason: Constipation) 0RF Eliquis 5 mg tablet 5 mg PO BID Qty: 180 3RF Rx Instructions: 340B amlodipine 5 mg tablet 5 mg PO QAM 0RF sennosides-docusate sodium 8.6-50 mg tablet 2 tab PO BEDTIME 0RF acetaminophen [Tylenol Extra Strength] 500 mg Tablet 500 mg PO Q6H PRN (Reason: Pain) 0RF nitroglycerin 0.4 mg Tablet, Sublingual 0.4 mg sublingual Q5M PRN (Reason: Chest Pain) Qty: 25 0RF pantoprazole 40 mg Tablet,Delayed Release (Dr/Ec) 40 mg PO DAILY Qty: 30 0RF magnesium hydroxide [Milk of Magnesia] 400 mg/5 mL Suspension 30 ml PO DAILY PRN (Reason: Constipation) Qty: 0 0RF clopidogrel 75 mg tablet 75 mg PO QAM 0RF amiodarone [Pacerone] 200 mg tablet 100 mg PO DAILY@08 Qty: 0 0RF atorvastatin 80 mg tablet 80 mg PO BEDTIME 0RF levothyroxine 25 mcg tablet 25 mcg PO QAM 0RF No Action (DME) Enema Bag Misc MISCELLANEOUS 0RF Rx Instructions: PTS STATES HE MIXED UP WATER AND A LITTLE DISH SOAP Discharge Orders: Discharge Order (Routine); Ordered 08/07/21 Ordered By: Jose Armando Galaviz Referrals: Oscar Quigley MD [Primary Care Provider] - Discharge Diet: Cardiac Discharge Activity: Resume usual activity Patient Instructions: Opioid Safety Discharge Attestations Time Spent in Discharge Care*: greater than 30 min Time Spent in Smoking Cessation: 40 min Quality Metrics Clinical Quality Measures [ No reported AMI, CVA or VTE this stay] Coding Level of Care Code Acute Chg FW DC note Diagnoses Chest pain R07.9 Atrial fibrillation I48.20 Atrial fibrillation type: unspecified chronic Ischemic cardiomyopathy I25.5 Poorly-controlled hypertension I10 Dizziness R42 Ventricular arrhythmia I49.9 H/O heart artery stent Z95.5 Chronic kidney disease, stage 3 N18.31 Chronic kidney disease stage 3 subtype: stage 3a (GFR 45-59) Left bundle branch block I44.7 Benign essential HTN I10 Dyslipidemia (high LDL; low HDL) E78.5
--- NOTE | 2021-08-07 11:29 | PC.NURSE ---
patient verbalized understanding of discharge instructions, home medications, and follow up appointments. all questions answered. pt wheeled to main entrance and discharged home with .
[2021-08-07 11:31] VITALS: BP 150/82; PULSE 72; RESP 18; TEMP 36.5; O2SAT 97
== END 2021-08-07 11:31 | disposition home or self-care (01) ==
LOC: ER 06:38 → MEDSURG 06:39
PROVIDERS: Admitting Provider Internal Medicine; Emergency Provider Emergency Medicine; PCP Family Medicine; Visit Provider Internal Medicine
DX: I48.20 Chronic atrial fibrillation, unspecified (principal); R07.9 Chest pain, unspecified; I25.5 Ischemic cardiomyopathy; I12.9 Hypertensive chronic kidney disease with stage 1 through stage 4 chronic kidney disease, or unspecified chronic kidney disease; N18.31 Chronic kidney disease, stage 3a; R42 Dizziness and giddiness; I49.9 Cardiac arrhythmia, unspecified; Z95.5 Presence of coronary angioplasty implant and graft; I44.7 Left bundle-branch block, unspecified; E78.5 Hyperlipidemia, unspecified; I25.10 Atherosclerotic heart disease of native coronary artery without angina pectoris; Z82.49 Family history of ischemic heart disease and other diseases of the circulatory system
CPT/HCPCS: 36415; 71045; 78452; 80053; 80061; 83735; 83880; 84443; 84484; 85025; 87426; 87804; 93005; 93017; 99285; A9500; G0378; J2785

== ENCOUNTER → 2021-08-20 10:33 | Outpatient (BNVA) | payer MEDICARE, OTHER, SELFPAY | PROVIDERS: PCP Family Medicine; Visit Provider Nurse Practitioner Family | DX: R00.2 Palpitations (principal); I50.22 Chronic systolic (congestive) heart failure | CPT/HCPCS: 99214 ==

== ENCOUNTER → 2021-09-21 09:51 | Outpatient (BNVA) | payer MEDICARE, OTHER, SELFPAY | PROVIDERS: PCP Family Medicine; Visit Provider Internal Medicine Cardiovascular Disease | DX: I48.20 Chronic atrial fibrillation, unspecified (principal); I11.0 Hypertensive heart disease with heart failure; I50.22 Chronic systolic (congestive) heart failure; I25.10 Atherosclerotic heart disease of native coronary artery without angina pectoris; I44.7 Left bundle-branch block, unspecified; I42.8 Other cardiomyopathies | CPT/HCPCS: 80048; 83880; 99214 ==

== ENCOUNTER → 2021-10-30 09:17 | Outpatient (BNVA) | payer MEDICARE, OTHER, SELFPAY | PROVIDERS: PCP Family Medicine; Visit Provider Family Medicine | DX: I50.22 Chronic systolic (congestive) heart failure (principal); I42.8 Other cardiomyopathies; I25.10 Atherosclerotic heart disease of native coronary artery without angina pectoris; E03.8 Other specified hypothyroidism; I11.0 Hypertensive heart disease with heart failure | CPT/HCPCS: 80053; 84443; 85025 ==

== ENCOUNTER → 2021-11-10 14:46 | Outpatient (BNVA) | payer MEDICARE, OTHER, SELFPAY | PROVIDERS: PCP Family Medicine; Visit Provider Family Medicine Adult Medicine | DX: M25.572 Pain in left ankle and joints of left foot (principal); S93.402A Sprain of unspecified ligament of left ankle, initial encounter; X58.XXXA Exposure to other specified factors, initial encounter | CPT/HCPCS: 73610 ==

== ENCOUNTER → 2021-12-29 09:08 | Outpatient (BNVA) | payer MEDICARE, OTHER, SELFPAY | PROVIDERS: PCP Family Medicine; Visit Provider Family Medicine | DX: I48.20 Chronic atrial fibrillation, unspecified (principal); I10 Essential (primary) hypertension; D64.9 Anemia, unspecified; I50.22 Chronic systolic (congestive) heart failure; I25.10 Atherosclerotic heart disease of native coronary artery without angina pectoris; R00.1 Bradycardia, unspecified; I48.91 Unspecified atrial fibrillation | CPT/HCPCS: 80053; 83880; 84443; 85025 ==

== ENCOUNTER → 2022-01-20 15:11 | Outpatient (BNVA) | payer MEDICARE, OTHER, SELFPAY | PROVIDERS: PCP Family Medicine; Visit Provider Internal Medicine Cardiovascular Disease | DX: R06.02 Shortness of breath (principal); I11.0 Hypertensive heart disease with heart failure; I50.22 Chronic systolic (congestive) heart failure; I48.91 Unspecified atrial fibrillation; I25.10 Atherosclerotic heart disease of native coronary artery without angina pectoris; I49.9 Cardiac arrhythmia, unspecified; M79.89 Other specified soft tissue disorders | CPT/HCPCS: 36415; 80048; 83880; 99214 ==

== ENCOUNTER → 2022-04-21 16:31 | Outpatient (BNVA) | payer MEDICARE, OTHER, SELFPAY | PROVIDERS: PCP Family Medicine; Visit Provider Registered Nurse Neonatal Intensive Care | DX: R05.9 Cough, unspecified (principal) | CPT/HCPCS: 87400 ==

== ENCOUNTER → 2022-05-15 11:10 | Outpatient (BNVA) | payer MEDICARE, OTHER, SELFPAY | PROVIDERS: PCP Family Medicine; Visit Provider Family Medicine | DX: N39.0 Urinary tract infection, site not specified (principal); M54.41 Lumbago with sciatica, right side | CPT/HCPCS: 81000 ==

== ENCOUNTER 2022-06-07 13:30 | Outpatient (CLI) | payer MEDICARE, OTHER, SELFPAY ==
--- NOTE | 2022-06-07 13:45 | XR_ITS ---
WS: [id number] KUB, AP view, 06/07/2022 Clinical Data: constipation/ abd pain Comparison: None. Findings: No abnormal intraabdominal masses or definite renal calcifications are seen. There is no dilatated sm all bowel or evidence of obstruction. Bowel gas obscures detail over both kidneys. There are vascular calcifications on the splenic artery in the left upper quadrant. There is a levoscoliosis the lumbar spine. XR/XR KUB [id number] Impression: Negative KUB.
== END 2022-06-07 13:31 | disposition home or self-care (01) ==
LOC: RAD 13:33
PROVIDERS: PCP Family Medicine; Visit Provider Family Medicine
DX: K59.00 Constipation, unspecified (principal)
CPT/HCPCS: 74018

== ENCOUNTER 2022-06-14 13:05 | Outpatient (CLI) | payer MEDICARE, OTHER, SELFPAY ==
--- NOTE | 2022-06-14 13:19 | MM_ITS ---
WS: [id number] BILATERAL 3D TOMOSYNTHESIS DIGITAL SCREENING MAMMOGRAPHY WITH CAD CLINICAL INFORMATION: SCREENING HISTORY: Screening mammogram. No current complaints. COMPARISON: April 23, 2021 TECHNIQUE: Bilateral CC and MLO views. FINDINGS: Scattered fibroglandular densities bilaterally. No suspicious focal mass, asymmetry, calcifications, or architectural distortion. No evidence of malignancy. Vascular calcification. Punctate and lucent c entered calcifications. A few clustered calcifications. MM/[place] [id number] IMPRESSION: BI-RADS: 2-Benign FOLLOW UP: 1 Year Follow-up Recommend return to annual screening mammography.
== END 2022-06-14 13:06 | disposition home or self-care (01) ==
LOC: RAD 13:08
PROVIDERS: PCP Family Medicine; Visit Provider Family Medicine
DX: Z12.31 Encounter for screening mammogram for malignant neoplasm of breast (principal)
CPT/HCPCS: 77063; 77067

== ENCOUNTER 2022-07-21 14:53 | Outpatient (CLI) | payer MEDICARE, OTHER, SELFPAY | END 2022-07-21 14:54 | disposition home or self-care (01) | LOC: LAB 14:59 | PROVIDERS: PCP Family Medicine; Visit Provider Internal Medicine Cardiovascular Disease | DX: R06.02 Shortness of breath (principal); I10 Essential (primary) hypertension; Z79.899 Other long term (current) drug therapy; I25.10 Atherosclerotic heart disease of native coronary artery without angina pectoris; I48.20 Chronic atrial fibrillation, unspecified; I25.5 Ischemic cardiomyopathy; R06.09 Other forms of dyspnea | CPT/HCPCS: 36415; 80048; 83880; 99214 ==

== ENCOUNTER 2022-07-30 06:24 | Emergency (ER) | payer MEDICARE, OTHER, SELFPAY ==
[2022-07-30 06:30] VITALS: BP 156/89; PULSE 76; RESP 26; TEMP 36.5; O2SAT 95; BMI 34.9
--- NOTE | 2022-07-30 06:30 | XR_ITS ---
WS: [id number] Portable AP upright chest, 07/30/2022 Clinical Data: dyspnea/cough Comparison: Portable chest, 08/06/2021 Findings: There is a patchy opacity extending from the right hilum into the right middle lobe which c ould represent atelectasis and/or pneumonia. The patient is slightly rotated. The heart is slightly e nlarged. No nodules, masses or effusions are seen. The pulmonary vascularity is not increased. There is no pneumothorax. The aortic arch and descending thoracic aorta show calcification and tortuosity. There are surgical clips in the right supraclavicular region. Monitor leads are on the chest wall. XR/XR chest 1V portable [id number] Impression: 1. Patchy opacity extending from right hilum in the right middle lobe which may represent atelectasis and/or pneumonia. 2. Cardiomegaly and atherosclerosis.
--- NOTE | 2022-07-30 06:53 | ECG_ITS ---
[facility] Test Date: 2022-07-30 Pat Name: Lacey Burgess Department: Room: Gender: Female Optician Manager: : 1945 Requested By: Madan Rush Order Number: [id number] Jamil MD: Hemant Kidd M.D. Measurements Intervals [place] Rate: 78 P: 15 ME: 162 QRS: -38 QRSD: 147 T: 111 QT: 431 QTc: 493 Interpretive Statements SINUS RHYTHM LEFT AXIS DEVIATION [QRS AXIS < -30] LEFT BUNDLE BRANCH BLOCK [120+ ms QRS DURATION, 80+ ms Q/S IN V1/V2, 85+ ms R IN I/aVL/V5/V6] Compared to ECG 08/06/2021 07:57:36 Left-axis deviation now present Ventricular premature complex(es) no longer present Electronically Signed On 07-30-2022 15:12:01 TAPE EDGE MACHINE OPERATOR by Hemant Kidd M.D. [email or web address]
--- NOTE | 2022-07-30 06:59 | ED_ITS ---
HPI - General Adult General: Chief complaint: General Medical Stated complaint: high bp, cough, weakness Time Seen by Provider: 07/30/22 06:29 Source: patient Mode of arrival: ambulatory History of Present Illness: 77-year-old female presents to the emergency room complaining of elevated blood pressure, shortness of breath and productive cough that has been going on for nearly a year. She denies any fever. She has a history of coronary artery disease. Her medication list was reviewed. She also has a history of atrial fibrillation and is on anticoagulation. She denies any chest pain at this time. She is mildly hypertensive on arrival she has not taken any of her home blood pressure medications. The productive cough is at the baseline for her for the last year. She denies any orthopnea. She feels her symptoms of shortness of breath and cough have worsened over the last couple of days. She has a history of congestive heart failure as well. Onset (ago): day(s) Relieving factors: none Exacerbating factors: none Associated symptoms: Reports cough; Deny chest pain, confusion, diaphoresis, decreased appetite, dyspnea, fevers/chills, headache(s), malaise, nausea, rash, palpitations, seizures, short of breath, syncope, vomiting or weakness Treatments prior to arrival: none Review of Systems Const: Denies: fever(s), chills, malaise or diaphoresis Card: Denies: chest pain, palpitations or syncope Resp: Denies: dyspnea GI: Denies: nausea or vomiting Skin/Breast: Denies: rash Neuro: Denies: headache(s) or confusion PFS ED PFSH: Medical History Atherosclerosis of coronary artery Bacteriuria Benign essential HTN CAD (coronary artery disease) Chest pain Chronic HFrEF (heart failure with reduced ejection fraction) Dyslipidemia (high LDL; low HDL) Hypertension Hyponatremia Left ankle sprain Left bundle branch block Left lateral ankle pain Ventricular arrhythmia Surgical History H/O breast biopsy H/O heart artery stent H/O lumpectomy H/O thyroidectomy History of hysterectomy Hx of tonsillectomy Family History Family/Other CAD (coronary artery disease) Father Cancer Son Chronic kidney disease (CKD) Mother Dementia Stroke Other Hypertension Denies family history of Diabetes Clotting disorder Hyperlipidemia Suicide Anesthesia complication Bleeding disorder Family history of premature coronary artery disease Lung disease Social History Smoking and tobacco status: never smoked Alcohol intake: never Marital status: Physical Exam Const: GENERAL APPEARANCE: cooperative and comfortable ORIENTATION/CONSCIOUSNESS: Yes awake, Yes oriented to person, Yes oriented to place and Yes oriented to time HENMT: COMMON NORMALS: normocephalic, atraumatic and hearing grossly normal bilaterally HEAD & SCALP: normocephalic and atraumatic Resp: COMMON NORMALS: normal respiratory effort, No retractions, No use of accessory muscles and clear to auscultation bilaterally AUSCULTATION: clear to auscultation bilaterally Cardio: COMMON NORMALS: regular rate, regular rhythm and No murmurs present (Cardio) RATE: regular rate RHYTHM: regular rhythm GI: COMMON NORMALS: Soft to palpation and No hepatosplenomegaly present AUSCULTATION: Yes normoactive bowel sounds PALPATION: Yes Soft to palpation, No Tenderness to palpation present (GI), No Guarding due to palpation present (GI) and Yes No hepatosplenomegaly present Extremity: COMMON NORMALS: normal to inspection, capillary refill normal, no clubbing, cyanosis or edema, no calf tenderness and no pedal edema Neuro: SENSORIUM/ORIENTATION: Yes oriented to person, Yes oriented to place and Yes oriented to time Skin: COMMON NORMALS: no rashes or lesions noted GENERAL SKIN EXAM: no rashes or lesions noted Course Vital Signs: Vital signs: Vital Signs Temperature 97.7 F 07/30/22 06:30 Pulse Rate 82 07/30/22 12:16 Respiratory Rate 16 07/30/22 12:16 Blood Pressure 143/63 07/30/22 08:30 Pulse Oximetry 98 07/30/22 12:16 [facility] - General Adult Medical Decision Making Hypertension improved after treatment. Labs imaging and EKG reviewed no acute ST changes. She lists amlodipine as an allergy however it caused swelling according to her reaction in the chart. I discussed with her at this point I think it may be worth trying a small dose to try to help control her blood pressure as she is already on several other medications and this is likely to have less side effects on some of the others. We will just put her on 2.5 mg daily for now discussed with her that usually the swelling is a dose-related phenomenon. We will increase her hydralazine as well to 75 3 times daily have her follow-up with her primary care doctor within the week return here if she has further problems. Medical Records I reviewed the patient's medical records. Lab Data I reviewed the patient's lab results. 07/30/22 07:07 07/30/22 07:07 Radiology Impressions Chest X-Ray 07/30/22 06:30 Impression: 1. Patchy opacity extending from right hilum in the right middle lobe which may represent atelectasis and/or pneumonia. 2. Cardiomegaly and atherosclerosis. Laboratory Results WBC 5.6 10^3/uL (4.0-10.0) 07/30/22 07:07 RBC 3.91 10^6/uL (4.1-5.3) L 07/30/22 07:07 Hgb 11.3 g/dL (11.5-15.3) L 07/30/22 07:07 Hct 35.3 % (37.0-47.0) L 07/30/22 07:07 MCV 90.3 fl (81-99) 07/30/22 07:07 MCH 28.9 pg (28.0-34.0) 07/30/22 07:07 MCHC 32.0 g/dL (30.0-36.0) 07/30/22 07:07 RDW 15.2 % (12.1-15.1) H 07/30/22 07:07 Plt Count 162 10^3/cmm (130-400) 07/30/22 07:07 MPV 10.5 fL (7.4-10.4) H 07/30/22 07:07 Neut % (Auto) 54.6 % 07/30/22 07:07 Lymph % (Auto) 26.7 % 07/30/22 07:07 Carlisle % (Auto) 14.2 % 07/30/22 07:07 Eos % (Auto) 3.2 % 07/30/22 07:07 Baso % (Auto) 0.9 % 07/30/22 07:07 Neut # (Auto) 3.07 10^3/uL (1.8-7.7) 07/30/22 07:07 Lymph # (Auto) 1.5 10^3/uL (0.8-4.8) 07/30/22 07:07 Carlisle # (Auto) 0.8 10^3/uL (0.2-0.9) 07/30/22 07:07 Eos # (Auto) 0.2 10^3/uL (0.0-0.8) 07/30/22 07:07 Baso # (Auto) 0.1 10^3/uL (0.0-0.1) 07/30/22 07:07 Nucleated RBC % (auto) 0 % 07/30/22 07:07 Nucleated RBCs # 0.0 /100WBC 07/30/22 07:07 Sodium 138 mmol/L (136-145) 07/30/22 07:07 Potassium 3.8 mmol/L (3.5-5.1) 07/30/22 07:07 Chloride 105 mmol/L (98-107) 07/30/22 07:07 Carbon Dioxide 20 mmol/L (22-29) L 07/30/22 07:07 Anion Gap 16.8 (5-19) 07/30/22 07:07 BUN 16 mg/dL (8-23) 07/30/22 07:07 Creatinine 1.1 mg/dL (0.5-0.9) H 07/30/22 07:07 GFR Calculation Not Reportable 07/30/22 07:07 Glucose 115 mg/dL (65-115) 07/30/22 07:07 Calculated Osmolality 288 mOsm/kg (285-295) 07/30/22 07:07 Calcium 9.1 mg/dL (8.5-10.5) 07/30/22 07:07 Total Bilirubin 0.5 mg/dL (0.15-1.2) 07/30/22 07:07 AST 18 U/L (0-32) 07/30/22 07:07 ALT 12 U/L (0-33) 07/30/22 07:07 Alkaline Phosphatase 70 U/L (35-105) 07/30/22 07:07 Troponin T Baseline 14 ng/L (0-10) H 07/30/22 07:07 Troponin T 120 Minute 13.81 ng/L (0-10) H 07/30/22 09:08 Delta Troponin T -0.19 ABS# (0-10) L 07/30/22 09:08 NT-Pro-B Natriuret Pep 677 pg/mL (0-450) H 07/30/22 07:07 Total Protein 6.2 g/dL (6.6-8.7) L 07/30/22 07:07 Albumin 3.9 g/dL (3.5-5.2) 07/30/22 07:07 Globulin 2.3 g/dL (1.3-4.6) 07/30/22 07:07 Urine Color Yellow (Yellow) 07/30/22 07:20 Urine Appearance Clear (CLEAR) 07/30/22 07:20 Urine pH 5 (5-7) 07/30/22 07:20 Ur Specific Mikana 1.015 (1.005-1.030) 07/30/22 07:20 Urine Protein Neg (Negative) 07/30/22 07:20 Urine Glucose (UA) Norm (Normal) 07/30/22 07:20 Urine Ketones Negative (Negative) 07/30/22 07:20 Urine Blood Neg (Negative) 07/30/22 07:20 Urine Nitrate Negative (Negative) 07/30/22 07:20 Urine Bilirubin Neg (Negative) 07/30/22 07:20 Urine Urobilinogen Norm mg/dL (Negative) 07/30/22 07:20 Ur Leukocyte Esterase Negative (Negative) 07/30/22 07:20 Discharge Plan Discharge Patient Disposition: Home Clinical Impression: Benign essential HTN Condition: Stable Prescriptions: New amlodipine 2.5 mg tablet 2.5 mg PO DAILY Qty: 30 0RF hydralazine 50 mg tablet 75 mg PO TID Qty: 90 0RF Discontinued hydralazine 50 mg tablet 50 mg PO TID Qty: 90 5RF No Action cholecalciferol (vitamin D3) 2,000 unit tablet 2,000 unit PO DAILY@20 cetirizine [All Day Allergy (cetirizine)] 10 mg tablet 10 mg PO BEDTIME polyethylene glycol 3350 [Miralax] 17 gram powder in packet 17 gm PO DAILY PRN (Reason: Constipation) acetaminophen 500 mg tablet 500 mg PO Q6H PRN (Reason: pain) Qty: 30 0RF levothyroxine 25 mcg tablet 25 mcg PO QAM Qty: 90 3RF amiodarone 100 mg tablet 100 mg PO DAILY albuterol sulfate [Ventolin HFA] 90 mcg/actuation HFA aerosol inhaler 2 puff inhalation Q6H PRN (Reason: shortness of breath or wheezing) Qty: 8.5 11RF Eliquis 5 mg tablet 5 mg PO BID Qty: 180 3RF metoprolol tartrate 25 mg tablet 25 mg PO BID Qty: 180 3RF sennosides-docusate sodium 8.6-50 mg tablet 2 tab PO BEDTIME nitroglycerin 0.4 mg Tablet, Sublingual 0.4 mg sublingual Q5M PRN (Reason: Chest Pain) Qty: 25 0RF magnesium hydroxide [Milk of Magnesia] 400 mg/5 mL Suspension 30 ml PO DAILY PRN (Reason: Constipation) Qty: 0 atorvastatin 80 mg tablet 80 mg PO BEDTIME clopidogrel 75 mg tablet 75 mg PO DAILY spironolactone 25 mg tablet 25 mg PO DAILY pantoprazole 40 mg tablet,delayed release (DR/EC) 40 mg PO DAILY Discharge Orders: Discharge ED (Routine); Ordered 07/30/22 Ordered By: Madan Sifuentes Referrals: Oscar Quigley MD [Primary Care Provider] - Discharge Diet: Usual diet Discharge Activity: Increase activity as tolerated Patient Instructions: Opioid Safety, Pain Management Activity Restrictions/Additional Instructions: You were seen today for elevated blood pressure. Recommend that you start amlodipine at a low dose. Swelling from amlodipine is usually dose related. Would recommend you start on 2 and half milligrams daily for now. Increase your hydralazine to 75 mg 3 times a day. Follow-up with Dr. Cortés next week. Recommend you also discussed with him the chronic cough. Coding Level of Care Code ED Equipment Associate for Daisy Mitchell
[2022-07-30 07:15] VITALS: BP 123/96; PULSE 75; RESP 18; O2SAT 95
[2022-07-30 07:15] LABS: Basophils # 0.1 10^3/uL (0.0-0.1); Basophils % 0.9 %; Eosinophils # 0.2 10^3/uL (0.0-0.8); Eosinophils % 3.2 %; Hematocrit 35.3 % (37.0-47.0); Hemoglobin 11.3 g/dL (11.5-15.3); Lymphocytes # 1.5 10^3/uL (0.8-4.8); Lymphocytes % 26.7 %; Mean Corpuscular Hemoglobin 28.9 pg (28.0-34.0); Mean Corpuscular Volume 90.3 fl (81-99); Mean Platelet Volume 10.5 fL (7.4-10.4); Monocytes # 0.8 10^3/uL (0.2-0.9); Monocytes % 14.2 %; Neutrophils # 3.07 10^3/uL (1.8-7.7); Neutrophils % 54.6 %; Nucleated Red Blood Cells % 0 %; Platelet Count 162 10^3/cmm (130-400); Red Blood Count 3.91 10^6/uL (4.1-5.3); Red Cell Distribution Width 15.2 % (12.1-15.1); White Blood Count 5.6 10^3/uL (4.0-10.0)
[2022-07-30] MEDS: metoprolol tartrate 25 mg Tablet PO (07:19)
[2022-07-30] MEDS: amiodarone 200 mg Tablet 100 MG PO (07:19)
[2022-07-30] MEDS: hyDRALAzine 25 mg Tablet PO (07:19)
[2022-07-30 07:30] VITALS: BP 153/85; PULSE 70; RESP 18; O2SAT 96
[2022-07-30 07:33] LABS: Add Urine Microscopic? NO; Charge for UA Resulting for Rev
[2022-07-30 07:34] LABS: Bilirubin Urine Neg (Negative); Blood Urine Neg (Negative); Glucose Urine UA Norm (Normal); Ketones Urine Negative (Negative); Leukocyte Esterase Urine Negative (Negative); Nitrate Urine Negative (Negative); Protein Urine Neg (Negative); Specific Gravity, Urine 1.015 (1.005-1.030); Urine Appearance Clear (CLEAR); Urine Color Yellow (Yellow); Urobilinogen Urine Norm (Negative); pH Urine 5 (5-7)
[2022-07-30 07:38] LABS: Troponin(5th) Baseline 14 ng/L (0-10)
[2022-07-30 07:45] LABS: Alanine Aminotransferase 12 U/L (0-33); Albumin Level 3.9 g/dL (3.5-5.2); Alkaline Phosphatase 70 U/L (35-105); Anion Gap 16.8 (5-19); Aspartate Amino Transferase 18 U/L (0-32); Blood Urea Nitrogen 16 mg/dL (8-23); Calcium 9.1 mg/dL (8.5-10.5); Carbon Dioxide 20 mmol/L (22-29); Chloride 105 mmol/L (98-107); Globulin 2.3 g/dL (1.3-4.6); Glucose 115 mg/dL (65-115); NT Pro B Type Natriuretic Pept 677 pg/mL (0-450); Osmolality Calculated 288 mOsm/kg (285-295); Potassium 3.8 mmol/L (3.5-5.1); Sodium 138 mmol/L (136-145); Total Bilirubin 0.5 mg/dL (0.15-1.2); Total Protein 6.2 g/dL (6.6-8.7)
[2022-07-30 08:00] VITALS: BP 123/63; PULSE 63; RESP 24; O2SAT 95
[2022-07-30 08:30] VITALS: BP 143/63; PULSE 61; RESP 14; O2SAT 96
[2022-07-30 09:34] LABS: Troponin 5 2HR 13.81 ng/L (0-10)
[2022-07-30 09:40] LABS: Troponin 5 2HR Delta -0.19 ABS# (0-10)
[2022-07-30 12:16] VITALS: PULSE 82; RESP 16; O2SAT 98
== END 2022-07-30 12:18 | disposition home or self-care (01) ==
PROVIDERS: Emergency Provider Family Medicine; PCP Family Medicine
DX: I11.0 Hypertensive heart disease with heart failure (principal); I50.22 Chronic systolic (congestive) heart failure; I25.10 Atherosclerotic heart disease of native coronary artery without angina pectoris; I48.91 Unspecified atrial fibrillation; E78.5 Hyperlipidemia, unspecified; I44.7 Left bundle-branch block, unspecified; Z79.01 Long term (current) use of anticoagulants
CPT/HCPCS: 71045; 80053; 81003; 83880; 84484; 85025; 93005; 99285

== ENCOUNTER 2022-08-11 08:01 | Outpatient (CLI) | payer MEDICARE, OTHER, SELFPAY ==
--- NOTE | 2022-08-11 08:30 | USCV_ITS ---
Lacey Burgess Age: 77 Gender: F : 1945 Exam Date: 08/11/2022 08:16 Ordering Phys: Oscar Quigley MD Technologist: CELESTE Exam Location: [facility] [place] Indication: EVAL FOR CHRONIC HEART FAILURE BP: 136 / 72 HR: 64 Rhythm: Sinus Technical Quality: Adequate MEASUREMENTS (Male / Female) Normal Values 2D ECHO LVOT Diameter 2.0 cm LV Ejection Fraction MOD 2C 61.7 % LV Ejection Fraction 2C AL 62.0 % LA Diameter 3.6 cm LA Width 4.8 cm LA Height 5.2 cm RA Width 3.5 cm RA Height 4.8 cm Aorta at Sinotubular Diameter 2.3 cm IVC Diameter 1.2 cm M-MODE Aortic Annulus Diameter 2.6 cm LA Ao Ratio MM 1.3 MV E Point Septal Separation 0.3 cm DOPPLER AV Peak Velocity 169.7 cm/s LVOT Peak Velocity 117.0 cm/s AV Area Cont Eq vti 2.3 cm squared AV Area Cont Eq pk 2.2 cm squared MV Peak Velocity 107.0 cm/s MV Area PHT 3.2 cm squared Mitral E to A Ratio 0.8 MV E' Velocity 56.8 cm/s Mitral E to MV E' Ratio 9.7 Mitral E to LV E' Lateral Ratio 8.5 Mitral E to LV E' Septal Ratio 11.4 TR Peak Velocity 256.9 cm/s TR Peak Gradient 26.4 mmHg TR Mean Velocity 228.0 cm/s TR Mean Gradient 21.5 mmHg TR Velocity Time Integral 92.2 cm TV Peak E Velocity 57.0 cm/s Right Atrial Pressure 3.0 mmHg Pulmonary Artery Systolic Pressu 29.4 mmHg PV Peak Velocity 114.0 cm/s RV Acceleration Time 0.2 s RV Ejection Time 0.3 s RV AcT/ET 0.5 FINDINGS Left Ventricle Normal left ventricular size and systolic function, EF 62 %. Mild left ventricular hypertrophy. No regional wall motion abnormalities. Grade I/IV diastolic dysfunction (abnormal relaxation filling pattern), normal to mildly elevated filling pressures. Right Ventricle The right ventricle is normal in size and function. Right Atrium The right atrium is normal in size. Left Atrium Mildly increased left atrial size. Mitral Valve Mild mitral annular calcification. Mild mitral valve regurgitation. Aortic Valve Minimally thickened aortic valve Tricuspid Valve Mild tricuspid valve regurgitation. Pulmonic Valve Structurally normal pulmonic valve without significant stenosis. There is no pulmonic regurgitation. Pericardium Normal pericardium without effusion. Aorta Normal ascending aorta dimension. IVC The inferior vena cava appears normal. CONCLUSIONS Normal left ventricular size and systolic function, EF 62 %. Mild left ventricular hypertrophy. No regional wall motion abnormalities. Grade I/IV diastolic dysfunction (abnormal relaxation filling pattern), normal to mildly elevated filling pressures. Mildly increased left atrial size. Mild mitral annular calcification. Mild mitral valve regurgitation. Mild tricuspid valve regurgitation. Minimally thickened aortic valve. There is no pericardial effusion. There are no intracardiac masses. Compared to the study from 01/28/2021 there is significant improvement of the LV ejection fraction from 45-50% to 62%. Dr Monica Zapien MD [facility] (Electronically Signed) Final Date: 15 August 2022 16:31 S
== END 2022-08-11 08:02 | disposition home or self-care (01) ==
LOC: RAD 08:04
PROVIDERS: PCP Family Medicine; Visit Provider Family Medicine
DX: I50.22 Chronic systolic (congestive) heart failure (principal); R60.9 Edema, unspecified; I08.3 Combined rheumatic disorders of mitral, aortic and tricuspid valves
CPT/HCPCS: 93306

== ENCOUNTER → 2022-11-10 14:10 | Outpatient (BNVA) | payer MEDICARE, OTHER, SELFPAY | PROVIDERS: PCP Family Medicine; Visit Provider Nurse Practitioner Family | DX: I48.20 Chronic atrial fibrillation, unspecified (principal); I25.10 Atherosclerotic heart disease of native coronary artery without angina pectoris; I11.0 Hypertensive heart disease with heart failure; I50.22 Chronic systolic (congestive) heart failure; Z79.01 Long term (current) use of anticoagulants | CPT/HCPCS: 99214 ==

== ENCOUNTER 2023-02-23 14:00 | Outpatient (CLI) | payer MEDICARE, OTHER, SELFPAY | END 2023-02-23 14:01 | disposition home or self-care (01) | PROVIDERS: PCP Family Medicine; Visit Provider Family Medicine | DX: R05.9 Cough, unspecified (principal); I50.22 Chronic systolic (congestive) heart failure; I48.91 Unspecified atrial fibrillation; I10 Essential (primary) hypertension; D64.9 Anemia, unspecified | CPT/HCPCS: 71046; 80053; 80061; 83880; 85025 ==

== ENCOUNTER → 2023-05-11 15:07 | Outpatient (BNVA) | payer MEDICARE, OTHER, SELFPAY | PROVIDERS: PCP Family Medicine; Visit Provider Internal Medicine Cardiovascular Disease | DX: I48.20 Chronic atrial fibrillation, unspecified (principal); Z79.01 Long term (current) use of anticoagulants; I11.0 Hypertensive heart disease with heart failure; I50.22 Chronic systolic (congestive) heart failure; I49.8 Other specified cardiac arrhythmias; I44.7 Left bundle-branch block, unspecified; I43 Cardiomyopathy in diseases classified elsewhere | CPT/HCPCS: 99214 ==

== ENCOUNTER → 2023-05-26 11:16 | Outpatient (BNVA) | payer MEDICARE, OTHER, SELFPAY | PROVIDERS: PCP Family Medicine; Visit Provider Family Medicine | DX: I10 Essential (primary) hypertension (principal); I50.22 Chronic systolic (congestive) heart failure | CPT/HCPCS: 80048; 83880 ==

== ENCOUNTER → 2023-06-29 11:45 | Outpatient (BNVA) | payer MEDICARE, OTHER, SELFPAY | PROVIDERS: PCP Family Medicine; Visit Provider Family Medicine | DX: J40 Bronchitis, not specified as acute or chronic (principal); I48.91 Unspecified atrial fibrillation | CPT/HCPCS: 87420 ==

== ENCOUNTER → 2023-07-04 09:38 | Outpatient (BNVA) | payer MEDICARE, OTHER, SELFPAY | PROVIDERS: PCP Family Medicine; Referring Provider Family Medicine; Visit Provider Otolaryngology | DX: K14.8 Other diseases of tongue (principal); R05.3 Chronic cough; D10.1 Benign neoplasm of tongue; J39.2 Other diseases of pharynx; M26.621 Arthralgia of right temporomandibular joint; E65 Localized adiposity | CPT/HCPCS: 31575; 99204; 99205 ==

== ENCOUNTER 2023-07-08 11:38 | Outpatient (CLI) | payer MEDICARE, OTHER, SELFPAY ==
--- NOTE | 2023-07-08 11:45 | MM_ITS ---
WS: [id number] Bilateral screening 3D tomosynthesis digital mammogram, 07/08/2023 Clinical Data: SCREEN Comparison: 06/14/2022, 04/23/2021, 01/21/2020, 12/21/2018, 12/02/2017, 12/01/2016, 11/05/2015, 10/24/2014, 09/20, 09/07/2012, 07/26/2011, 05/27/2010, 11/19/2008, 11/10/2007, 11/19/2005. Findings: The breast parenchymal pattern shows parenchymal tissue. No spiculated masses or clustered calcificat ions are seen. There are no secondary signs of carcinoma. There are small scattered calcifications an d vascular calcifications in both breasts. There are bilateral lymph nodes in the axilla. Impression: 1. Negative bilateral mammogram unchanged. 2. Recommend annual screening mammograms. MM/[place] [id number] BIRADS: 1-Negative FOLLOW UP: 1 Year Follow-up The CAD receiving checker was used.
== END 2023-07-08 11:39 | disposition home or self-care (01) ==
LOC: RAD 11:38
PROVIDERS: PCP Family Medicine; Visit Provider Family Medicine
DX: Z12.31 Encounter for screening mammogram for malignant neoplasm of breast (principal)
CPT/HCPCS: 77063; 77067

== ENCOUNTER → 2023-11-09 12:30 | Outpatient (BNVA) | payer MEDICARE, OTHER, SELFPAY | PROVIDERS: PCP Family Medicine; Visit Provider Internal Medicine Cardiovascular Disease | DX: R06.02 Shortness of breath (principal); M79.89 Other specified soft tissue disorders; Z79.899 Other long term (current) drug therapy; I10 Essential (primary) hypertension; I48.20 Chronic atrial fibrillation, unspecified; I25.10 Atherosclerotic heart disease of native coronary artery without angina pectoris; R00.1 Bradycardia, unspecified | CPT/HCPCS: 36415; 80048; 83880; 99214 ==

== ENCOUNTER 2023-11-22 06:08 | Outpatient (CLI) | payer MEDICARE, OTHER, SELFPAY ==
--- NOTE | 2023-11-22 06:30 | USCV_ITS ---
Lacey Burgess Age: 78 Gender: F : 1945 Exam Date: 11/22/2023 06:15 Ordering Phys: Monica Zapien MD ([email or web address]) Technologist: CELESTE Exam Location: [facility] [place] Indication: LLE SWELLING HISTORY: Lower extremity swelling. PROCEDURES: Venous duplex imaging was performed in only the left lower extremity. The following venous structures were evaluated: common femoral vein, profunda vein, proximal portion of the greater saphenous vein, superficial femoral vein, and the popliteal vein. In addition, the posterior tibial and peroneal trunk were evaluated. Serial compression, augmentation maneuvers, and spectral Doppler flow evaluation were performed. FINDINGS: No evidence of DVT seen in any vessel visualized at this time. CONCLUSIONS No evidence of left lower extremity DVT. Usman Bateman MD (Electronically Signed) Final Date: 22 November 2023 09:28 S
== END 2023-11-22 06:09 | disposition home or self-care (01) ==
LOC: RAD 06:08
PROVIDERS: PCP Family Medicine; Visit Provider Internal Medicine Cardiovascular Disease
DX: R06.02 Shortness of breath (principal); M79.89 Other specified soft tissue disorders
CPT/HCPCS: 93971

== ENCOUNTER 2023-11-28 12:33 | Emergency (ER) | payer MEDICARE, OTHER, SELFPAY ==
[2023-11-28 12:36] VITALS: BP 128/87; PULSE 68; RESP 18; TEMP 36.5; O2SAT 96; BMI 34.9
--- NOTE | 2023-11-28 13:22 | CTR_ITS ---
PROCEDURE INFORMATION: Exam: CT Abdomen And Pelvis With Contrast Exam date and time: 11/28/2023 2:57 PM Age: 78 years old Clinical indication: Abdominal pain; Generalized; Additional info: Abd pain TECHNIQUE: Imaging protocol: Computed tomography of the abdomen and pelvis with contrast. Radiation optimization: All CT scans at this facility use at least one of these dose optimization techniques: automated exposure control; mA and/or kV adjustment per patient size (includes targeted exams where dose is matched to clinical indication); or iterative reconstruction. Contrast material: OMNI 350; Contrast volume: 80 ml; Contrast route: INTRAVENOUS (IV); COMPARISON: 1. CR XR KUB [id number] 06/07/2022 1:[address] angio chest PE protcl [id number] 07/22/2020 12:46 PM RADIATION DOSE METRICS: Total DLP (mGy-cm): 1105.93 FINDINGS: Lungs: 6 mm right middle lobe nodule on axial image 1 of series 3, uncertain if stable from July 2020 given motion artifact degradation in this region on that exam. Mild dependent atelectasis. Lingular linear atelectasis versus scarring. Mild bilateral paramediastinal compressive atelectasis. Diaphragm: Moderate hiatal hernia. Liver: Normal. No mass. Gallbladder and biliary ducts: Mild dependent layering gallbladder hyperdensity may represent sludge and/or cholelithiasis without CT findings of cholecystitis. No biliary ductal dilatation. Pancreas: Normal. No ductal dilation. Spleen: Normal. No splenomegaly. Adrenal glands: Normal. No mass. Kidneys and ureters: Moderate bilateral renal atrophy with left renal cysts and multiple bilateral subcentimeter hypodensities too small to characterize but are statistically likely benign and require no dedicated imaging follow-up. Small bilateral renal calcifications without hydronephrosis. Otherwise unremarkable. Stomach and bowel: No bowel dilatation to suggest obstruction. Colonic diverticulosis without findings of diverticulitis. There is suggestion of mild rectosigmoid thickening and adjacent fat stranding. Appendix: No evidence of appendicitis. Intraperitoneal space: No free air. No significant fluid collection. Vasculature: Moderate to heavy systemic atherosclerosis without abdominal aortic aneurysm. Lymph nodes: Unremarkable. No enlarged lymph nodes. Urinary bladder: Unremarkable as visualized. Reproductive: The uterus is surgically absent. Bones/joints: No acute fracture. Transitional lumbosacral anatomy with bilateral pseudoarticulation. Degenerative changes along the spine and pubic symphysis. Nonaggressive sclerotic focus of the right proximal femur. Soft tissues: Unremarkable. CT/CT abdomen pelvis w con* [id number] IMPRESSION: 1. Suggestion of mild rectosigmoid thickening and adjacent fat stranding may indicate proctocolitis, neoplasm not excluded. 2. Moderate bilateral renal atrophy and mild bilateral nonobstructive nephrolithiasis. 3. Gallbladder sludge and/or cholelithiasis. 4. Moderate hiatal hernia. 5. 6 mm right middle lobe nodule. For patients at low risk (minimal or absent history of smoking and of other known risk factors), recommend CT Chest at 3-6 months, then consider CT Chest at 18-24 months. For patients at high risk (history of smoking or of other known risk factors), recommend CT Chest at 3-6 months, then CT Chest at 18-24 months. (Reference: Abiola) COMMENTS: Consistent with the [place] [employer]'s Incidental Findings Committee white paper (J Am Brittany Radiol 2018): Any incidental renal lesion less than 1 cm or classified as too small to characterize, or any incidental cystic renal lesion characterized as simple-appearing, is likely benign. No follow-up imaging is recommended for these lesions per consensus recommendations based on imaging criteria. REFERENCES: Abiola Lema, et al. Guidelines for Management of Incidental Pulmonary Nodules Detected on CT Images: From the Fleischner Society 2017. Radiology. 2017;284(1):228-243.
--- NOTE | 2023-11-28 13:25 | ED_ITS ---
HPI - Abdominal Pain 2 General: Chief Complaint: Abdominal Pain Stated Complaint: Abd pain /Constipation Time Seen by Provider: 11/28/23 12:37 Source: patient Mode of arrival: ambulatory History of Present Illness: 70-year-old female [facility] with complaints of abdominal pain constipation she said for the last 4 days she has been very constipated she had a few small bowel movements she tried milk of magnesia with no significant relief she also tried an enema she denies hematochezia melena hematemesis or coffee-ground emesis. She had a colonoscopy approximately 10 years ago was told it was normal has not had a subsequent one since. No history of any GI or colon issues in the past. She does have a known history of coronary disease had a stent placed after an MO about 4 years ago. He is not on any anticoagulants. MD elicited complaint: abdominal pain Pertinent past history: constipation Pain Consistency: intermittent Location: Diffuse Severity: moderate Quality: cramping Radiation: other (Diffuse) Exacerbating factors: nothing Relieving factors: nothing Associated Symptoms: Reports bloating, constipation and GI cramping; Denies anorexia, belching, change in bowel habits, change in stool character, chills, coffee ground emesis, diarrhea, dyspepsia, dysuria, excessive flatus, fever(s), heartburn, hematochezia, hematuria, hematemesis, fecal incontinence, loose stools, melena, nausea, poor appetite, syncope and vomiting Review of Systems 2 Const: Denies: fever(s) or chills Card: Denies: chest pain or syncope Resp: Denies: dyspnea GI: Reports: abdominal pain, constipation, bloating and GI cramping; Denies: nausea, vomiting, hematemesis, coffee ground emesis, heartburn, diarrhea, belching, excessive flatus, fecal incontinence, change in bowel habits, change in stool character, hematochezia or melena : Reports: difficulty voiding; Denies: dysuria, urinary frequency, urinary urgency or hematuria Musc: Denies: neck pain or back pain Skin/Breast: Denies: rash PFSH ED 2 PFSH: Medical History Left ankle sprain Left lateral ankle pain Chronic HFrEF (heart failure with reduced ejection fraction) Bacteriuria Hyponatremia CAD (coronary artery disease) Atherosclerosis of coronary artery Benign essential HTN Left bundle branch block Ventricular arrhythmia Dyslipidemia (high LDL; low HDL) Chest pain Hypertension Surgical History H/O heart artery stent History of hysterectomy H/O lumpectomy H/O thyroidectomy Hx of tonsillectomy H/O breast biopsy Family History Family/Other CAD (coronary artery disease) Father Cancer Son Chronic kidney disease (CKD) Mother Dementia Stroke Other Hypertension Denies family history of Diabetes Clotting disorder Hyperlipidemia Suicide Anesthesia complication Bleeding disorder Family history of premature coronary artery disease Lung disease Social History Smoking and tobacco/nicotine status: never used tobacco/nicotine Alcohol intake: never Substance/Drug Use: never Marital status: Physical Exam 2 Const: GENERAL APPEARANCE: cooperative and comfortable O RIENTATION/CONSCIOUSNESS: Yes awake, Yes oriented to person, Yes oriented to place and Yes oriented to time HENMT: COMMON NORMALS: normocephalic, atraumatic and hearing grossly normal bilaterally HEAD & SCALP: normocephalic and atraumatic Resp: COMMON NORMALS: normal respiratory effort, No retractions, No use of accessory muscles and clear to auscultation bilaterally AUSCULTATION: clear to auscultation bilaterally Cardio: COMMON NORMALS: regular rate, regular rhythm and No murmurs present (Cardio) RATE: regular rate RHYTHM: regular rhythm GI: COMMON NORMALS: No hepatosplenomegaly present INSPECTION: Yes abdominal distension AUSCULTATION: Yes normoactive bowel sounds PALPATION: Yes Tenderness to palpation present (GI), No Guarding due to palpation present (GI) and Yes No hepatosplenomegaly present Extremity: COMMON NORMALS: normal to inspection, capillary refill normal, no clubbing, cyanosis or edema, no calf tenderness and no pedal edema Neuro: SENSORIUM/ORIENTATION: Yes oriented to person, Yes oriented to place and Yes oriented to time Skin: COMMON NORMALS: no rashes or lesions noted GENERAL SKIN EXAM: no rashes or lesions noted Course 2 Vital Signs: Vital signs: Vital Signs Temperature 97.7 F 11/28/23 12:36 Pulse Rate 62 11/28/23 14:30 Respiratory Rate 36 H 11/28/23 14:30 Blood Pressure 130/68 11/28/23 16:00 Pulse Oximetry 98 11/28/23 16:00 Oxygen Delivery Me thod Room Air 11/28/23 12:36 MDM - Abdominal Pain Medical Decision Making CT of the abdomen showed an area of inflammation I suspect it may be from the patient's enema attempt. They also said could be a potential neoplasm although she tells me she had a colonoscopy in the past that was normal with thinks it was around 10 years ago. It could also be infectious per the radiologist report. Her white count is normal. Would suspect it was infectious and would probably give her diarrhea rather than be further constipated. Will cover with a short course of Augmentin which may have the benefit of causing some loose stools as well. Gave her lactulose to use for a laxative to help relieve her constipation. Incidental finding of a lung nodule in the right lung. Patient does not have a history of smoking. Discussed these findings with the patient and encouraged her to follow-up with her primary care doctor Dr. Cortés he can review the CT and find more of her history and decide whether or not the patient needs to have any further evaluation of the colon based on her history of colonoscopies and what follow-up would be appropriate for her lung nodule. Medical Records I reviewed the patient's medical records. Lab Data I reviewed the patient's lab results. 11/28/23 12:45 11/28/23 12:45 Labs/Radiology: Radiology Impressions Abdomen/Pelvis CT 11/28/23 13:22 IMPRESSION: 1. Suggestion of mild rectosigmoid thickening and adjacent fat stranding may indicate proctocolitis, neoplasm not excluded. 2. Moderate bilateral renal atrophy and mild bilateral nonobstructive nephrolithiasis. 3. Gallbladder sludge and/or cholelithiasis. 4. Moderate hiatal hernia. 5. 6 mm right middle lobe nodule. For patients at low risk (minimal or absent history of smoking and of other known risk factors), recommend CT Chest at 3-6 months, then consider CT Chest at 18-24 months. For patients at high risk (history of smoking or of other known risk factors), recommend CT Chest at 3-6 months, then CT Chest at 18-24 months. (Reference: Abiola) COMMENTS: Consistent with the [employer]'s Incidental Findings Committee white paper (J Am Brittany Radiol 2018): Any incidental renal lesion less than 1 cm or classified as too small to characterize, or any incidental cystic renal lesion characterized as simple-appearing, is likely benign. No follow-up imaging is recommended for these lesions per consensus recommendations based on imaging criteria. REFERENCES: Abiola Lema et al. Guidelines for Management of Incidental Pulmonary Nodules Detected on CT Images: From the Fleischner Society 2017. Radiology. 2017;284(1):228-243. Laboratory Results WBC 10.26 10^3/uL (3.29-11.43) 11/28/23 12:45 RBC 4.11 10^6/uL (3.85-5.65) 11/28/23 12:45 Hgb 12.20 g/dL (11.27-16.99) 11/28/23 12:45 Hct 38.3 % (36-47) 11/28/23 12:45 MCV 93.2 fl (85-98) 11/28/23 12:45 MCH 29.7 pg (27-33) 11/28/23 12:45 MCHC 31.9 g/dL (30-55) 11/28/23 12:45 RDW 15.2 % (12.1-15.1) H 11/28/23 12:45 Plt Count 160 10^3/cmm (157-399) 11/28/23 12:45 MPV 10.3 fL (7.4-10.4) 11/28/23 12:45 Neut % (Auto) 78.5 % 11/28/23 12:45 Lymph % (Auto) 11.9 % 11/28/23 12:45 Cedar % (Auto) 7.6 % 11/28/23 12:45 Eos % (Auto) 0.9 % 11/28/23 12:45 Baso % (Auto) 0.5 % 11/28/23 12:45 Neut # (Auto) 8.06 10^3/uL (1.8-7.7) H 11/28/23 12:45 Lymph # (Auto) 1.2 10^3/uL (0.8-4.8) 11/28/23 12:45 Cedar # (Auto) 0.8 10^3/uL (0.2-0.9) 11/28/23 12:45 Eos # (Auto) 0.1 10^3/uL (0.0-0.8) 11/28/23 12:45 Baso # (Auto) 0.1 10^3/uL (0.0-0.1) 11/28/23 12:45 Nucleated RBC % (auto) 0 % 11/28/23 12:45 Nucleated RBCs # 0.0 /100WBC 11/28/23 12:45 Sodium 134 mmol/L (136-145) L 11/28/23 12:45 Potassium 4.5 mmol/L (3.5-5.1) 11/28/23 12:45 Chloride 102 mmol/L (98-107) 11/28/23 12:45 Carbon Dioxide 22 mmol/L (22-29) 11/28/23 12:45 Anion Gap 14.5 (5-19) 11/28/23 12:45 BUN 29 mg/dL (8-23) H 11/28/23 12:45 Creatinine 1.5 mg/dL (0.5-0.9) H 11/28/23 12:45 GFR Calculation Not Reportable 11/28/23 12:45 Glucose 109 mg/dL (65-115) 11/28/23 12:45 Calculated Osmolality 284 mOsm/kg (285-295) L 11/28/23 12:45 Calcium 8.7 mg/dL (8.5-10.5) 11/28/23 12:45 Total Bilirubin 0.4 mg/dL (0.15-1.2) 11/28/23 12:45 AST 20 U/L (0-32) 11/28/23 12:45 ALT 14 U/L (0-33) 11/28/23 12:45 Alkaline Phosphatase 76 U/L (35-105) 11/28/23 12:45 Total Protein 6.4 g/dL (6.6-8.7) L 11/28/23 12:45 Albumin 4.0 g/dL (3.5-5.2) 11/28/23 12:45 Globulin 2.4 g/dL (1.3-4.6) 11/28/23 12:45 Urine Color Yellow (Yellow) 11/28/23 16:11 Urine Appearance Clear (CLEAR) 11/28/23 16:11 Urine pH 8 (5-7) H 11/28/23 16:11 Ur Specific [place] 1.005 (1.005-1.030) 11/28/23 16:11 Urine Protein Neg (Negative) 11/28/23 16:11 Urine Glucose (UA) Norm (Normal) 11/28/23 16:11 Urine Ketones Negative (Negative) 11/28/23 16:11 Urine Blood Neg (Negative) 11/28/23 16:11 Urine Nitrate Negative (Negative) 11/28/23 16:11 Urine Bilirubin Neg (Negative) 11/28/23 16:11 Urine Urobilinogen Norm mg/dL (Negative) 11/28/23 16:11 Ur Leukocyte Esterase Negative (Negative) 11/28/23 16:11 All radiology interpretation(s) finalized by discharge Discharge Plan Discharge Patient Disposition: Home Clinical Impression: Colitis Condition: Stable Prescriptions: New ciprofloxacin HCl 500 mg tablet 500 mg PO BID Qty: 14 0RF metronidazole 500 mg tablet 500 mg PO BID 7 Days Qty: 14 0RF lactulose 20 gram/30 mL solution 30 ml PO Q2H 2 Days Qty: 720 0RF Rx Instructions: until desired laxative effect No Action cholecalciferol (vitamin D3) 2,000 unit tablet 2,000 unit PO DAILY@20 cetirizine [All Day Allergy (cetirizine)] 10 mg tablet 10 mg PO BEDTIME acetaminophen 500 mg tablet 500 mg PO Q6H PRN (Reason: pain) Qty: 30 0RF amlodipine 2.5 mg tablet 2.5 mg PO BID Qty: 180 2RF metoprolol tartrate 25 mg tablet 25 mg PO BID Qty: 180 3RF nitroglycerin 0.4 mg tablet, sublingual 0.4 mg sublingual Q5M PRN (Reason: Chest Pain) Qty: 25 0RF albuterol sulfate [Ventolin HFA] 90 mcg/actuation HFA aerosol inhaler 2 puff inhalation Q6H PRN (Reason: shortness of breath or wheezing) Qty: 8.5 11RF Eliquis 5 mg tablet 5 mg PO BID Qty: 180 3RF sennosides-docusate sodium 8.6-50 mg tablet 2 tab PO BEDTIME magnesium hydroxide [Milk of Magnesia] 400 mg/5 mL Suspension 30 ml PO DAILY PRN (Reason: Constipation) Qty: 0 atorvastatin 80 mg tablet 80 mg PO QPM amiodarone 200 mg tablet 100 mg PO QAM clopidogrel 75 mg tablet 75 mg PO QAM potassium chloride 8 mEq capsule, extended release 8 meq PO DAILY PRN (Reason: Edema) spironolactone 25 mg tablet 25 mg PO DAILY levothyroxine 25 mcg tablet 25 mcg PO QAM pantoprazole 40 mg tablet,delayed release (DR/EC) 40 mg PO QAM Lasix 20 mg tablet 20 mg PO DAILY PRN (Reason: Edema) Acidophilus Capsule 20 mg PO DAILY Discharge Orders: Discharge ED (Routine); Ordered 11/28/23 Ordered By: Madan Sifuentes Referrals: Oscar Quigley MD [Primary Care Provider] - Discharge Diet: Clear Liquid Discharge Activity: Increase activity as tolerated Patient Instructions: Opioid Safety, Pain Management Activity Restrictions/Additional Instructions: Thank you for choosing [facility] for your healthcare needs today. It is very important that you follow up as instructed or that you return to the Emergency Department should you have concerns or if your condition changes or worsens in any way. You were seen in the emergency room with complaint of abdominal pain and constipation. There was some mild inflammation in the colon on the CT but no major abnormalities. This may have been caused by the enema that you attempted recently. It may be a sign of some irritation of the colon and the sign of infection although this seems slightly less likely. Recommend you take a short course of antibiotics also gave you lactulose to use as a laxative to relieve the constipation. Your laboratory tests were otherwise unremarkable. A portion of the CT of your abdomen and included some images in your lung were a small nodule was seen. You should follow-up with your primary care doctor to review this and see if any further evaluation is needed. Coding Level of Care Code ED Echocardiography Technologist for Daisy Mitchell
[2023-11-28 13:30] VITALS: BP 128/87; PULSE 59; RESP 15; O2SAT 99
--- NOTE | 2023-11-28 13:33 | PC.PHAR ---
PT CARRIES CURRENT MED LIST AND HAS TAKEN HER AM MEDS.
[2023-11-28 13:45] VITALS: BP 128/87; PULSE 61; RESP 16; O2SAT 98
[2023-11-28 14:00] VITALS: BP 149/100; PULSE 74; RESP 20; O2SAT 99
[2023-11-28 14:28] LABS: Basophils # 0.1 10^3/uL (0.0-0.1); Basophils % 0.5 %; Eosinophils # 0.1 10^3/uL (0.0-0.8); Eosinophils % 0.9 %; Hematocrit 38.3 % (36-47); Lymphocytes # 1.2 10^3/uL (0.8-4.8); Lymphocytes % 11.9 %; Mean Corpuscular HGB Conc 31.9 g/dL (30-55); Mean Corpuscular Hemoglobin 29.7 pg (27-33); Mean Corpuscular Volume 93.2 fl (85-98); Mean Platelet Volume 10.3 fL (7.4-10.4); Monocytes # 0.8 10^3/uL (0.2-0.9); Monocytes % 7.6 %; Neutrophils # 8.06 10^3/uL (1.8-7.7); Neutrophils % 78.5 %; Nucleated Red Blood Cells % 0 %; Platelet Count 160 10^3/cmm (157-399); Red Blood Count 4.11 10^6/uL (3.85-5.65); Red Cell Distribution Width 15.2 % (12.1-15.1); White Blood Count 10.26 10^3/uL (3.29-11.43)
[2023-11-28 14:30] VITALS: BP 123/71; PULSE 62; RESP 36; O2SAT 100
[2023-11-28 14:38] LABS: Alanine Aminotransferase 14 U/L (0-33); Alkaline Phosphatase 76 U/L (35-105); Anion Gap 14.5 (5-19); Aspartate Amino Transferase 20 U/L (0-32); Blood Urea Nitrogen 29 mg/dL (8-23); Calcium 8.7 mg/dL (8.5-10.5); Carbon Dioxide 22 mmol/L (22-29); Chloride 102 mmol/L (98-107); Creatinine Clr Calc Pharmacy 35.2805; Globulin 2.4 g/dL (1.3-4.6); Glucose 109 mg/dL (65-115); Osmolality Calculated 284 mOsm/kg (285-295); Potassium 4.5 mmol/L (3.5-5.1); Sodium 134 mmol/L (136-145); Total Bilirubin 0.4 mg/dL (0.15-1.2); Total Protein 6.4 g/dL (6.6-8.7)
[2023-11-28] MEDS: iohexol 350 mg/mL 500 mL Btl (per mL) IV (14:59)
[2023-11-28] MEDS: sodium chloride 0.9% 1,000 ML 999 ML IV (15:31)
[2023-11-28 16:00] VITALS: BP 130/68; O2SAT 98
[2023-11-28 16:36] LABS: Add Urine Microscopic? NO; Charge for UA Resulting for Rev
[2023-11-28 16:45] LABS: Bilirubin Urine Neg (Negative); Blood Urine Neg (Negative); Glucose Urine UA Norm (Normal); Ketones Urine Negative (Negative); Leukocyte Esterase Urine Negative (Negative); Nitrate Urine Negative (Negative); Protein Urine Neg (Negative); Specific Gravity, Urine 1.005 (1.005-1.030); Urine Appearance Clear (CLEAR); Urine Color Yellow (Yellow); Urobilinogen Urine Norm (Negative); pH Urine 8 (5-7)
== END 2023-11-28 17:27 | disposition home or self-care (01) ==
PROVIDERS: Emergency Provider Family Medicine; PCP Family Medicine
DX: K52.9 Noninfective gastroenteritis and colitis, unspecified (principal); Z79.01 Long term (current) use of anticoagulants; Z79.02 Long term (current) use of antithrombotics/antiplatelets; I11.0 Hypertensive heart disease with heart failure; I50.22 Chronic systolic (congestive) heart failure; I25.10 Atherosclerotic heart disease of native coronary artery without angina pectoris; E78.5 Hyperlipidemia, unspecified
CPT/HCPCS: 74177; 80053; 81003; 85025; 96360; 99285; J7030; Q9967

== ENCOUNTER → 2024-02-09 10:00 | Outpatient (BNVA) | payer MEDICARE, OTHER, SELFPAY | PROVIDERS: PCP Family Medicine; Visit Provider Family Medicine | DX: F41.9 Anxiety disorder, unspecified (principal); I10 Essential (primary) hypertension; I25.5 Ischemic cardiomyopathy; I48.20 Chronic atrial fibrillation, unspecified | CPT/HCPCS: 80053; 83880; 85025 ==

== ENCOUNTER → 2024-05-09 09:48 | Outpatient (BNVA) | payer MEDICARE, OTHER, SELFPAY | PROVIDERS: PCP Family Medicine; Visit Provider Family Medicine | DX: F41.9 Anxiety disorder, unspecified (principal); I50.22 Chronic systolic (congestive) heart failure; I48.20 Chronic atrial fibrillation, unspecified | CPT/HCPCS: 80053; 85025 ==

== ENCOUNTER → 2024-05-14 13:33 | Outpatient (BNVA) | payer MEDICARE, OTHER, SELFPAY | PROVIDERS: PCP Family Medicine; Visit Provider Internal Medicine Cardiovascular Disease | DX: I48.20 Chronic atrial fibrillation, unspecified (principal); I11.0 Hypertensive heart disease with heart failure; I50.22 Chronic systolic (congestive) heart failure; I25.10 Atherosclerotic heart disease of native coronary artery without angina pectoris; E78.5 Hyperlipidemia, unspecified; Z79.01 Long term (current) use of anticoagulants | CPT/HCPCS: 99214 ==

== ENCOUNTER 2024-06-11 08:18 | Outpatient (CLI) | payer MEDICARE, OTHER, SELFPAY ==
--- NOTE | 2024-06-11 08:30 | CT_ITS ---
WS: [id number] CT chest wo con [id number] HISTORY: lung nodule TECHNIQUE: Axial imaging performed through the thorax. Coronal and sagittal reformats are submitted. All CT scans at [facility] use at least one of these dose optimization techniques: automated exposure control; mA and/or kV adjustment per patient size (includes targeted exams where dose is mat ched to clinical indication); or iterative reconstruction. CONTRAST: None DLP: 526.08 mGy.cm COMPARISON: 07/22/2020, 11/27/2021, 08/02/2011 Lungs and central airway: Limited inspiration and breathing motion artifact. RIGHT middle lobe 6 mm n odule is reidentified. This nodule is a perifissural nodule and is been stable since at least 2011. T here is an additional long-term stable curvilinear 9 mm opacification at the RIGHT apex. Pleura: Normal. No pleural effusion. Heart and pericardium: Mild cardiomegaly. Mediastinum and kan: No mediastinum or hilar adenopathy. Vessels: Mild ectatic thoracic aorta. Normal size pulmonary artery. Scattered coronary artery calcifi cations. Chest wall and lower neck: No soft tissue masses. Upper abdomen: Large hiatal hernia. Stomach is essentially intrathoracic. There is no obstruction or ischemia. Hepatic cyst posterior to the RIGHT hepatic vein. Cyst measures 2.7 cm. No adrenal mass. De nse calcification in the splenic artery. Diffuse atrophy of the pancreas. Cortical thinning and atrop hy superior poles of each kidney. Osseous structures: Mild increase in thoracic kyphosis. CT/CT chest wo con [id number] IMPRESSION: 1. RIGHT middle lobe 6 mm pulmonary nodules the perifissural nodule as seen on prior studies. This nodule has been stable over multiple prior years dating ba to 2011. No additional follow-up necessary. 2. No new mass or pulmonary nodule. 3. No adenopathy. 4. Intrathoracic stomach. 5. Stable hepatic cyst. 6. Pancreatic atrophy and atrophy superior pole of each kidney.
== END 2024-06-11 08:19 | disposition home or self-care (01) ==
LOC: RAD 08:19
PROVIDERS: PCP Family Medicine; Visit Provider Family Medicine
DX: R91.1 Solitary pulmonary nodule (principal); R93.3 Abnormal findings on diagnostic imaging of other parts of digestive tract; K76.89 Other specified diseases of liver; K86.89 Other specified diseases of pancreas; N26.1 Atrophy of kidney (terminal); R91.8 Other nonspecific abnormal finding of lung field; I51.7 Cardiomegaly; I77.810 Thoracic aortic ectasia; I25.10 Atherosclerotic heart disease of native coronary artery without angina pectoris; K44.9 Diaphragmatic hernia without obstruction or gangrene; I70.8 Atherosclerosis of other arteries; M40.294 Other kyphosis, thoracic region
CPT/HCPCS: 71250

== ENCOUNTER 2024-07-27 08:15 | Outpatient (CLI) | payer MEDICARE, OTHER, SELFPAY ==
--- NOTE | 2024-07-27 08:20 | MM_ITS ---
WS: [id number] BILATERAL SCREENING DIGITAL TOMOSYNTHESIS MAMMOGRAM WITH CAD HISTORY: SCREENING COMPARISON: 07/08/2023, 06/14/2022 Bilateral CC and MLO views with tomosynthesis and synthetic mammography submitted. Computer aided detection analyzed. Breast composition: There are scattered areas of fibroglandular density. No suspicious masses, microcalcifications or architectural distortion. Scattered asymmetries and calcifications and arterial calcifications are similar to prior studies. Area of slight distortion in the medial LEFT breast seen on the CC projection is similar to the exam from 2019. MM/MM [facility] tomosynthesis [id number] IMPRESSION: BI-RADS: 2 - Benign. FOLLOW UP: 1 Year Follow-up
== END 2024-07-27 08:16 | disposition home or self-care (01) ==
LOC: RAD 08:16
PROVIDERS: PCP Family Medicine; Visit Provider Family Medicine
DX: Z12.31 Encounter for screening mammogram for malignant neoplasm of breast (principal); R92.323 Mammographic fibroglandular density, bilateral breasts; N64.89 Other specified disorders of breast; R92.1 Mammographic calcification found on diagnostic imaging of breast
CPT/HCPCS: 77063; 77067

== ENCOUNTER → 2024-08-06 13:54 | Outpatient (BNVA) | payer MEDICARE, OTHER, SELFPAY | PROVIDERS: PCP Family Medicine; Visit Provider Family Medicine | DX: I50.22 Chronic systolic (congestive) heart failure (principal); I48.20 Chronic atrial fibrillation, unspecified; D64.9 Anemia, unspecified | CPT/HCPCS: 80053; 83880; 85025 ==

== ENCOUNTER → 2024-09-08 12:23 | Outpatient (BNVA) | payer MEDICARE, OTHER, SELFPAY | PROVIDERS: PCP Family Medicine; Visit Provider Nurse Practitioner Family | DX: R39.9 Unspecified symptoms and signs involving the genitourinary system (principal) | CPT/HCPCS: 81000; 87077; 87086; 87184 ==

== ENCOUNTER → 2024-09-10 16:12 | Outpatient (BNVA) | payer MEDICARE, OTHER, SELFPAY | PROVIDERS: PCP Family Medicine | DX: M25.512 Pain in left shoulder (principal) | CPT/HCPCS: 73030 ==

== ENCOUNTER 2024-09-11 09:15 | Outpatient (CLI) | payer MEDICARE, OTHER, SELFPAY ==
--- NOTE | 2024-09-11 09:26 | XR_ITS ---
WS: [email or web address] Exam: [place] [id number] Date/Time of Exam: 09/11/2024 9:33 AM Reason For Exam: fell into wall corner. acute pain in left scapula spine No fracture or dislocation noted. Soft tissues are unremarkable. Soft tissue calcification along the humeral head might reflect calcific tendinitis and/or bursitis. XR/[place] [id number] IMPRESSION: 1. Negative scapula.
--- NOTE | 2024-09-11 09:26 | XR_ITS ---
WS: [id number] Exam: XR cervical spine 3V* [id number] Date/Time of Exam: 09/11/2024 9:33 AM Reason For Exam: fell and hit head and neck No acute fracture. Degenerative disc change and mild spondylosis from C5-C7. Facet DJD at all levels. The dens is intact. Mild levoscoliosis. Paraspinal soft tissues are unremarkable. Surgical clips in the base of the neck on the RIGHT. Mild left carotid artery calcifications. XR/XR cervical spine 3V* [id number] IMPRESSION: 1. Moderate degenerative change from C5-C7 as noted. 2. No fracture or malalignment. Additional chronic findings.
== END 2024-09-11 09:16 | disposition home or self-care (01) ==
PROVIDERS: PCP Family Medicine; Visit Provider Emergency Medicine
DX: M25.512 Pain in left shoulder (principal); W19.XXXA Unspecified fall, initial encounter; M50.322 Other cervical disc degeneration at C5-C6 level; M50.323 Other cervical disc degeneration at C6-C7 level; M79.89 Other specified soft tissue disorders; M47.892 Other spondylosis, cervical region; M41.82 Other forms of scoliosis, cervical region; I65.22 Occlusion and stenosis of left carotid artery
CPT/HCPCS: 72040; 73010

== ENCOUNTER 2024-09-17 06:48 | Outpatient (CLI) | payer MEDICARE, OTHER, SELFPAY ==
--- NOTE | 2024-09-17 07:00 | CT_ITS ---
WS: [id number] CT HEAD NONCONTRAST HISTORY: fell and hit head on corner of wall. is on blood thinners TECHNIQUE: Contiguous axial imaging performed through the brain. Bone and soft tissue windows. Sagittal and coronal reformats reviewed. All CT scans at [facility] use at least one of these dose optimization techniques: automated exposure control; mA and/or kV adjustment per patient size (includes targeted exams where dose is matched to clinical indication); or iterative reconstruction. DLP: 1013.04 mGy.cm COMPARISON: 11/28/2020 No acute intracranial hemorrhage, midline shift or mass effect. Mild atrophy and small vessel disease. Mild cerebral and cerebral atrophy. Ventricles: Normal size with no hydrocephalus. No inferior displacement of the cerebellar tonsils. Paranasal sinuses: As visualized are clear. Mastoid air cells: Well pneumatized. Calvarium and scalp: Skull is intact with no soft tissue edema or swelling. CT/CT head wo con* [id number] IMPRESSION: 1. No acute intracranial hemorrhage or edema. 2. No skull fracture or scalp hematoma. 3. Age-appropriate cerebral and cerebellar atrophy and mild small vessel disea se.
== END 2024-09-17 06:49 | disposition home or self-care (01) ==
PROVIDERS: PCP Family Medicine; Visit Provider Emergency Medicine
DX: S09.90XA Unspecified injury of head, initial encounter (principal); G31.89 Other specified degenerative diseases of nervous system; I67.89 Other cerebrovascular disease; X58.XXXA Exposure to other specified factors, initial encounter
CPT/HCPCS: 70450

== ENCOUNTER → 2024-10-23 12:26 | Outpatient (BNVA) | payer MEDICARE, OTHER, SELFPAY | PROVIDERS: PCP Family Medicine; Visit Provider Family Medicine | DX: R30.0 Dysuria (principal) | CPT/HCPCS: 81000; 87086 ==

== ENCOUNTER → 2024-10-31 17:20 | Outpatient (BNVA) | payer MEDICARE, OTHER, SELFPAY | PROVIDERS: PCP Family Medicine; Visit Provider Nurse Practitioner | DX: R09.89 Other specified symptoms and signs involving the circulatory and respiratory systems (principal); K44.9 Diaphragmatic hernia without obstruction or gangrene | CPT/HCPCS: 71046 ==

== ENCOUNTER → 2024-11-12 08:43 | Outpatient (BNVA) | payer MEDICARE, OTHER, SELFPAY | PROVIDERS: PCP Family Medicine; Visit Provider Nurse Practitioner Family | DX: I49.8 Other specified cardiac arrhythmias (principal); I48.20 Chronic atrial fibrillation, unspecified; I11.0 Hypertensive heart disease with heart failure; I50.22 Chronic systolic (congestive) heart failure; E78.5 Hyperlipidemia, unspecified; J45.909 Unspecified asthma, uncomplicated; Z79.01 Long term (current) use of anticoagulants | CPT/HCPCS: 99214 ==

== ENCOUNTER 2024-12-11 11:25 | Outpatient (CLI) | payer MEDICARE, OTHER, SELFPAY | END 2024-12-11 11:26 | disposition home or self-care (01) | LOC: RT 11:27 | PROVIDERS: PCP Family Medicine; Visit Provider Family Medicine | DX: R05.3 Chronic cough (principal); R94.2 Abnormal results of pulmonary function studies | CPT/HCPCS: 94010; 94726; 94729 ==

== ENCOUNTER 2024-12-17 07:17 | Outpatient (CLI) | payer MEDICARE, OTHER, SELFPAY ==
--- NOTE | 2024-12-17 07:45 | USCV_ITS ---
Lacey Burgess Age: 79 Gender: F : 1945 Exam Date: 12/17/2024 07:37 Ordering Phys: Loree Sevilla Technologist: Exam Location: [facility] Indication: cp sob BP: 140 / 94 HR: 68 Rhythm: Sinus Technical Quality: Adequate MEASUREMENTS (Male / Female) Normal Values 2D ECHO LV Diastolic Diameter PLAX 4.4 cm 4.2 - 5.9 / 3.9 - 5.3 cm IVS Diastolic Thickness 1.1 cm 0.6 - 1.0 / 0.6 - 0.9 cm IVS Systolic Thickness 1.6 cm LVPW Diastolic Thickness 1.0 cm 0.6 - 1.0 / 0.6 - 0.9 cm LVPW Systolic Thickness 1.3 cm LVOT Diameter 2.0 cm LV Ejection Fraction 2D Teich 67.8 % LV Ejection Fraction MOD 4C 63.8 % LV Ejection Fraction MOD 2C 66.3 % LV Ejection Fraction 2C AL 66.6 % LA Diameter 3.4 cm RA Systolic Volume 4C AL 46.0 ml RA Systolic Volume 4C MOD 45.6 ml Aorta at Sinotubular Diameter 2.8 cm M-MODE LA Ao Ratio MM 1.3 AV Cusp Separation MM 2.3 cm DOPPLER AV Peak Velocity 155.0 cm/s AV Area Cont Eq vti 2.9 cm squared AV Area Cont Eq pk 2.0 cm squared MV Peak Velocity 99.0 cm/s MV Area PHT 3.7 cm squared Mitral E to A Ratio 0.9 TV Peak Velocity 249.0 cm/s TR Peak Velocity 294.0 cm/s TR Peak Gradient 34.6 mmHg TV Peak E Velocity 78.0 cm/s PV Peak Velocity 120.0 cm/s FINDINGS Left Ventricle Normal left ventricular size and systolic function. Ejection fraction 66%. Normal left ventricular wall thickness mild hypertrophy of the ventricular septum. Normal left ventricular diastolic function. Right Ventricle Normal right ventricular size and function Right Atrium Normal right atrial size Left Atrium Normal left atrial size Mitral Valve Mild mitral regurgitation Aortic Valve Normal aortic valve structure and function Tricuspid Valve Trace tricuspid valve regurgitation. Normal pulmonary pressure. Pulmonic Valve Mild pulmonic valve regurgitation Pericardium Normal pericardium Aorta Normal size of the ascending aorta and aortic root IVC IVC not well-visualized CONCLUSIONS 1. Normal left ventricular systolic function, EF 66% 2. Normal left ventricular diastolic function 3. No significant valvular abnormalities. Tyler Wade MD, FACC (Electronically Signed) Final Date: 18 December 2024 13:15 S
== END 2024-12-17 07:18 | disposition home or self-care (01) ==
LOC: RAD 07:17
PROVIDERS: PCP Family Medicine; Visit Provider Nurse Practitioner Family
DX: R06.02 Shortness of breath (principal); M79.89 Other specified soft tissue disorders; I34.0 Nonrheumatic mitral (valve) insufficiency; I37.1 Nonrheumatic pulmonary valve insufficiency
CPT/HCPCS: 93306; 99214

== ENCOUNTER → 2024-12-20 14:17 | Outpatient (BNVA) | payer MEDICARE, OTHER, SELFPAY | PROVIDERS: PCP Family Medicine; Visit Provider Family Medicine | DX: R30.0 Dysuria (principal) | CPT/HCPCS: 81000; 87086 ==

== ENCOUNTER 2024-12-22 14:46 | Emergency (ER) | payer MEDICARE, OTHER, SELFPAY ==
--- NOTE | 2024-12-22 14:51 | XRR_ITS ---
PROCEDURE INFORMATION: Exam: XR Chest Exam date and time: 12/22/2024 3:42 PM Age: 79 years old Clinical indication: Cough and dyspnea; Additional info: Dyspnea/cough TECHNIQUE: Imaging protocol: Radiologic exam of the chest. Views: 1 view. COMPARISON: CR XR chest 2V* [id number] 10/31/2024 5:23 PM FINDINGS: Lungs: Unremarkable. No consolidation or mass. Pleural spaces: Unremarkable. No pleural effusion. No pneumothorax. Heart/Mediastinum: Unremarkable. No cardiomegaly. Bones/joints: Unremarkable. XR/XR chest 1V portable [id number] IMPRESSION: No acute findings.
--- OUTSIDE RECORDS SUMMARY | 2024-12-22 14:51 | XMS_ITS | Encounter Summary ---
Author Organization [facility] Address [address] [place] [address] Care Team Providers Care Hematology Nurse Educator Name Role Phone Aditya Vaughn MD, Vikas Yates Primary Care Provider Encounter Details Date Type Department Care Team (Latest Contact Info) Description 12/02/2006 Outpatient Historical [facility] Endoscopy [address] 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
--- OUTSIDE RECORDS SUMMARY | 2024-12-22 14:51 | XMS_ITS | Encounter Summary ---
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
--- OUTSIDE RECORDS SUMMARY | 2024-12-22 14:51 | XMS_ITS | Encounter Summary ---
Author Organization [facility] Address [address] [place] [address] Care Team Providers Care Hair Spring Cutter Name Role Phone Aditya Vaughn MD, Vikas Yates Primary Care Provider Encounter Details Date Type Department Care Team (Latest Contact Info) Description 05/20/2003 Outpatient Historical [facility] Cardiac Technical Sourcing Recruiter [address] [place] [phone] Osiel Aldrich MD NO ADDRESS ON FILE CHEST PAIN NEC (Primary Dx) Social History Tobacco Use Types Packs/Day Years Used Date Smoking Tobacco: Never Assessed Comments Unknown Sex and Gender Information Value Date Recorded Sex Assigned at Not on file 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
--- OUTSIDE RECORDS SUMMARY | 2024-12-22 14:51 | XMS_ITS | Encounter Summary ---
Author Organization [facility] Address [address] [place] [address] Care Team Providers Care Director Of Transportation Name Role Phone Aditya Vaughn MD, Vikas Yates Primary Care Provider Encounter Details Date Type Department Care Team (Latest Contact Info) Description 12/30/1999 Outpatient Historical [facility] Omar Urbano MD [address] [facility] [address] [place] [phone] Nontoxic uninodular goiter (Primary Dx) Social History Tobacco Use Types Packs/Day Years Used Date Smoking Tobacco: Never Assessed Comments Unknown Sex and Gender Information Value Date Recorded Sex Assigned at Not on file 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
--- OUTSIDE RECORDS SUMMARY | 2024-12-22 14:51 | XMS_ITS | Encounter Summary ---
Author Organization [facility] Address [address] [place] [address] Care Team Providers Care Hospitality Manager Name Role Phone Aditya Vaughn MD, Vikas Yates Primary Care Provider Encounter Details Date Type Department Care Team (Latest Contact Info) Description 01/16/2001 Outpatient Historical [facility] Dawit Hampton MD [address] [place] [id number] Panic disorder without agoraphobia (Primary Dx) Social History Tobacco Use Types Packs/Day Years Used Date Smoking Tobacco: Never Assessed Comments Unknown Sex and Gender Information Value Date Recorded Sex Assigned at Not on file 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
--- OUTSIDE RECORDS SUMMARY | 2024-12-22 14:51 | XMS_ITS | Clinical Summary ---
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 Gender Identity Not on file Sexual Orientation Not on file Plan of Treatment Health Maintenance Due Date Last Done Comments DTAP/TDAP/TD VACCINES (1 - Tdap) 1964 PNEUMOCOCCAL VACCINE 50+ YEA RS (1 of 1 - PCV) 1995 ZOSTER VACCINE (1 of 2) 1995 OSTEOPOROSIS SCREENING 2010 RSV VACCINE (60+ or ) (1 - 1-dose 75+ series) 2020 INFLUENZA VACCINE (#1) 2024 FIT/FOBT Q 1 year Discontinued 12/14/1999, 10/01/1998 COLORECTAL SCREENING Discontinued 12/02/2006 Colorectal Cancer Screening Discontinued FIT-DNA Q 3 years Discontinued Flex Sig/CT Colonography Q 5 years Discontinued Care Teams Tobacco Feeder Catcher Relationship Specialty Start Date End Date Vikas Burgess Jr., MD [address] [place] [address] PCP - General 12/02/06
--- OUTSIDE RECORDS SUMMARY | 2024-12-22 14:51 | XMS_ITS | Encounter Summary ---
Author Organization [email or web address] [facility] Address [address] [place] [address] Care Team Providers Care Compacting Machine Operator/Tender Name Role Phone Aditya Vaughn MD, Vikas Yates Primary Care Provider Encounter Details Date Type Department Care Team (Latest Contact Info) Description 12/14/1999 Outpatient Historical [facility] Jarad Cisneros NO ADDRESS ON FILE Routine medical exam (Primary Dx); Need for prophylactic hormone replacement therapy (postmenopausal); Nontoxic uninodular goiter Social History Tobacco Use Types Packs/Day Years Used Date Smoking Tobacco: Never Assessed Comments Unknown Sex and Gender Information Value Date Recorded Sex Assigned at Not on file 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
--- OUTSIDE RECORDS SUMMARY | 2024-12-22 14:51 | XMS_ITS | Encounter Summary ---
Author Organization [facility] Address [address] [place] [address] Care Team Providers Care Pulverizing And Sifting Operator Name Role Phone Aditya Vaughn MD, Vikas Yates Primary Care Provider Encounter Details Date Type Department Care Team (Latest Contact Info) Description 11/16/2001 Outpatient Historical [facility] Dawit Hampton MD [address] [place] [phone] CHEST PAIN NOS (Primary Dx); GENERALIZED ANXIETY DIS Social History Tobacco Use Types Packs/Day Years Used Date Smoking Tobacco: Never Assessed Comments Unknown Sex and Gender Information Value Date Recorded Sex Assigned at Not on file 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
--- OUTSIDE RECORDS SUMMARY | 2024-12-22 14:51 | XMS_ITS | Encounter Summary ---
Author Organization [facility] Address [address] [place] [address] Care Team Providers Care Warranty Coordinator Name Role Phone Aditya Vaughn MD, Vikas Yates Primary Care Provider Encounter Details Date Type Department Care Team (Latest Contact Info) Description 10/01/1998 Outpatient Historical [facility] Jarad Cisneros NO ADDRESS ON FILE Personal history of malignant neoplasm of other site in gastrointestinal tract (Primary Dx); Personal history of malignant neoplasm of breast Social History Tobacco Use Types Packs/Day Years Used Date Smoking Tobacco: Never Assessed Comments Unknown Sex and Gender Information Value Date Recorded Sex Assigned at Not on file 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
--- OUTSIDE RECORDS SUMMARY | 2024-12-22 14:51 | XMS_ITS | Encounter Summary ---
Author Organization [facility] Address [address] [place] [address] Care Team Providers Care Review Consultant Name Role Phone Aditya Vaughn MD, Vikas Yates Primary Care Provider Encounter Details Date Type Department Care Team (Latest Contact Info) Description 01/17/2001 Outpatient Historical [facility] Dawit Hampton MD [address] [place] [phone] Unspecified endocrine disorder (Primary Dx) Social History Tobacco Use Types Packs/Day Years Used Date Smoking Tobacco: Never Assessed Comments Unknown Sex and Gender Information Value Date Recorded Sex Assigned at Not on file 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
--- OUTSIDE RECORDS SUMMARY | 2024-12-22 14:51 | XMS_ITS | Encounter Summary ---
Author Organization [facility] [facility] Address [address] [place] [address] Care Team Providers Care Foundry Operator Name Role Phone Aditya Vaughn MD, Vikas Yates Primary Care Provider Encounter Details Date Type Department Care Team (Latest Contact Info) Description 12/05/1998 Outpatient Historical [facility] Jarad Cisneros NO ADDRESS ON FILE Need for prophylactic hormone replacement therapy (postmenopausal) (Primary Dx) Social History Tobacco Use Types Packs/Day Years Used Date Smoking Tobacco: Never Assessed Comments Unknown Sex and Gender Information Value Date Recorded Sex Assigned at Not on file 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
--- OUTSIDE RECORDS SUMMARY | 2024-12-22 14:51 | XMS_ITS | Encounter Summary ---
Author Organization [facility] Address [address] [place] [address] Care Team Providers Care Account Contact Associate Name Role Phone Aditya Vaughn MD, Vikas Yates Primary Care Provider Encounter Details Date Type Department Care Team (Latest Contact Info) Description 12/02/2006 Outpatient Historical [facility] [place] 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
--- OUTSIDE RECORDS SUMMARY | 2024-12-22 14:52 | XMS_ITS | Patient Health Record ---
Author Organization [facility] Address [address] [place] [address] Care Team Providers Care Metal Casket Assembler Name Role Phone Vikas Burgess Unavailable [phone] Allergies Allergen (clinical drug ingredient) Drug/Non Drug Allergy documented on EMR Reaction Allergy Type Onset Date Status codeine Codeine Sulfate Unknown Drug Allergy 09/14/2006 Active Monopril Unknown Drug Allergy 01/06/2004 Active paroxetine Paxil Unknown Drug Allergy 01/06/2004 Activ e Substance with sulfonamide structure and antibacterial mechanism of action (substance) Sulfa Antibiotics Unknown Drug Allergy Active Reason For Referral No Information Medications Medication SIG (Take, Route, Frequency, Duration) Notes Start Date End Date Status Aspirin 81 MG Tablet Chewable take 1 tablet daily Oral; Duration: 30 Aspirin (ASA) 81mg Chewable Tablet take 1 tablet daily 05/02/2013 Active PriLOSEC OTC 20 MG Tablet Delayed Release one cap po q day prn Oral; Duration: 30 Prilosec OTC 20mg Tablets, Delayed Release one cap po q day prn 06/19/2012 Active Avapro 300 MG Tablet Take 1 tablet(s) by mouth daily Oral; Duration: 30 Avapro (Irbesartan) 300mg Tablet Take 1 tablet(s) by mouth daily #30 (Thirty) tablet(s) 11/01/2013 Active Ventolin HFA 108 (90 Base) MCG/ACT Aerosol Solution Inhale 2 puff(s) by mouth 4 time daily. Inhalation; Duration: 30 Ventolin HFA (Albuterol) 90mcg/1actuation Oral Inhaler Inhale 2 puff(s) by mouth 4 time daily. #1 (One) inhaler(s) 11/30/2012 Active Immunizations Vaccine Route Administration Date Status Comme nts Flu vaccine no Preserv 3 and > IM Intramuscular 04/03/2010 Administered Flu vaccine no Preserv 3 and > Unknown 03/05/2011 Administered Social History Social History Additional Details Category Social Info Options Details zzMigrated Social History Migrated Social History Accepted Portal User: User Name: Hakeem Initial Password [email or web address] Problems Problem Type SNOMED Code ICD Code Onset Dates Problem Status W/U Status Risk Notes Problem Vitamin D deficiency (92219167) Vitamin D deficiency (268.9) 2013 Active confirmed [id number]- Problem Postmenopausal osteoporosis (867945543) Postmenopausal osteoporosis (733.01) 2014 Active confirmed [id number]- Problem Truncal obesity (060955639) Truncal obesity (278.1) 2013 Active confirmed [id number]- Problem Adjustment disorder with mixed anxiety and depressed mood (768820554) Adjustment disorder with mixed anxiety and depressed mood (309.28) 2015 Problem resolved confirmed [id number]- Problem Generalized anxiety disorder (24464184) Generalized anxiety disorder (300.02) 2011 Problem resolved confirmed [id number]- Problem Visual difficulty (012115794) Unspecified visual loss (369.9) 2006 Problem resolved confirmed [id number]- Problem 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 Problem resolved confirmed [id number]- Problem Acute frontal sinusitis (78402129) Acute frontal sinusitis (461.1) 2015 Problem resolved confirmed [id number]- Problem Acute bronchitis (86486644) Acute bronchitis (466.0) 2004 Problem resolved confirmed [id number]- Problem Constipation (45085679) Other constipation (564.09) 2006 Problem resolved confirmed [id number]- Problem Sebaceous cyst (675657767) Sebaceous cyst (706.2) 2014 Problem resolved confirmed [id number]- Problem Palpitations (09438932) Palpitations (785.1) 2015 Problem resolved confirmed [id number]- Problem Wheezing (68837048) Wheezing (786.07) 2008 Problem resolved confirmed [id number]- Problem Cough (73759969) Cough (786.2) 2012 Problem resolved confirmed [id number]- Problem Heartburn (34905843) Heartburn (787.1) 2009 Problem resolved confirmed [id number]- Problem Generalized anxiety disorder (88159501) Anxiety, generalized (300.02) 2004 Problem resolved confirmed [id number]- Problem Dizziness (625602474) Dizziness (780.4) 1 2007 Problem resolved confirmed [id number]- Problem Low back pain (667912462) Low back pain (724.2) 2015 Problem resolved confirmed [id number]- Problem Family History of Cancer of Colon (Situation) (446292568) Family history of colon cancer (V16.0) 2006 Problem resolved confirmed [id number]- Problem Headache (74081638) Headache (307.81) 2008 Problem resolved confirmed [id number]- Problem Hypercholesterolemia (31038169) Hypercholesterolemia (272.0) 2009 Problem resolved confirmed [id number]- Problem Loss of hair (633769123) Loss of hair (704.00) 2008 Problem resolved confirmed [id number]- Problem Moderate recurrent major depression (18304996) Major depression, recurrent episode, moderate (296.32) 2017 Problem resolved confirmed [id number]- Problem Panic attack (573537888) Panic attack (300.01) 2003 Problem resolved confirmed [id number]- Problem Onychomycosis caused by dermatophyte (057356173) Toe onychomycosis (110.1) 2012 Problem resolved confirmed [id number]- Problem Seasonal affective disorder (857496331) Seasonal affective disorder (300.4) 2016 Problem resolved confirmed [id number]- Problem Allergic rhinitis caused by pollen (47730308) Allergies (477.0) 2009 Problem resolved confirmed [id number]- Problem Breast lump (62910887) Breast lump (611.72) 2005 Problem resolved confirmed [id number]- Problem Chest pain (25659682) Chest pain (786.51) 2010 Problem resolved confirmed [id number]- Problem Enlargement of thyroid (6064547) Enlargement of thyroid (240.9) 2010 Problem resolved confirmed [id number]- Problem Generalized abdomina l pain (655624644) Generalized abdominal pain (789.07) 2010 Problem resolved confirmed [id number]- Problem Solitary nodule of lung (820871043) Lung nodule (518.89) 2011 Problem resolved confirmed [id number]- Problem Midline cystocele (239830380) Cystocele, midline (618.01) 2016 Problem resolved confirmed [id number]- Problem Elevated levels of transaminase & lactic acid dehydrogenase (706823965) Elevated SGOT (AST) (790.4) 2011 Problem resolved confirmed [id number]- Problem Precordial pain (06270956) Precordial chest pain (786.51) 2016 Problem resolved confirmed [id number]- Problem Rapid heart beat (1378395) Rapid heart beat (785.0) 2007 Problem resolved confirmed [id number]- Problem Breast examination (92529913) Screening breast exam - other (V76.19) 2008 Problem resolved confirmed [id number]- Problem Sinus tachycardia (59166965) Sinus tachycardia (427.89) 2015 Problem resolved confirmed [id number]- Problem General examination of patient (232262740) Annual exam (V70.0) 2007 Problem resolved confirmed [id number]- Problem Benign essential hypertension (4934622) Borderline hypertension (401.1) 2003 Problem resolved confirmed [id number]- Problem Thyroid nodule (873199567) Thyroid nodule (241.0) 2003 Problem resolved confirmed [id number]- Problem Needs influenza immunization (476739924) Vaccination against other viral diseases, Influenza (V04.81) 2014 Problem resolved confirmed [id number]- Problem Vitamin D deficiency (86176843) Vitamin D deficiency, NOS (268.9) 2008 Problem resolved confirmed [id number]- Problem Acute stress reaction with anxiety (308.0) 2015 Problem resolved confirmed [id number]- Problem Breast pain (26435936) Breast pain (611.71) 2006 Problem resolved confirmed [id number]- Problem Syncope and collapse (928875005) Near-syncope (780.2) 2006 Problem resolved confirmed [id number]- Problem Renal stone (699711085) Renal stone (592.0) 2006 Problem resolved confirmed [id number]- Problem Thyroid function tests abnormal (549169684) Abnormal thyroid findings (794.5) 2014 Problem resolved confirmed [id number]- Problem Carotid artery stenosis (21322976) Carotid artery stenosis (785.9) 2015 Problem resolved confirmed [id number]- Problem Constipation (05480008) Constipation (564.01) 2009 Problem resolved confirmed [id number]- Problem Dizziness and giddiness (441179741) Equilibrium disturbance (780.4) 2015 Problem resolved confirmed [id number]- Problem Multiple joint pain (93782622) Joint pain, multiple sites (719.49) 2017 Problem resolved confirmed [id number]- Problem Eczema (63663886) Eczema (691.8) 2016 Problem resolved confirmed [id number]- Problem Chest discomfort (623221357) Chest discomfort (786.59) 2015 Problem resolved confirmed [id number]- Problem Thrombocytopenia (967572210) Thrombocytopenia (287.5) 2003 Problem resolved confirmed [id number]- Problem Osteoporosis (80783530) Osteoporosis (733.09) 2007 Problem resolved confirmed [id number]- Problem Hormone replacement therapy (871094901) Post-menopausal ERT (V07.4) 2004 Problem resolved confirmed [id number]- Problem Essential hypertension (73833649) Essential hypertension (401.1) 2004 Problem resolved confirmed [id number]- Problem Thrombocytopenic disorder (790412238) Low platelets (287.5) 2003 Problem resolved confirmed [id number]- Problem Nausea (738793433) Nausea (787.02) 2006 Problem resolved confirmed [id number]- Problem Thoracic back pain (965762363) Upper back pain (724.5) 2016 Problem resolved confirmed [id number]- Problem Screening mammograph y (54901710) Screening mammogram - other (V76.12) 2017 Problem resolved confirmed [id number]- Plan Of Treatment No Information Medical (General) History Surgical History Surgery Date(Month/Year) Hysterectomy: 1996; Thyroidectomy: 10/09 13;
--- NOTE | 2024-12-22 14:53 | W.ED.GENADLT ---
HPI - General Adult General: Chief complaint: General Medical Stated complaint: fatigue Time Seen by Provider: 12/22/24 14:53 History of Present Illness: 79-year-old female presents emergency room complaining of generalized fatigue. Patient was seen earlier in the week started on ciprofloxacin for a cystitis. She has not had any fever but just generally not felt well she is concerned that she may be septic. No hematuria no vomiting but has been very nauseous no shortness of breath some mild suprapubic discomfort. She is on apixaban for atrial fibrillation no chest pain. Associated symptoms: Reports malaise; Deny chest pain, dyspnea or rash Related Data Home Medications ?Medication ?Instructions ?Recorded ?Confirmed cetirizine 10 mg tablet (All Day 10 mg PO BEDTIME 07/09/19 12/20/24 Allergy (cetirizine)) cholecalciferol (vitamin D3) 50 2,000 unit PO DAILY@20 07/09/19 12/20/24 mcg (2,000 unit) tablet magnesium hydroxide 400 mg/5 mL 30 ml PO DAILY PRN Constipation ##0 09/03/20 12/20/24 oral suspension (Milk of Magnesia) sennosides 8.6 mg-docusate sodium 2 tab PO BEDTIME 07/11/21 12/20/24 50 mg tablet Lactobacillus acidophilus 20 mg PO DAILY 11/28/23 12/20/24 (Acidophilus capsule) furosemide 20 mg tablet (Lasix) 20 mg PO BID Edema 11/12/24 12/20/24 Previous Rx's ?Medication ?Instructions ?Recorded acetaminophen 500 mg tablet 500 mg PO Q6H PRN pain #30 tabs 11/10/21 nitroglycerin 0.4 mg sublingual 0.4 mg sublingual Q5M PRN Chest 08/11/23 tablet Pain #25 tabs albuterol sulfate 90 mcg/actuation 2 puff inhalation Q6H PRN 12/08/23 aerosol inhaler (Ventolin HFA) shortness of breath or wheezing #8.5 grams metoprolol tartrate 25 mg tablet 25 mg PO BID #180 tabs 12/08/23 amlodipine 10 mg tablet 10 mg PO DAILY 90 days #90 tabs 05/14/24 pantoprazole 40 mg tablet,delayed See Rx Instructions .Route 05/22/24 release .COMPLEX #90 tabs apixaban 5 mg tablet (Eliquis) 5 mg PO BID #180 tabs 07/20/24 levothyroxine 25 mcg tablet 25 mcg PO QAM #90 tabs 08/06/24 ondansetron 8 mg disintegrating 8 mg PO Q8H PRN nausea and 09/08/24 tablet vomiting #10 tabs amiodarone 200 mg tablet See Rx Instructions .Route 09/11/24 .COMPLEX #45 tabs atorvastatin 80 mg tablet See Rx Instructions .Route 09/18/24 .COMPLEX #90 tabs promethazine-DM 6.25 mg-15 mg/5 mL 5 ml PO Q6H PRN cough #118 mL 11/06/24 oral syrup clopidogrel 75 mg tablet See Rx Instructions .Route 11/13/24 .COMPLEX #90 tabs potassium chloride 8 mEq 8 meq PO DAILY Edema #90 caps 12/11/24 capsule,extended release spironolactone 25 mg tablet See Rx Instructions .Route 12/11/24 .COMPLEX PRN edema #90 tabs ciprofloxacin HCl 250 mg tablet 250 mg PO BID #14 tabs 12/20/24 Allergies Allergy/AdvReac Type Severity Reaction Status Date / Time codeine Allergy Severe rash/ Verified 12/22/24 14:58 shortness of breath fosinopril (From Monopril) Allergy Severe angioedema Verified 12/22/24 14:58 paroxetine (From Paxil) Allergy Severe shortness Verified 12/22/24 14:58 of breath amoxicillin Allergy Intermediate rash Verified 12/22/24 14:58 hydralazine Allergy Intermediate ADR-Cough Verified 12/22/24 14:58 Sulfa (Sulfonamide Allergy Intermediate rash Verified 12/22/24 14:58 Antibiotics) amlodipine AdvReac Intermediate swelling Verified 12/22/24 14:58 losartan AdvReac BP goes up Verified 12/22/24 14:58 Review of Systems Const: Reports: fatigue and malaise; Denies: fever(s) or chills Card: Denies: chest pain Resp: Denies: dyspnea GI: Denies: abdominal pain : Denies: dysuria, urinary frequency or urinary urgency Musc: Denies: neck pain or back pain Skin/Breast: Denies: rash PFSH ED PFSH: Medical History Dyslipidemia (high LDL; low HDL) Left ankle sprain Left lateral ankle pain Chronic HFrEF (heart failure with reduced ejection fraction) Bacteriuria Hyponatremia CAD (coronary artery disease) Atherosclerosis of coronary artery Benign essential HTN Left bundle branch block Ventricular arrhythmia Chest pain Hypertension Surgical History H/O heart artery stent History of hysterectomy H/O lumpectomy H/O thyroidectomy Hx of tonsillectomy H/O breast biopsy Family History Family/Other CAD (coronary artery disease) Father Cancer Son Chronic kidney disease (CKD) Mother Dementia Stroke Other Hypertension Denies family history of Diabetes Clotting disorder Hyperlipidemia Suicide Anesthesia complication Bleeding disorder Family history of premature coronary artery disease Lung disease Social History Smoking and tobacco/nicotine status: never used tobacco/nicotine Alcohol intake: never Substance/Drug Use: never Marital status: Physical Exam Const: COMMON NORMALS: no acute distress GENERAL APPEARANCE: cooperative and comfortable ORIENTATION/CONSCIOUSNESS: Yes awake, Yes oriented to person, Yes oriented to place and Yes oriented to time HENMT: COMMON NORMALS: normocephalic, atraumatic and hearing grossly normal bilaterally HEAD & SCALP: normocephalic and atraumatic Resp: COMMON NORMALS: normal respiratory effort, No retractions, No use of accessory muscles and clear to auscultation bilaterally AUSCULTATION: clear to auscultation bilaterally Cardio: COMMON NORMALS: regular rate, regular rhythm and No murmurs present (Cardio) RATE: regular rate RHYTHM: regular rhythm GI: COMMON NORMALS: Soft to palpation and No hepatosplenomegaly present AUSCULTATION: Yes normoactive bowel sounds PALPATION: Yes Soft to palpation, No Tenderness to palpation present (GI), No Guarding due to palpation present (GI) and Yes No hepatosplenomegaly present Extremity: COMMON NORMALS: normal to inspection, capillary refill normal, no clubbing, cyanosis or edema, no calf tenderness and no pedal edema Neuro: SENSORIUM/ORIENTATION: Yes oriented to person, Yes oriented to place and Yes oriented to time Skin: COMMON NORMALS: no rashes or lesions noted GENERAL SKIN EXAM: no rashes or lesions noted Course Vital Signs: Vital signs: Vital Signs Temperature 97.4 F L 12/22/24 14:56 Pulse Rate 68 12/22/24 16:33 Respiratory Rate 15 12/22/24 16:13 Blood Pressure 108/59 12/22/24 16:33 Pulse Oximetry 96 12/22/24 16:33 MDM - General Adult Medical Decision Making Labs and imaging reviewed vital signs stable white count normal no leukocytosis clinically no signs of sepsis patient is generally weak but well-appearing appearing. Her UA does not show any signs of infection. Recommend she continue the Cipro follow-up with her primary care doctor as needed. There is no culture in the chart from the UA that she had done earlier this week. Medical Records I reviewed the patient's medical records. Lab Data I reviewed the patient's lab results. 12/22/24 15:11 12/22/24 15:11 Radiology Impressions Chest X-Ray 12/22/24 14:51 IMPRESSION: No acute findings. Laboratory Results WBC 7.10 10^3/uL (3.29-11.43) 12/22/24 15:11 RBC 4.09 10^6/uL (3.85-5.65) 12/22/24 15:11 Hgb 11.40 g/dL (11.27-16.99) 12/22/24 15:11 Hct 36.1 % (36-47) 12/22/24 15:11 MCV 88.3 fl (85-98) 12/22/24 15:11 MCH 27.9 pg (27-33) 12/22/24 15:11 MCHC 31.6 g/dL (30-55) 12/22/24 15:11 RDW 14.7 % (12.1-15.1) 12/22/24 15:11 Plt Count 170 10^3/cmm (157-399) 12/22/24 15:11 MPV 10.0 fL (7.4-10.4) 12/22/24 15:11 Neut % (Auto) 65.7 % 12/22/24 15:11 Lymph % (Auto) 20.8 % 12/22/24 15:11 Daggett % (Auto) 11.1 % 12/22/24 15:11 Eos % (Auto) 1.5 % 12/22/24 15:11 Baso % (Auto) 0.6 % 12/22/24 15:11 Neut # (Auto) 4.66 10^3/uL (1.8-7.7) 12/22/24 15:11 Lymph # (Auto) 1.5 10^3/uL (0.8-4.8) 12/22/24 15:11 [place] # (Auto) 0.8 10^3/uL (0.2-0.9) 12/22/24 15:11 Eos # (Auto) 0.1 10^3/uL (0.0-0.8) 12/22/24 15:11 Baso # (Auto) 0.0 10^3/uL (0.0-0.1) 12/22/24 15:11 Nucleated RBC % (auto) 0 % 12/22/24 15:11 Nucleated RBCs # 0.0 /100WBC 12/22/24 15:11 Sodium 140 mmol/L (136-145) 12/22/24 15:11 Potassium 4.2 mmol/L (3.5-5.1) 12/22/24 15:11 Chloride 104 mmol/L (98-107) 12/22/24 15:11 Carbon Dioxide 24 mmol/L (22-29) 12/22/24 15:11 Anion Gap 16.2 (5-19) 12/22/24 15:11 BUN 25 mg/dL (8-23) H 12/22/24 15:11 Creatinine 1.7 mg/dL (0.5-0.9) H 12/22/24 15:11 GFR Calculation Not Reportable 12/22/24 15:11 Glucose 188 mg/dL (65-115) H 12/22/24 15:11 Calculated Osmolality 299 mOsm/kg (285-295) H 12/22/24 15:11 Calcium 9.1 mg/dL (8.5-10.5) 12/22/24 15:11 Total Bilirubin 0.4 mg/dL (0.15-1.2) 12/22/24 15:11 AST 24 U/L (0-32) 12/22/24 15:11 ALT 18 U/L (0-33) 12/22/24 15:11 Alkaline Phosphatase 94 U/L (35-105) 12/22/24 15:11 Total Protein 7.0 g/dL (6.6-8.7) 12/22/24 15:11 Albumin 4.0 g/dL (3.5-5.2) 12/22/24 15:11 Globulin 3.0 g/dL (1.3-4.6) 12/22/24 15:11 Urine Color Yellow (Yellow) 12/22/24 15:11 Urine Appearance Clear (CLEAR) 12/22/24 15:11 Urine pH 6.0 (5-7) 12/22/24 15:11 Ur Specific [place] 1.022 (1.005-1.030) 12/22/24 15:11 Urine Protein Trace (Negative) A 12/22/24 15:11 Urine Glucose (UA) Negative (Normal) 12/22/24 15:11 Urine Ketones Trace (Negative) 12/22/24 15:11 Urine Blood Negative (Negative) 12/22/24 15:11 Urine Nitrate Negative (Negative) 12/22/24 15:11 Urine Bilirubin Negative (Negative) 12/22/24 15:11 Urine Urobilinogen 1.0 mg/dL (Negative) 12/22/24 15:11 Ur Leukocyte Esterase Negative (Negative) 12/22/24 15:11 Urine RBC 0-2 /hpf (0-2) 12/22/24 15:11 Urine WBC 0-5 /hpf (0-5) 12/22/24 15:11 Ur Squamous Epith Cells 6-10 /hpf (0-5) 12/22/24 15:11 Amorphous Sediment Not Reportable 12/22/24 15:11 Urine Bacteria None seen /hpf (NONE) 12/22/24 15:11 Hyaline Casts 1.21 /lpf 12/22/24 15:11 All radiology interpretation(s) finalized by discharge Discharge Plan Discharge Patient Disposition: Home Clinical Impression: Weakness, Cystitis Condition: Stable Prescriptions: No Action cholecalciferol (vitamin D3) 2,000 unit tablet 2,000 unit PO DAILY@20 cetirizine [All Day Allergy (cetirizine)] 10 mg tablet 10 mg PO BEDTIME acetaminophen 500 mg tablet 500 mg PO Q6H PRN (Reason: pain) Qty: 30 0RF nitroglycerin 0.4 mg tablet, sublingual 0.4 mg sublingual Q5M PRN (Reason: Chest Pain) Qty: 25 0RF levothyroxine 25 mcg tablet 25 mcg PO QAM Qty: 90 3RF ondansetron 8 mg tablet,disintegrating 8 mg PO Q8H PRN (Reason: nausea and vomiting) Qty: 10 0RF amlodipine 10 mg tablet 10 mg PO DAILY 90 Days Qty: 90 3RF Lasix 20 mg tablet 20 mg PO BID promethazine-DM 6.25-15 mg/5 mL syrup 5 ml PO Q6H PRN (Reason: cough) Qty: 118 2RF ciprofloxacin HCl 250 mg tablet 250 mg PO BID Qty: 14 0RF metoprolol tartrate 25 mg tablet 25 mg PO BID Qty: 180 3RF albuterol sulfate [Ventolin HFA] 90 mcg/actuation HFA aerosol inhaler 2 puff inhalation Q6H PRN (Reason: shortness of breath or wheezing) Qty: 8.5 11RF pantoprazole 40 mg tablet,delayed release (DR/EC) See Rx Instructions .ROUTE .COMPLEX Qty: 90 3RF Dose Instruction: TAKE 1 TABLET BY MOUTH EVERY DAY Rx Instructions: TAKE 1 TABLET BY MOUTH EVERY DAY Eliquis 5 mg tablet 5 mg PO BID Qty: 180 3RF amiodarone 200 mg tablet See Rx Instructions .ROUTE .COMPLEX Qty: 45 11RF Dose Instruction: TAKE 1/2 TABLET BY MOUTH EVERY DAY Rx Instructions: TAKE 1/2 TABLET BY MOUTH EVERY DAY atorvastatin 80 mg tablet See Rx Instructions .ROUTE .COMPLEX Qty: 90 3RF Dose Instruction: TAKE 1 TABLET BY MOUTH EVERY DAY FOR HIGH CHOLESTEROL Rx Instructions: TAKE 1 TABLET BY MOUTH EVERY DAY FOR HIGH CHOLESTEROL clopidogrel 75 mg tablet See Rx Instructions .ROUTE .COMPLEX Qty: 90 3RF Dose Instruction: TAKE 1 TABLET BY MOUTH EVERY MORNING Rx Instructions: TAKE 1 TABLET BY MOUTH EVERY MORNING potassium chloride 8 mEq capsule, extended release 8 meq PO DAILY Qty: 90 3RF spironolactone 25 mg tablet See Rx Instructions .ROUTE .COMPLEX PRN (Reason: edema) Qty: 90 3RF Dose Instruction: TAKE 1 TABLET BY MOUTH DAILY Rx Instructions: TAKE 1 TABLET BY MOUTH DAILY PRN; sennosides-docusate sodium 8.6-50 mg tablet 2 tab PO BEDTIME magnesium hydroxide [Milk of Magnesia] 400 mg/5 mL Suspension 30 ml PO DAILY PRN (Reason: Constipation) Qty: 0 Acidophilus Capsule 20 mg PO DAILY Discharge Orders: Discharge ED (Routine); Ordered 12/22/24 Ordered By: Madan Sifuentes Referrals: Oscar Quigley MD [Primary Care Provider, Family Practice] Discharge Diet: Usual diet Discharge Activity: Resume usual activity Patient Instructions: Opioid Safety, Pain Management, Patient Portal & [place] Instructions Activity Restrictions/Additional Instructions: [facility]. It is very important that you follow up as instructed or that you return to the Emergency Department should you have concerns or if your condition changes or worsens in any way. You were seen in the emergency room for complaints of weakness. Your white count is normal urine is nearly cleared. The antibiotic Dr. Quigley gave you earlier this week is doing a good job of clearing the bladder infection. Recommend that you complete the course as he prescribed. There is no signs of sepsis at this time follow-up with Dr. Cortés if you have further problems. Print Language: Welsh Coding Level of Care Code ED Technical Consultant for Daisy Mitchell
[2024-12-22 14:56] VITALS: BP 131/78; PULSE 66; RESP 18; TEMP 36.3; O2SAT 95
--- NOTE | 2024-12-22 15:05 | ECG_ITS ---
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
[2024-12-22 15:24] LABS: Hematocrit 36.1 % (36-47); Hemoglobin 11.40 g/dL (11.27-16.99); Mean Corpuscular HGB Conc 31.6 g/dL (30-55); Mean Corpuscular Hemoglobin 27.9 pg (27-33); Mean Corpuscular Volume 88.3 fl (85-98); Nucleated Red Blood Cells % 0 %; Platelet Count 170 10^3/cmm (157-399); Red Blood Count 4.09 10^6/uL (3.85-5.65); White Blood Count 7.10 10^3/uL (3.29-11.43)
[2024-12-22 15:39] LABS: Alanine Aminotransferase 18 U/L (0-33); Albumin Level 4.0 g/dL (3.5-5.2); Alkaline Phosphatase 94 U/L (35-105); Anion Gap 16.2 (5-19); Aspartate Amino Transferase 24 U/L (0-32); Blood Urea Nitrogen 25 mg/dL (8-23); Calcium 9.1 mg/dL (8.5-10.5); Carbon Dioxide 24 mmol/L (22-29); Chloride 104 mmol/L (98-107); Globulin 3.0 g/dL (1.3-4.6); Glucose 188 mg/dL (65-115); Osmolality Calculated 299 mOsm/kg (285-295); Potassium 4.2 mmol/L (3.5-5.1); Sodium 140 mmol/L (136-145); Total Protein 7.0 g/dL (6.6-8.7)
[2024-12-22 15:44] LABS: Creatinine Clr Calc Pharmacy 31.7807
[2024-12-22 15:49] LABS: Glucose Urine UA Negative (Normal); Nitrate Urine Negative (Negative); Specific Gravity, Urine 1.022 (1.005-1.030)
[2024-12-22 15:54] LABS: Add Urine Microscopic? YES
[2024-12-22 16:13] VITALS: BP 127/64; PULSE 70; RESP 15; O2SAT 97
[2024-12-22 16:33] VITALS: BP 108/59; PULSE 68; O2SAT 96
== END 2024-12-22 16:37 | disposition home or self-care (01) ==
PROVIDERS: Emergency Provider Family Medicine; PCP Family Medicine
DX: R53.1 Weakness (principal); N30.90 Cystitis, unspecified without hematuria; Z79.01 Long term (current) use of anticoagulants; Z79.02 Long term (current) use of antithrombotics/antiplatelets; E78.5 Hyperlipidemia, unspecified; I25.10 Atherosclerotic heart disease of native coronary artery without angina pectoris; I11.0 Hypertensive heart disease with heart failure; I50.20 Unspecified systolic (congestive) heart failure
CPT/HCPCS: 71045; 80053; 81001; 85025; 93005; 96360; 99285; J7040

== ENCOUNTER 2025-01-31 12:59 | Outpatient (CLI) | payer MEDICARE, OTHER, SELFPAY ==
--- NOTE | 2025-01-31 13:05 | XRR_ITS ---
PROCEDURE INFORMATION: Exam: XR Right Foot Exam date and time: 01/31/2025 01:13 PM Age: 79 years old Clinical indication: Right; PT states that she stubbed her toe a couple days ago. Pain in lateral portion of foot; Additional info: Foot pain TECHNIQUE: Imaging protocol: Radiologic exam of the right foot. Views: 3 or more views. COMPARISON: No relevant prior studies available. FINDINGS: Bones/joints: Diffuse osteopenia. Cortical offset on the AP view of the proximal phalanx of the 5th digit could represent a subtle fracture. Soft tissues: Dorsal soft tissue swelling. Possible medial ankle soft tissue swelling. Vasculature: Atherosclerotic vascular disease. XR/XR foot RT min 3V* [id number] IMPRESSION: 1. Dorsal foot and medial ankle soft tissue swelling. 2. Cortical offset involving the proximal phalanx of the 5th digit on the AP view only could represent a subtle nondisplaced fracture. Correlation with site of pain is needed.
== END 2025-01-31 13:00 | disposition home or self-care (01) ==
LOC: RAD 13:01
PROVIDERS: PCP Family Medicine; Visit Provider Family Medicine
DX: M79.671 Pain in right foot (principal)
CPT/HCPCS: 73630

== ENCOUNTER → 2025-04-11 09:34 | Outpatient (BNVA) | payer MEDICARE, OTHER, SELFPAY | PROVIDERS: PCP Family Medicine; Visit Provider Family Medicine | DX: N39.0 Urinary tract infection, site not specified (principal) | CPT/HCPCS: 81000; 87086 ==

== ENCOUNTER 2025-04-24 13:59 | Inpatient (IN) | payer MEDICARE, OTHER, SELFPAY ==
--- NOTE | 2025-04-24 14:06 | CT_ITS ---
WS: [id number] CT HEAD TECHNIQUE: Noncontrast CT of the head obtained from the skullbase to the vertex. CLINICAL INFORMATION: decreased loc, ams COMPARISON: 09/17/2024 DLP: [address] scans at [facility] use at least one of these dose optimization techniques: automated exposure control; mA and/or kV adjustment per patient size (includes targeted exams where dose is matched to clinical indication); or iterative reconstruction. FINDINGS: No evidence of intracranial hemorrhage or mass effect. Ventricular system and basal cisterns are patent. Mild small vessel changes with mild parenchymal volume loss. No extra-axial fluid collections. No evidence of mass or mass effect. Vascular calcification Paranasal sinuses and mastoid air cells are well aerated. .Normal visualized soft tissues. CT/CT head thrombolytic [id number] IMPRESSION: 1. No evidence of intracranial hemorrhage or mass effect. 2. No acute intracranial findings. Notified Madan Sifuentes DO at 04/24/2025 2:17 PM.
--- NOTE | 2025-04-24 14:07 | CT_ITS ---
WS: [id number] CTA HEAD AND NECK TECHNIQUE: Contrast enhanced CTA of the head and neck with coronal and sagittal reformatted images and maximum intensity projection (MIP) images. NASCET criteria utilized. CLINICAL INFORMATION: Symptoms of acute CVA DLP: 466.[address] scans at [facility] use at least one of these dose optimization techniques: automated exposure control; mA and/or kV adjustment per patient size (includes targeted exams where dose is matched to clinical indication); or iterative reconstruction. FINDINGS: RIGHT: RIGHT common carotid artery is patent. Retropharyngeal course of the RIGHT common carotid artery. No significant RIGHT ICA stenosis. RIGHT ICA is patent to the skull base. LEFT: LEFT common carotid artery is patent. Retropharyngeal course of the LEFT cervical ICA. Carotid bulb calcification. No significant LEFT ICA stenosis. LEFT ICA is patent to the skull base. Both vertebral arteries are patent. Codominant vertebral arteries. Basilar artery is patent. Normal vascularity to the ANNOUNCER territory bilaterally. INTRACRANIAL CTA: Both ICAs are patent at the skull base. Moderate cavernous carotid calcification. Small RIGHT A1 segment. Normal vascularity to the DELIA and MCA territories bilaterally. No evidence of proximal flow-limiting stenosis. Parenchymal scarring RIGHT upper lobe. CT/CT angio headneck* [id number] IMPRESSION: 1. No significant cervical ICA stenosis. Retropharyngeal course to both caroti d bulbs and cervical ICAs. 2. Codominant patent vertebral arteries bilaterally. 3. No flow-limiting intracranial stenosis.
--- NOTE | 2025-04-24 14:08 | ECG_ITS ---
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 Measurements Intervals [place] Rate: 66 P: 76 ME: 185 QRS: -20 QRSD: 149 T: 29 QT: 487 QTc: 511 Interpretive Statements SINUS RHYTHM LEFT BUNDLE BRANCH BLOCK [120+ ms QRS DURATION, 80+ ms Q/S IN V1/V2, 85+ ms R IN I/aVL/V5/V6] Compared to ECG 12/22/2024 15:05:31 No significant changes Electronically Signed On 04-24-2025 23:28:23 LEGAL ENTITY CONTROLLER by Monica Zapien M.D. [id number] [id number]
--- NOTE | 2025-04-24 14:13 | W.ED.NEUROSD ---
HPI - Neuro Symptoms/Deficit General: Stated Complaint: Decreased LOC Time Seen by Provider: 04/24/25 14:07 History of Present Illness: Associated symptoms: Deny chest pain Related Data Home Medications ?Medication ?Instructions ?Recorded ?Confirmed cetirizine 10 mg tablet (All Day 10 mg PO BEDTIME 07/09/19 04/12/25 Allergy (cetirizine)) cholecalciferol (vitamin D3) 50 2,000 unit PO DAILY@20 07/09/19 04/12/25 mcg (2,000 unit) tablet magnesium hydroxide 400 mg/5 mL 30 ml PO DAILY PRN Constipation ##0 09/03/20 04/12/25 oral suspension (Milk of Magnesia) sennosides 8.6 mg-docusate sodium 2 tab PO BEDTIME 07/11/21 04/12/25 50 mg tablet Lactobacillus acidophilus 20 mg PO DAILY 11/28/23 04/12/25 (Acidophilus capsule) furosemide 20 mg tablet (Lasix) 20 mg PO BID Edema 11/12/24 04/12/25 Previous Rx's ?Medication ?Instructions ?Recorded acetaminophen 500 mg tablet 500 mg PO Q6H PRN pain #30 tabs 11/10/21 nitroglycerin 0.4 mg sublingual 0.4 mg sublingual Q5M PRN Chest 08/11/23 tablet Pain #25 tabs apixaban 5 mg tablet (Eliquis) 5 mg PO BID #180 tabs 07/20/24 levothyroxine 25 mcg tablet 25 mcg PO QAM #90 tabs 08/06/24 ondansetron 8 mg disintegrating 8 mg PO Q8H PRN nausea and 09/08/24 tablet vomiting #10 tabs amiodarone 200 mg tablet See Rx Instructions .Route 09/11/24 .COMPLEX #45 tabs atorvastatin 80 mg tablet See Rx Instructions .Route 09/18/24 .COMPLEX #90 tabs promethazine-DM 6.25 mg-15 mg/5 mL 5 ml PO Q6H PRN cough #118 mL 11/06/24 oral syrup clopidogrel 75 mg tablet See Rx Instructions .Route 11/13/24 .COMPLEX #90 tabs potassium chloride 8 mEq 8 meq PO DAILY Edema #90 caps 12/11/24 capsule,extended release spironolactone 25 mg tablet See Rx Instructions .Route 12/11/24 .COMPLEX PRN edema #90 tabs ciprofloxacin HCl 250 mg tablet 250 mg PO BID #14 tabs 12/20/24 doxycycline hyclate 100 mg tablet 100 mg PO BID 10 days #20 tabs 01/13/25 metoprolol tartrate 25 mg tablet 25 mg PO BID #180 tabs 01/14/25 albuterol sulfate 90 mcg/actuation 2 puff inhalation Q6H PRN 01/31/25 aerosol inhaler (Ventolin HFA) shortness of breath or wheezing #8.5 grams amlodipine 10 mg tablet 10 mg PO DAILY 90 days #90 tabs 03/26/25 fluconazole 150 mg tablet 150 mg PO Q3D 2 doses #2 tabs 04/11/25 pantoprazole 40 mg tablet,delayed See Rx Instructions .Route 04/11/25 release .COMPLEX #180 tabs Allergies Allergy/AdvReac Type Severity Reaction Status Date / Time codeine Allergy Severe rash/ Verified 01/13/25 10:06 shortness of breath fosinopril (From Monopril) Allergy Severe angioedema Verified 01/13/25 10:06 paroxetine (From Paxil) Allergy Severe shortness Verified 01/13/25 10:06 of breath amoxicillin Allergy Intermediate rash Verified 01/13/25 10:06 hydralazine Allergy Intermediate ADR-Cough Verified 01/13/25 10:06 Sulfa (Sulfonamide Allergy Intermediate rash Verified 01/13/25 10:06 Antibiotics) amlodipine AdvReac Intermediate swelling Verified 01/13/25 10:06 losartan AdvReac BP goes up Verified 01/13/25 10:06 Review of Systems Const: Denies: fever(s) or chills Card: Denies: chest pain Resp: Denies: dyspnea GI: Denies: abdominal pain : Denies: dysuria, urinary frequency or urinary urgency Musc: Denies: neck pain or back pain Skin/Breast: Denies: rash PFSH ED PFSH: Medical History Dyslipidemia (high LDL; low HDL) Left ankle sprain Left lateral ankle pain Chronic HFrEF (heart failure with reduced ejection fraction) Bacteriuria Hyponatremia CAD (coronary artery disease) Atherosclerosis of coronary artery Benign essential HTN Left bundle branch block Ventricular arrhythmia Chest pain Hypertension Surgical History H/O heart artery stent History of hysterectomy H/O lumpectomy H/O thyroidectomy Hx of tonsillectomy H/O breast biopsy Family History Family/Other CAD (coronary artery disease) Father Cancer Son Chronic kidney disease (CKD) Mother Dementia Stroke Other Hypertension Denies family history of Diabetes Clotting disorder Hyperlipidemia Suicide Anesthesia complication Bleeding disorder Family history of premature coronary artery disease Lung disease Social History Smoking and tobacco/nicotine status: never used tobacco/nicotine Alcohol intake: never Substance/Drug Use: never Marital status: NIH stroke score NIHSS: Level Of Consciousness - 1a: 3 Level Of Consciousness Questions - 1b: Neither Correct Level Of Consciousness Commands - 1c: Neither Correct Best Gaze - 2: Partial Gaze Palsy Visual Larsen - 3: No Visual Loss Facial Palsy - 4: Normal Motor Arm Right - 5: No Drift Motor Arm Left - 5: No Drift Motor Leg Right - 6: Effort Against [place] Motor Leg Left - 6: Effort Against [place] Limb Ataxia - 7: Present In Two Limbs Sensory - 8: Normal Best Language - 9: Mute; Global Aphasia Dysarthia - 10: Severe Dysarthia Extinction And Inattention - 11: 1 Score: Total Score: 20 Physical Exam Const: GENERAL APPEARANCE: cooperative ORIENTATION/CONSCIOUSNESS: Yes awake HENMT: COMMON NORMALS: normocephalic, atraumatic and hearing grossly normal bilaterally HEAD & SCALP: normocephalic and atraumatic Resp: COMMON NORMALS: normal respiratory effort, No retractions, No use of accessory muscles and clear to auscultation bilaterally AUSCULTATION: clear to auscultation bilaterally Cardio: COMMON NORMALS: regular rate, regular rhythm and No murmurs present (Cardio) RATE: regular rate RHYTHM: regular rhythm GI: COMMON NORMALS: Soft to palpation and No hepatosplenomegaly present AUSCULTATION: Yes normoactive bowel sounds PALPATION: Yes Soft to palpation, No Tenderness to palpation present (GI), No Guarding due to palpation present (GI) and Yes No hepatosplenomegaly present Extremity: COMMON NORMALS: normal to inspection, capillary refill normal, no clubbing, cyanosis or edema, no calf tenderness and no pedal edema Skin: COMMON NORMALS: no rashes or lesions noted GENERAL SKIN EXAM: no rashes or lesions noted Discharge Plan Discharge Condition: Stable Prescriptions: No Action cholecalciferol (vitamin D3) 2,000 unit tablet 2,000 unit PO DAILY@20 cetirizine [All Day Allergy (cetirizine)] 10 mg tablet 10 mg PO BEDTIME acetaminophen 500 mg tablet 500 mg PO Q6H PRN (Reason: pain) Qty: 30 0RF nitroglycerin 0.4 mg tablet, sublingual 0.4 mg sublingual Q5M PRN (Reason: Chest Pain) Qty: 25 0RF levothyroxine 25 mcg tablet 25 mcg PO QAM Qty: 90 3RF ondansetron 8 mg tablet,disintegrating 8 mg PO Q8H PRN (Reason: nausea and vomiting) Qty: 10 0RF Lasix 20 mg tablet 20 mg PO BID promethazine-DM 6.25-15 mg/5 mL syrup 5 ml PO Q6H PRN (Reason: cough) Qty: 118 2RF albuterol sulfate [Ventolin HFA] 90 mcg/actuation HFA aerosol inhaler 2 puff inhalation Q6H PRN (Reason: shortness of breath or wheezing) Qty: 8.5 11RF ciprofloxacin HCl 250 mg tablet 250 mg PO BID Qty: 14 0RF doxycycline hyclate 100 mg tablet 100 mg PO BID 10 Days Qty: 20 0RF pantoprazole 40 mg tablet,delayed release (DR/EC) See Rx Instructions .ROUTE .COMPLEX Qty: 180 3RF Dose Instruction: TAKE 1 TABLET BY MOUTH EVERY DAY Rx Instructions: TAKE 1 TABLET BY MOUTH twice a day fluconazole 150 mg tablet 150 mg PO Q3D 0 Days Qty: 2 0RF Eliquis 5 mg tablet 5 mg PO BID Qty: 180 3RF amiodarone 200 mg tablet See Rx Instructions .ROUTE .COMPLEX Qty: 45 11RF Dose Instruction: TAKE 1/2 TABLET BY MOUTH EVERY DAY Rx Instructions: TAKE 1/2 TABLET BY MOUTH EVERY DAY atorvastatin 80 mg tablet See Rx Instructions .ROUTE .COMPLEX Qty: 90 3RF Dose Instruction: TAKE 1 TABLET BY MOUTH EVERY DAY FOR HIGH CHOLESTEROL Rx Instructions: TAKE 1 TABLET BY MOUTH EVERY DAY FOR HIGH CHOLESTEROL clopidogrel 75 mg tablet See Rx Instructions .ROUTE .COMPLEX Qty: 90 3RF Dose Instruction: TAKE 1 TABLET BY MOUTH EVERY MORNING Rx Instructions: TAKE 1 TABLET BY MOUTH EVERY MORNING potassium chloride 8 mEq capsule, extended release 8 meq PO DAILY Qty: 90 3RF spironolactone 25 mg tablet See Rx Instructions .ROUTE .COMPLEX PRN (Reason: edema) Qty: 90 3RF Dose Instruction: TAKE 1 TABLET BY MOUTH DAILY Rx Instructions: TAKE 1 TABLET BY MOUTH DAILY PRN; metoprolol tartrate 25 mg tablet 25 mg PO BID Qty: 180 3RF amlodipine 10 mg tablet 10 mg PO DAILY 90 Days Qty: 90 3RF sennosides-docusate sodium 8.6-50 mg tablet 2 tab PO BEDTIME magnesium hydroxide [Milk of Magnesia] 400 mg/5 mL Suspension 30 ml PO DAILY PRN (Reason: Constipation) Qty: 0 Acidophilus Capsule 20 mg PO DAILY Referrals: Oscar Quigley MD [Primary Care Provider, Family Practice] Print Language: Macedonian Coding Level of Care Code ED Scarfer for Daisy Mitchell
[2025-04-24 14:19] VITALS: BP 154/78; PULSE 71; RESP 18; TEMP 36.3; O2SAT 97
[2025-04-24 14:25] LABS: Hematocrit 38.5 % (36-47); Hemoglobin 12.30 g/dL (11.27-16.99); Mean Corpuscular HGB Conc 31.9 g/dL (30-55); Mean Corpuscular Hemoglobin 26.9 pg (27-33); Mean Corpuscular Volume 84.2 fl (85-98); Nucleated Red Blood Cells % 0 %; Platelet Count 221 10^3/cmm (157-399); Red Blood Count 4.57 10^6/uL (3.85-5.65); White Blood Count 6.42 10^3/uL (3.29-11.43)
[2025-04-24 14:35] LABS: INR 1.33 (0.8-1.2); Prothrombin Time 17.40 SECONDS (12.1-14.9)
[2025-04-24 14:36] LABS: Partial Thromboplastin Time 37.7 SECONDS (23.9-36.7)
[2025-04-24 14:40] LABS: Alanine Aminotransferase 19 U/L (0-33); Albumin Level 4.3 g/dL (3.5-5.2); Alkaline Phosphatase 87 U/L (35-105); Anion Gap 16.2 (5-19); Aspartate Amino Transferase 28 U/L (0-32); Blood Urea Nitrogen 22 mg/dL (8-23); Calcium 9.8 mg/dL (8.5-10.5); Carbon Dioxide 25 mmol/L (22-29); Chloride 102 mmol/L (98-107); Globulin 3.6 g/dL (1.3-4.6); Glucose 102 mg/dL (65-115); Osmolality Calculated 292 mOsm/kg (285-295); Potassium 4.2 mmol/L (3.5-5.1); Sodium 139 mmol/L (136-145); Total Protein 7.9 g/dL (6.6-8.7)
--- OUTSIDE RECORDS SUMMARY | 2025-04-24 14:47 | XMS_ITS | Encounter Summary ---
Author Organization [employer] [facility] Address [address] [place] [address] Care Team Providers Care Pelt Salter Name Role Phone Aditya Vaughn MD, Vikas Yates Primary Care Provider Encounter Details Date Type Department Care Team (Latest Contact Info) Description 01/16/2001 Outpatient Historical [facility] Dawit Hampton MD [address] [place] [phone] Panic disorder without agoraphobia (Primary Dx) Social History Tobacco Use Types Packs/Day Years Used Date Smoking Tobacco: Never Assessed Comments Unknown Sex and Gender Information Value Date Recorded Sex Assigned at Not on file 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
--- OUTSIDE RECORDS SUMMARY | 2025-04-24 14:47 | XMS_ITS | Encounter Summary ---
Author Organization [facility] Address [address] [place] [address] Care Team Providers Care Junior High School Teacher Name Role Phone Aditya Vaughn MD, Vikas Yates Primary Care Provider Encounter Details Date Type Department Care Team (Latest Contact Info) Description 12/02/2006 Outpatient Historical [facility] [address] 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
--- OUTSIDE RECORDS SUMMARY | 2025-04-24 14:47 | XMS_ITS | Encounter Summary ---
Author Organization [employer] [facility] Address [address] [place] [address] Care Team Providers Care Equipment Technician Name Role Phone Aditya Vaughn MD, Vikas Yates Primary Care Provider Encounter Details Date Type Department Care Team (Latest Contact Info) Description 12/05/1998 Outpatient Historical [facility] Jarad Cisneros NO ADDRESS ON FILE Need for prophylactic hormone replacement therapy (postmenopausal) (Primary Dx) Social History Tobacco Use Types Packs/Day Years Used Date Smoking Tobacco: Never Assessed Comments Unknown Sex and Gender Information Value Date Recorded Sex Assigned at Not on file 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
--- OUTSIDE RECORDS SUMMARY | 2025-04-24 14:47 | XMS_ITS | Encounter Summary ---
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); Personal history of malignant neoplasm of breast Social History Tobacco Use Types Packs/Day Years Used Date Smoking Tobacco: Never Assessed Comments Unknown Sex and Gender Information Value Date Recorded Sex Assigned at Not on file 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
--- OUTSIDE RECORDS SUMMARY | 2025-04-24 14:47 | XMS_ITS | Clinical Summary ---
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
--- OUTSIDE RECORDS SUMMARY | 2025-04-24 14:47 | XMS_ITS | Encounter Summary ---
Author Organization [employer] [facility] Address [address] [place] [address] Care Team Providers Care Salesperson China And Glassware Name Role Phone Aditya Vaughn MD, Vikas Yates Primary Care Provider Encounter Details Date Type Department Care Team (Latest Contact Info) Description 12/30/1999 Outpatient Historical [facility] YolieOmar elizabeth MD [address] [facility] [address] [place] [phone] Nontoxic uninodular goiter (Primary Dx) Social History Tobacco Use Types Packs/Day Years Used Date Smoking Tobacco: Never Assessed Comments Unknown Sex and Gender Information Value Date Recorded Sex Assigned at Not on file 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
--- OUTSIDE RECORDS SUMMARY | 2025-04-24 14:47 | XMS_ITS | Encounter Summary ---
Author Organization [facility] Address [address] [place] [address] Care Team Providers Care Putty Patcher Name Role Phone Aditya Vaughn MD, Vikas Yates Primary Care Provider Encounter Details Date Type Department Care Team (Latest Contact Info) Description 12/02/2006 Outpatient Historical [facility] [place] 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
--- OUTSIDE RECORDS SUMMARY | 2025-04-24 14:47 | XMS_ITS | Encounter Summary ---
Author Organization [employer] [facility] Address [address] [place] [address] Care Team Providers Care Laborer Wood Preserving Plant Name Role Phone Aditya Vaughn MD, Vikas Yates Primary Care Provider Encounter Details Date Type Department Care Team (Latest Contact Info) Description 12/14/1999 Outpatient Historical [facility] Jarad Cisneros NO ADDRESS ON FILE Routine medical exam (Primary Dx); Need for prophylactic hormone replacement therapy (postmenopausal); Nontoxic uninodular goiter Social History Tobacco Use Types Packs/Day Years Used Date Smoking Tobacco: Never Assessed Comments Unknown Sex and Gender Information Value Date Recorded Sex Assigned at Not on file 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 Gender Identity Not on file Sexual Orientation Not on file documented as of this encounter Plan of Treatment Not on file documented as of this encounter Visit Diagnoses Diagnosis Routine medical exam- Primary Routine general medical examination at a health care facility Need for prophylactic hormone replacement therapy (postmenopausal) Nontoxic uninodular goiter documented in this encounter Care Teams Laborer Wood Preserving Plant Relationship Specialty Start Date End Date Vikas Burgess Jr., MD [address] [place] [address] PCP - General 12/02/06 documented as of this encounter
--- OUTSIDE RECORDS SUMMARY | 2025-04-24 14:47 | XMS_ITS | Encounter Summary ---
Author Organization [employer] [facility] Address [address] [place] [address] Care Team Providers Care Hair Cutter Name Role Phone Aditya Vaughn MD, Vikas Yates Primary Care Provider Encounter Details Date Type Department Care Team (Latest Contact Info) Description 01/17/2001 Outpatient Historical [facility] Dawit Hampton MD [address] [place] [phone] Unspecified endocrine disorder (Primary Dx) Social History Tobacco Use Types Packs/Day Years Used Date Smoking Tobacco: Never Assessed Comments Unknown Sex and Gender Information Value Date Recorded Sex Assigned at Not on file 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
--- OUTSIDE RECORDS SUMMARY | 2025-04-24 14:47 | XMS_ITS | Encounter Summary ---
Author Organization [facility] Address [address] [place] [address] Care Team Providers Care Director Of Patient Safety Name Role Phone Aditya Vaughn MD, Vikas Yates Primary Care Provider Encounter Details Date Type Department Care Team (Latest Contact Info) Description 05/20/2003 Outpatient Historical [facility] Cardiac Data Processing Control Clerk [address] [place] [phone] Osiel Aldrich MD NO ADDRESS ON FILE CHEST PAIN NEC (Primary Dx) Social History Tobacco Use Types Packs/Day Years Used Date Smoking Tobacco: Never Assessed Comments Unknown Sex and Gender Information Value Date Recorded Sex Assigned at Not on file 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
--- OUTSIDE RECORDS SUMMARY | 2025-04-24 14:47 | XMS_ITS | Encounter Summary ---
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
--- OUTSIDE RECORDS SUMMARY | 2025-04-24 14:47 | XMS_ITS | Encounter Summary ---
Author Organization 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
[2025-04-24] MEDS: LORazepam 2 mg/mL INJ 1 mL 1 MG IVP ×2 (15:12→15:35)
[2025-04-24 15:25] LABS: ABG PCO2 37.4 mmHg (35-45); ABG PH Result 7.42 (7.35-7.45); Alveolar-Arterial Oxygen Gradi 5.4 mmHg (5-10); Arterial Blood Gas Hematocrit 37.5 % (37-47); Blood Gas Allen Test Pos; Blood Gas Operator Identificat WALCI; Blood Gas Sample Site Radial, right; Blood Gas Sample Type Arterial; Carboxyhemoglobin 0.7 %THgb (0.4-20.1); Glucose Level-ABG 108.0 mg/dL (70-115); HCO3 ABG 24.4 mmol/L (22-26); Ionized Calcium Level - ABG 1.2 mmol/L (1.1-1.4); Methemoglobin 1.1 % (0.4-1.5); Oxygen Saturation ABG 92.3; PO2 ABG 62.2 mmHg (80.0-100.0); PO2 FiO2 Ratio Arterial Blood 296; Potassium Level - ABG 3.8 mmol/L (3.5-5.0); Sodium Level - ABG 141.0 mmol/L (131-143)
[2025-04-24 15:36] LABS: Ammonia 16 umol/L (11-51)
--- NOTE | 2025-04-24 16:54 | P.HP_ITS ---
Providers/Chief Complaint 2 Primary Care Provider: Oscar Quigley MD Chief Complaint: Decreased LOC History of Present Illness Lacey Burgess is a 80 year old female with past medical history of CHF CAD hypertension presents with episode of nonresponsiveness. Patient was noted to be catatonic. She did have some responses to deep touch and visual stimulation. She was given Ativan. Imaging was done in the ER. Her vitals were stable. The patient continues to have some generalized weakness. Denies headache. Reports having a dry cough. Was treated for UTI recently. Currently does not have any sort of urinary complaints. Reports that she is mostly constipated. Denies any recent change in medication. Review of Systems 2 Const: Denies: fever(s), chills or body aches Card: Denies: chest pain, palpitations or irregular heart rhythm Resp: Reports: non-productive cough GI: Denies: abdominal pain or nausea Musc: Denies: neck pain, back pain, joint swelling or joint redness Neuro: Reports: weakness in extremities and lack of coordination Medications/Allergies Home Medications ?Medication ?Instructions ?Recorded ?Confirmed ?Last Taken ?Type cetirizine 10 mg tablet (All Day 10 mg PO BEDTIME 06/2304/24/25 11/27/23 History Allergy (cetirizine)) cholecalciferol (vitamin D3) 50 2,000 unit PO DAILY@20 07/09/19 04/24/25 11/27/23 History mcg (2,000 unit) tablet magnesium hydroxide 400 mg/5 mL 30 ml PO DAILY PRN Con stipation ##0 09/03/20 04/24/25 09/02/20 History oral suspension (Milk of Magnesia) acetaminophen 500 mg tablet 500 mg PO Q6H PRN pain #30 tabs 11/10/21 04/24/25 Unknown Rx nitroglycerin 0.4 mg sublingual 0.4 mg sublingual Q5M PRN Chest 08/11/23 04/24/25 Unknown Rx tablet Pain #25 tabs apixaban 5 mg tablet (Eliquis) 5 mg PO BID #180 tabs 0 07/20/24 04/24/25 04/24/25 08:00 Rx levothyroxine 25 mcg tablet 25 mcg PO QAM #90 tabs 04/24/25 04/24/25 07:00 Rx ondansetron 8 mg disintegrating 8 mg PO Q8H PRN nausea and 09/08/24 04/24/25 Unknown Rx tablet vomiting #10 tabs amiodarone 200 mg tablet See Rx Instructions .Route 0 09/11/24 04/24/25 Unknown Rx .COMPLEX #45 tabs atorvastatin 80 mg tablet See Rx Instructions .Route 0 09/18/24 04/24/25 04/24/25 08:00 Rx .COMPLEX #90 tabs furosemide 20 mg tablet (Lasix) 20 mg PO BID Edema 04/24/25 04/24/25 08:00 History clopidogrel 75 mg tablet See Rx Instructions .Route 0 11/13/24 04/24/25 04/24/25 08:00 Rx .COMPLEX #90 tabs potassium chloride 8 mEq 8 meq PO DAILY Edema #90 cap s 12/11/24 04/24/25 04/24/25 08:00 Rx capsule,extended release spironolactone 25 mg tablet See Rx Instructions .Route 12/11/24 04/24/25 Unknown Rx .COMPLEX PRN edema #90 tabs metoprolol tartrate 25 mg tablet 25 mg PO BID #180 tab s 01/14/25 04/24/25 04/24/25 08:00 Rx albuterol sulfate 90 mcg/actuation 2 puff inhalation Q 6H PRN 01/31/25 04/24/25 Unknown Rx aerosol inhaler (Ventolin HFA) shortness of breath or wheezing #8.5 grams amlodipine 10 mg tablet 10 mg PO DAILY 90 days #90 t abs 03/26/25 04/24/25 04/24/25 08:00 Rx fluconazole 150 mg tablet 150 mg PO Q3D 2 doses #2 tab s 04/11/25 04/24/25 Unknown Rx pantoprazole 40 mg tablet,delayed See Rx Instructions .Route 04/11/25 04/24/25 04/24/25 08:00 Rx release .COMPLEX #180 tabs Allergies Allergy/AdvReac Type Severity Reaction Status Date / Time codeine Allergy Severe rash/ Verified 01/13/25 10:06 shortness of breath fosinopril (From Monopril) Allergy Severe angioedema Verified 01/13/25 10:06 paroxetine (From Paxil) Allergy Severe shortness Verified 01/13/25 10:06 of breath amoxicillin Allergy Intermediate rash Verified 01/13/25 10:06 hydralazine Allergy Intermediate ADR-Cough Verified 01/13/25 10:06 Sulfa (Sulfonamide Allergy Intermediate rash Verified 01/13/25 10:06 Antibiotics) amlodipine AdvReac Intermediate swelling Verified 01/13/25 10:06 losartan AdvReac BP goes up Verified 01/13/25 10:06 PFSH Acute 2 PFSH: Medical History (Updated 04/24/25 @ 17:13 by Theron Rodriguez MD) Dyslipidemia (high LDL; low HDL) Left ankle sprain Left lateral ankle pain Chronic HFrEF (heart failure with reduced ejection fraction) Bacteriuria Hyponatremia CAD (coronary artery disease) Atherosclerosis of coronary artery Benign essential HTN Left bundle branch block Ventricular arrhythmia Chest pain Hypertension Surgical History H/O heart artery stent History of hysterectomy H/O lumpectomy H/O thyroidectomy Hx of tonsillectomy H/O breast biopsy Family History Family/Other CAD (coronary artery disease) Father Cancer Son Chronic kidney disease (CKD) Mother Dementia Stroke Other Hypertension Denies family history of Diabetes Clotting disorder Hyperlipidemia Suicide Anesthesia complication Bleeding disorder Family history of premature coronary artery disease Lung disease Social History Smoking and tobacco/nicotine status: never used tobacco/nicotine Alcohol intake: never Substance/Drug Use: never Marital status: Vitals/I&O/Wt Last Vital Signs Temp 97.4 F L 04/24/25 14:19 Pulse 71 04/24/25 14:19 Resp 18 04/24/25 14:19 BP 154/78 04/24/25 14:19 Pulse Ox 97 04/24/25 14:19 O2 Del Method Room Air 04/24/25 14:19 Weight last 48 hrs Weight 100 kg Physical Exam 2 Narrative: General:NAD , AAO x 3 HEENT: EOMI, oropharynx clear Lungs:CTA CVS:RRR Abd:soft, NT MSK: no swelling, genralized weakness Data 04/24/25 14:06 04/24/25 14:06 A&P Assessment and plan 1. Catatonia: Plan: #catatonia #weakness -- Unclear etiology differentials include acute stress response. CT CTA head ordered in ER. -- Neurology consultation -- EEG, MRI not indicated monitor status closely --PT OT consult, continue SSRI and Ativan #HTN #CAD #afib -- Restart home medications #cough #Asthma -- Oxygen sat stable, continue as needed albuterol RT consult DVT: Eliquis PDMP PDMP Reviewed: Not Reviewed Attestations 2 Medical Necessity Statement*: neuro consult, PT OT eval Coding Level of Care Code 79892 Diagnoses Catatonia F06.1
[2025-04-24 17:01] VITALS: BP 144/74; PULSE 62; O2SAT 96
--- NOTE | 2025-04-24 17:20 | XRR_ITS ---
PROCEDURE INFORMATION: Exam: XR Chest Exam date and time: 04/24/2025 5:41 PM Age: 80 years old Clinical indication: Shortness of breath TECHNIQUE: Imaging protocol: Radiologic exam of the chest. Views: 1 view. COMPARISON: CR XR chest 1V portable [id number] 12/22/2024 3:42 PM FINDINGS: Lungs: No pulmonary consolidation. Pleural spaces: No pneumothorax. No pleural effusion. Heart/Mediastinum: Unremarkable. No cardiomegaly. Bones/joints: Unremarkable. XR/XR chest 1V portable [id number] IMPRESSION: No acute cardiopulmonary abnormality.
[2025-04-24 18:18] LABS: Magnesium 2.4 mg/dL (1.7-2.3); Thyroid Stimulating Hormone 3.47 uIU/mL (0.27-4.20)
[2025-04-24 18:24] VITALS: BP 113/60; PULSE 64; O2SAT 97
--- NOTE | 2025-04-24 18:40 | P.CONIM_ITS ---
Providers/Reason For Consult 2 Consulting Physician/Specialty*: Dr. Inna Trevino Reason for Consult*: Stroke alert Requesting Physician: Dr. Sifuentes Attending Physician: Theron Rodriguez MD Primary Care Provider: Oscar Quigley MD History of Present Illness History of Present Illness Dr. Sifuentes talked with me after stroke alert was called on this 80-year-old woman. He reported that her symptom onset was acute within an hour but that she is on Eliquis and that her findings were atypical and not suggestive of a single artery stroke. Stroke alert was called off but because her findings were so unusual I agreed to come see her urgently. The patient was attended by her son and [id number]. They reported that she was going to have lunch with her and sat down in the recliner where she usually sits for her lunch. She made a oh sound and stopped speaking. She was staring off into space. She could not seem to move any of her 4 extremities. On arrival here she was unable to answer any questions. She would not speak at all. She would not move any of her 4 extremities or make any effort at motion at all. She would not follow commands. She would not regard the examiner. Dr. Sifuentes thought she responded to threat. She seemed to be alert but not responsive. I arrived maybe 30 minutes after the patient's arrival and she she was lying flat on the stretcher. I pulled the stretcher up so that she was better able to see me, maybe 30 degrees elevation. I took her right hand and mine and I could feel that she was trembling and she was squeezing my hand. She made eye contact. I asked her if she had a headache and she shook her head no. I asked her her name and she said her first name very softly. I raised her right arm and she was able to keep it elevated. I raised her left arm and she was able to keep it elevated. I raised her right foot at the ankle and she could keep it elevated and the left leg was the same. She could not seem to raise either leg from the stretcher but if I bent her legs at the knee she could keep them in that position. I repeated this exam several times and she is slowly improved to a slight degree. She tried to repeat a simple phrase but she spoke very softly and her speech was somewhat slurred. She was given 1 mg of Ativan IV. She immediately became more alert with an 5 minutes, made eye contact and was able to keep her arms elevated at the shoulders. The patient has been ill with a somewhat racking dry cough. Her has mantle cell lymphoma and has been spending a lot of time at [facility] in [place]. It has been a stressful time for that reason. She is not normally afflicted by stress or anxiety and is not on an antidepressant. She denies headache. She acknowledges that she is feeling cold. She has chronic atrial fibrillation for which she is on apixaban [address] Cortés's notes indicate that the patient has complained of a dry cough for several years and no cause has been found. Antibiotics have not helped and inhalers have not helped. Review of Systems 2 Const: Reports: body aches and malaise; Denies: fever(s) or chills Card: Denies: chest pain Resp: Reports: non-productive cough; Denies: dyspnea Neuro: Reports: weakness in extremities; Denies: headache(s), confusion, behavioral changes or seizure-like activity Psych: Denies: anxiety, depression, mood swings or memory loss Medications/Allergies Home Medications ?Medication ?Instructions ?Recorded ?Confirmed ?Last Taken ?Type cetirizine 10 mg tablet (All Day 10 mg PO BEDTIME 06/2304/24/25 11/27/23 History Allergy (cetirizine)) cholecalciferol (vitamin D3) 50 2,000 unit PO DAILY@20 07/09/19 04/24/25 11/27/23 History mcg (2,000 unit) tablet magnesium hydroxide 400 mg/5 mL 30 ml PO DAILY PRN Con stipation ##0 09/03/20 04/24/25 09/02/20 History oral suspension (Milk of Magnesia) acetaminophen 500 mg tablet 500 mg PO Q6H PRN pain #30 tabs 11/10/21 04/24/25 Unknown Rx nitroglycerin 0.4 mg sublingual 0.4 mg sublingual Q5M PRN Chest 08/11/23 04/24/25 Unknown Rx tablet Pain #25 tabs apixaban 5 mg tablet (Eliquis) 5 mg PO BID #180 tabs 0 07/20/24 04/24/25 04/24/25 08:00 Rx levothyroxine 25 mcg tablet 25 mcg PO QAM #90 tabs 04/24/25 04/24/25 07:00 Rx ondansetron 8 mg disintegrating 8 mg PO Q8H PRN nausea and 09/08/24 04/24/25 Unknown Rx tablet vomiting #10 tabs amiodarone 200 mg tablet See Rx Instructions .Route 0 09/11/24 04/24/25 Unknown Rx .COMPLEX #45 tabs atorvastatin 80 mg tablet See Rx Instructions .Route 0 09/18/24 04/24/25 04/24/25 08:00 Rx .COMPLEX #90 tabs furosemide 20 mg tablet (Lasix) 20 mg PO BID Edema 04/24/25 04/24/25 08:00 History clopidogrel 75 mg tablet See Rx Instructions .Route 0 11/13/24 04/24/25 04/24/25 08:00 Rx .COMPLEX #90 tabs potassium chloride 8 mEq 8 meq PO DAILY Edema #90 cap s 12/11/24 04/24/25 04/24/25 08:00 Rx capsule,extended release spironolactone 25 mg tablet See Rx Instructions .Route 12/11/24 04/24/25 Unknown Rx .COMPLEX PRN edema #90 tabs metoprolol tartrate 25 mg tablet 25 mg PO BID #180 tab s 01/14/25 04/24/25 04/24/25 08:00 Rx albuterol sulfate 90 mcg/actuation 2 puff inhalation Q 6H PRN 01/31/25 04/24/25 Unknown Rx aerosol inhaler (Ventolin HFA) shortness of breath or wheezing #8.5 grams amlodipine 10 mg tablet 10 mg PO DAILY 90 days #90 t abs 03/26/25 04/24/25 04/24/25 08:00 Rx fluconazole 150 mg tablet 150 mg PO Q3D 2 doses #2 tab s 04/11/25 04/24/25 Unknown Rx pantoprazole 40 mg tablet,delayed See Rx Instructions .Route 04/11/25 04/24/25 04/24/25 08:00 Rx release .COMPLEX #180 tabs Allergies Allergy/AdvReac Type Severity Reaction Status Date / Time codeine Allergy Severe rash/ Verified 01/13/25 10:06 shortness of breath fosinopril (From Monopril) Allergy Severe angioedema Verified 01/13/25 10:06 paroxetine (From Paxil) Allergy Severe shortness Verified 01/13/25 10:06 of breath amoxicillin Allergy Intermediate rash Verified 01/13/25 10:06 hydralazine Allergy Intermediate ADR-Cough Verified 01/13/25 10:06 Sulfa (Sulfonamide Allergy Intermediate rash Verified 01/13/25 10:06 Antibiotics) amlodipine AdvReac Intermediate swelling Verified 01/13/25 10:06 losartan AdvReac BP goes up Verified 01/13/25 10:06 PFSH Acute 2 PFSH: Medical History Dyslipidemia (high LDL; low HDL) Left ankle sprain Left lateral ankle pain Chronic HFrEF (heart failure with reduced ejection fraction) Bacteriuria Hyponatremia CAD (coronary artery disease) Atherosclerosis of coronary artery Benign essential HTN Left bundle branch block Ventricular arrhythmia Chest pain Hypertension Surgical History H/O heart artery stent History of hysterectomy H/O lumpectomy H/O thyroidectomy Hx of tonsillectomy H/O breast biopsy Family History Family/Other CAD (coronary artery disease) Father Cancer Son Chronic kidney disease (CKD) Mother Dementia Stroke Other Hypertension Denies family history of Diabetes Clotting disorder Hyperlipidemia Suicide Anesthesia complication Bleeding disorder Family history of premature coronary artery disease Lung disease Social History Smoking and tobacco/nicotine status: never used tobacco/nicotine Alcohol intake: never Substance/Drug Use: never Marital status: Vitals/I&O/Wt Last Vital Signs Temp 97.4 F L 04/24/25 14:19 Pulse 64 04/24/25 18:24 Resp 18 04/24/25 14:19 BP 113/60 04/24/25 18:24 Pulse Ox 97 04/24/25 18:24 O2 Del Method Room Air 04/24/25 18:24 Weight last 48 hrs Weight 220 lb 7.396 oz Physical Exam 2 Narrative: General: Overweight elderly woman lying flat in on a stretcher in the emergency department. She was watching me from the moment I entered but did not acknowledge. Mental status exam: I immediately took her hand and she squeezed my hand with the right hand. I took her left hand and she squeezed my hand with the left hand while looking at me. After some time she was able to repeat a simple phrase. She followed commands such as show me 2 fingers. She does not have waxy flexibility but she is basically unmoving. Motor: She can squeeze my hand with either hand. She could keep her arms elevated for count of 10 and she could elevate her ankles to a count of 5 but could not lift her legs against gravity. She could bend her knees. Deep tendon reflexes 1+ throughout except ankle jerks absent. Gait not tested. No cerebellar signs. HEENT normocephalic. Conjunctiva not injected. She looks younger than her age. Neck supple. Chest: Clear to auscultation. Cardiovascular: S1 and S2 normal and she sounds like she is in sinus rhythm. Abdomen deferred extremities: No deformities Data 04/24/25 14:06 04/24/25 14:06 Other Labs: Blood gas normal. Creatinine chronically elevated 1.4. TSH normal. CT Head: My impression: Normal for age Radiologist's impression: CT angiogram: 1. No significant cervical ICA stenosis. Retropharyngeal course to both carotid bulbs and cervical ICAs. 2. Codominant patent vertebral arteries bilaterally. 3. No flow-limiting intracranial stenosis. Dictated By: Usman Bateman MD Signed By: Usman Bateman MD Signed Date/Time: 04/24/25 A&P Assessment and plan 1. Idiopathic catatonia: 80-year-old woman with no prior psychiatric history, no history of anxiety or depression who presents with apparent sudden onset of catatonia. Her neurologic exam is nonfocal and by the time I arrived she was willing to cooperate with me a little bit which I think was because I sat her up a little bit. She becomes much more responsive after IV Ativan, which is consistent with catatonia. From reading the chart as I dictate this later, it looks like she was talking with the nurses and fully oriented by 3:00 which would have been after the second injection of Ativan. The appropriate treatment at this point is to continue benzo therapy. It would be fine to put her on a low-dose SSRI such as citalopram 20 mg daily along with 1 mg of Ativan twice daily and if she is up walking tomorrow she could go home. I would be glad to see her in my office within a week or 2 to check on her progress or sooner if needed. I talked with Dr. Rodriguez and we discussed her care and future plans I cannot explain why she developed idiopathic catatonia in the middle of the day for no reason. She is not having a stroke. There is no sign of encephalitis. She is not on medications that would pertain. 2. Tremor: I note a fine postural tremor on exam PDMP PDMP Reviewed: Not Reviewed Coding Level of Care Code Acute Code for Chg Fwd Diagnoses Idiopathic catatonia F20.2 Tremor R25.1
[2025-04-24 20:00] VITALS: BP 111/64; PULSE 67; RESP 16; TEMP 36.6; O2SAT 93
[2025-04-24 22:55] VITALS: BMI 36.6
[2025-04-25] VITALS: BP 120/72; PULSE 64; RESP 16; TEMP 36.4; O2SAT 94
[2025-04-25 04:00] VITALS: BP 124/67; PULSE 72; RESP 16; TEMP 36.6; O2SAT 90
[2025-04-25 05:12] LABS: Hematocrit 35.6 % (36-47); Hemoglobin 11.00 g/dL (11.27-16.99); Mean Corpuscular HGB Conc 30.9 g/dL (30-55); Mean Corpuscular Hemoglobin 27.0 pg (27-33); Mean Corpuscular Volume 87.3 fl (85-98); Nucleated Red Blood Cells % 0 %; Platelet Count 175 10^3/cmm (157-399); Red Blood Count 4.08 10^6/uL (3.85-5.65); White Blood Count 5.06 10^3/uL (3.29-11.43)
[2025-04-25 05:39] LABS: Alanine Aminotransferase 16 U/L (0-33); Albumin Level 3.6 g/dL (3.5-5.2); Alkaline Phosphatase 80 U/L (35-105); Anion Gap 14.8 (5-19); Aspartate Amino Transferase 24 U/L (0-32); Blood Urea Nitrogen 19 mg/dL (8-23); Calcium 9.3 mg/dL (8.5-10.5); Carbon Dioxide 24 mmol/L (22-29); Chloride 105 mmol/L (98-107); Globulin 3.0 g/dL (1.3-4.6); Glucose 105 mg/dL (65-115); Osmolality Calculated 293 mOsm/kg (285-295); Potassium 3.8 mmol/L (3.5-5.1); Sodium 140 mmol/L (136-145); Total Protein 6.6 g/dL (6.6-8.7)
[2025-04-25 05:53] LABS: Cholesterol 128 mg/dL (0-200); HDL Cholesterol 47 mg/dL (60-100); Triglycerides 102 mg/dL (0-150)
[2025-04-25 06:11] LABS: Estmated Average Glucose 117; Hemoglobin A1C 5.7 % (4.0-6.0)
[2025-04-25 07:27] VITALS: BP 115/68; PULSE 68; RESP 16; TEMP 36.6; O2SAT 93
[2025-04-25 08:54] LABS: Glucose Urine UA Negative (Normal); Nitrate Urine Negative (Negative)
[2025-04-25 08:59] LABS: Add Urine Microscopic? YES
[2025-04-25 09:01] LABS: PCP Screen Urine Negative (Negative)
[2025-04-25 09:04] LABS: Specific Gravity, Urine 1.041 (1.005-1.030)
[2025-04-25 11:22] VITALS: BP 132/79; PULSE 69; RESP 16; TEMP 36.4; O2SAT 95
--- NOTE | 2025-04-25 11:54 | P.DS_ITS ---
Discharge Providers Date of Admission: 04/24/25 17:51 Date of Discharge: April 25, 2025 Attending Provider at Admission: Theron Rodriguez MD Attending Provider at Discharge: Theron Rodriguez MD Primary Care Provider: Oscar Quigley MD Diagnoses at Discharge Discharge Diagnosis 1. Idiopathic catatonia: 2. Tremor: Reason for Visit Reason for Visit: Decreased LOC Hospital Course Hospital Course H&P: Lacey Burgess is a 80 year old female with past medical history of CHF CAD hypertension presents with episode of nonresponsiveness. Patient was noted to be catatonic. She did have some responses to deep touch and visual stimulation. She was given Ativan. Imaging was done in the ER. Her vitals were stable. The patient continues to have some generalized weakness. Denies headache. Reports having a dry cough. Was treated for UTI recently. Currently does not have any sort of urinary complaints. Reports that she is mostly constipated. Denies any recent change in medication. Course: The patient was admitted with catatonia and weakness. Unclear etiology. Imaging was done. Neurology consultation was done. Therapy was consulted. An SSRI and Ativan was started. Chronic conditions were also addressed. Patient symptoms had improved. Recommended outpatient neurology follow-up. Differentials included for catatonia acute stress response. Physical Exam Narrative: general: NAD HEENT: EOMI CVS:RRR Resp: CTA MSK: no edema Discharge Data Studies Completed and Pending Completed Studies During Hospitalization Category Date Time Status CT angio headneck* [id number] Stat Cat Scan 04/24/25 14:[address] head thrombolytic 51794 Stat Cat Scan 04/24/25 14:06 Completed XR chest 1V portable [id number] Routine Exams 04/24/25 17:20 Completed Radiology Impressions Head CT 04/24/25 14:06 IMPRESSION: 1. No evidence of intracranial hemorrhage or mass effect. 2. No acute intracranial findings. Notified Madan Sifuentes DO at 04/24/2025 2:17 PM. Head/Neck CTA 04/24/25 14:07 IMPRESSION: 1. No significant cervical ICA stenosis. Retropharyngeal course to both carotid bulbs and cervical ICAs. 2. Codominant patent vertebral arteries bilaterally. 3. No flow-limiting intracranial stenosis. Chest X-Ray 04/24/25 17:20 IMPRESSION: No acute cardiopulmonary abnormality. Laboratory Results WBC 5.06 10^3/uL (3.29-11.43) 04/25/25 04:43 RBC 4.08 10^6/uL (3.85-5.65) 04/25/25 04:43 Hgb 11.00 g/dL (11.27-16.99) L 04/25/25 04:43 Hct 35.6 % (36-47) L 04/25/25 04:43 MCV 87.3 fl (85-98) 04/25/25 04:43 MCH 27.0 pg (27-33) 04/25/25 04:43 MCHC 30.9 g/dL (30-55) 04/25/25 04:43 RDW 15.9 % (12.1-15.1) H 04/25/25 04:43 Plt Count 175 10^3/cmm (157-399) 04/25/25 04:43 MPV 9.7 fL (7.4-10.4) 04/25/25 04:43 Neut % (Auto) 55.9 % 04/25/25 04:43 Lymph % (Auto) 26.9 % 04/25/25 04:43 [place] % (Auto) 13.2 % 04/25/25 04:43 Eos % (Auto) 2.4 % 04/25/25 04:43 Baso % (Auto) 1.0 % 04/25/25 04:43 Neut # (Auto) 2.83 10^3/uL (1.8-7.7) 04/25/25 04:43 Lymph # (Auto) 1.4 10^3/uL (0.8-4.8) 04/25/25 04:43 [place] # (Auto) 0.7 10^3/uL (0.2-0.9) 04/25/25 04:43 Eos # (Auto) 0.1 10^3/uL (0.0-0.8) 04/25/25 04:43 Baso # (Auto) 0.1 10^3/uL (0.0-0.1) 04/25/25 04:43 Nucleated RBC % (auto) 0 % 04/25/25 04:43 Nucleated RBCs # 0.0 /100WBC 04/25/25 04:43 PT 17.40 SECONDS (12.1-14.9) H 04/24/25 14:06 INR 1.33 (0.8-1.2) H 04/24/25 14:06 APTT 37.7 SECONDS (23.9-36.7) H 04/24/25 14:06 Specimen Type Arterial 04/24/25 12:14 Sample Site Radial, right 04/24/25 12:14 ABG pH 7.42 (7.35-7.45) 04/24/25 12:14 ABG pCO2 37.4 mmHg (35-45) 04/24/25 12:14 ABG pO2 62.2 mmHg (80.0-100.0) L 04/24/25 12:14 ABG PO2/FiO2 Ratio 296 04/24/25 12:14 ABG HCO3 24.4 mmol/L (22-26) 04/24/25 12:14 ABG O2 Saturation 92.3 04/24/25 12:14 ABG Base Excess 0.2 mmol/L (-2.0-2.0) 04/24/25 12:14 Brandan Test Pos 04/24/25 12:14 A-a O2 Gradient 5.4 mmHg (5-10) 04/24/25 12:14 Hematocrit 37.5 % (37-47) 04/24/25 12:14 Hgb O2 Saturation 90.7 % (95-100) L 04/24/25 12:14 Carboxyhemoglobin 0.7 %THgb (0.4-20.1) 04/24/25 12:14 Methemoglobin 1.1 % (0.4-1.5) 04/24/25 12:14 Total Hemoglobin 12.2 g/dL (12-16) 04/24/25 12:14 Sodium 141.0 mmol/L (131-143) 04/24/25 12:14 Potassium 3.8 mmol/L (3.5-5.0) 04/24/25 12:14 Glucose 108.0 mg/dL (70-115) 04/24/25 12:14 Ionized Calcium 1.2 mmol/L (1.1-1.4) 04/24/25 12:14 O2 Delivery Device Room air 04/24/25 12:14 FiO2 21.0 % 04/24/25 12:14 Consolidation Accountant ID [place] 04/24/25 12:14 Sodium 140 mmol/L (136-145) 04/25/25 04:43 Potassium 3.8 mmol/L (3.5-5.1) 04/25/25 04:43 Chloride 105 mmol/L (98-107) 04/25/25 04:43 Carbon Dioxide 24 mmol/L (22-29) 04/25/25 04:43 Anion Gap 14.8 (5-19) 04/25/25 04:43 BUN 19 mg/dL (8-23) 04/25/25 04:43 Creatinine 1.2 mg/dL (0.5-0.9) H 04/25/25 04:43 GFR Calculation Not Reportable 04/25/25 04:43 Glucose 105 mg/dL (65-115) 04/25/25 04:43 POC Glucose 97 mg/dL (70-110) 04/24/25 14:22 Estimat Average Glucose 117 04/25/25 04:43 Hemoglobin A1c 5.7 % (4.0-6.0) 04/25/25 04:43 Calculated Osmolality 293 mOsm/kg (285-295) 04/25/25 04:43 Calcium 9.3 mg/dL (8.5-10.5) 04/25/25 04:43 Phosphorus 3.3 mg/dL (2.5-4.5) 04/24/25 14:06 Magnesium 2.4 mg/dL (1.7-2.3) H 04/24/25 14:06 Total Bilirubin 0.5 mg/dL (0.15-1.2) 04/25/25 04:43 AST 24 U/L (0-32) 04/25/25 04:43 ALT 16 U/L (0-33) 04/25/25 04:43 Alkaline Phosphatase 80 U/L (35-105) 04/25/25 04:43 Ammonia 16 umol/L (11-51) 04/24/25 15:09 Creatine Kinase 159 U/L (26-192) 04/24/25 14:06 C-Reactive Protein 3.0 mg/L (0.0-4.9) 04/24/25 14:06 Total Protein 6.6 g/dL (6.6-8.7) 04/25/25 04:43 Albumin 3.6 g/dL (3.5-5.2) 04/25/25 04:43 Globulin 3.0 g/dL (1.3-4.6) 04/25/25 04:43 Triglycerides 102 mg/dL (0-150) 04/25/25 04:43 Cholesterol 128 mg/dL (0-200) 04/25/25 04:43 LDL Cholesterol, Calc 61 mg/dL (50-129) 04/25/25 04:43 HDL Cholesterol 47 mg/dL (60-100) L 04/25/25 04:43 LDL/HDL Ratio 1.30 RATIO (0.00-3.22) 04/25/25 04:43 Cholesterol/HDL Ratio 2.72 mg/dL (0.0-4.40) 04/25/25 04:43 TSH 3.47 uIU/mL (0.27-4.20) 04/24/25 14:06 Urine Color Yellow (Yellow) 04/25/25 08:30 Urine Appearance Cloudy (CLEAR) A 04/25/25 08:30 Urine pH 6.0 (5-7) 04/25/25 08:30 Ur Specific [place] 1.041 (1.005-1.030) H 04/25/25 08:30 Urine Protein Negative (Negative) 04/25/25 08:30 Urine Glucose (UA) Negative (Normal) 04/25/25 08:30 Urine Ketones Trace (Negative) 04/25/25 08:30 Urine Blood Negative (Negative) 04/25/25 08:30 Urine Nitrate Negative (Negative) 04/25/25 08:30 Urine Bilirubin Negative (Negative) 04/25/25 08:30 Urine Urobilinogen 1.0 mg/dL (Negative) 04/25/25 08:30 Ur Leukocyte Esterase Negative (Negative) 04/25/25 08:30 Urine RBC 0-2 /hpf (0-2) 04/25/25 08:30 Urine WBC 0-5 /hpf (0-5) 04/25/25 08:30 Ur Squamous Epith Cells 11-20 /hpf (0-5) H 04/25/25 08:30 Amorphous Sediment Not Reportable 04/25/25 08:30 Urine Bacteria Trace /hpf (NONE) 04/25/25 08:30 Hyaline Casts 4.95 /lpf 04/25/25 08:30 Urine Opiates Screen Negative ng/mL (Negative) 04/25/25 08:30 Ur Barbiturates Screen Negative ng/mL (Negative) 04/25/25 08:30 Ur Phencyclidine Scrn Negative ng/mL (Negative) 04/25/25 08:30 Ur Amphetamines Screen Negative ng/mL (Negative) 04/25/25 08:30 U Benzodiazepines Scrn Positive ng/mL (Negative) H 04/25/25 08:30 Urine Cocaine Screen Negative ng/mL (Negative) 04/25/25 08:30 U Marijuana (THC) Screen Negative ng/mL (Negative) 04/25/25 08:30 Vitals Last Vital Signs Temp 97.6 F 04/25/25 11:22 Pulse 69 04/25/25 11:22 Resp 16 04/25/25 11:22 BP 132/79 04/25/25 11:22 Pulse Ox 95 04/25/25 11:22 O2 Del Method Room Air 04/25/25 11:22 Discharge Plan Discharge Patient Disposition: Home Condition: Stable Prescriptions: New citalopram [Celexa] 20 mg tablet 20 mg PO DAILY Qty: 90 0RF lorazepam 1 mg tablet 1 mg PO BID Qty: 20 0RF sennosides-docusate sodium [Senna-S] 8.6-50 mg tablet 1 tab-cap PO DAILY Qty: 60 0RF docusate sodium [Colace] 100 mg capsule 100 mg PO DAILY Qty: 60 0RF Continued cholecalciferol (vitamin D3) 2,000 unit tablet 2,000 unit PO DAILY@20 cetirizine [All Day Allergy (cetirizine)] 10 mg tablet 10 mg PO BEDTIME acetaminophen 500 mg tablet 500 mg PO Q6H PRN (Reason: pain) Qty: 30 0RF nitroglycerin 0.4 mg tablet, sublingual 0.4 mg sublingual Q5M PRN (Reason: Chest Pain) Qty: 25 0RF levothyroxine 25 mcg tablet 25 mcg PO QAM Qty: 90 3RF ondansetron 8 mg tablet,disintegrating 8 mg PO Q8H PRN (Reason: nausea and vomiting) Qty: 10 0RF Lasix 20 mg tablet 20 mg PO BID albuterol sulfate [Ventolin HFA] 90 mcg/actuation HFA aerosol inhaler 2 puff inhalation Q6H PRN (Reason: shortness of breath or wheezing) Qty: 8.5 11RF pantoprazole 40 mg tablet,delayed release (DR/EC) See Rx Instructions .ROUTE .COMPLEX Qty: 180 3RF Dose Instruction: TAKE 1 TABLET BY MOUTH EVERY DAY Rx Instructions: TAKE 1 TABLET BY MOUTH twice a day fluconazole 150 mg tablet 150 mg PO Q3D 0 Days Qty: 2 0RF Eliquis 5 mg tablet 5 mg PO BID Qty: 180 3RF amiodarone 200 mg tablet See Rx Instructions .ROUTE .COMPLEX Qty: 45 11RF Dose Instruction: TAKE 1/2 TABLET BY MOUTH EVERY DAY Rx Instructions: TAKE 1/2 TABLET BY MOUTH EVERY DAY atorvastatin 80 mg tablet See Rx Instructions .ROUTE .COMPLEX Qty: 90 3RF Dose Instruction: TAKE 1 TABLET BY MOUTH EVERY DAY FOR HIGH CHOLESTEROL Rx Instructions: TAKE 1 TABLET BY MOUTH EVERY DAY FOR HIGH CHOLESTEROL clopidogrel 75 mg tablet See Rx Instructions .ROUTE .COMPLEX Qty: 90 3RF Dose Instruction: TAKE 1 TABLET BY MOUTH EVERY MORNING Rx Instructions: TAKE 1 TABLET BY MOUTH EVERY MORNING potassium chloride 8 mEq capsule, extended release 8 meq PO DAILY Qty: 90 3RF spironolactone 25 mg tablet See Rx Instructions .ROUTE .COMPLEX PRN (Reason: edema) Qty: 90 3RF Dose Instruction: TAKE 1 TABLET BY MOUTH DAILY Rx Instructions: TAKE 1 TABLET BY MOUTH DAILY PRN; metoprolol tartrate 25 mg tablet 25 mg PO BID Qty: 180 3RF amlodipine 10 mg tablet 10 mg PO DAILY 90 Days Qty: 90 3RF Held magnesium hydroxide [Milk of Magnesia] 400 mg/5 mL Suspension 30 ml PO DAILY PRN (Reason: Constipation) Qty: 0 Hold Instructions: Resume on 05/01/25. Discharge Order = DC NOW: Discharge Order (Routine); Ordered 04/25/25 Ordered By: Theron Rordiguez Referrals: Inna Trevino MD [Physician, Neurology] - 4-7 days Referral Note: We have notified your physician's clinic of the need for a fo llow-up appointment to be scheduled. If you have not heard from them within the next 2 business days, please call them directly. Oscar Quigley MD [Primary Care Provider, Family Practice] Referral Note: We have notified your physician's clinic of the need for a follow-up appointment to be scheduled. If you have not heard from them within the next 2 business days, please call them directly. Discharge Diet: Cardiac Patient Instructions: Lorazepam (By mouth), Citalopram (By mouth), Senna (By mouth), Docusate Sodium (By mouth), Seasonal Affective Disorder (DC), Opioid Safety, Patient Portal & [place] Instructions Activity Restrictions/Additional Instructions: take medicines as prescribed followup with pcp and neurology Discharge Attestations Time Spent in Discharge Care*: less than 30 min Quality Metrics Clinical Quality Measures [ No reported AMI, CVA or VTE this stay] Coding Level of Care Code 78585 Diagnoses Idiopathic catatonia F20.2 Tremor R25.1
[2025-04-25 12:21] VITALS: BP 132/79; PULSE 69; RESP 16; TEMP 36.4; O2SAT 95
== END 2025-04-25 12:22 | disposition home or self-care (01) | DRG 81 ==
LOC: ER 15:29 → MEDSURG 17:52
PROVIDERS: Admitting Provider Internal Medicine; Emergency Provider Family Medicine; PCP Family Medicine; Visit Provider Internal Medicine
DX: R40.1 Stupor (principal); I50.22 Chronic systolic (congestive) heart failure; I48.20 Chronic atrial fibrillation, unspecified; R25.1 Tremor, unspecified; I11.0 Hypertensive heart disease with heart failure; I25.10 Atherosclerotic heart disease of native coronary artery without angina pectoris; K59.00 Constipation, unspecified; E78.5 Hyperlipidemia, unspecified; I44.7 Left bundle-branch block, unspecified; E89.0 Postprocedural hypothyroidism; J45.909 Unspecified asthma, uncomplicated; Z79.01 Long term (current) use of anticoagulants; Z79.02 Long term (current) use of antithrombotics/antiplatelets; Z95.5 Presence of coronary angioplasty implant and graft; Z87.440 Personal history of urinary (tract) infections
CPT/HCPCS: 36415; 36416; 36600; 70450; 70496; 70498; 71045; 80051; 80053; 80061; 80306; 81001; 82140; 82330; 82550; 82805; 82962; 83036; 83735; 84100; 84443; 85025; 85610; 85730; 86140; 93005; 96374; 97116; 97161; 97165; 99285; J2060; J9999

== ENCOUNTER → 2025-05-22 10:49 | Outpatient (BNVA) | payer MEDICARE, OTHER, SELFPAY | PROVIDERS: PCP Family Medicine; Visit Provider Family Medicine | DX: R30.0 Dysuria (principal) | CPT/HCPCS: 81000; 87086 ==